=== PATIENT | female | born 2005 | race Caucasian/White ===

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

== ENCOUNTER 2024-08-15 14:45 | Outpatient (OUT) | payer OTHER, SELFPAY ==
[2024-08-15 17:01] LABS: HCG Quantitative <1 mIU/mL
== END 2024-08-15 14:46 | disposition home or self-care (01) ==
LOC: LAB 14:46
PROVIDERS: PCP Nurse Practitioner Family; Visit Provider Obstetrics & Gynecology
DX: N92.6 Irregular menstruation, unspecified (principal)
CPT/HCPCS: 36415; 84702

== ENCOUNTER 2025-07-03 12:23 | Outpatient (OUT) | payer OTHER, SELFPAY ==
--- OUTSIDE RECORDS SUMMARY | 2025-07-03 12:29 | XMS_ITS | Encounter Summary ---
Author Organization [facility] Address [address] [place] [address] Care Team Providers Care Drywall Taper Name Role Phone Unavailable Primary Care Provider Unavailabl e Encounter Details DateTypeDepartmentCare Team (Latest Contact Info)Geqbqamdvcj52/12/2025bstract [facility] [address] [place] [address] Deena Galloway, BRENNA [address] [place] [address] Social History Tobacco UseTypesPacks/DayYears UsedDateSmoking Tobacco: Never Assessed Estimated Date of IgsggfxuRwusfytgFzz35/05/2026ased on UltrasoundSex and Gender InformationValueDate RecordedSex Assigned at BirthNot on fileLegal SexFemale 10/26/2022 6:57 PM EDTGender IdentityNot on fileSexual OrientationNot on file documented as of this encounter Plan of Treatment DateTypeDepartmentCare Team (Latest Contact Info)Bsbqgkngedx91/25/2025 1:00 PM ESTAncillary Procedure [facility] [address] [place] [address] 07/08/2025 2:10 PM ESTRoutine [facility] [address] [place] [address] Ranjan Alas DO [address] [place] [address] documented as of this encounter Visit Diagnoses Not on filedocumented in this encounter
--- OUTSIDE RECORDS SUMMARY | 2025-07-03 12:29 | XMS_ITS | Patient Health Record ---
Author Organization [facility] in [place] Address [address] [place] [address] Care Team Providers Care Roentgenologist Name Role Phone Izabella Hicks Primary Care Provider [phone] Allergies Allergen (clinical drug ingredient) Drug/Non Drug Allergy documented on EMR Reaction Allergy Type Onset Date Status Penicillinchildhood allergyDrug AllergyActive Results Component Value Reference Range Notes PREG QUANT HCG Reviewed date:08/16/2024 10:20:57 AM Interpretation: Performing Lab: Notes/Report: [facility] , HCG Quantitative <1 15,000-200,000 6-8 WEEKS 100-5,000 2-3 WEEKS 500-10,000 3-4 WEEKS 1,000-50,000 4-5 WEEKS 50-500 1-2 WEEKS 5-50 0.2-1 WEEK 10,000-100,000 5-6 WEEKS 10,000-100,000 2-3 MONTHS Performing Lab:see noteML - [facility] LB Reason For Referral No Information Social History Tobacco Use: Social History Observation Description Date Details (start date - stop date) Never Smoker NA - NA Tobacco Use/Smoking Question Answer Notes Patient is a nonsmoker Alcohol Screen (Audit-C) Question Answer Notes Did you have a drink containing alcohol in the p ast year? No Eapzmm3FvhkyoeexghzdeGgdewiikOISSB-N (Standard) Question Answer Notes Did you have a drink containing alcohol in the p ast year? No Qehszt4IardbehsziterjYhuyirlp Problems Problem Type SNOMED Code ICD Code Onset Dates Problem Status W/U Status Risk Notes Problem Anxiety disorder (139402549) Anxiety diso rder, unspecified (F41.9) Activeconfirmed Plan Of Treatment No Information Insurance Providers Payer Name Payer Address Payer Phone Subscriber Number Group Number Insured Name Patient Relationship to Insured Coverage Start Date Coverage End Date [employer] [place] [employer] [address] [place] [phone] [id number] Pedro Georgeelf - patient is the insured Medical (General) History Surgical History Surgery Date(Month/Year) cyst removal from rt hand
--- OUTSIDE RECORDS SUMMARY | 2025-07-03 12:29 | XMS_ITS | Clinical Summary ---
Author Organization [facility] Address [address] [place] [address] Care Team Providers Care Business Administration Professor Name Role Phone Unavailable Primary Care Provider Unavailabl e Allergies Active AllergyReactionsCriticalityNoted DateCommentsPenicillin G004/04/2025 Other Reaction(s): childhood allergy Hlpreptbfia78/07/2021 Other Reaction(s): childhood allergy Unsure reaction; reaction as a baby Unsure reaction; reaction as a baby Medications No known medications Encounters DateTypeDepartmentCare VfrmSkaxhrkqboe08/12/2025bstract [facility] [address] [place] [address] Deena Galloway LPN 06/18/2025Patient Outreach [facility] [address] [place] [address] Deena Galloway LPN 06/09/2025 10:50 AM [place] [address] Deena Martinez PA 17 weeks gestation of ([facility]); Second trimester ([facility]); Acute intractable headache, unspecified headache type; Screening, , for anatomic survey ([facility]); Exposure to STD; Vaginal mvmoxonsd17/27/2025External Result Encounter [facility] Unsolicited Deena Martinez PA 06/09/2025amboo flowsheet [facility] [address] [place] [address] Deena Martinez PA 04/28/2025 1:40 PM EDTRoutine [facility] [place] [address] Ranjan Alas, 11 weeks gestation of ([facility]); First trimester ([facility]); Acute intractable headache, unspecified headache type04/28/2025amboo flowsheet [facility] [place] [address] Ranjan Alas, 04/04/2025 9:00 AM EDTInitial NOMAlana Hodges [facility] [place] [address] [place]: 7w5d04/04/2025 8:30 AM EDTAncillary Procedure NOMAlana [facility]ges [facility] [place] [address] Missed menses; Positive urine test ([facility])from Last 3 Months Family History Medical HistoryRelationNameCommentsMIFatherPost injury blood clot caused [place] Alzheimer's diseaseMaternal GrandmotherLupus erythematosusMaternal Grandmother Thyroid diseaseMotherRelationNameStatusCommentsFatherMaternal GrandmotherMother Social History Tobacco UseTypesPacks/DayYears UsedDateSmoking Tobacco: Never Assessed Estimated Date of QghcfdybEslivmeeLxt16/05/2026ased on UltrasoundSex and Gender InformationValueDate RecordedSex Assigned at BirthNot on fileLegal SexFemale 10/26/2022 6:57 PM EDTGender IdentityNot on fileSexual OrientationNot on file Last Filed Vital Signs Vital SignReadingTime TakenCommentsBlood Bbhmadjb668/6406/09/2025 10:55 AM EDT Pulse--Temperature--Respiratory Rate--Oxygen Saturation--Inhaled Oxygen Concentration--Ebkpyp78.9 kg (171 lb 12.8 oz)06/09/2025 10:55 AM CQIEsbkhw605.9 cm (5' 1 )01/16/2024 2:17 PM EDTBody Mass Index32.46001/16/2024 2:17 PM EDT Plan of Treatment DateTypeDepartmentCare Team (Latest Contact Info)Trkqaheijic61/25/2025 1:00 PM ESTAncillary Procedure [facility] [address] [place] [address] 07/08/2025 2:10 PM ESTRoutine [facility] [address] [place] [address] Ranjan Alas, DO [address] [place], [place] [id number] Procedures Procedure NamePriorityDate/TimeAssociated DiagnosisCommentsRECURRENT VAGINITIS (HTRX)Llqnysm6706/09/2025 11:50 AM EDT POCT URINALYSIS YGMUDHVTPwpvcqa91/27/2025 11:02 AM EDT 17 weeks gestation of ([facility]) Second trimester ([facility]) POCT URINALYSIS XAMUFKRGIvbeaxy26/15/2025 1:54 PM EDT 11 weeks gestation of ([facility]) First trimester ([facility]) POCT URINALYSIS AQMRCFAYNamleds78/22/2025 9:17 AM EDT Missed menses POCT , CTCIMSydrxio64/22/2025 9:17 AM EDT Missed menses OB RZUYWXDRPNEFGrajpzh25/22/2025 8:48 AM EDT Missed menses Positive urine test ([facility]) from Last 3 Months Results * RECURRENT VAGINITIS (HTRX) (06/09/2025 11:50 AM EDT)ComponentValueRef Range Test MethodAnalysis TimePerformed AtPathologist SignatureATOPOBIUM VAGINAE0 19.961 - 24.689 ppm06/10/2025 6:[address] Anthony HospitalATOPOBIUM VAGINAENot Wblpkgts16.961 - 24.689 ppm06/10/2025 6:[address] Anthony HospitalBVAB 2,3 (BACTERIAL VAGINOSIS ASSOCIATED BACTERIA 2, 3); MOBILUNCUS SPP 019.961 - 24.689 ppm06/10/2025 6:[address] Anthony HospitalBVAB 2,3 (BACTERIAL VAGINOSIS ASSOCIATED BACTERIA 2, 3); MOBILUNCUS SPPNot Detected 19.961 - 24.689 ppm06/10/2025 6:[address] Anthony HospitalCANDIDA ALBICANS, PARAPSILOSIS, FWAFWGKKGH105.000 - 30.347 ppm06/10/2025 6:52 AM EDT [facility] HospitalCANDIDA ALBICANS, PARAPSILOSIS, TROPICALISNot Detected 23.000 - 30.347 ppm06/10/2025 6:[address] Anthony HospitalCANDIDA WQXLFUUI206.000 - 31.618 ppm06/10/2025 6:[address] [facility] CHRYSTAL GLABRATANot Qjfmuegu51.000 - 31.618 ppm06/10/2025 6:52 AM EDT [facility] HospitalCANDIDA RTABOP576.000 - 30.873 ppm06/10/2025 6:[address] Anthony HospitalCANDIDA KRUSEINot Jcoojfgi40.000 - 30.873 ppm 06/10/2025 6:[address] Anthony HospitalCHLAMYDIA COTKWXXISQB408.000 - 31.586 ppm06/10/2025 6:[address] Anthony HospitalCHLAMYDIA TRACHOMATIS Not Ggzcaafa08.000 - 31.586 ppm06/10/2025 6:[address] GARDNERELLA GYICFOTJH190.961 - 24.689 ppm06/10/2025 6:[address] Anthony HospitalGARDNERELLA VAGINALISNot Frvcodld74.961 - 24.689 ppm06/10/2025 6:[address] Anthony HospitalMEGASPHAERA (TYPES 1, 2)019.961 - 24.689 ppm 06/10/2025 6:[address] Anthony HospitalMEGASPHAERA (TYPES 1, 2)Not Nrixuvyr43.961 - 24.689 ppm06/10/2025 6:[address] [address] [facility] NEISSERIA MHTYRQVZYTG218.000 - 32.587 ppm06/10/2025 6:[address] Anthony HospitalNEISSERIA GONORRHOEAENot Xchfptky91.000 - 32.587 ppm06/10/2025 6:[address] Anthony HospitalTRICHOMONAS ETPKGMYTR321.000 - 31.995 ppm 06/10/2025 6:[address] Anthony HospitalTRICHOMONAS VAGINALISNot Bhbjqvqg77.000 - 31.995 ppm06/10/2025 6:52 AM EDTHealth[facility]Rx at [facility] MYCOPLASMA MNHBDTTPAY899.961 - 24.689 ppm06/10/2025 6:[address] Anthony HospitalMYCOPLASMA GENITALIUMNot Ilmsocyp02.961 - 24.689 ppm06/10/2025 6:52 AM EDTHealthTrackRx at LabCamer[facility] Community HospitalSpecimen (Source)Anatomical Location / LateralityCollection Method / VolumeCollection TimeReceived TimeTissue 06/09/2025 11:50 AM EDT1 1:38 AM EDT Narrative Authorizing ProviderResult TypeResult StatusAmy [facility] BLOOD ORDERABLES Final ResultPerforming OrganizationAddressCity/State/ZIP CodePhone Number [facility] [address] [address] * (ABNORMAL) POCT urinalysis dipstick manually resulted (06/09/2025 11:02 AM EDT) Only the most recent of3 resultswithin the time period is included. ComponentValueRef RangeTest MethodAnalysis TimePerformed AtPathologist Signature Color, UAYellowClarity, UAClearGlucose, UANegativeNegative - 2000(110) ++++ mg/dLBilirubin, UANegativeNegative - 4(70) +++ mg/dLKetones, UANegativeNegative - 160(16) ++++ mg/dLSpec Grav, UA1.0151 - 1.03Blood, UANegativeNegative - 50 Fernando/mcLpH, UA8.05 - 9Protein, UAPositiveNegative - 2000(20) ++++ mg/dL Urobilinogen, UA1.00.2 - 12 mg/dLLeukocytes, UANegativeNegative - 500+++ Sidney/mcL Nitrite, UANegativeNegative - PositiveSpecimen (Source)Anatomical Location / LateralityCollection Method / VolumeCollection TimeReceived IlakVjeed35/27/2025 11:02 AM EDT Narrative Authorizing ProviderResult TypeResult StatusAmy Michelle PAPOINT OF CARE TEST ENTER/EDIT ORDERABLESFinal Result * (ABNORMAL) POCT , urine manually resulted (04/04/2025 9:17 AM EDT) ComponentValueRef RangeTest MethodAnalysis TimePerformed AtPathologist SignaturePreg Test, UrPositiveNegativeSpecimen (Source)Anatomical Location / LateralityCollection Method / VolumeCollection TimeReceived TimeUrine 04/04/2025 9:17 AM EDT Narrative Authorizing ProviderResult TypeResult StatusCorey Bishop DOPOINT OF CARE TEST ENTER/EDIT ORDERABLESFinal Result * US OB transvaginal (04/04/2025 8:48 AM EDT)Anatomical RegionLateralityModality BodyUltrasoundSpecimen (Source)Anatomical Location / LateralityCollection Method / VolumeCollection TimeReceived Time04/06/2025 8:22 AM EDT Narrative 04/06/2025 8:22 AM EDT EXAM: US OB TRANSVAGINAL HISTORY: ??Dating. COMPARISON: ?? None available. TECHNIQUE: Two-dimensional transvaginal grayscale ultrasound imaging of the pelvis was performed. Color Doppler evaluation of the ovaries was also performed. FINDINGS: The uterus demonstrates a normal homogeneous echotexture. ??The cervix measures 5.1 cm in length and the cervical os is closed. The right ovary measures 4.0 x 2.4 x 3.5 cm and demonstrates a normal echotexture. There is normal color Doppler flow. The left ovary measures 3.3 x 1.4 x 2.0 cm and demonstrates a normal echotexture. There is normal color Doppler flow. ??There is a presumed corpus luteal cyst. No fluid is present within the cul-de-sac. There is a single, live intrauterine gestation identified with a heart rate of 156 beats per minute and a crown-rump length measurement of 1.4 cm, correlating to a gestational age of 7 weeks 5 days (+/- 5 days). There is no subchorionic hemorrhage visualized. A yolk sac is visualized. IMPRESSION: 1. Single, live intrauterine gestation 11 weeks, 1 days by LMP. Today's ultrasound measurements correlate with a gestational age of 7 weeks 5 days (+/- 5 days). ??LEONIDES by today's ultrasound is 11/16/2025. 2. Normal color Doppler evaluation of the bilateral ovaries. Interpreted by: Electronically signed by CASEY BALDERAS II, ?? , PHD at 06-Apr-2025 08:20:39 AM [facility] Procedure Note Casey Balderas MD - 04/06/2025 EXAM: US OB TRANSVAGINAL HISTORY: Dating. COMPARISON: None available. TECHNIQUE: Two-dimensional transvaginal grayscale ultrasound imaging ofthe pelvis was performed. Color Doppler evaluation of the ovaries was alsoperformed. FINDINGS: The uterus demonstrates a normal homogeneous echotexture. The cervixmeasures 5.1 cm in length and the cervical os is closed. The right ovary measures 4.0 x 2.4 x 3.5 cm and demonstrates a normal echotexture. There is normal color Doppler flow. The left ovary measures 3.3 x 1.4 x 2.0 cm and demonstrates a normalechotexture. There is normal color Doppler flow. There is a presumedcorpus luteal cyst. No fluid is present within the cul-de-sac. There is a single, live intrauterine gestation identified with a fetalheart rate of 156 beats per minute and a crown-rump length measurement of1.4 cm, correlating to a gestational age of 7 weeks 5 days (+/- 5 days).There is no subchorionic hemorrhage visualized. A yolk sac isvisualized. IMPRESSION: 1. Single, live intrauterine gestation 11 weeks, 1 days by LMP. Today's ultrasound measurements correlate with a gestational age of 7 weeks 5 days(+/- 5 days). LEONIDES by today's ultrasound is 11/16/2025. 2. Normal color Doppler evaluation of the bilateral ovaries. Interpreted by: Electronically signed by CASEY BALDERAS II, MD, PHD [id number] 08:20:39 AM [facility] Authorizing ProviderResult TypeResult StatusCorey Bishop DOIMG OB US PROCEDURES Final Result from Last 3 Months Insurance
--- OUTSIDE RECORDS SUMMARY | 2025-07-03 12:40 | XMS_ITS | CCD ---
Author Organization [facility] Care Team Providers Care Electro Optical Engineer Name Role Phone Klenrenan, Darleen Unavailable Unavailable Klenke, Darleen Unavailable Unavailable AMBAR, DARLEEN A Unavailable Unavailable AMBAR DARLEEN A Unavailable Unavailable Deandre Teixeira Primary Care Provider [phone] DEMETRIA LOUISE Referring Unavailable DEANDRE TEIXEIRA Primary Care Unavailable DEMETRIA LOUISE Referring Unavailable DEANDRE TEIXEIRA Primary Care Unavailable DEMETRIA LOUISE Referring Unavailable DEANDRE TEIXEIRA Primary Care Unavailable DEMETRIA LOUISE Referring Unavailable DEANDRE TEIXEIRA Primary Care Unavailable Unavailable Primary Care Provider UnavailMadeleine Santiago Primary Care Provider MICHAEL LEWIS Admitting UnavailMICHAEL Weaver Attending UnavailMICHAEL Weaver Admitting UnavailMICHAEL Weaver Attending UnavailMADELEINE Santiago Primary Care Unavailable MADELEINE DUMONT Primary Care Unavailable MICHAEL LEWIS Attending UnavailMICHAEL Weaver Attending UnavailDR PHILL Clark Primary Care Unavailable CHUCK HOUSE Admitting Unavailable RENÉE MCGINNIS Consulting Unavailable CHUCK HOUSE Attending Unavailable ISRAEL STALLINGS Consulting Unavailable IZABELLA SERRANO Attending Unavailable IZABELLA SERRANO Admitting Unavailable ZACH, IZABELLA Primary Care Unavailable DR MARY CARMEN BRISCOE V Consulting Unavailable IZABELLA SERRANO Consulting Unavailable ZACH IZABELLA Primary Care Unavailable NNEKA SANCHEZ Attending Unavailable NNEKA SANCHEZ Admitting Unavailable NNEKA SANCHEZ Consulting Unavailable Izabella Flores Unavailable TIA CEDEÑO Attending Unavailable MADELEINE DUMONT Primary Care Unavailable DuganEllen ro Unavailable Unavailable Primary Care Provider UnavailRANJAN Holloway Attending Unavailable DEENA MARTINEZ Attending Unavailable Allergies Allergy ClassificationReported Allergen(s)Allergy TypeDate of OnsetReaction(s) Facility (1 source)PenicillinDrug Ufpyzpw00-26-8976NkbKind[facility] (3 sources)Penicillin VDrug [facility]ergyC[facility] Other (15 sources)PenicillinsDrug Yebtazcsnkw05-84-0990F[facility] (12 sources)Penicillin GDrug Wmdlnrw62-30-6854WFGF [facility] Medications Current Medications MedicationDrug Class(es)DatesSig (Normalized)Sig (Original)cephalexin 500 mg oral capsule (4 sources)Cephalosporin AntibacterialStart: 25-12-7116ajcb 1 capsule by mouth three times dailycephALEXin (KEFLEX) 500 MG capsule take 1 capsule by mouth three times a day for 7 days 0 10/21/2019 Jmucwa87 day ethinyl estradiol 0.514802 mg/hr / etonogestrel 0.005 mg/hr vaginal system (2 sources)Progestin, EstrogenStart: 05-14-2024 End: 24-87-0418ecwevjrkvkeu-ethinyl estradiol (NuvaRing) 0.12-0.015 MG/24HR vaginal ring Indications: Encounter for initial prescription of vaginal ring hormonal contraceptive Insert vaginally and leave in place for 21 consecutive days (3 weeks), then remove. Wait for 7 days before inserting new ring. 1 each 12 05/14/2024 04/04/2025 Discontinued (Other)ibuprofen 400 mg oral tablet (3 sources)Nonsteroidal Anti-inflammatory DrugStart: 05-11-2020 End: 86-38-9792zemc 1 tablet by mouth every four hours as neededibuprofen (ADVIL,MOTRIN) 400 MG tablet Take 1 (one) tablet (400 mg total) by mouth every 4 (four) hours as needed . 30 tablet 0 05/13/2020 06/12/2020 ActiveStart: 05-10-2020 End: 37-22-9538nqou 1 tablet by mouth every twenty-four hours as neededibuprofen (ADVIL,MOTRIN) tablet 800 mgmagnesium oxide 400 mg oral tablet (2 sources)Start: 04-28-2025 End: 01-41-1726vmti 1 tablet by mouth once dailymagnesium oxide (Mag-Ox) 400 MG tablet Indications: Acute intractable headache, unspecified headache type Take 1 tablet (400 mg) by mouth Daily 30 tablet 11 04/28/2025 05/28/2025 Active norethindrone 0.35 mg oral tablet (2 sources)Start: 01-16-2024 End: 55-59-7048mkqj 1 tablet by mouth once daily, then take 1 tablet by mouth once dailynorethindrone (Micronor) 0.35 MG tablet Indications: 6 weeks follow-up ([facility]) Take 1 tablet (0.35 mg) by mouth Daily Take 1 tablet by mouth daily 28 tablet 11 01/16/2024 04/04/2025 Discontinued (Other) nystatin 591464 unt/ml oral suspension (4 sources)Polyene AntifungalStart: 10-24-2019 End: 77-36-4462hahxwzfx (MYCOSTATIN) 337158 UNIT/ML suspension Take by mouth 4 times daily As needed 1 Bottle 1 10/24/2019 Activeprenatal vit no.922-mlqz-ftfvs ( Vitamin) 27 mg iron- 800 mcg Tab (2 sources)take 1 tablet by mouth at bedtimeprenatal vit no.229-mygx-kaepy ( Vitamin) 27 mg iron- 800 mcg Tab Take 1 tablet by mouth atbedtime . 0 ActivePrenatal Vit-Fe Fumarate-FA ( VITAMIN) 27-0.8 MG TABS (4 sources) Vit-Fe Fumarate-FA ( VITAMIN) 27-0.8 MG TABS Take 1 tablet by mouth 0 Activesertraline 50 mg oral tablet (2 sources)Serotonin Reuptake Inhibitortake 1 tablet by mouth once daily sertraline (Zoloft) 50 MG tablet take 1 tablet by mouth once daily for 30 DAYS 0 Active Completed/Discontinued Medications MedicationDrug Class(es)DatesSig (Normalized)Sig (Original)acetaminophen 325 mg oral tablet (1 source)Start: 05-11-2020 End: 80-79-0187ewbx 1 tablet by mouth every six hours as neededacetaminophen (TYLENOL) tablet 650 mgaluminum hydroxide 40 mg/ml / magnesium hydroxide 40 mg/ml / simethicone 4 mg/ml oral suspension (1 source)Start: 05-11-2020 End: 29-15-7014bpde 30 mL by mouth every four hours as neededaluminum-magnesium hydroxide-simethicone (MAALOX PLUS) 200-200-20 mg/5 mL suspension 30 mL ampicillin 1000 mg in sodium chloride (NS) 0.9% 100 mL MBP (1 source)Start: 05-11-2020 End: 14-23-9121nqwc 1000 mg intravenous route every four hoursampicillin 1000 mg in sodium chloride (NS) 0.9% 100 mL MBPampicillin 2000 mg in sodium chloride (NS) 0.9% 100 mL MBP (1 source)Start: 05-11-2020 End: 16-96-9018unbzkmbgfq 2000 mg in sodium chloride (NS) 0.9% 100 mL MBPaspirin 81 mg chewable tablet (5 sources)Platelet Aggregation Inhibitor, Nonsteroidal Anti-inflammatory Drug End: 48-44-6438qxkzrrm 81 mg chewable tablet Chew and Swallow daily . 0 05/13/2020 Discontinued (Stop Taking at Discharge)ASPIRIN 81 PO Take by mouth daily 0 Activeazithromycin 250 mg oral tablet (1 source)Macrolide AntimicrobialStart: 81-05-5298usjv 2 tablets by mouth every twenty-four hoursZithromax 250 MG 2 tablet Orally Once a day for 5 day(s) Nov, Not-Takingcalcium chloride 0.0014 meq/ml / potassium chloride 0.004 meq/ml / sodium chloride 0.103 meq/ml / sodium lactate 0.028 meq/ml injectable solution (1 source)Start: 05-10-2020 End: 25-27-0445rpweiywq Ringers infusioncitric acid 66.8 mg/ml / sodium citrate 100 mg/ml oral solution (1 source)Calculi Dissolution Agent, Anti-coagulantStart: 05-10-2020 End: 49-62-1293jzhb 30 mL by mouth every twenty-four hours as neededcitric acid- sodium citrate (BICITRA) solution 30 mLdiphenhydrAMINE (BENADRYL) oral solid 25 mg (1 source)Start: 05-11-2020 End: 87-65-1008yfpq 25 mg by mouth every six hours as neededdiphenhydrAMINE (BENADRYL) oral solid 25 mgdocusate sodium 100 mg oral capsule (1 source)Start: 05-11-2020 End: 86-63-2646lzhwmgvy sodium (COLACE) capsule 100 mgfamotidine 20 mg oral tablet (1 source)Histamine-2 Receptor Antagonisttake 1 tablet by mouth every twenty- four hoursPepcid 20 MG 1 tablet at bedtime Orally Once a day Not-Takingferrous sulfate 325 mg oral tablet (3 sources)Start: 05-11-2020 End: 68-23-9115uoirucf sulfate tablet 325 mgtake 1 tablet by mouth at bedtime Ferrous Sulfate (IRON PO) Take 1 tablet by mouth at bedtime. 0 Activeflu vacc dh4315-98 6mos up(PF) (FLUZONE QUAD/FLULAVAL QUAD/FLUARIX QUAD) syringe 0.5 mL (1 source)Start: 05-10-2020 End: 94-09-7878qgpcni 0.5 mL by intramuscular injection every twenty-four hours as neededflu vacc vd4065-54 6mos up(PF) (FLUZONE QUAD/FLULAVAL QUAD/FLUARIX QUAD) syringe 0.5 mL1 ml HYDROmorphone hydrochloride 1 mg/ml injection (1 source)Opioid AgonistStart: 05-10-2020 End: 99-65-1484yitb 1 mg intravenous route every two hours as needed HYDROmorphone (DILAUDID) injection 1 mg2 ml ondansetron 2 mg/ml injection (1 source)Serotonin-3 Receptor AntagonistStart: 05-10-2020 End: 15-11-6195qhag 4 mg intravenous route every six hours as neededondansetron (ZOFRAN) injection 4 mgoxytocin in lactated ringers (PITOCIN) 20 unit/1,000 mL infusion (2 sources)Start: 05-11-2020 End: 63-10-5942nfqtegpo in lactated ringers (PITOCIN) 20 unit/1,000 mL infusion Start: 05-10-2020 End: 33-52-6719wfrcbjym in lactated ringers (PITOCIN) 20 unit/1,000 mL infusion oxytocin in lactated ringers (PITOCIN) 20 unit/1,000 mL infusion - ADS Override Pull (1 source)Start: 05-11-2020 End: 06-53-7558stvespit in lactated ringers (PITOCIN) 20 unit/1,000 mL infusion - ADS Override Pullprenatal vitamin with Ca-Iron-FA 27-1 mg Tab (2 sources) End: 85-85-2355weqj 1 tablet by mouth once dailyprenatal vitamin with Ca-Iron-FA 27-1 mg Tab Take 1 tablet by mouth daily . 0 05/13/2020 Discontinued (Stop Taking at Discharge)take 1 tablet by mouth once dailyprenatal vitamin with Ca-Iron-FA 27-1 mg Tab Take 1 tablet by mouth daily . 0 Activeprenatal vitamin with Ca-Iron-FA tablet 1 tablet (1 source)Start: 05-11-2020 End: 28-78-2533qnqvclem vitamin with Ca-Iron-FA tablet 1 tabletrho(d) immune globulin (RHOPHYLAC) injection 300 mcg (1 source)Start: 05-11-2020 End: 98-61-6988urcktl 300 ug by intramuscular injection every twenty-four hours as neededrho(d) immune globulin (RHOPHYLAC) injection 300 mcgsimethicone 80 mg chewable tablet (1 source)Start: 05-11-2020 End: 60-62-6751eskjxdjjbpg (MYLICON) chewable tablet 80 ta0817 ml sodium chloride 9 mg/ml injection (1 source)Start: 05-11-2020 End: 39-56-8588hznqiu chloride 0.9% (NS)sodium chloride 0.9 % (NS) with ampicillin (OMNIPEN) - ADS Override Pull (1 source)Start: 05-11-2020 End: 06-04-6903yybetz chloride 0.9 % (NS) with ampicillin (OMNIPEN) - ADS Override Pullspinosad 9 mg/ml medicated shampoo (2 sources)PediculicideStart: 67-44-0868Kwngwjm 0.9 % 1 application Externally once, leave on 10 minutes then rinse, repeat in 7 days if needed for 2 days Apr, Not-Taking Problems Active Problems Problem ClassificationProblemDateDocumented DateEpisodic/ChronicAbdominal pain (10 sources)Generalized abdominal pain; Translations: [Right lower quadrant pain]Onset: 84-28-9723TnicnhfgMvcwcfla; including migraine (4 sources)Acute headache; Translations: [Acute intractable headache, unspecified headache type]95-92-2408GzymxuovDxmzounulorwj and screening for infectious disease (2 sources)Exposure to sexually transmissible disorder; Translations: [Contact with and (suspected) exposure to infections with a predominantly sexual mode of transmission]97-06-8055SaibozhsAchrhbzkt disorders (5 sources)Amenorrhea; Translations: [Missed period]Onset: ChronicNausea and vomiting (4 sources)Nausea with vomiting, unspecified; Translations: [NAUSEA WITH VOMITING UNSPECIFIED]Onset: 93-87-0098PfqivbzhEccyv complications of (2 sources)Excessive growth affecting management of mother; Translations: [Maternal care for excessive growth, third trimester, not applicable or unspecified]78-13-1462BavlokbyDtjkd female genital disorders (2 sources)Vaginal discharge; Translations: [Other specified noninflammatory disorders of vagina]25-21-4411XhuuzlarKvajx gastrointestinal disorders (1 source)Diarrhea, unspecified; Translations: [DIARRHEA UNSPECIFIED]Onset: 16-40-0098EsnlgffoDzdem infections; including parasitic (1 source)Pediculosis due to Pediculus humanus capitisEpisodicOther and delivery including normal (16 sources)Urine test positive; Translations: [Normal ] Onset: 359016-44-7668LhecvhvkXldmu screening for suspected conditions (not mental disorders or infectious disease) (2 sources)Patient encounter status; Translations: [Encounter for other specified screening]91-64-2923BwmkxeggYhums upper respiratory infections (3 sources)Acute pharyngitis, unspecified; Translations: [Acute upper respiratory infection, unspecified]Onset: 11-02-2021 Resolved: 14-57-3155IbhcqiweUuydouqp codes; unclassified (2 sources)Gestation period, 11 weeks; Translations: [11 weeks gestation of ]74-05-7665NjbeveyeGfcowndv codes; unclassified (2 sources)Gestation period, 17 weeks; Translations: [17 weeks gestation of ]52-86-9933Kqblusrv Past or Other Problems Problem ClassificationProblemDateDocumented DateEpisodic/ChronicDiabetes or abnormal glucose tolerance complicating ; childbirth; or the puerperium (1 source)Impaired glucose tolerance in ; Translations: [Impaired glucose in , antepartum]EpisodicResidual codes; unclassified (1 source)Gestation period, 28 weeks; Translations: [28 weeks gestation of ]EpisodicUnclassified (1 source)Contact with and (suspected) exposure to covid-19 Z20.822Viral infection (4 sources)Plane wart; Translations: [Chau planmeño]Onset: Episodic Results Test NameValueInterpretationReference RangeFacilityRECURRENT VAGINITIS (HTRX)on 74-09-1816INXRHJMQD PYLNIUH4MTYF HealthcareATOPOBIUM VAGINAENot detectedNOMS HealthcareBVAB 2,3 (BACTERIAL VAGINOSIS ASSOCIATED BACTERIA 2, 3); MOBILUNCUS FKR6HPYB HealthcareBVAB 2,3 (BACTERIAL VAGINOSIS ASSOCIATED BACTERIA 2, 3); MOBILUNCUS SPPNot detectedNOMS HealthcareCANDIDA ALBICANS, PARAPSILOSIS, VWMTWHSDTN1HAYD HealthcareCANDIDA ALBICANS, PARAPSILOSIS, TROPICALISNot detected N[facility]S HealthcareCANDIDA VNSDHOKW6UMKJ HealthcareCANDIDA GLABRATANot detectedNOMS HealthcareCANDIDA NRWSAW5RCMW HealthcareCANDIDA KRUSEINot detectedNOMS HealthcareCHLAMYDIA RFKKINPVCRF8CBRI HealthcareCHLAMYDIA TRACHOMATISNot detected [facility] HealthcareGARDNERELLA QCNQPJTWG5CSLG HealthcareGARDNERELLA VAGINALISNot detectedNOMS HealthcareMEGASPHAERA (TYPES 1, 2)0NOMS HealthcareMEGASPHAERA (TYPES 1, 2)Not detectedNOMS HealthcareMYCOPLASMA TBMOEYPKAN5QWFV Healthcare MYCOPLASMA GENITALIUMNot detectedNOMS HealthcareNEISSERIA PVBSMJINDBV4BDXG HealthcareNEISSERIA GONORRHOEAENot detectedNOMS HealthcareTRICHOMONAS VAGINALIS0 NOMS HealthcareTRICHOMONAS VAGINALISNot detectedNOMS HealthcareNOMS Healthcare Urinalysis macro (dipstick) panel (U)on 91-71-0827Ugulvytqh, UANegativeNegative - 4(70) +++ mg/dLNOMS HealthcareBlood, UANegativeNegative - 50 Fernando/mcLNOMS HealthcareClarity, UAClearNOMS HealthcareColor, UAYellowNOMS HealthcareGlucose, UANegativeNegative - 2000(110) ++++ mg/dLNOMS HealthcareInterpretation and review of laboratory resultsAbnormalNOMS HealthcareKetones, UANegativeNegative - 160(16) ++++ mg/dLNOMS HealthcareLeukocytes, UANegativeNegative - 500+++ Sidney/mcL NOMS HealthcareNitrite, UANegativeNegative - PositiveNOMS HealthcarepH, UA8.05 - 9NOMS HealthcareProtein, UAPositiveNegative - 2000(20) ++++ mg/dLNOMS Healthcare Spec Grav, UA1.0151 - 1.03NOMS HealthcareUrobilinogen, UA1.00.2 - 12 mg/dLNOMS HealthcareNOMS HealthcareUrinalysis macro (dipstick) panel (U)on 04-28-2025 Bilirubin, UANegativeNegative - 4(70) +++ mg/dLNOMS HealthcareBlood, UANegative Negative - 50 Fernando/mcLNOMS HealthcareClarity, UAClearNOMS HealthcareColor, UA YellowNOMS HealthcareGlucose, UANegativeNegative - 2000(110) ++++ mg/dLNOMS HealthcareInterpretation and review of laboratory resultsAbnormalNOMS Healthcare Ketones, UANegativeNegative - 160(16) ++++ mg/dLNOMS HealthcareLeukocytes, UA PositiveNegative - 500+++ Sidney/mcLNOMS HealthcareNitrite, UANegativeNegative - PositiveNOMS HealthcarepH, UA65 - 9NOMS HealthcareProtein, UAPositiveNegative - 2000(20) ++++ mg/dLNOMS HealthcareSpec Grav, UA1.0251 - 1.03NOMS Healthcare Urobilinogen, UA1.00.2 - 12 mg/dLNOMS HealthcareNOMS HealthcareHCG ( test) Ql (U)on 00-78-4716Udbhdbkzqryaka and review of laboratory resultsAbnormal NOMS HealthcarePreg Test, UrPositiveNegativeNOMS HealthcareNOMS HealthcareUS OB TRANSVAGINALon 52-85-4281EV OB TRANSVAGINALEXAM: US OB TRANSVAGINAL HISTORY: Dating. COMPARISON: None available. TECHNIQUE: Two-dimensional transvaginal grayscale ultrasound imaging of the pelvis was performed. Color Doppler evaluation of the ovaries was also performed. FINDINGS: The uterus demonstrates a normal homogeneous echotexture. The cervix measures 5.1 cm in length and the cervical os is closed. The right ovary measures 4.0 x 2.4 x 3.5 cm and demonstrates a normal echotexture. There is normal color Doppler flow. The left ovary measures 3.3 x 1.4 x 2.0 cm and demonstrates a normal echotexture. There is normal color Doppler flow. There is a presumed corpus luteal cyst. No [...] 7 weeks 5 days (+/- 5 days). LEONIDES by today's ultrasound is 11/16/2025. 2. Normal color Doppler evaluation of the bilateral ovaries. Interpreted by: Electronically signed by CASEY BALDERAS II, MD, PHD at 06-Apr-2025 08:20:39 AM [facility] TeleradiologyNormalNot AvailableComment on above:Order Comment: US OB TRANSVAGINAL No LMP recorded.Urinalysis macro (dipstick) panel (U)on 86-62-4017Lgkmuvtkw, UA NegativeNegative - 4(70) +++ mg/dLNOMS HealthcareBlood, UANegativeNegative - 50 Fernando/mcLNOMT HealthcareClarity, UAClearNOMT HealthcareColor, UAYellowNOMT HealthcareGlucose, UANegativeNegative - 1999(110) ++++ mg/dLNOMT Healthcare Interpretation and review of laboratory resultsAbnormalNOMT HealthcareKetones, UANegativeNegative - 160(16) ++++ mg/dLNOMT HealthcareLeukocytes, UANegative Negative - 500+++ Sidney/mcLNOMT HealthcareNitrite, UANegativeNegative - Positive NOMS HealthcarepH, UA8.55 - 9NOMS HealthcareProtein, UAPositiveNegative - 2000(20) ++++ mg/dLNOMS HealthcareSpec Grav, UA1.011 - 1.03NOMS Healthcare Urobilinogen, UA1.00.2 - 12 mg/dLNOMS HealthcareNOMS HealthcareTBH PREG QUANT HCGon 32-31-2148RQM QUANTITATIVE<1mIU/mLNOMS HealthcareComment on above:5-50 0.2-1 WEEK 50-500 1-2 WEEKS 100-5,000 2-3 WEEKS 500-10,000 3-4 WEEKS 1,000-50,000 4-5 WEEKS 10,000-100,000 5-6 WEEKS 15,000-200,000 6-8 WEEKS 10,000-100,000 2-3 MONTHS CLINISYNCNOMS HealthcareUS OB GROWTHon 86-46-8329FdcV[place] [address] Ultrasound Report Signed Patient: SHAUN GEORGE MR#: [id number] : 2005 Acct:[id number] Age/Sex: 18 / F ADM Date: 10/12/23 Loc: [facility] Attending Dr: Ranjan Alas D.O. Ordering Physician: Ranjan Alas D.O. Date of Service: 10/12/23 Procedure(s): US OB growth Accession Number(s): [id number] cc: IZABELLA HANNA ; Ranjan Alas D.O. [address] [address] Patient Name: SHAUN GEORGE MRN: [id number] date: 2005 Sex: F Assigned Patient Location: [facility] Current Patient Location: [facility] Accession/Order Number: [id number] Exam Date: 10/12/2023 08:52 Report Date: 10/12/2023 09:42 At the request of: RANJAN ALAS Procedure: US OB growth EXAMINATION: US OB growth HISTORY: SGA COMPARISON: 08/25/2023 FINDINGS: Heart Rate: 130.0 bpm Amniotic Fluid Volume: 13.3 cm Number: 1.0 Position: Cephalic presentation, longitudinal lie Maximum Vertical Pocket: 3.5 cm cm 2.2 cm cm 4.3 cm cm 3.3 cm cm BIOMETRY: BPD: 7.8 cm cm; 31 weeks 2 days; 26% HC: 28.3 cmcm; 31 weeks 0 days , 6% AC: 28.1 cm cm; 32 weeks 1 days, 62% FL: 6.2 cm cm; 32 weeks 0 days; 44.4 % % EFW: 1863.0 grams, 4 lbs. 2 oz., 45% FL/AC: 21.9 FL/BPD: 79.3 HC/AC: 1.0 GESTATIONAL AGE: Age by EDC: 31 weeks 5 days LEONIDES by EDC: 12/09/2023 Age by US: 31 weeks 2 days LEONIDES by US: 12/12/2023 US/US OB growth IMPRESSION: Head circumference at the 6th percentile, otherwise normal interval growth Electronically authenticated by: MARY CARMEN BRISCOE Date: 10/12/2023 09:42 Dictated By: Mary Carmen Briscoe M.D. Signed By: 10/12/23943 DD/ 1 TD/TT: Management Liaison:TBHRadiology, Radiologist, - 10/18/2023 [place] [address] Ultrasound Report Signed Patient: SHAUN GEORGE MR#: [id number] : 2005 Acct:[id number] Age/Sex: 18 / F ADM Date: 10/12/23 Loc: [facility] Attending Dr: Ranjan Alas D.O. Ordering Physician: Ranjan Alas D.O. Date of Service: 10/12/23 Procedure(s): US OB growth Accession Number(s): [id number] cc: IZABELLA HANNA ; Ranjan Alas D.O. The [place] [address] Patient Name: SHAUN GEORGE MRN: [id number] date: 2005 Sex: F Assigned Patient [facility] Current Patient Location: [facility] Accession/Order Number: [id number] Exam Date: 10/12/2023 08:52 Report Date: 10/12/2023 09:42 At the request of: RANJAN ALAS Procedure: US OB growth EXAMINATION: US OB growth HISTORY: SGA COMPARISON: 08/25/2023 FINDINGS: Heart Rate: 130.0 bpm Amniotic Fluid Volume: 13.3 cm Number: 1.0 Position: Cephalic presentation, longitudinal lie Maximum Vertical Pocket: 3.5 cm cm 2.2 cm cm 4.3 cm cm 3.3 cm cm BIOMETRY: BPD: 7.8 cm cm; 31 weeks 2 days; 26% HC: 28.3 cmcm; 31 weeks 0 days , 6% AC: 28.1 cm cm; 32 weeks 1 days, 62% FL: 6.2 cm cm; 32 weeks 0 days; 44.4 % % EFW: 1863.0 grams, 4 lbs. 2 oz., 45% FL/AC: 21.9 FL/BPD: 79.3 HC/AC: 1.0 GESTATIONAL AGE: Age by EDC: 31 weeks 5 days LEONIDES by EDC: 12/09/2023 Age by US: 31 weeks 2 days LEONIDES by US: 12/12/2023 US/US OB growth IMPRESSION: Head circumference at the 6th percentile, otherwise normal interval growth Electronically authenticated by: MARY CARMEN BRISCOE Date: 10/12/2023 09:42 Dictated By: Mary Carmen Briscoe M.D. Signed By: 10/12/2344 DD/ 1 TD/TT: Management Liaison: LIONEL HealthcareRadiology Study observation (narrative)[facility] HospitalUS OB GROWTHOrdered By: Radiologist Radiology on 01-38-9437FAYAHermann Area District Hospital Work Phone: Urinalysis macro (dipstick) panel (U)on 09-28-2023 Bilirubin, UANegativeNegative - 4(70) +++ mg/dLNOMT HealthcareBlood, UANegative Negative - 50 Fernando/mcLNOMT HealthcareClarity, UAClearNOMS HealthcareColor, UA YellowNOMS HealthcareGlucose, UANegativeNegative - 2000(110) ++++ mg/dLNOMT HealthcareInterpretation and review of laboratory resultsAbnormalNOMT Healthcare Ketones, UANegativeNegative - 160(16) ++++ mg/dLNOMT HealthcareLeukocytes, UA PositiveNegative - 500+++ Sidney/mcLNOMS HealthcareNitrite, UANegativeNegative - PositiveNOMS HealthcarepH, UA7.55 - 9NOMS HealthcareProtein, UAPositiveNegative - 2000(20) ++++ mg/dLNOMS HealthcareSpec Grav, UA1.0251 - 1.03NOMS Healthcare Urobilinogen, UA1.00.2 - 12 mg/dLNOMS HealthcareNOMS HealthcareUS OB GROWTHon 88-83-8700[address] [address] Ultrasound Report Signed Patient: SHAUN GEORGE MR#: [id number] : 2005 Acct:[id number] Age/Sex: 17 / F ADM Date: 08/25/23 Loc: US Attending Dr: Ranjan Alas D.O. Ordering Physician: Ranjan Alas D.O. Date of Service: 08/25/23 Procedure(s): US OB growth Accession Number(s): [id number] cc: IZABELLA HANNA ; Ranjan Alas D.O. The [address] [address] Patient Name: SHAUN GEORGE MRN: [id number] date: 2005 Sex: F Assigned Patient Location: US Current Patient Location: US Accession/Order Number: [id number] Exam Date: 08/25/2023 13:50 Report Date: 08/25/2023 14:31 At the request of: RANJAN ALAS Procedure: US OB growth EXAMINATION: US OB growth HISTORY: Small For Gestational Age P05.10 COMPARISON: No relevant comparison available. FINDINGS: Heart Rate: 136.4 bpm Amniotic Fluid Volume: 15.5 cm Number: 1.0 Position: Cephalic presentation, longitudinal lie Maximum Vertical Pocket: 3.9 cm cm 2.8 cm cm 3.9 cm cm 4.9 cm cm BIOMETRY: BPD: 6.0 cm cm; 24 weeks 2 days; 23% HC: 22.4 cmcm; 24 weeks 3 days , 17% AC: 19.8 cm cm; 24 weeks 3 days, 28% FL: 4.4 cm cm; 24 weeks 4 days; 27.1 % % EFW: 700.4 grams, 1 lb 9 oz, 25% FL/AC: 22.3 FL/BPD: 74.2 HC/AC: 1.1 GESTATIONAL AGE: Age by EDC: 24 weeks 6 days LEONIDES by EDC: 12/09/23 Age by US: 24 weeks 3 days LEONIDES by US: 12/12/23 US/US OB growth IMPRESSION: Normal anatomy scan Electronically authenticated by: MARY CARMEN BRISCOE Date: 08/25/2023 14:31 Dictated By: Mary Carmen Briscoe M.D. Signed By: 08/25/231433 DD/ 30 TD/TT: Management Liaison:TBHRadiology, Radiologist, MD - 08/26/2023 [place] [address] Ultrasound Report Signed Patient: SHAUN GEORGE MR#: [id number] : 2005 Acct:[id number] Age/Sex: 17 / F ADM Date: 08/25/23 Loc: US Attending Dr: Ranjan Alas D.O. Ordering Physician: Ranjan Alas D.O. Date of Service: 08/25/23 Procedure(s): US OB growth Accession Number(s): [id number] cc: IZABELLA HANNA ; Ranjan Alas D.O. The [place] [address] Patient Name: SHAUN GEORGE MRN: [id number] date: 2005 Sex: F Assigned Patient Location: US Current Patient Location: US Accession/Order Number: [id number] Exam Date: 08/25/2023 13:50 Report Date: 08/25/2023 14:31 At the request of: RANJAN ALAS Procedure: US OB growth EXAMINATION: US OB growth HISTORY: Small For Gestational Age P05.10 COMPARISON: No relevant comparison available. FINDINGS: Heart Rate: 136.4 bpm Amniotic Fluid Volume: 15.5 cm Number: 1.0 Position: Cephalic presentation, longitudinal lie Maximum Vertical Pocket: 3.9 cm cm 2.8 cm cm 3.9 cm cm 4.9 cm cm BIOMETRY: BPD: 6.0 cm cm; 24 weeks 2 days; 23% HC: 22.4 cmcm; 24 weeks 3 days , 17% AC: 19.8 cm cm; 24 weeks 3 days, 28% FL: 4.4 cm cm; 24 weeks 4 days; 27.1 % % EFW: 700.4 grams, 1 lb 9 oz, 25% FL/AC: 22.3 FL/BPD: 74.2 HC/AC: 1.1 GESTATIONAL AGE: Age by EDC: 24 weeks 6 days LEONIDES by EDC: 12/09/23 Age by US: 24 weeks 3 days LEONIDES by US: 12/12/23 US/US OB growth IMPRESSION: Normal anatomy scan Electronically authenticated by: MARY CARMEN BRISCOE Date: 08/25/2023 14:31 Dictated By: Mary Carmen Briscoe M.D. Signed By: 08/25/231433 DD/ 30 TD/TT: Management Liaison: [facility] HealthcareRadiology Study observation (narrative)[facility] HealthcareUS OB GROWTHOrdered By: Radiologist Radiology on [id number] Work Phone: no Panel InformationOrdered By: Radiologist Radiology on [id number] Work Phone: no Panel Informationon [id number] Study observation (narrative)[facility] HealthcareUS OB ANATOMYon [id number], [place] [address] Ultrasound Report Signed Patient: SHAUN GEORGE MR#: [id number] : 2005 Acct:[id number] Age/Sex: 17 / F ADM Date: 07/25/23 Loc: US Attending Dr: Ranjan Alas D.O. Ordering Physician: Ranjan Alas D.O. Date of Service: 07/25/23 Procedure(s): US OB anatomy Accession Number(s): [id number] cc: IZABELLA HANNA ; Ranjan Alas D.O. The [address] [address] Patient Name: SHAUN GEORGE MRN: [id number] date: 2005 Sex: F Assigned Patient Location: US Current Patient Location: US Accession/Order Number: [id number] Exam Date: 07/25/2023 09:05 Report Date: 07/25/2023 11:17 At the request of: RANJAN ALAS Procedure: US OB anatomy PROCEDURE: US OB anatomy, US OB cervical length HISTORY: ANATOMY COMPARISON: 05/11/2023. TECHNIQUE: Transabdominal sonographic examination was performed for obstetrical and evaluation. FINDINGS: Number: 1 Heart Rate: 153.0 bpm H.B. /min Amniotic Fluid Volume: Subjectively normal Placental Location: POSTERIOR , grade one, placental edge 5.4 cm from the internal os Cervix Length: 5.1 cm, closed Normal anatomy: Lateral ventricles, cerebellum, posterior fossa, nose, lips, orbits, four-chamber heart, RVOT, LVOT, diaphragm, stomach, kidneys, abdominal cord insertion, bladder, umbilical cord arteries, three-vessel spine, extremities BIOMETRY: BPD: 4.1 cm 18 weeks 4 days , <3% HC: 16.2 cm 19 weeks 0 days , <3% AC:14.5 cm 19 weeks 6 days , 25% FL: 3.4 cm 20 weeks 5 days ,50% EFW: 327.3 grams 12 oz, 24% FL/AC: 23.4 FL/BPD: 82.1 HC/AC: 1.1 GESTATIONAL AGE: Age by EDC: 20 weeks 3 days LEONIDES by EDC: 12/09/2023 Ultrasound Age: 19 weeks 4 days Ultrasound LEONIDES: 12/15/2023 US/US OB anatomy IMPRESSION: BPD and head circumference less than 3rd percentile, otherwise normal anatomy scan Closed cervix measuring 5.1 cm in length *Reference: [employer]UM Practice Guideline for the performance of Obstetric Ultrasound Examinations, May 14, 2007. Electronically authenticated by: MARY CARMEN BRISCOE Date: 07/25/2023 11:17 Dictated By: Mary Carmen rBiscoe M.D. Signed By: 07/25/23 1120 DD/ 1117 TD/TT: Management Liaison:TBHRadiology, Radiologist, - 07/25/2023 [place] [address] Ultrasound Report Signed Patient: SHAUN GEORGE MR#: [id number] : 2005 Acct:[id number] Age/Sex: 17 / F ADM Date: 07/25/23 Loc: US Attending Dr: Ranjan Alas D.O. Ordering Physician: Ranjan Alas D.O. Date of Service: 07/25/23 Procedure(s): US OB anatomy Accession Number(s): [id number] cc: IZABELLA HANNA ; Ranjan Alas D.O. [place] [id number] Patient Name: SHAUN GEORGE MRN: [id number] date: 2005 Sex: F Assigned Patient Location: US Current Patient Location: US Accession/Order Number: [id number] Exam Date: 07/25/2023 09:05 Report Date: 07/25/2023 11:17 At the request of: RANJAN ALAS Procedure: US OB anatomy PROCEDURE: US OB anatomy, US OB cervical length HISTORY: ANATOMY COMPARISON: 05/11/2023. TECHNIQUE: Transabdominal sonographic examination was performed for obstetrical and evaluation. FINDINGS: Number: 1 Heart Rate: 153.0 bpm H.B. /min Amniotic Fluid Volume: Subjectively normal Placental Location: POSTERIOR , grade one, placental edge 5.4 cm from the internal os Cervix Length: 5.1 cm, closed Normal anatomy: Lateral ventricles, cerebellum, posterior fossa, nose, lips, orbits, four-chamber heart, RVOT, LVOT, diaphragm, stomach, kidneys, abdominal cord insertion, bladder, umbilical cord arteries, three-vessel spine, extremities BIOMETRY: BPD: 4.1 cm 18 weeks 4 days , <3% HC: 16.2 cm 19 weeks 0 days , <3% AC:14.5 cm 19 weeks 6 days , 25% FL: 3.4 cm 20 weeks 5 days ,50% EFW: 327.3 grams 12 oz, 24% FL/AC: 23.4 FL/BPD: 82.1 HC/AC: 1.1 GESTATIONAL AGE: Age by EDC: 20 weeks 3 days LEONIDES by EDC: 12/09/2023 Ultrasound Age: 19 weeks 4 days Ultrasound LEONIDES: 12/15/2023 US/US OB anatomy IMPRESSION: BPD and head circumference less than 3rd percentile, otherwise normal anatomy scan Closed cervix measuring 5.1 cm in length *Reference: [employer]UM Practice Guideline for the performance of Obstetric Ultrasound Examinations, May 14, 2007. Electronically authenticated by: MARY CARMEN BRISCOE Date: 07/25/2023 11:17 Dictated By: Mary Carmen Briscoe M.D. Signed By: 07/25/23 1120 DD/ 1117 TD/TT: Management Liaison: LIONEL Huitron OB CERVICAL LENGTHon [id number], [place] [address] Ultrasound Report Signed Patient: SHAUN GEORGE MR#: [id number] : 2005 Acct:[id number] Age/Sex: 17 / F ADM Date: 07/25/23 Loc: US Attending Dr: Ranjan Alas D.O. Ordering Physician: Ranjan Alas D.O. Date of Service: 07/25/23 Procedure(s): US OB cervical length Accession Number(s): [id number] cc: IZABELLA HANNA ; Rajnan Alas D.O. [place] [address] Patient Name: SHAUN GEORGE MRN: [id number] date: 2005 Sex: F Assigned Patient Location: Current Patient Location: Accession/Order Number: [id number] Exam Date: 07/25/2023 09:05 Report Date: 07/25/2023 11:17 At the request of: RANJAN ALAS Procedure: US OB cervical length PROCEDURE: US OB anatomy, US OB cervical length HISTORY: ANATOMY COMPARISON: 05/11/2023. TECHNIQUE: Transabdominal sonographic examination was performed for obstetrical and evaluation. FINDINGS: Number: 1 Heart Rate: 153.0 bpm H.B. /min Amniotic Fluid Volume: Subjectively normal Placental Location: POSTERIOR , grade one, placental edge 5.4 cm from the internal os Cervix Length: 5.1 cm, closed Normal anatomy: Lateral ventricles, cerebellum, posterior fossa, nose, lips, orbits, four-chamber heart, RVOT, LVOT, diaphragm, stomach, kidneys, abdominal cord insertion, bladder, umbilical cord arteries, three-vessel spine, extremities BIOMETRY: BPD: 4.1 cm 18 weeks 4 days , <3% HC: 16.2 cm 19 weeks 0 days , <3% AC:14.5 cm 19 weeks 6 days , 25% FL: 3.4 cm 20 weeks 5 days ,50% EFW: 327.3 grams 12 oz, 24% FL/AC: 23.4 FL/BPD: 82.1 HC/AC: 1.1 GESTATIONAL AGE: Age by EDC: 20 weeks 3 days LEONIDES by EDC: 12/09/2023 Ultrasound Age: 19 weeks 4 days Ultrasound LEONIDES: 12/15/2023 US/US OB cervical length IMPRESSION: BPD and head circumference less than 3rd percentile, otherwise normal anatomy scan Closed cervix measuring 5.1 cm in length *Reference: AIUM Practice Guideline for the performance of Obstetric Ultrasound Examinations, May 14, 2007. Electronically authenticated by: MARY CARMEN BRISCOE Date: 07/25/2023 11:17 Dictated By: Mary Carmen Briscoe M.D. Signed By: 07/25/23 1120 DD/ 1117 TD/TT: Management Liaison:TBHRadiology, Radiologist, MD - 07/25/2023 [place] [address] Ultrasound Report Signed Patient: SHAUN GEORGE MR#: [id number] : 2005 Acct:[id number] Age/Sex: 17 / F ADM Date: 07/25/23 Loc: US Attending Dr: Ranjan Alas D.O. Ordering Physician: Ranjan Alas D.O. Date of Service: 07/25/23 Procedure(s): US OB cervical length Accession Number(s): [id number] cc: IZABELLA HANNA ; Ranjan Alas D.O. The [place] [id number] Patient Name: SHAUN GEORGE MRN: [id number] date: 2005 Sex: F Assigned Patient Location: US Current Patient Location: US Accession/Order Number: [id number] Exam Date: 07/25/2023 09:05 Report Date: 07/25/2023 11:17 At the request of: RANJAN ALAS Procedure: US OB cervical length PROCEDURE: US OB anatomy, US OB cervical length HISTORY: ANATOMY COMPARISON: 05/11/2023. TECHNIQUE: Transabdominal sonographic examination was performed for obstetrical and evaluation. FINDINGS: Number: 1 Heart Rate: 153.0 bpm H.B. /min Amniotic Fluid Volume: Subjectively normal Placental Location: POSTERIOR , grade one, placental edge 5.4 cm from the internal os Cervix Length: 5.1 cm, closed Normal anatomy: Lateral ventricles, cerebellum, posterior fossa, nose, lips, orbits, four-chamber heart, RVOT, LVOT, diaphragm, stomach, kidneys, abdominal cord insertion, bladder, umbilical cord arteries, three-vessel spine, extremities BIOMETRY: BPD: 4.1 cm 18 weeks 4 days , <3% HC: 16.2 cm 19 weeks 0 days , <3% AC:14.5 cm 19 weeks 6 days , 25% FL: 3.4 cm 20 weeks 5 days ,50% EFW: 327.3 grams 12 oz, 24% FL/AC: 23.4 FL/BPD: 82.1 HC/AC: 1.1 GESTATIONAL AGE: Age by EDC: 20 weeks 3 days LEONIDES by EDC: 12/09/2023 Ultrasound Age: 19 weeks 4 days Ultrasound LEONIDES: 12/15/2023 US/US OB cervical length IMPRESSION: BPD and head circumference less than 3rd percentile, otherwise normal anatomy scan Closed cervix measuring 5.1 cm in length *Reference: AIUM Practice Guideline for the performance of Obstetric Ultrasound Examinations, May 14, 2007. Electronically authenticated by: MARY CARMEN BRISCOE Date: 07/25/2023 11:17 Dictated By: Mary Carmen Briscoe M.D. Signed By: 07/25/23 1120 DD/ 1117 TD/TT: Management Liaison: LIONEL TslyhqfespASTB-KdC-8 (COVID-19) RNA MARIO+probe Ql (Resp)on 06-24-2022 SARS-CoV-2 (COVID-19) RNA MARIO+probe Ql (Unsp spec)[facility]ly [facility] CenterIris Experience Other ER URINE PROFILEon 28-51-2774Spspwvbbv Ql (U)Negative NormalNEGATIVEKindred Hospital LimaComment on above:Performed By: #### ERUR, PREGU, UMICRO #### [facility] [address] [address] [address] Willie Dela CruzClarity (U)CLEARNormalCLEARKindred Hospital LimaComment on above: Performed By: #### ERUR, PREGU, UMICRO #### [facility] [address] [address] [address] Willie Cerdalor (U)YELLOWNormalYELLOWKindred Hospital LimaComment on above: Performed By: #### ERUR, PREGU, UMICRO #### [facility] [address] [address] [address] Jackson micrscopic examination will be performed if indicated. NormalKindred Hospital LimaComment on above:Performed By: #### ERUR, PREGU, UMICRO #### [facility] [address] [address] [address] Willie Dela CruzGlucose Ql (U)NegativeNormalNEGATIVEKindred Hospital LimaComment on above:Performed By: #### ERUR, PREGU, UMICRO #### [facility] [address] [place] [address] Dr. Willie Dela CruzHemoglobin Ql (U)NegativeNormalNEGATIVECleveland Clinic Mentor Hospital on above:Performed By: #### ERUR, PREGU, UMICRO #### [facility] [address] [address] [address] Willie Dela CruzKetones Ql (U)NegativeNormalNEGATIVEKindred Hospital LimaComment on above:Performed By: #### ERUR, PREGU, UMICRO #### [facility] [address] [address] [address] Willie Dela CruzLEUKOCYTESTRACEAbnormalNEGATIVEKindred Hospital LimaComment on above:Performed By: #### ERUR, PREGU, UMICRO #### [facility] [address] [address] [address] Willie Gaona Ql (U)NegativeNormalNEGATIVEThe [facility] CenterComment on above:Performed By: #### ERUR, PREGU, UMICRO #### [facility] [address] [place] [address] Dr. Willie Kirk (U)5.5 [pH]Normal5-9The [facility] CenterComment on above: Performed By: #### ERUR, PREGU, UMICRO #### [facility] [address] [place] [address] Dr. Willie Dela CruzProtein (U) [Mass/Vol]30 mg/dLAbnormalNEGATIVE/ TRACEThe Saint Louis HospitalComment on above:Performed By: #### ERUR, PREGU, UMICRO #### [facility] [address] [place] [address] Dr. Willie Dela CruzSPEC GRAVITY1.581Fcuxov4.005-<=1.025The [facility] CenterComment on above:Performed By: #### ERUR, PREGU, UMICRO #### [facility] [address] [place] [address] Dr. Willie Recinos MICRO INDINDICATEDNormalThe [facility] CenterComment on above: Performed By: #### ERUR, PREGU, UMICRO #### [facility] [address] [place] [address] Dr. Willie Martinezbilinogen Qn (U)0.2 {Chema'U}/dLNormal0.2 - 1.0The [facility] CenterComment on above:Performed By: #### ERUR, PREGU, UMICRO #### [facility] [address] [place] [address] Dr. Willie FloresGNANCY URon 59-81-7499QEVPIWVKK, QUALNegativeNormalNEGATIVEThe [facility] Louis HospitalComment on above:Performed By: #### ERUR, PREGU, UMICRO #### [facility] [address] [place] [address] Dr. Willie Gonzales MICROSCOPIC ONLYon 67-14-1735CIYWTOYHY CRYSTALSFEWSelect Medical OhioHealth Rehabilitation HospitalComment on above:Performed By: #### ERUR, PREGU, UMICRO #### [facility] [address] [address] [address] Willie UrbanTRACEAbnormalNONE SEENThe [facility] CenterComment on above:Performed By: #### ERUR, PREGU, UMICRO #### [facility] [address] [address] [address] Willie Urban identified Cx Nom (U)NOT INDICATEDNoProMedica Bay Park HospitalComment on above:Performed By: #### ERUR, PREGU, UMICRO #### [facility] [address] [place] [address] Dr. Willie Page SEENCold Spring HarborNONE SEENKindred Hospital LimaComcaro center on above:Performed By: #### ERUR, PREGU, UMICRO #### [facility] [address] [place] [address] Dr. Willie Abrahamystals LM Nom (Urine sed)SEENAbnormalNONE SEENThe [facility] CenterComcaro center on above:Performed By: #### ERUR, PREGU, UMICRO #### [facility] [address] [place] [address] Dr. Willie Wakefieldthelial cells LM Ql (Urine sed)FEWAbrmalNONE SEEN /RAREThe [facility] CenterComcaro center on above:Performed By: #### ERUR, PREGU, UMICRO #### [facility] [address] [place] [address] Dr. Willie ArizmendiLAbnormalNONE SEENKindred Hospital LimaComcaro center on above:Performed By: #### ERUR, PREGU, UMICRO #### [facility] [address] [place] [address] Dr. Willie JaneVwpweVOJ6-9Gylctm3-9Lck [facility] CenterComment on above:Performed By: #### ERUR, PREGU, UMICRO #### [facility] [address] [place] [address] Dr. Willie Dela CruzWBC2-5AbnormalNONE [facility]'s HospitalComment on above: Performed By: #### ARABELLA MONTIEL UMICRO #### [facility] [address] [place] [address] Dr. Willie Dela CruzCOVID-19 Antigenon 68-54-9022ZDWPD-19 AntigenHealthcare Worker?: N New Reference New Reference Negative SARS-CoV+SARS-CoV-2 (COVID-19) Ag [Presence] in Respiratory specimen by Rapid immunoassay Negative for SARS Antigen by BILL COVID19 Blank Space New Disclaimer Negative results, from patients with [...] Disclaimer consistent with COVID-19. COVID19 Blank Space New Disclaimer The New SARS Antigen BILL does not differentiate New Disclaimer between SARS-CoV and SARS-CoV-2. COVID19 Blank Space New Disclaimer This test was developed and its performance New Disclaimer characteristic determined by [employer] and New Disclaimer validated at [facility]. This New Disclaimer test has not been [...] is terminated or revoked sooner. PERFORMED BY: [address] [address] PATHOLOGIST STEEL TESTER GE NOVA M.D.Salem City HospitalComment on above: Performed By: #### FLAVIA, COVID-19 NEW #### [facility] [address] [place] [address] USASofia Ag Negativeon 84-19-4679Nzcya Ag NegativeNegative NormalNegativeMount Carmel Health SystemComment on above:Result Comment: This is a duplicate New SARS Antigen (BILL) result to be used for statistical tracking purpose only. PERFORMED BY: [address] [address] PATHOLOGIST STEEL TESTER GE NOVA M.D.Performed By: #### SOFIANEG, COVID-19 NEW #### [facility] [address] [id number] USACT ABD/PELV W CONon [id number] ABD/PELV W CON EXAMINATION: CT ABD/PELV W CON, 08/13/2021 9:07 AM EST HISTORY: [...] intraperitoneal abnormality Electronically authenticated by: MARY CARMEN BRISCOE Date: 2021-08-13 12:37NormalThProMedica Memorial HospitalCB AUTO DIFFon 86-38-1204DRAL #0.0 103/ulNormal0.0-0.1Kindred Hospital LimaComment on above:Performed By: #### CBC #### [facility] [address] [place] [address] Dr. Willie Aguiarphils/100 WBC (Bld)0.4 %Normal0.2-2.0The [facility] Comment on above:Performed By: #### CBC #### [facility] [address] [place] [address] Dr. Willie Gutierrez #0.1 103/ulNormal0.0-0.7The [facility] CenterComment on above: Performed By: #### CBC #### [facility] [address] [place] [address] Dr. Willie Lakhaniosinophils/100 WBC (Bld)1.8 %Normal0.9-7.0The [facility] Comment on above:Performed By: #### CBC #### [facility] [address] [place] [address] Dr. Willie Lakhanirythrocyte distribution width (RBC) [Ratio]11.9 %Vdfosm98.0-15.0 The [facility] CenterComment on above:Performed By: #### CBC #### [facility] [address] [place] [address] Dr. Willie Dela CruzHematocrit (Bld) [Volume fraction]40.0 %Dqfiac05.0-48.0The [facility] CenterComment on above:Performed By: #### CBC #### [facility] [address] [place] [address] Dr. Willie Dela CruzHemoglobin (Bld) [Mass/Vol]13.1 g/aIDjfuhm33.0-16.0The [facility] CenterComment on above:Performed By: #### CBC #### [facility] [address] [place] [address] Dr. Willie Headley #0.02 10e3/ulNormal0.00-0.03The [facility] CenterComment on above:Performed By: #### CBC #### [facility] [address] [place] [address] Dr. Willie Headley %0.3 %Normal0.0-0.5The [facility] CenterComment on above: Performed By: #### CBC #### [facility] [address] [place] [address] Dr. Willie DeckerMPH #2.7 103/ulNormal1.2-3.8The [facility] CenterComment on above:Performed By: #### CBC #### [facility] [address] [place] [address] Dr. Willie Deckermphocytes/100 WBC (Bld)37.9 %Mvzyie96.5-60.0The [facility] CenterComment on above:Performed By: #### CBC #### [facility] [address] [place] [address] Dr. Willie Bob DIFF REQNONormalThe [facility] CenterComment on above: Performed By: #### CBC #### [facility] [address] [place] [address] Dr. Willie Hernandez (RBC) [Entitic mass]28.1 drJoprkz41.7-34.0The [facility] CenterComment on above:Performed By: #### CBC #### [facility] [address] [place] [address] Dr. Willie Hernandez (RBC) [Mass/Vol]32.8 g/dSNsolkq46.9-35.2The [facility] CenterComment on above:Performed By: #### CBC #### [facility] [address] [place] [address] Dr. Willie Hernandez (RBC) [Entitic vol]85.7 oTRcbfiu15.1-95.6The [facility] CenterComment on above:Performed By: #### CBC #### [facility] [address] [place] [address] Dr. Willie Laureano #0.7 103/ulNormal0.3-0.8The [facility] CenterComment on above:Performed By: #### CBC #### [facility] [address] [place] [address] Dr. Willie Mcfaddenocytes/100 WBC (Bld)9.8 %Normal1.7-12.0The [facility] Comment on above:Performed By: #### CBC #### [facility] [address] [place] [address] Dr. Willie Bell #3.5 103/ulNormal1.4-6.5The [facility] CenterComment on above:Performed By: #### CBC #### [facility] [address] [place] [address] Dr. Willie Jonesutrophils/100 WBC (Bld)49.8 %Zyfqtk29.0-75.0The [facility] CenterComment on above:Performed By: #### CBC #### [facility] [address] [place] [address] Dr. Willie Conte mean volume (Bld) [Entitic vol]8.8 fLCritically low 9.5-13.5The [facility] CenterComment on above:Performed By: #### CBC #### [facility] [address] [place] [address] Dr. Willie Dela CruzPLT363 103/mmKbiyzo933-513Gkp [facility] on above: Performed By: #### CBC #### [facility] [address] [place] [address] Dr. Willie Dela CruzRBC4.67 106/ulNormal3.40-5.30The [facility] on above:Performed By: #### CBC #### [facility] [address] [place] [address] Dr. Willie Dela CruzWBC7.0 103/ulNormal4.0-11.0The [facility] on above: Performed By: #### CBC #### [facility] [address] [place] [address] Dr. Willie Hamitlon URINE PROFILEon 28-25-9680Bmpilkajb Ql (U)NegativeNormal NEGATIVEThe [facility] CenterComcaro center on above:Performed By: #### ERUR #### [facility] [address] [place] [address] Dr. Willie Dela CruzClarity (U)CLEARNormalCLEARThe [facility] on above: Performed By: #### ERUR #### [facility] [address] [place] [address] Dr. Willie Elkins (U)YELLOWNormalYELLOWThe [facility] CenterComcaro center on above: Performed By: #### ERUR #### [facility] [address] [place] [address] Dr. Willie MayoDA micrscopic examination will be performed if indicated. NormalThe [facility] CenterComcaro center on above:Performed By: #### ERUR #### [facility] [address] [place] [address] Dr. Willie Dela CruzGlucose Ql (U)NegativeNormalNEGATIVEKindred Hospital LimaComment on above:Performed By: #### ERUR #### [facility] [address] [address] [address] Willie Dela CruzHemoglobin Ql (U)NegativeNormalNEGMadison Health Comment on above:Performed By: #### ERUR #### [facility] [address] [address] [address] Willie Dela CruzKetones Ql (U)NegativeNormalNEGATIVEKindred Hospital LimaComment on above:Performed By: #### ERUR #### [facility] [address] [place] [address] Dr. Willie Dela CruzLEUKOCYTESNegativeNormalNEGATIVEKindred Hospital LimaComment on above:Performed By: #### ERUR #### [facility] [address] [place] [address] Dr. Willie Dela CruzNitrite Ql (U)NegativeNormalNEGATIVEKindred Hospital LimaComment on above:Performed By: #### ERUR #### [facility] [address] [place] [address] Dr. Willie Dela CruzpH (U)6.0 [pH]Normal5-9Kindred Hospital LimaComment on above: Performed By: #### ERUR #### [facility] [address] [place] [address] Dr. Willie Dela CruzSPEC GRAVITY>=1.074Ydxiezgl9.005-<=1.025[facility] Comment on above:Performed By: #### ERUR #### [facility] [address] [place] [address] Dr. Willie Dela CruzUA PROTEINNegativermalNEGATIVE/ TRACEKindred Hospital Lima Comment on above:Performed By: #### ERUR #### [facility] [address] [place], [place] [address] Dr. Willie Recinos MICRO INDNOT INDICATEDNoProMedica Bay Park HospitalComment on above:Performed By: #### ERUR #### [facility] [address] [place], [place] [id number] Dr. Willie Anderson Qn (U)0.2 {Chema'U}/dLNormal0.2 - 1.0The [facility] Medical CenterComment on above:Performed By: #### ERUR #### [facility] [address] [place] [address] Dr. Willie Dela CruzLIPASEon 78-65-3116Bodkyv [Catalytic activity/Vol]105.0 U/LNormal 23.0-300.0The Saint Louis HospitalComment on above:Performed By: #### LIPA, CMP #### [facility] [address] [place] [address] Dr. Willie Mackay HCG QUALon 22-60-9829FJYGTCAEX, QUALNegativeNormalNEGATIVE The [facility] CenterComment on above:Performed By: #### PREG #### [facility] [address] [place] [address] Dr. Willie Mensah 14(COMP METB)on 63-21-2822Vabsylo [Mass/Vol]3.3 g/dL Critically low3.5-5.0The [facility] CenterComment on above:Performed By: #### LIPA, CMP #### [facility] [address] [place] [address] Dr. Willie Dela CruzAlbumin/Globulin [Mass ratio]0.8 {ratio}NormalThe [facility] Medical CenterComment on above:Performed By: #### LIPA, CMP #### [facility] [address] [place] [address] Dr. Willie Huang [Catalytic activity/Vol]75 U/TNvqozl72-640Knt [facility] CenterComment on above:Performed By: #### LIPA, CMP #### [facility] [address] [place] [address] Dr. Willie Torres [Catalytic activity/Vol]25 U/LNormal9-52The [facility] Comment on above:Performed By: #### LIPA, CMP #### [facility] [address] [place] [address] Dr. Willie Cordon gap [Moles/Vol]13.6 mmol/LNormalKindred Hospital Lima Comment on above:Performed By: #### LIPA, CMP #### [facility] [address] [place] [address] Dr. Willie Dela CruzAST [Catalytic activity/Vol]16 U/MDzbwbr38-39Uxe [facility] CenterComment on above:Performed By: #### LIPA, CMP #### [facility] [address] [place] [address] Dr. Willie Dela CruzBilirubin [Mass/Vol]0.2 mg/dLNormal0.2-1.3The [facility] Comment on above:Performed By: #### LIPA, CMP #### [facility] [address] [place] [address] Dr. Willie Dela CruzCalcium [Mass/Vol]9.0 mg/dLNormal8.4-10.2[facility] Comment on above:Performed By: #### LIPA, CMP #### [facility] [address] [place] [address] Dr. Willie Dela CruzChloride [Moles/Vol]104 mmol/TYstaqr33-339BtyKindred Hospital Lima Comment on above:Performed By: #### LIPA, CMP #### [facility] [address] [place] [address] Dr. Willie Dela CruzCO2 [Moles/Vol]26.4 mmol/THnwzij93.0-30.0[facility] Comment on above:Performed By: #### LIPA, CMP #### [facility] [address] [place] [address] Dr. Willie Dela CruzCreatinine [Mass/Vol]0.94 mg/dLNormal0.52-1.04Kindred Hospital LimaComment on above:Performed By: #### LIPA, CMP #### [facility] [address] [place] [address] Dr. Willie Dela CruzGlobulin (S) [Mass/Vol]4.3 g/dLNormalThe [facility] CenterComment on above:Performed By: #### LIPA, CMP #### [facility] [address] [address] [address] Willie Dela CruzGlucose [Mass/Vol]89 mg/gXZdrwph86-252NcfKindred Hospital Lima Comment on above:Performed By: #### LIPA, CMP #### [facility] [address] [address] [address] Willie Dela CruzPotassium [Moles/Vol]4.0 mmol/LNormal3.4-5.0The [facility] Comment on above:Performed By: #### LIPA, CMP #### [facility] [address] [place] [address] Dr. Willie Dela CruzProtein [Mass/Vol]7.6 g/dLNormal6.1-8.2The [facility] Comment on above:Performed By: #### LIPA, CMP #### [facility] [address] [place] [address] Dr. Willie Dela CruzSodium [Moles/Vol]140 mmol/CWyaows247-505Vzc [facility] Comment on above:Performed By: #### LIPA, CMP #### [facility] [address] [place] [address] Dr. Willie Dela CruzUrea nitrogen [Mass/Vol]12.0 mg/dLNormal6.4-19.3TWyandot Memorial HospitalComment on above:Performed By: #### LIPA, CMP #### [facility] [address] [place] [address] Dr. Willie Dela CruzUrea nitrogen/Creatinine [Mass ratio]12.8 mg/mgNormalThe [facility] CenterComment on above:Performed By: #### LIPA, CMP #### [facility] [address] [place] [address] Dr. Willie Dela CruzXR KUB 1 VIEWon 42-23-8518JF KUB 1 VIEWEXAM: XR KUB 1 VIEW HISTORY: Pain COMPARISON: None. TECHNIQUE: Supine view of the abdomen is submitted for review. FINDINGS: Nonspecific bowel gas pattern is seen. No air-filled distended loops of bowel is seen to suggest bowel obstruction. No obvious pathologic calcification is seen. The visualized osseous structures appear unremarkable. IMPRESSION: No acute abnormality. Electronically authenticated by: ISRAEL STALLINGS Date: 2021-07-20 19:39[facility] WITH AUTO DIFFERENTIALon 04-64-1604Owmjbrilo (Bld) [#/Vol] 0.03 10*3/uLOhioHealthBasophils/100 WBC (Bld)0.2 %OhioHealthEosinophils (Bld) [#/Vol]0.16 10*3/uLOhioHealthEosinophils/100 WBC (Bld)1.2 %OhioHealthErythrocyte distribution width (RBC) [Entitic vol]12.9 %11.6 - 14.8 %OhioHealthHematocrit (Bld) [Volume fraction]29.8 %Low36 - 46 %OhioHealthHemoglobin (Bld) [Mass/Vol] 9.9 g/dLLow12 - 16 g/dLOhioHealthImmature granulocytes (Bld) [#/Vol]0.04 10*3/uL OhioHealthImmature granulocytes/100 WBC (Bld)0.30 %OhioHealthComment on above: The IG parameter is the percentage of metamyelocytes, myelocytes and promyelocytes. An immature granulocyte count (IG) of 1% or more suggests the possibility of infection, an IG count of 3% is very likely related to an infection.Interpretation and review of laboratory resultsAbnormalOhioHealth Lymphocytes (Bld) [#/Vol]2.21 10*3/uLOhioHealthLymphocytes/100 WBC (Bld)16.8 % OhioHealthMCH (RBC) [Entitic mass]28.6 pg25 - 35 pgOhioHealthMCHC (RBC) [Mass/Vol]33.2 g/dL31 - 37 g/dLOhioHealthMCV (RBC) [Entitic vol]86.1 fL78 - 102 fLOhioHealthMonocytes (Bld) [#/Vol]1.18 10*3/uLHighOhioHealthMonocytes/100 WBC (Bld)8.9 %OhioHealthNeutrophils (Bld) [#/Vol]9.57 10*3/uLHighOhioHealth Neutrophils/100 WBC (Bld)72.6 %OhioHealthPlatelet mean volume (Bld) [Entitic vol]10.7 fL9.4 - 12.4 fLOhioHealthPlatelets (Bld) [#/Vol]196 10*3/uLOhioHealth RBC (Bld) [#/Vol]3.46 10*6/uLLowOhioHealthWBC (Bld) [#/Vol]13.19 10*3/uLHigh OhioHealthCBCon 06-20-9644Zpbtxokamgy distribution width (RBC) [Entitic vol]12.5 %11.6 - 14.8 %OhioHealthHematocrit (Bld) [Volume fraction]34.4 %Low36 - 46 % OhioHealthHemoglobin (Bld) [Mass/Vol]11.6 g/dLLow12 - 16 g/dLOhioHealth Interpretation and review of laboratory resultsAbnormalOhioHealthMCH (RBC) [Entitic mass]28.4 pg25 - 35 pgOhioHealthMCHC (RBC) [Mass/Vol]33.7 g/dL31 - 37 g/dLOhioHealthMCV (RBC) [Entitic vol]84.3 fL78 - 102 fLOhioHealthPlatelet mean volume (Bld) [Entitic vol]11.3 fL9.4 - 12.4 fLOhioHealthPlatelets (Bld) [#/Vol] 267 10*3/uLOhioHealthRBC (Bld) [#/Vol]4.08 10*6/uLLowOhioHealthWBC (Bld) [#/Vol] 10.75 10*3/uLOhioHealthCOVID-19, MOLECULARon 38-66-2176EMPA-COV-2 (MOLINA ID)Not DetectedNormalPine Rest Christian Mental Health ServicesComment on above:Result Comment: This test was performed under the FDA's Emergency Use Authorization (EUA). Testing w as performed using the Molina ID NOW COVID-19 assay on the ID NOW platform. This test has not been approved for use in asymptomatic patients and its performance in this patient population has not been evaluated. Negative results do not rule out the presence of SARS-CoV-2/COVID-19. Fact sheets for the EUA can be found at the following links: For Healthcare Providers: https://www.fda.gov/media/908833/download For Patients: https://www.fda.gov/media/509193/downloadPerformed By: #### [id number] #### [facility] [address] [place], [place] [address] Jayy Rodriguez M.D. [id number], Molecularon 85-58-1558Kvpvnyskqluxri and review of laboratory eszbfbpDqasskMfohGvbzamARVA-PfG-1Evo DetectedNot DetectedOhioHealth Comment on above:This test was performed under the FDA's Emergency [...] at the following links: For Healthcare Providers: https://www.fda.gov/media/951656/download For Patients: https://www.fda.gov/media/902850/download Comprehensive Metabolic Panelon 05-40-4747Egybknx [Mass/Vol]2.8 g/dLLow3.2 - 4.5 g/dLOhioHealthALP [Catalytic activity/Vol]163 U/L110 - 630 U/LOhioHealthALT [Catalytic activity/Vol]17 U/L14 - 65 U/LOhioHealthAnion gap [Moles/Vol]13 mmol/L10 - 20 mmol/LOhioHealthAST [Catalytic activity/Vol]20 U/L0 - 45 U/L OhioHealthBilirubin [Mass/Vol]0.3 mg/dL0 - 1.3 mg/dLOhioHealthCalcium [Mass/Vol] 8.9 mg/dL8.4 - 10.2 mg/dLOhioHealthChloride [Moles/Vol]108 mmol/L98 - 108 mmol/L OhioHealthCreatinine [Mass/Vol]0.60 mg/dL0.50 - 1.00OhioHealthGFR/1.73 sq M predicted among non-blacks MDRD (S/P/Bld) [Vol rate/Area]The eGFR should be used for monitoring renal function only and not for medication dosing.[facility] Glucose [Mass/Vol]81 mg/dL65 - 99 mg/dLOhioHealthHCO3 [Moles/Vol]23 mmol/L21 - 32 mmol/LOhioHealthInterpretation and review of laboratory resultsAbnormal OhioHealthPotassium [Moles/Vol]3.9 mmol/L3.5 - 5.1 mmol/LOhioHealthProtein [Mass/Vol]6.9 g/dL6 - 8 g/dLOhioHealthSodium [Moles/Vol]140 mmol/L135 - 145 mmol/LOhioHealthUrea nitrogen [Mass/Vol]9 mg/dL8 - 25 mg/dLOhioHealthUrea nitrogen/Creatinine [Mass ratio]15.0 mg/mgOhioHealthRupture of Membranes ([place] Only)on 86-89-6643Irvxgudelvjvyu and review of laboratory resultsAbnormalOhioHealthRupture of MembranesPositiveAbnormalNegative OhioHealthType and Screenon 53-17-2573RNR and Rh group Nom (Bld)A Positive OhioC[facility] GeneralBlood group antibody screen QlNegativeOhioHealthSpecimen Expires 05/13/2020 23:59 ESTOhioHealthURINALYSISon 75-08-5024Vbmxptwy Auto Ql (U)Rare AbnormalNone Seen /hpfOhioHealthBilirubin Ql (U)NegativeNegativeOhioHealth Clarity Refractometry automated (U)ClearClearOhioHealthColor (U)YellowColorless, YellowOhioHealthEpithelial cells.squamous Auto (Urine sed) [#/Area]15High OhioHealthGlucose Auto test strip (U) [Mass/Vol]NegativeNegative mg/dLOhioHealth Hemoglobin Auto test strip Ql (U)NegativeNegativeOhioHealthInterpretation and review of laboratory resultsAbnormalOhioHealthKetones (U) [Mass/Vol]Negative Negative mg/dLOhioHealthLeukocyte esterase Auto test strip Ql (U)Negative NegativeOhioHealthMucus Auto (Urine sed) [#/Area]RareNone Seen, Rare /lpf OhioHealthNitrite Auto test strip Ql (U)NegativeNegativeOhioHealthpH (U)7.0 [pH] OhioHealthProtein (U) [Mass/Vol]NegativeNegative mg/dLOhioHealthSpecific gravity (U) [Rel density]1.025OhioHealthUrobilinogen (U) [Mass/Vol]<2.0<2.0 mg/dL [facility] Mansfield HospitalWBC Auto (Urine sed) [#/Area]3OhioHealthMicroscopic examination is performed on all urinalysis samples and only positive findings are reported. The test for blood on the chemical analytic portion of urinalysis may also be positive due to hemoglobinuria and myoglobinuria and if red blood cells are present they are quantified by microscopic examination.OhioCleveland Clinic [facility]ron GeneralGlucose [place] Scr 50gon 82-50-2279Ixievvk [Mass/Vol]131 mg/wHUosoya64-655YzfoxPromedica Memorial Hospital Comment on above:Performed By: #### GLUSC, HGB #### [facility] [address] [place] [address] [employer] Caterer: Ceasar Fink MDGlu Administered viaGlucolaNormDetwiler Memorial HospitalComment on above:Performed By: #### GLUSC, HGB #### [facility] [address] [place] [address] [employer] Caterer: Ceasar Fink MDGlucose tolerance, 1 houron 83-75-9341DKF ADMN GlucolaLakeHealth TriPoint Medical Center, KYGlucose tolerance screen 13h189 mg/dL70 - 135 mg/dL [facility], KYHemoglobinon 17-45-4592Wazummulah (Bld) [Mass/Vol]12.6 g/dL Nrubzc71.0-16.0Promedica Memorial HospitalComment on above:Performed By: #### GLUSC, HGB #### [facility] [address] [place] [address] [employer] Caterer: Ceasar Fink MDHemoglobin (Bld) [Mass/Vol]12.6 g/dL12 - 16 g/dL [facility], KYChlamydia/GC DNA, Uron 43-62-2617Alhbobsxm Probe, UrNegative NormalNEGPromedica Memorial HospitalComment on above:Result Comment: CHLAMYDIA TRACHOMATIS DNA not detected by nucleic acid [...] positive results by an alternative nucleic acid target.Performed By: #### UCGP #### [address] [address] [employer] Caterer: Jaren Winkler, UrNegativeNoGreen Cross Hospital on above:Result Comment: NEISSERIA GONORRHOEAE DNA not detected by nucleic acid [...] positive results by an alternative nucleic acid target.Performed By: #### UCGP #### [address] [address] [employer] Caterer: Minoo Winkler,Urineon 28-39-9660Yacw,UrineSpecimen Description .CLEAN CATCH URINE Special Requests NOT REPORTED Culture NO SIGNIFICANT GROWTH Report Status FINAL 10/25/2019[facility] on above: Performed By: #### URC #### [address] [address] [employer] Caterer: Hiram Blood MD [facility] [address] [address] [employer] Caterer: Ceasar Fink MDHIV Ag/Abon 63-03-3498YHC Ag/AbNONREACTIVENoThe [facility] on above:Result Comment: No laboratory evidence of HIV infection. If acute HIV infection is suspected, consider testing for HIV-1 RNA.Performed By: #### AHCV, HIVCMB #### [address] [id number] [employer] Caterer: Josemanuel Winkler C Abon 31-91-6151Dyn C AbNONREACTIVENormMarietta Memorial Hospital on above:Result Comment: The hepatitis C procedure used in [...] is recommended by ordering HCV RNA by PCR.Performed By: #### AHCV, HIVCMB #### [facility] [address] [place] [address] [employer] Caterer: Kristi WinklerOn license of [facility] 10-25-2019T.pallidum Ab ScreenNONSaint Luke Institute on above:Result Comment: T. pallidum antibodies are not detected. There is no serological evidence of infection with T. pallidum (early primary syphilis cannot be excluded). Retest in 2-4 weeks if syphilis is clinically suspect.Performed By: #### PRENAT #### [facility] [address] [place] [address] [employer] Caterer: Hiram Blood MD [facility] [address] [place], [place] [phone] [employer] Caterer: Josemanuel Matthews Surf AgNONSaint Luke Institute on above:Performed By: #### PRENAT #### [facility] [employer] [address] [place] [address] [employer] Caterer: Hiram Blood MD [facility] [address] [place], [place] [phone] [employer] Caterer: Maxi Matthews Ab, WrW907.9 IU/mLNDoctors Hospital on above:Result Comment: REFERENCE RANGE: <5.0 NON-REACTIVE (non-immune) 5.0 TO 9.9 EQUIVOCAL >=10.0 REACTIVE (immune)Performed By: #### PRENAT #### [facility] [employer] [address] [place] [address] [employer] Caterer: Hiram Blood MD [facility] [address] [place], [place] [phone] [employer] Caterer: Ceasar Fink MDHepatitis C Antibodyon 69-77-4568Kffzoqfkz C Ab NONREACTIVENONREACTIVEDenison, KYComment on above: The hepatitis C procedure used [...] HCV RNA by PCR. TYPE AND SCREENon 52-69-1315BYQ/RhPositiveDenison, KYPrenatal Profileon 10-03-9503Icz. Basophil0.10 k/uLNormal0.0-0.2MAultman Orrville Hospital Comment on above:Performed By: #### PRENAT #### [address] [address] [employer] Caterer: Hiram Blood MD [facility] [address] [place], [place] [phone] [employer] Caterer: Lisy Matthews.Neutrophil (Seg)8.50 k/uLHigh2.3-6.9Promedica Memorial HospitalComment on above:Performed By: #### PRENAT #### [facility] [address] [place] [address] [employer] Caterer: Hiram Blood MD [facility] [address] [place], [place] [phone] [employer] Caterer: Adán Matthews PerformedYESNoOhio Valley HospitalComment on above:Performed By: #### PRENAT #### [facility] [address] [place] [address] [employer] Caterer: Hiram Blood MD [facility] [address] [place], [place] [phone] [employer] Caterer: Ceasar Fink MDBasophils/100 WBC (Bld)1 %Normal0-2MAultman Orrville HospitalComment on above:Performed By: #### PRENAT #### [address] [address] [employer] Caterer: Hiram Blood MD [facility] [address] [place] [address] [employer] Caterer: Ceasar Fink MDEosinophils (Bld) [#/Vol]0.10 10*3/uLNormal 0.0-0.4Promedica Memorial HospitalComment on above:Performed By: #### PRENAT #### [address] [address] [employer] Caterer: Hiram Blood MD [facility] [address] [place] [address] [employer] Caterer: Ceasar Fink MDEosinophils/100 WBC (Bld)1 %Normal0-5Promedica Memorial HospitalComment on above:Performed By: #### PRENAT #### [address] [address] [employer] Caterer: Hiram Blood MD [facility] [address] [place] [address] [employer] Caterer: Ceasar Fink MDErythrocyte distribution width (RBC) [Ratio]12.9 %Sukeia88.1-15.2MAultman Orrville HospitalComment on above:Performed By: #### PRENAT #### [address] [address] [employer] Caterer: Hiram Blood MD [facility] [address] [place] [address] [employer] Caterer: Ceasar Fink MDHematocrit (Bld) [Volume fraction]39.6 %Normal 36-46Promedica Memorial HospitalComment on above:Performed By: #### PRENAT #### [address] [address] [employer] Caterer: Hiram lBood MD [facility] [address] [place], [place] [phone] [employer] Caterer: Ceasar Fink MDHemoglobin (Bld) [Mass/Vol]13.4 g/dLNormal 12.0-16.0Promedica Memorial HospitalComment on above:Performed By: #### PRENAT #### [address] [address] [employer] Caterer: Hiram Blood MD [facility] [address] [place], [place] [phone] [employer] Caterer: Ceasar Fink MDLymphocytes (Bld) [#/Vol]2.00 10*3/uLNormal 1.5-6.5Promedica Memorial HospitalComment on above:Performed By: #### PRENAT #### [address] [address] [employer] Caterer: Hiram Bolod MD [facility] [address] [place], [place] [phone] [employer] Caterer: Nidhi Matthewsmphocytes/100 WBC (Bld)18 %Lxhszc66-12JkprvPromedica Memorial HospitalComment on above:Performed By: #### PRENAT #### [address] [address] [employer] Caterer: Hiram Blood MD [facility] [address] [place], [place] [phone] [employer] Caterer: NORA MatthewsCH (RBC) [Entitic mass]28.7 cvJwrjdd34-75MxpenPromedica Memorial HospitalComment on above:Performed By: #### PRENAT #### [address] [address] [employer] Caterer: Hiram Blood MD [facility] [address] [place], [place] [phone] [employer] Caterer: Ceasar Aleks, MDMCHC (RBC) [Mass/Vol]33.8 g/bJTtmwij93-76YqmprPromedica Memorial HospitalComment on above:Performed By: #### PRENAT #### [facility] [address] [place] [address] [employer] Caterer: Hiram Blood MD [facility] [address] [place] [address] [employer] Caterer: NORA MatthewsCV (RBC) [Entitic vol]85.0 oLSetacm17-345GpefiPromedica Memorial HospitalComment on above:Performed By: #### PRENAT #### [facility] [address] [place] [address] [employer] Caterer: Hiram Blood MD [facility] [address] [place] [address] [employer] Caterer: NORA Matthewsonocytes (Bld) [#/Vol]0.70 10*3/uLNormal0.4-0.9 Promedica Memorial HospitalComment on above:Performed By: #### PRENAT #### [facility] [address] [place] [address] [employer] Caterer: Hiram Blood MD [facility] [address] [place] [address] [employer] Caterer: NORA Matthewsonocytes/100 WBC (Bld)6 %Normal4-8Promedica Memorial HospitalComment on above:Performed By: #### PRENAT #### [facility] [address] [place] [address] [employer] Caterer: Hiram Blood MD [facility] [address] [place] [address] [employer] Caterer: Ceasar Fink MDNeutrophil (Seg)74 %Tdqkbp92-37RagfpPromedica Memorial HospitalComment on above:Performed By: #### PRENAT #### [facility] [address] [place] [address] [employer] Caterer: Hiram Blood MD [facility] [address] [place], [place] [phone] [employer] Caterer: Tianna Matthews (Bld) [#/Vol]347 10*3/kZAsaupf454-574 Promedica Memorial HospitalComcaro center on above:Performed By: #### PRENAT #### [facility] [address] [place] [address] [employer] Caterer: Hiram Blood MD [facility] [address] [place] [address] [employer] Caterer: MERLYN Matthews (Bld) [#/Vol]4.66 10*6/uLNormal4.0-5.2MKnox Community Hospital on above:Performed By: #### PRENAT #### [address] [address] [employer] Caterer: Hiram Blood MD [facility] [address] [place] [address] [employer] Truck Caterer: ZACK Matthews (Jose Luisd) [#/Vol]11.4 10*3/uLNormal4.5-13.5[facility] on above:Performed By: #### PRENAT #### [address] [address] [employer] Caterer: Hiram Blood MD [facility] [address] [place] [address] [employer] Caterer: Lisy Matthews.Imm.GranulocyteNOT REPORTEDNormal0.00-0.[address] [facility] on above:Performed By: #### PRENAT #### [address] [address] [employer] Caterer: Hiram Blood MD [facility] [address] [place], [place] [address] [employer] Caterer: Ceasar Aleks, MDImmature granulocytes (Bld) [#/Vol]NOT REPORTED Ocohwp7LlzyaUc [facility] Hospital HospitalComment on above:Performed By: #### PRENAT #### [facility] [address] [place] [address] [employer] Caterer: Hiram Blood MD [facility] [address] [place] [address] [employer] Caterer: RYLEY Matthews AutomatedNOT REPORTEDNormalUc [facility] Hospital HospitalComment on above:Performed By: #### PRENAT #### [facility] [address] [place] [address] [employer] Caterer: Hiram Blood MD [facility] [address] [place] [address] [employer] Caterer: Adina Matthews mean volume (Bld) [Entitic vol]NOT REPORTEDNormal6.0-12.0[facility] HospitalComment on above:Performed By: #### PRENAT #### [facility] [address] [place] [address] [employer] Caterer: Hiram Blood MD [facility] [address] [place] [address] [employer] Caterer: Danielle Matthewslets (Bld) [#/Vol]NOT REPORTEDNormalUc [facility] Hospital HospitalComment on above:Performed By: #### PRENAT #### [facility] [address] [place] [address] [employer] Caterer: Hiram Blood MD [facility] [address] [place] [address] [employer] Caterer: MERLYN Matthews morphology finding Nom (Bld)NOT REPORTED NormalUc West Chester Hospital HospitalComment on above:Performed By: #### PRENAT #### [facility] [address] [place] [address] [employer] Caterer: Hiram Blood MD [facility] [address] [place] [address] [employer] Caterer: Ceasar Fink MDWBC MorphologyNOT REPORTEDLima City HospitalComment on above:Performed By: #### PRENAT #### [facility] [address] [place] [address] Food Truck Caterer: Hiram Blood MD [facility] [address] [place] [address] Food Truck Caterer: ROBERT Matthewsrenatal Type + Scrnon [id number] Type + ScrnNegativeLima City HospitalComment on above:Performed By: #### PRTYS #### [facility] [address] [place] [address] Food Truck Caterer: Ceasar Fink MDUS OB LESS THAN 14 WEEKS SINGLE OR FIRST GESTATIONon [id number] OB LESS THAN 14 WEEKS SINGLE OR FIRST GESTATION Obstetrical ultrasound, 1st trimester CLINICAL: patient, unknown last menstrual period. TECHNIQUE: Transabdominal and transvaginal obstetrical ultrasound was performed. FINDINGS: Comparison: None. FETUS AND UTERUS: Uterus measures 13.4 x 6.7 x 5.7 cm. A single intrauterine gestation sac is visualized. Yolk sac and pole identified. Mean gestational sac diameter is 45.6 mm. [place] rump length is 32.6 mm. heart rate [...] Signed by: Lucretia Neff MD 10/24/19 Final resultNoOhio Valley HospitalObstetrical ultrasound, 1st trimester CLINICAL: patient, unknown last menstrual period. TECHNIQUE: Transabdominal and transvaginal obstetrical ultrasound was performed. FINDINGS: Comparison:None. FETUS AND UTERUS: Uterus measures 13.4 x 6.7 x 5.7 cm. A single intrauterine gestation sac isvisualized. Yolk sac and pole identified. Mean gestational sac diameter is 45.6 mm. [place] rump length is 32.6 mm. heart rate of 171 beats per minute. Cervical length is 3.8 cm. OVARIES/ADNEXA: The right ovary measures 2.9 x 2.7 x 1.8 cm. The left ovary measures 2.9 x 2.2 x 1.6 cm. Thereis normal vascular flow to both ovaries. Small physiologic sized follicles are identified in both ovaries. OTHER FINDINGS: None. ULTRASOUND GESTATIONAL AGE AND ESTIMATED DATE OF CONFINEMENT: The estimated gestational age by ultrasound is 10 weeks 1 day with an estimated date of confinement by the trasound of 05/20/2020.[facility]- [place], [place], linette Incoming Radiant Results From [employer] - 10/24/2019 2:52 PM EDT Obstetrical ultrasound, 1st trimester CLINICAL: patient, unknown last menstrual period. TECHNIQUE: Transabdominal and transvaginal obstetrical ultrasound was performed. FINDINGS: Comparison: None. FETUS AND UTERUS: Uterus measures 13.4 x 6.7 x 5.7 cm. A single intrauterine gestation sac is visualized. Yolk sac and pole identified. Mean gestational sac diameter is 45.6 mm. [place] rump length is 32.6 mm. heart rate [...] ovaries bilaterally. 4. Cervical length 3.8 cm. [facility], KYToxicolograffaele JoelNatali [id number](s),Ur NegativeNormalNEGMercy Woodville HospitalComment on above:Result Comment: (Positive cutoff 500 ng/mL)Performed By: #### CPDAU #### [facility] [address] [place] [address] Food Truck Caterer: Ceasar Fink MDBarbiturate(s),UrNegativeNormalNEGMercy Woodville HospitalComment on above:Result Comment: (Positive cutoff 200 ng/mL)Performed By: #### CPDAU #### [facility] [address] [place] [address] Food Truck Caterer: Ceasar Fink MDBenzodiazepine(s)NegativeNormalNEGHolzer Health Systemcy Woodville HospitalComment on above:Result Comment: (Positive cutoff 150 ng/mL)Performed By: #### CPDAU #### [facility] [address] [place] [address] Food Truck Caterer: DANA Matthewsannabinoid(s),UrNegativeNormalNEGMercy Woodville HospitalComment on above:Result Comment: (Positive cutoff 50 ng/mL)Performed By: #### CPDAU #### [facility] [address] [place] [address] Food Truck Caterer: DANA Matthewsocaine MetaboliteNegativeNormalNEGUc West [facility] HospitalComcaro center on above:Result Comment: (Positive cutoff 150 ng/mL)Performed By: #### CPDAU #### [facility] [address] [place] [address] Food Truck Caterer: NORA Matthewsethadone Ql (U)NegativeNormalNEGMercy Woodville HospitalComment on above:Result Comment: (Positive cutoff 200 ng/mL)Performed By: #### CPDAU #### [facility] [address] [place] [address] Food Truck Caterer: NORA Matthewsethamphetamine, UrNegativeNormalNEGMercy Woodville HospitalComcaro center on above:Result Comment: (Positive cutoff 500 ng/mL)Performed By: #### CPDAU #### [facility] [address] [place] [address] Food Truck Caterer: Ceasar Fink MDOpiate(s), UrNegativeNormalNEGMercy Woodville HospitalComcaro center on above:Result Comment: (Positive cutoff 100 ng/mL)Performed By: #### CPDAU #### [facility] [address] [place] [address] Food Truck Caterer: Ceasar Fink MDOxycodone, UrineNegativeNormalNEGMercy Woodville HospitalComcaro center on above:Result Comment: (Positive cutoff 100 ng/mL)Performed By: #### CPDAU #### [facility] [address] [place] [address] Food Truck Caterer: ROBERT Matthewshencyclidine, UrNegativeNormalNEGMercy Woodville HospitalComcaro center on above:Result Comment: (Positive cutoff 25 ng/mL)Performed By: #### CPDAU #### [facility] [address] [place] [address] Food Truck Caterer: ROBERT Matthewsropoxyphene,UrineNegativeNormalNEGMercy Woodville HospitalComcaro center on above:Result Comment: (Positive cutoff 300 ng/mL)Performed By: #### CPDAU #### [facility] [address] [place] [address] Food Truck Caterer: Ceasar Fink MDTricyclic antidepressants Screen Ql (U)Negative NormalNEGMercy Woodville HospitalComment on above:Result Comment: (Positive cutoff 300 ng/mL) Drug screen results are to be used for medical purposes only. All positive results are unconfirmed. Testing for employment or legal uses should be sent to a reference laboratory for confirmation.Performed By: #### CPDAU #### [facility] [address], [place] [address] Food Truck Caterer: Ceasar Fink MDBuprenorphrine, UrNOT REPORTEDNormalNEGMercy Woodville HospitalComment on above:Performed By: #### CPDAU #### [facility] [address] [place] [address] Food Truck Caterer: Ceasar Fink MDInterpretive InfoNOT REPORTEDNormalMercy Woodville HospitalComment on above:Performed By: #### CPDAU #### [facility] [address], [place] [id number] Food Truck Caterer: NORA MatthewsDMA, UrineNOT REPORTEDNormalNEGMercy Woodville HospitalComment on above:Performed By: #### CPDAU #### [facility] [address], [place] [id number] Food Truck Caterer: Ceasar Fink MDUrine Drug Screen, [facility] 10-23-2019 Amphetamine Screen, UrNegativeNEGATIVEMercy Health- [place], [place]Comment on above: (Positive cutoff 500 ng/mL) Barbiturate Screen, UrNegativeNEGATIVEMercy Health- [place], KYComment on above: (Positive cutoff 200 ng/mL) Benzodiazepine Screen, UrineNegativeNEGATIVEMercy Health- [place], KYComment on above: (Positive cutoff 150 ng/mL) Buprenorphine UrineNOT REPORTEDNEGATIVEMercy Health- [place], KYCannabinoid Scrn, Ur NegativeNEGATIVEMercy Health- [place], KYComment on above: (Positive cutoff 50 ng/mL) Cocaine Metabolite, UrineNegativeNEGATIVEMercy Health- [place], KYComment on above: (Positive cutoff 150 ng/mL) MDMA, UrineNOT REPORTEDNEGATIVEMercy Health- [place], KYMethadone Screen, Urine NegativeNEGATIVEMercy Health- [place], KYComment on above: (Positive cutoff 200 ng/mL) Methamphetamine, UrineNegativeNEGATIVEMercy Health- [place], KYComment on above: (Positive cutoff 500 ng/mL) Opiates, UrineNegativeNEGATIVEMercy Health- [place], KYComment on above: (Positive cutoff 100 ng/mL) Oxycodone Screen, UrNegativeNEGATIVEMercy Health- [place], KYComment on above: (Positive cutoff 100 ng/mL) Phencyclidine, UrineNegativeNEGATIVEMercy Health- [place], KYComment on above: (Positive cutoff 25 ng/mL) Propoxyphene, UrineNegativeNEGATIVEMercy Health- [place], KYComment on above: (Positive cutoff 300 ng/mL) Test InformationNOT REPORTEDMercy Health- [place], KYTricyclic Antidepressants, Urine NegativeNEGATIVEMercy Health- [place], KYComment on above: (Positive cutoff 300 ng/mL) Drug screen results are to be used for medical purposes only. All positive results are unconfirmed. Testing for employment or legal uses should be sent to a reference laboratory for confirmation. C Cervicalon [id number] CultureMicrobiology PROCEDURE: Cervical Culture [R1] SOURCE: Cerv BODY [...] Locations R1: This test was performed at: [facility], [address] [place] [address], [address] , [facility] HospitalComment on above:Performed By: #### [id number], [id number] #### [facility] [address] [place] [address] [id number] Urineon [id number] identified Cx Nom (U)Microbiology PROCEDURE: Urine Culture [R1] SOURCE: U CleanCatch [...] Locations R1: This test was performed at: [facility], [address] [place] [address], [address] , [facility] HospitalComment on above:Performed By: #### [id number], [id number] #### [facility] [address] [place] [address]Odbvin Summary.on [id number] Summary.CODING DATE: 10/21/2019 FINAL [facility] STATUS: Home (Routine DC) PAYOR: Medicaid ADMIT [...] By: Mimi Sutherland Date Saved: 10/21/2019 02:29 pmNMcKitrick HospitalCoding Summary. CODING DATE: 10/21/2019 FINAL [facility] STATUS: Home (Routine DC) PAYOR: Medicaid ADMIT [...] Mimi Sutherland Revised Date Saved: 10/21/2019 02:29 pmNormalLutheran HospitalAuto Diffon 09-93-7580Gqqxafsgo/100 WBC (Bld)0.4 %Normal0.0-2.0Lutheran HospitalComment on above:Order Comment: Order Added by Discern Expert.Performed By: #### [id number], 2538058, 3172238, 3688403, [id number] #### [facility] [address] [place] [address] 312[address]Dssfqwosq/Leukocytes Auto (Bld) [Pure # fraction]0.0 E9/LNormal 0.0-0.1FTriHealth Good Samaritan HospitalComment on above:Order Comment: Order Added by Discern Expert.Performed By: #### [id number], 5933696, 2218689, 9802320, 9737625 #### [facility] [address] [place] [address] 94359Eshgubetqlp/100 WBC (Bld)0.4 %Normal0.0-8.0Lutheran HospitalComment on above:Order Comment: Order Added by Discern Expert.Performed By: #### [id number], 8704400, 9356392, 1331699, 3961965 #### [facility] [address] [place] [address] 45778Iaoxrydavrh/Leukocytes Auto (Bld) [Pure # fraction]0.0 E9/L Normal0.0-0.7FTriHealth Good Samaritan HospitalComment on above:Order Comment: Order Added by Discern Expert.Performed By: #### [id number], 3347336, 4853105, 7261283, 0400390 #### [facility] [address] [place] [address] 00533Rqjbhaykqau/100 WBC (Bld)14.8 %Okkxnr65.0-55.0Lutheran HospitalComment on above:Order Comment: Order Added by Discern Expert. Performed By: #### 4205929, 9326549, 9775715, 4998571, 1489725 #### [facility] [address] [place] [address] 99[address]Rpoehellyay/Leukocytes Auto (Bld) [Pure # fraction]1.7 E9/L Normal1.0-3.5FTriHealth Good Samaritan HospitalComment on above:Order Comment: Order Added by Discern Expert.Performed By: #### 2917234, 1403511, 6491098, 9085016, 2338355 #### [facility] [address] [place] [address] 25667Afhdtibgo/100 WBC (Bld)7.5 %Normal4.0-14.0Lutheran HospitalComment on above:Order Comment: Order Added by Discern Expert.Performed By: #### 7582874, 6858460, 7902794, 1668166, 0645269 #### [facility] [address] [place] [address] 107[address]Suehbymam/Leukocytes Auto (Bld) [Pure # fraction]0.9 E9/LNormal 0.0-1.0Lutheran HospitalComment on above:Order Comment: Order Added by Discern Expert.Performed By: #### 0300770, 2340324, 9146692, 4814880, 2171398 #### [facility] [address] [place] [address] 50314Smdgolmthxr/100 WBC (Bld)76.9 %High36.0-75.0Lutheran HospitalComment on above:Order Comment: Order Added by Discern Expert. Performed By: #### 3445607, 9712727, 4666122, 7174420, 4864156 #### [facility] [address] [place] [address] 32459Wajfiomhuto/Leukocytes Auto (Bld) [Pure # fraction]8.9 E9/LHigh 1.3-6.0Lutheran HospitalComment on above:Order Comment: Order Added by Discern Expert.Performed By: #### 5233473, 3674751, 0915419, 7462097, 9536279 #### [facility] [address] [place] [address] 518[address]RXUyo 41-53-5682Npzhyrttuj [Mass/Vol]0.6 mg/dLNormal0.5-1.3 Luther[facility] HospitalComment on above:Performed By: #### 3060293, 9410632, 3633418, 9016054, 3044940 #### [facility] [address] [place], [place] [address]Ljym nitrogen [Mass/Vol]9 mg/dLNormal5-21Lutheran HospitalComment on above:Performed By: #### 9353422, 6611532, 7535553, 2605928, 7066552 #### [facility] [address] [place] [address] 31945Vsps nitrogen/Creatinine [Mass ratio]15 No DezsoLuxdvg26-96 Luther[facility] HospitalComment on above:Performed By: #### 6718188, 6247573, 5803184, 3476398, 8588950 #### [facility] [address] [place] [address] 957[address]Xyvnh gap [Moles/Vol]12 mmol/LNormal6-16Lutheran HospitalComment on above:Performed By: #### 6068694, 9045660, 8427271, 6691789, 2137370 #### [facility] [address] [place] [address] 28706Doedudx [Mass/Vol]9.5 mg/dLNormal8.9-11.1FTriHealth Good Samaritan HospitalComment on above:Performed By: #### 8722330, 7906701, 5684593, 9324752, 6746876 #### [facility] [address] [place] [address] 30661Dsqadkgg [Moles/Vol]104 mmol/RXfxbiy261-994JecddcLutheran HospitalComment on above:Performed By: #### 9365745, 3930516, 9976297, 2062024, 9782919 #### [facility] [address] [place], [place] [address]ZG6 [Moles/Vol]22 mmol/MCdpbub78-20XvvymaLutheran Hospital Comment on above:Performed By: #### 1790168, 8457874, 7896806, 5377326, 3957207 #### [facility] [address] [place], [place] [address]Jootsim [Mass/Vol]89 mg/jNBfjhkc93-429WzdheoLutheran HospitalComment on above:Result Comment: If this glucose result represents a fasting glucose, interpretation should refer tothe following reference range: 55-99 mg/dLPerformed By: #### 7588485, 3641632, 7308859, 4117617, 1568830 #### [facility] [address] [place], [place] [address]Hpqoizmtg [Moles/Vol]3.9 mmol/LNormal3.5-5.3FTriHealth Good Samaritan HospitalComment on above:Performed By: #### 5535836, 2275950, 1808107, 3386630, 8672800 #### [facility] [address] [place] [address] 623[address]Ietjdr [Moles/Vol]134 mmol/JZhi894-320ZekdsaLutheran HospitalComment on above:Performed By: #### 9792812, 0754703, 1803491, 1677874, 4088632 #### [facility] [address] [place] [address] 39[address]GhWH Quanton 78-04-2930YEM.beta subunit Bd410754 m[IU]/mLHigh 1-3FTriHealth Good Samaritan HospitalComment on above:Result Comment: GESTATIONAL AGE HCG RANGE (mIU/mL) NON- <1-3 0.2-1 WEEKS 5-50 1-2 WEEKS 50-500 2-3 WEEKS 100-5,000 3-4 WEEKS 500-10,000 4-5 WEEKS 1,000-50,000 5-6 WEEKS 10,000-100,000 6-8 WEEKS 15,000-200,000 8-12 WEEKS 10,000-100,000Performed By: #### 7573401 #### [facility] [address] [place] [address]64[address]SDH w/ Auto Diffon 55-80-2081Qldcmqironk distribution width (RBC) [Ratio]13.1 %Dvhlhn89.5-14.0Lutheran HospitalComment on above: Performed By: #### 4549016, 5138772, 6711298, 3827121, 1335520 #### [facility] [address] [place] [address] 23360Nweyjognfa (Bld) [Volume fraction]40.9 %Dwtesp51.0-47.0Lutheran HospitalComment on above:Performed By: #### 8540483, 5316849, 7897283, 1374298, 1423783 #### [facility] [address] [place] [address] 158[address]Ccokgschku (Bld) [Mass/Vol]13.6 g/qUNizmdp93.0-15.0Lutheran HospitalComment on above:Performed By: #### 8740512, 0516872, 9650479, 4121814, 5570380 #### [facility] [address] [place] [address] 09651ZYL (RBC) [Entitic mass]28.2 wdNgwzhx73.0-32.0Lutheran HospitalComment on above:Performed By: #### 0458417, 7375851, 9016198, 9031489, 4071585 #### [facility] [address] [place] [address] 00497KWBK (RBC) [Mass/Vol]33.2 g/jBFulrky39.0-36.0Lutheran HospitalComment on above:Performed By: #### 9694275, 5027936, 8825321, 8944659, 3410559 #### [facility] [address] [place] [address] 582[address]RGZ (RBC) [Entitic vol]84.9 qRYlowjz88.0-95.0Lutheran HospitalComment on above:Performed By: #### 2644867, 0955076, 7838861, 2588301, 1084398 #### [facility] [address] [place] [address] 259[address]Ydmdbaet mean volume (Bld) [Entitic vol]6.8 fLNormal6.0-9.5 Lutheran HospitalComment on above:Performed By: #### 5216568, 1531390, 0859385, 3078838, 8463602 #### [facility] [address] [place] [address] 60521Lthipmggb (Bld) [#/Vol]341.0 E9/SJkutmg032.0-450.0Lutheran HospitalComment on above:Performed By: #### 8607462, 4543935, 0482991, 3880991, 7601063 #### [facility] [address] [place] [address] 56363ORP (Bld) [#/Vol]4.8 E12/LNormal4.1-5.3FTriHealth Good Samaritan HospitalComment on above:Performed By: #### 9764498, 2604288, 0328208, 4720822, 5635928 #### [facility] [address] [place] [address] 492[address]EUF corrected for nucl RBC Auto (Bld) [#/Vol]11.5 E9/LHigh 4.0-10.5FTriHealth Good Samaritan HospitalComment on above:Performed By: #### 1105125, 9918036, 7885564, 5305905, 3950606 #### [facility] [address] [place] [address] 48353SM Clinical Summaryon [id number] Clinical Summary [address] [address] ED Clinical Summary Person Information Name: NICOLE GEORGE [place] Age: 14 Years : 2005 Sex: Female Language: Turkmen PCP: Abhijeet Crane III, DO Marital Status: [...] 10/20/2019 16:20:29 10/20/2019 16:20:29 10/20/2019 16:20:29 ADDRESS: [address] [place] [phone] PHYS DOC NOTES: MEDICAL INFORMATION: Prescriptions Given: [...] to Continue with No Changes Other Medications brompheniramine/dextromethorphan/PSE (Bromfed DM oral syrup) 10 Milliliter By Mouth 4 times a day as needed for cold symptoms. Refills: 0. PATIENT EDUCATION INFORMATION: Instructions: Vaginitis, Uaya-qz-Wzdj; Care; Morning Sickness Follow up: With: Address: When: Casey [address], [place] [id number] Business (1) Within 1 to 2 days Comments: Please return for any vaginal bleeding, high fevers, worsening pain or symptoms. Please take your antibiotic as prescribed. Please apply the gel every night before you go to bed. Please follow-up with your first obstetrics appointment on Monday. With: Address: When: Abhijeet Crane [address] [place] [address], [place] [address] Business (1) Within 1 to 2 days DIAGNOSIS: 1:; 2:Bacterial vaginosis; 3:Asymptomatic bacteriuria; 4:Suprapubic cramping; 5:Morning sicknessNoCarondelet Health Medical CenterED Note-Physicianon [id number] Note-PhysicianBasic Information Time Seen: Yusuf Roach PA-C 10/20/2019 [...] No posterior exudate or posterior edema. No tonsillarexudate. Eyes: conjunctivae and EOM are normal. PERRLA. [...] 14 year old female that presented to [facility] for vaginal cramping. Upon evaluation of the patient's history and physical exam I considered STI, ectopic, PID, . Patient presented with some lower abdominal cramping that began this morning. She has not had a confirmed intrauterine . work-up will be initiated and ultrasound will be ordered torule out any ectopic . Upon review of the patient's labs she has mild leukocytosis of 11.5 which is likely physiologic. Noevidence of any anemia. The patient has no acute electrolyte abnormalities. Hepatic function panel is unremarkable. Lipase is negative. Her beta hCG quant is 147122. Her urine has some leukocytes with 6-15 [...] protocols were in place to prevent falls/all time- outs were taken if procedures were performed per [...] (at bedtime) Follow-up With When Contact Information Casey Orellana Within 1 to [address] [address]- business (1) Additional Instructions: Please return for any vaginal bleeding, high fevers, worsening pain or symptoms. Please take your antibiotic as prescribed. Please apply the gel every night before you go to bed. Please follow-up with your first obstetrics appointment on Monday. Abhijeet Crane Within 1 to 2 days [address] [place] [address]- Business (1) Additional Instructions: Patient Education Vaginitis, Effy-zz-Hbyn Care Morning Sickness Attestation Dr Perez has been informed about evaluation and treatment of patient during this visit. This report was transcribed using voice recognition software. Every effort was made to ensure accuracy, however, inadvertently computerized bundles hanger mistakes may be present. Patient was treated and evaluated by the physician quality assistant. The attending physician was in the [...] 12:38:00) Lymph Auto: 14.8 % (10/20/19 12:38:00) Divide Auto: 7.5 % (10/20/19 12:38:00) Eos Auto: 0.4 % (10/20/19 12:38:00) Basophil Auto: 0.4 % (10/20/19 12:38:00) Neutro Absolute: 8.9 E9/L High (10/20/19 12:38:00) Lymph Absolute: 1.7 E9/L (10/20/19 12:38:00) Divide Absolute: 0.9 E9/L (10/20/19 12:38:00) Eos Absolute: [...] 24 unit/L (10/20/19 12:38:00) Beta hCG Qnt: 682097 mIU/mL High (10/20/19 12:38:00) UA Spec Desc: [...] corresponding gestational age +/- 1 week are: [place] Rump Length: 2.6 cm Composite Ultrasound Age: [...] (bpm) 89 Signed By: Alex Coronado MD [facility] HospitalComment on above:Result Comment: Electronically Signed By: Yusuf Roach PA-C\.br\Date and Time Signed: 10/20/19 15:53 EDT\.br\Electronically Co-Signed By: Bud Perez MD\.br\Date and Time Co-Signed: 10/20/19 18:02 EDTED Patient Education Noteon [id number] Patient Education NoteFamily Medicine Vaginitis Vaginitis is an inflammation of the vagina. It can happen when the normal bacteria and yeast in thevagina grow too much. There are different types. [...] Document Reviewed: 01/10/2013 ExitCare? Patient Information ?2014 [employer]. This information is not intended to replace advice given to you by your health care provider. Make sure you discuss any questions you have with yourhealth care provider. Care WHAT IS CARE? care [...] with your health care provider: ? Prescription, tpov-iin-aqgwkzn, and herbal medicines that you take. ? [...] to make sure that you and your babyare healthy. If there are any problems, action [...] care provider before taking any medicine, even lgja-bhd-vionfxm medicines. Some medicines are not safe to take during . ? Get plenty of rest and sleep. ? Avoid hot tubs and saunas during . ? Do not have X-rays taken unless absolutely necessary and with the recommendation of your health care provider. A lead shield can be placed on your abdomen to protect your baby when X-rays are takenin other parts of your body. ? Do [...] Camembert, and chevre) or soft, blue-veined cheese (Luxembourgish blue and Roquefort). ? Stay away from toxic chemicals like: ? Insecticides. ? Solvents (some plastic production machine setter or paint thinners). ? Lead. ? Mercury. ? Sexual intercourse may continue until the end of the , unless you have a medical problemor there is a problem with the and [...] Know where a hospital is located in thety you are visiting, in case of an [...] baby. ? Ask about a baby doctor (drawing hand) and methods and pain medicine for labor, [...] your blood, urine, blood pressure, weight, and theprogress of the baby will be checked. ? [...] Document Reviewed: 10/15/2014 ExitCare? Patient Information ?2015 [employer]. This information is not intended to replace advice given to you by your health care provider. Make sure you discuss any questions you have with yourhealth care provider. Morning Sickness Morning sickness is [...] TREATMENT Do not use any medicines (prescription, iwtv-xip-fdnphfu, or herbal) for morning sickness without first talking to your health care provider. Your health care provider may prescribe or recommend: ? Vitamin B6 supplements. ? Anti-nausea medicines. ? The herbal medicine tc. HOME CARE INSTRUCTIONS ? Only take mdam-iea-hywhvcs or prescription medicines as directed by your [...] Document Reviewed: 01/15/2014 ExitCare? Patient Information ?2015 [employer]. This information is not intended to replace advice given to you by your health care provider. Make sure you discuss any questions you have with yourhealth care provider.[facility] Center[facility] Patient Summaryon [id number] Patient Summary [address] [address] Patient Discharge Instructions Person Information Name: NICOLE GEORGE Age: 14 Years Arrival Date: 10/20/2019 11:39:35 Discharge Diagnosis: 1:; 2:Bacterial vaginosis; 3:Asymptomatic bacteriuria; 4:Suprapubic cramping; 5:Morning sickness Primary Care Physician: Abhijeet Crane III, DO Provider Information Primary Provider: Ana ALTAMIRANO, Bud Advanced Compliance Auditor:None The exam and treatment you received in the Emergency Department were for an urgent problem and are not intended as complete care. It is important that you follow up with a doctor, nurse practitioner,or physician?s quality assistant for ongoing care. If your symptoms become worse or you do not improve as expected and you are unable to reach your usual health care provider, you should return to the Emergency Department. We are available 24 hours a day. NICOLE GEORGE has been given the following list of patient education materials, prescriptions and follow-up instructions: Follow-up Instructions: With: Address: When: Casey Orellana [address] [place] [id number] [facility] (1) Within 1 to 2 days Comments: Please return for any vaginal bleeding, high fevers, worsening pain or symptoms. Please take your antibiotic as prescribed. Please apply the gel every night before you go to bed. Please follow-up with your first obstetrics appointment on Monday. With: Address: When: Abhijeet Crane [address] [place] [address], [facility], [place] [address] [facility] (1) Within 1 to 2 days In the event that this physician does not participate in your insurance network, please consult with your insurance company to find a nearby participating provider. Patient Education Materials: Vaginitis, Uejt-fx-Fgud; Care; Morning Sickness A MESSAGE TO ALL PATIENTS REGARDING OPIOIDS PRESCRIPTION OPIOIDS: WHAT YOU NEED TO KNOW Prescription opioids can be used to help relieve aunqnqwk-gl-mpbgjz pain and are often prescribed following a [...] and have fewer risks and side effects. Optionsmay include: ? Pain relievers such as acetaminophen, [...] unused prescription opioids: Find your community drug take- back program or your[employer] mail-back program, or flush them down the toilet, following guidance from the Food and Drug Administration (www.fda.gov/Drugs/ResourcesForYou). ? Visit www.cdc.gov/drugoverdose to learn about the risks of opioids abuse and overdose. ? If you believe you may be struggling with addiction, tell your health pediatric critical care nurse and ask for guidance or call [facility]?S emoteShare Helpline at 8-789-466-QMGO. f Source: US Department of Health and Human Services/Center for Disease Control & Prevention [facility] Medications Given: Medication Dose Route [...] to Continue with No Changes Other Medications brompheniramine/dextromethorphan/PSE (Bromfed DM oral syrup) 10 Milliliter By Mouth 4 times a day as needed for cold symptoms. Refills: 0. Comment: Pharmacy Information: Thank you for choosing [facility] Patient Education Materials: Vaginitis Vaginitis is an inflammation of the vagina. It can happen when the normal bacteria and yeast in thevagina grow too much. There are different types. [...] Document Reviewed: 01/10/2013 ExitCare? Patient Information ?2014 [employer]. This information is not intended to replace advice given to you by your health care provider. Make sure you discuss any questions you have with yourhealth care provider. Care WHAT IS CARE? care [...] with your health care provider: ? Prescription, uxig-keh-tawpmqi, and herbal medicines that you take. ? [...] to make sure that you and your babyare healthy. If there are any problems, action [...] care provider before taking any medicine, even zjxc-rba-vqfbdtv medicines. Some medicines are not safe to take during . ? Get plenty of rest and sleep. ? Avoid hot tubs and saunas during . ? Do not have X-rays taken unless absolutely necessary and with the recommendation of your health care provider. A lead shield can be placed on your abdomen to protect your baby when X-rays are takenin other parts of your body. ? Do [...] Camembert, and chevre) or soft, blue-veined cheese (Luxembourgish blue and Roquefort). ? Stay away from toxic chemicals like: ? Insecticides. ? Solvents (some plastic production machine setter or paint thinners). ? Lead. ? Mercury. ? Sexual intercourse may continue until the end of the , unless you have a medical problemor there is a problem with the and [...] Know where a hospital [facility], in case of an [...] baby. ? Ask about a baby doctor (drawing hand) and methods and pain medicine for labor, [...] your blood, urine, blood pressure, weight, and theprogress of the baby will be checked. ? [...] Document Reviewed: 10/15/2014 ExitCare? Patient Information ?2015 [employer]. This information is not intended to replace advice given to you by your health care provider. Make sure you discuss any questions you have with yourhealth care provider. Morning Sickness Morning sickness is [...] TREATMENT Do not use any medicines (prescription, fwop-eos-biesjcu, or herbal) for morning sickness without first talking to your health care provider. Your health care provider may prescribe or recommend: ? Vitamin B6 supplements. ? Anti-nausea medicines. ? The herbal medicine tc. HOME CARE INSTRUCTIONS ? Only take esmv-fim-ghbwglo or prescription medicines as directed by your [...] Document Reviewed: 01/15/2014 ExitCare? Patient Information ?2015 [employer]. This information is not intended to replace advice given to you by your health care provider. Make sure you discuss any questions you have with yourhealth care provider. ARIEL Elizalde HANNA J , have received the following patient education materials/instructions and have verbalized understanding: Patient Education Materials: Vaginitis, Poul-to-Kogz; Care; Morning Sickness Follow-up Instructions: With: Address: When: Casey Orellana [address] [place] [address] [facility] () Within 1 to 2 days Comments: Please return for any vaginal bleeding, high fevers, worsening pain or symptoms. Please take your antibiotic as prescribed. Please apply the gel every night before you go to bed. Please follow-up with your first obstetrics appointment on Monday. With: Address: When: Abhijeet Crane [address] [place] [address] [facility] (1) Within 1 to 2 days Patient Signature Date Clinician/Nurse Signature Date 10/20/2019 16:20:31NormalLutheran HospitalHep Func Panelon 10-20-2019 Albumin [Mass/Vol]4.0 g/dLNormal3.3-5.0Lutheran HospitalComment on above:Performed By: #### [id number], [id number], 6095011, 5292290, 6705357 #### [facility] [address] [place], [place] [address]Giukkbm [Mass/Vol]1.2 g/dLNormal1.1-2.2FTriHealth Good Samaritan HospitalComment on above:Performed By: #### [id number], 1413060, 7993573, 4997917, 5717938 #### [facility] [address], [place] [address]SYI [Catalytic activity/Vol]46 Int._Unit/YHsy48-354SvlwwgLutheran HospitalComment on above:Performed By: #### [id number], 7508028, 4328858, 7621985, 9528289 #### [facility] [address], [place] [address]GQW No additional P-5'-P [Catalytic activity/Vol]23 Int._Unit/L Normal6-46Lutheran HospitalComment on above:Performed By: #### 0590157, 2690925, 6005401, 3733570, 1609378 #### [facility] [address], [place] [address]PWW [Catalytic activity/Vol]20 Int._Unit/LNormal5-43Lutheran HospitalComment on above:Performed By: #### 8169334, 7732880, 5901316, 6678995, 2715338 #### [facility] [address] [place] [address]Ikkhfawbt [Mass/Vol]0.6 mg/dLNormal0.0-1.1FTriHealth Good Samaritan HospitalComment on above:Performed By: #### 5189183, 5351056, 8799787, 4408831, 3335623 #### [facility] [address] [place] [address]Jxaczgbim.direct [Mass/Vol]0.5 mg/dLNormal0.1-0.9Lutheran HospitalComment on above:Performed By: #### 6741968, 8181878, 4184121, 9026850, 9789552 #### [facility] [address] [place] [address]Nsscuvcgo.direct [Mass/Vol]0.1 mg/dLNormal0.1-0.4FTriHealth Good Samaritan HospitalComment on above:Performed By: #### 7363263, 0672023, 6153340, 2561395, 6864395 #### [facility] [address] [place] [address]Yykvauhh (S) [Mass/Vol]3.3 g/dLNormal1.4-4.0Lutheran HospitalComment on above:Performed By: #### 5156218, 5736337, 5169951, 2859943, 6256708 #### [facility] [address] [place] [address]Mujebae [Mass/Vol]7.3 g/dLNormal6.0-7.8Lutheran HospitalComment on above:Performed By: #### 1594542, 1614593, 4139267, 6622352, 0786337 #### [facility] [address] [place] [address]Barqyf Levelon 96-78-6145Gbniyo [Catalytic activity/Vol]24 unit/IWaorhq67-17DcxyrrLutheran HospitalComment on above:Performed By: #### 5717878, 1717985, 5424702, 6964336, 9941794 #### [facility] [address], [place] [address]QT With Cult Reflexon 96-38-8727Cnsiugcp LM Ql (Urine sed)TRACE NormalTraceLutheran HospitalComment on above:Performed By: #### [id number], 0556969 #### [facility] [address] [place] [address]Zgnntjfgw Ql (U)NegativeNormalNegativeLutheran HospitalComment on above:Performed By: #### 82674789, 4058785 #### [facility] [address] [place] [address]Ftuhdqg (U)CLOUDYAbnormalClearFisher [facility] Comment on above:Performed By: #### 78948369, 2227872 #### [facility] [address] [place] [address]Apxxk (U)YELLOWNormalYellowLutheran HospitalComment on above:Performed By: #### 89959551, 9060481 #### [facility] [address] [place] [address]Okoxlvzdyt cells.squamous LM.HPF (Urine sed) [#/Area]5-8Normal 0-2Fisher [facility] Western MarylandComment on above:Performed By: #### [id number], 6290819 #### [facility] [address] [place] [address]Lazekds Test strip (U) [Mass/Vol]NegativeNormalNegUK HealthcareComment on above:Performed By: #### 42935079, 0835555 #### [facility] [address], [place] [address]Uahhzwkttf Ql (U)NegativeNormalNegUK HealthcareComment on above:Performed By: #### 43747790, 3764761 #### [facility] [address] [place] [address]Bathcrt (U) [Mass/Vol]NegativeNormalNegativeLutheran HospitalComment on above:Performed By: #### 74569247, 9770288 #### [facility] [address], [place] [address]Iernwpv.plasma/Marienthal.RBC (Bld) [Mass ratio]5-3Apikjh7-8Vtzloo [facility] Western MarylandComment on above:Performed By: #### [id number], 8230850 #### [facility] [address] [place] [address]Brzyd Ql (Urine sed)1+NormalLutheran HospitalComment on above:Performed By: #### 24606935, 8775080 #### [facility] [address] [place] [address]Bohkxju Ql (U)NegativeNormalNegativeLutheran Hospital Comment on above:Performed By: #### [id number], 0485395 #### Eliazar [facility] [address] [place] [address]rH (U)6.0 [pH]5.0-9.0Lutheran HospitalComment on above:Performed By: #### 66346571, 4188567 #### [facility] [address] [place] [address]Whcpwck (U) [Mass/Vol]TRACEAbnormalNegativeLutheran HospitalComment on above:Performed By: #### 44236527, 0131744 #### [facility] [address] [place] [address]Rcgejpco gravity (U) [Rel density]>=1.0301.005-1.030Lutheran HospitalComment on above:Performed By: #### 02172277, 2620772 #### [facility] [address] [place] [address]PR Spec DescClean CatchNormalLutheran HospitalComment on above:Performed By: #### [id number], 2016973 #### [facility] [address] [place] [address]Wwgfszoblyfc Qn (U)0.2 {Chema'U}/dLNormal0.0-1.0Lutheran HospitalComment on above:Performed By: #### 10608746, 7133060 #### Eliazar [facility] [address], [place] [address]ZPM Auto Ql (U)TRACEAbnormalNegativeLutheran Hospital Comment on above:Performed By: #### 47973814, 4563138 #### [facility] [address], [place] [address]NBT LM.HPF (Urine sed) [#/Area]5-69Kocqofha5-1Ppzmok [facility] MarylandComment on above:Performed By: #### 81542674, 5558068 #### [facility] [address], [place] [address]UI 1st Trimesteron [id number] 1st TrimesterExam Date/Time: 10/20/2019 15:08 EDT Reason for Exam: [...] corresponding gestational age +/- 1 week are: [place] Rump Length: 2.6 cm Composite Ultrasound Age: [...] Para 0 Transabdominal Ultrasound Performed FHR (bpm) 164NormalFishR Adams Cow[facility] Shock Trauma CenterGLIADIN AB, IGG IGA, EIAon 52-52-0849UGKDJOFTNS GLIADIN AB, IGA[address] Comment on above:Result Comment: (NOTE) Negative 0 - 19 Weak Positive 20 - 30 Moderate to Strong Positive >30Performed By: #### FX, ACBC, ESR, CMPF, AMYL, CREACT, LIPA2, TSH2 ####Testing performed at [address] [address]#### LT4, LAGLI, LTTGG ####Testing performed at [address] [address]FHZQTYLCFU GLIADIN AB, IGG3 units Normal049 Davis StreetComment on above:Result Comment: (NOTE) Negative 0 - 19 Weak Positive 20 - 30 Moderate to Strong Positive >30PERFORMED AT [facility]OS[facility]ITALPerformed By: #### FX, ACBC, ESR, CMPF, AMYL, CREACT, LIPA2, TSH2 ####Testing performed at [address] [address]#### LT4, LAGLI, LTTGG ####Testing performed at [address] [address]GEZLHTBSW (T4)on 44-15-2497Ayvndlmqe (T4)5.5 ug/dL Normal4.5-12.0[facility] CenterComment on above:Result Comment: PERFORMED AT [facility]OS[facility]ITALPerformed By: #### FX, ACBC, ESR, CMPF, AMYL, CREACT, LIPA2, TSH2 ####[place] [address]#### LT4, LAGLI, LTTGG ####Testing performed at [address] [address]IAGMHT-IYC-LVJdl 74-13-0725CVO-IGG<3Nrpara2-7LltsnUniversity Hospitals Parma Medical Center on above:Result Comment: (NOTE) Negative 0 - 5 Weak Positive 6 - 9 Positive >9PERFORMED AT [facility]ITALPerformed By: #### FX, ACBC, ESR, CMPF, AMYL, CREACT, LIPA2, TSH2 ####[place] [address]#### LT4, LAGLI, LTTGG ####Testing performed at [address] [place] [address] XR ABDOMEN 1 VIEWon [id number] ABDOMEN 1 VIEWABDOMEN, 2 VIEWS:HISTORY: Abdominal pain of six day's duration.COMPARISON: No priors.FINDINGS: Moderate amounts of formed stool are seen throughout the colon.No distended small bowel loops or air-fluid level seen. No free air or mass is seen. Osseous structures appear intact.IMPRESSION:Moderate formed stool seen throughout colon and rectum which could be related to symptoms. Unremarkable examination otherwise.Normal [facility]25 0H VITAMIN D LEVELon [id number] 0H VITAMIN D LEVEL 26.1 NG/MLLow>30[facility] on above:Result Comment: DEFICIENT <20 NG/MLINSUFFICIENT 20-<30 NG/MLSUFFICIENT 30-100 NG/MLPOTENTIAL TOXICITY >100 NG/MLPerformed By: #### FX, ACBC, ESR, CMPF, AMYL, CREACT, LIPA2, TSH2 ####Testing performed at [address] [address]#### LT4, LAGLI, LTTGG ####Testing performed at [address] [address]CTBQOJGnh 41-57-0606Tgqgbxk08 U/YQqwkzp66-859YevnqCare One At Raritan Bay Medical CenterComment on above:Performed By: #### FX, ACBC, ESR, CMPF, AMYL, CREACT, LIPA2, TSH2 ####[place] [address]#### LT4, LAGLI, LTTGG ####Testing performed at [address] [address]W REACTIVE PROTEINon 09-28-2017C reactive protein (CRP)12.1 mg/LHigh0-10.0[facility] Medical CenterComment on above: Performed By: #### FX, ACBC, ESR, CMPF, AMYL, CREACT, LIPA2, TSH2 ####[place] [address]#### LT4, LAGLI, LTTGG ####Testing performed at [address] [address]RPFou 53-17-3333JLINIJLL BAS0.0 Z63OwhnosBjauwWashington County Tuberculosis Hospital Comment on above:Performed By: #### FX, ACBC, ESR, CMPF, AMYL, CREACT, LIPA2, TSH2 ####[place] [address]#### LT4, LAGLI, LTTGG ####Testing performed at [address] [address]SSCMCPWP EOS0.20 S32IdvexbCfanzWashington County Tuberculosis Hospital Comment on above:Performed By: #### FX, ACBC, ESR, CMPF, AMYL, CREACT, LIPA2, TSH2 ####[place] [address]#### LT4, LAGLI, LTTGG ####Testing performed at [address], [place] [address]Bntxpsfbw/100 WBC Auto (Bld)0.4 %Normal0.0-2.0[facility] Medical CenterComment on above:Performed By: #### FX, ACBC, ESR, CMPF, AMYL, CREACT, LIPA2, TSH2 ####[place] [address]#### LT4, KARMA LTTGG ####Testing performed at [address], [place] [address]WQKNYNFYR DIFFLos Alamos Medical Center on above:Performed By: #### FX, ACBC, ESR, CMPF, AMYL, CREACT, LIPA2, TSH2 ####[place] [address]#### LT4, KARMA, LTTGG ####Testing performed at [address], [place] [address]Llscjphvkqj/100 leukocytes2.4 % Normal0.0-11.0[facility] on above:Performed By: #### FX, ACBC, ESR, CMPF, AMYL, CREACT, LIPA2, TSH2 ####[place] [address]#### LT4, KARMA LTTGG ####Testing performed at [address] [place] [address] Lymphocytes3.10 D49TdlcivXvdaqLos Alamos Medical Center on above:Performed By: #### FX, ACBC, ESR, CMPF, AMYL, CREACT, LIPA2, TSH2 ####[place] [address]#### LT4, LAGLI, LTTGG ####Testing performed at [address] [place] [address] Lymphocytes/100 ytynegprlc53.5 %Dvkizl37.0-55.0[facility] on above:Performed By: #### FX, ACBC, ESR, CMPF, AMYL, CREACT, LIPA2, TSH2 ####[place] [address]#### LT4, LAGLI, LTTGG ####Testing performed at [address], [place] [address]Nvmircdcg0.7 W07BtfkumDexzjUniversity Hospitals Parma Medical Center on above:Performed By: #### FX, ACBC, ESR, CMPF, AMYL, CREACT, LIPA2, TSH2 ####[place] [address]#### LT4, KARMA LTTGG ####Testing performed at [address] [address]Hnyvbphnp/100 leukocytes8.6 %Normal0.0-10.0[facility] on above:Performed By: #### FX, ACBC, ESR, CMPF, AMYL, CREACT, LIPA2, TSH2 ####[place] [address]#### LT4, KARMA LTTGG ####Testing performed at [address], [place] [address]Ihlzminpvmk6.4 d49Kgiyem2.0-7.0 [facility] on above:Performed By: #### FX, ACBC, ESR, CMPF, AMYL, CREACT, LIPA2, TSH2 ####[place] [address]#### LT4, KARMA LTTGG ####Testing performed at [address] [address]Anzsmwsbgmw/100 piydbsfwgr50.1 %Dzleok84.0-75.0[facility] on above:Performed By: #### FX, ACBC, ESR, CMPF, AMYL, CREACT, LIPA2, TSH2 ####[place] [address]#### LT4, KARMA, LTTGG ####Testing performed at [address] [address] Erythrocyte distribution width Auto Ratio (RBC)12.6 %Jfbeqm49.5-14.5Av[facility]fork HospitalComment on above:Performed By: #### FX, ACBC, ESR, CMPF, AMYL, CREACT, LIPA2, TSH2 ####[place] [address]#### LT4, KARMA, LTTGG ####Testing performed at [address], [place] [address]Lqdfftneupps (RBC)4.58 /cmmNormal 4.0-5.4AEast Mountain HospitalComment on above:Performed By: #### FX, ACBC, ESR, CMPF, AMYL, CREACT, LIPA2, TSH2 ####[place] [address]#### LT4, KARMA, LTTGG ####Testing performed at [address], [place] [address]Npqrmodedo (HCT)39.1 %Ajakpc49.0-48.0[facility] Medical CenterComment on above:Performed By: #### FX, ACBC, ESR, CMPF, AMYL, CREACT, LIPA2, TSH2 ####[place] [address]#### LT4, KARMA, LTTGG ####Testing performed at [address] [place] [address] Hemoglobin mass conc (Bld)13.3 g/qKZvqibs92.0-16.0[facility] Hospitalment on above:Performed By: #### FX, ACBC, ESR, CMPF, AMYL, CREACT, LIPA2, TSH2 ####[place] [address]#### LT4, KARMA, LTTGG ####Testing performed at [address], [place] [address]EQJ85.0 yzDkgqdg44.0-35.0[facility] on above:Performed By: #### FX, ACBC, ESR, CMPF, AMYL, CREACT, LIPA2, TSH2 ####[place] [address]#### LT4, KARMA LTTGG ####Testing performed at [place] [address]MCHC mass conc (RBC)34.0 g/vAJpfdlm63.0-37.0[facility] Medical CenterComment on above:Performed By: #### FX, ACBC, ESR, CMPF, AMYL, CREACT, LIPA2, TSH2 ####[place] [address]#### LT4, LAGLI, LTTGG ####Testing performed at [place] [address]MCV85.2 rFIodyth55.0-100.0[facility] CenterComcaro center on above:Performed By: #### FX, ACBC, ESR, CMPF, AMYL, CREACT, LIPA2, TSH2 ####[place] [address]#### LT4, KARMA, LTTGG ####Testing performed at [place], [place] [address]Platelet mean volume (PMV)7.1 fL Low7.4-11.0[facility] CenterComcaro center on above:Performed By: #### FX, ACBC, ESR, CMPF, AMYL, CREACT, LIPA2, TSH2 ####[place] [address]#### LT4, LAGLI, LTTGG ####Testing performed at [address], [place] [address]Lvhsnknqq259 /simIutias924.0-400.0[facility] on above:Performed By: #### FX, ACBC, ESR, CMPF, AMYL, CREACT, LIPA2, TSH2 ####Testing performed at [place] [address]#### LT4, LAGLI, LTTGG ####Testing performed at [address] [place] [address] WBC (Leukocytes)8.5 /cmmNormal3.6-13.0[facility] on above: Performed By: #### FX, ACBC, ESR, CMPF, AMYL, CREACT, LIPA2, TSH2 ####[place] [address]#### LT4, LAGLI, LTTGG ####Testing performed at [address], [place] [address]DZZ FASTINGon 09-28-2017A:G RATIO1.5 RATIONormal1.3-2.2AUniversity Hospitals Parma Medical Center on above:Performed By: #### FX, ACBC, ESR, CMPF, AMYL, CREACT, LIPA2, TSH2 ####[place] [address]#### LT4, LAGLI, LTTGG ####Testing performed at [address], [place] [address]Lzebyul aminotransferase (ALT)16 U/QYunnrl13-72ByqjgMercy Health Fairfield Hospital on above:Performed By: #### FX, ACBC, ESR, CMPF, AMYL, CREACT, LIPA2, TSH2 ####Testing performed at [address] [address]#### LT4, LAGLI, LTTGG ####Testing performed at [address] [place] [address] Albumin4.5 G/dlNormal3.5-5.0[facility] on above:Performed By: #### FX, ACBC, ESR, CMPF, AMYL, CREACT, LIPA2, TSH2 ####Testing performed at [address] [address]#### LT4, LAGLI, LTTGG ####Testing performed at [address] [place] [address] Alkaline phosphatase (ALP)122 U/OOtouqn85-802CvqaiMercy Health Fairfield Hospital on above:Performed By: #### FX, ACBC, ESR, CMPF, AMYL, CREACT, LIPA2, TSH2 ####[place] [address]#### LT4, LAGLI, LTTGG ####Testing performed at [address], [place] [address]Muxguzqpp aminotransferase (AST)22 U/MNlxpkk73-31 [facility] on above:Performed By: #### FX, ACBC, ESR, CMPF, AMYL, CREACT, LIPA2, TSH2 ####[place] [address]#### LT4, LAGLI, LTTGG ####Testing performed at [address], [place] [address]Rwszppzya (total)0.3 mg/dLNormal0.2-1.9AUniversity Hospitals Parma Medical Center on above:Performed By: #### FX, ACBC, ESR, CMPF, AMYL, CREACT, LIPA2, TSH2 ####[place] [address]#### LT4, LAGLI, LTTGG ####Testing performed at [address] [place] [address] BUN (urea nitrogen)10 mg/dLNormal7-18[facility] on above: Performed By: #### FX, ACBC, ESR, CMPF, AMYL, CREACT, LIPA2, TSH2 ####[place] [address]#### LT4, LAGLI, LTTGG ####Testing performed at [address], [place] [address]Wrievwgmod8.6 mg/dLNormal0.52-1.04[facility] on above:Performed By: #### FX, ACBC, ESR, CMPF, AMYL, CREACT, LIPA2, TSH2 ####Testing performed at [address] [address]#### LT4, LAGLI, LTTGG ####Testing performed at [address], [place] [address]jBCC (non-black)Unable to calculate GFR due to inappropriate age/gender/creatinine value.NormalRobert Wood Johnson University Hospitalment on above:Performed By: #### FX, ACBC, ESR, CMPF, AMYL, CREACT, LIPA2, TSH2 ####Testing performed at [address] [address]#### LT4, LAGLI, LTTGG ####Testing performed at [address], [place] [address]Tltdiht5.5 g/dLNormal6.3-8.6ALewisGale Hospital [facility] on above:Performed By: #### FX, ACBC, ESR, CMPF, AMYL, CREACT, LIPA2, TSH2 ####Testing performed at [address] [address]#### LT4, LAGLI, LTTGG ####Testing performed at [address], [place] [address]Fmakjtm9.6 mg/dLNormal8.8-10.6AUniversity [facility]als [facility] on above:Performed By: #### FX, ACBC, ESR, CMPF, AMYL, CREACT, LIPA2, TSH2 ####Testing performed at [address] [address]#### LT4, LAGLI, LTTGG ####Testing performed at [address], [place] [address]Vderpmvn526 mmol/YHxydeo66-963 [facility] Hospitalment on above:Performed By: #### FX, ACBC, ESR, CMPF, AMYL, CREACT, LIPA2, TSH2 ####Testing performed at [address] [address]#### LT4, LAGLI, LTTGG ####Testing performed at [facility], [address] [facility] Hospital[facility] [place], [place] [address]LL[address] mmol/HKsdahy09-44 [facility] on above:Performed By: #### FX, ACBC, ESR, CMPF, AMYL, CREACT, LIPA2, TSH2 ####Testing performed at [address] [place] [address]#### LT4, LAGLI, LTTGG ####Testing performed at [place] [id number] [facility] [address]Tvsnmyf mass conc83 mg/dL Trnzcj73-645YnwgaMercy Health Fairfield Hospital on above:Result Comment: NORMAL <100 mg/dLPREDIABETES 101-126 mg/dLDIABETES 126 mg/dL or higherPerformed By: #### FX, ACBC, ESR, CMPF, AMYL, CREACT, LIPA2, TSH2 ####Testing performed at [address] [place] [address]#### LT4, LAGJEEVAN, LTTGG ####Testing performed at [address] [place] [address] Potassium molar conc3.5 mmol/LNormal3.5-5.1AEast Mountain HospitalComcaro center on above:Performed By: #### FX, ACBC, ESR, CMPF, AMYL, CREACT, LIPA2, TSH2 ####Testing performed at [address] [address]#### LT4, LAGLI, LTTGG ####Testing performed [address] [facility], [place] [address]Zajqcv724 mmol/HJwphvp112-038GuiadCare [facility] At [facility] Comment on above:Performed By: #### FX, ACBC, ESR, CMPF, AMYL, CREACT, LIPA2, TSH2 ####Testing performed at [address] [place] [address]#### LT4, LAGLI, LTTGG ####Testing performed at [facility] GarciaWestern [facility], [place] [address]Mvygjrn, Urineon 10-95-3447Mudmihh, UrineTest Name: Culture, UrineCulture Status: FinalCulture Report: GrowthMicro Source: UrineORGANISM ID:1 - 50,000-75,000 CFU/ml COAGULASE NEGATIVE STAPHYLOCOCCUSANTIBIOTIC INTERPRETATION TRINA STATUSClindamycin S <= 0.12 FDoxycycline S <= 0.5 FGentamicin S <= 0.5 FNitrofurantoin S <= 16 FOxacillin S <= 0.25 FTetracycline S <= 1 FVancomycin S 1 FNormalKettering Health MiamisburgComment on above:Performed By: #### URCUL ####Unless otherwise noted, all testing performed by [place] [address] [address] [place], [place] [phone]: [id number] Director: Jayy Rodriguez M.D.ESRon 30-72-0360Nynsoklpuke sedimentation rate3 mm/hNormal0-20[facility] Comment on above:Performed By: #### FX, ACBC, ESR, CMPF, AMYL, CREACT, LIPA2, TSH2 ####[place] [address]#### LT4, LAGJEEVAN, LTTGG ####Testing performed at [address], [place] [address]LUH REQUESTon 36-55-1278DJU [id number] Medical Center-Rio RanchoComment on above:Performed By: #### FX, ACBC, ESR, CMPF, AMYL, CREACT, LIPA2, TSH2 ####[place] [address]#### LT4, LAGLI, LTTGG ####Testing performed at [address], [place] [address]LXBJFY,SERUMon 09-28-2017 LIPASE,SERUM25 U/QDvntge60-098GalymCare One At Raritan Bay Medical CenterComment on above:Performed By: #### FX, ACBC, ESR, CMPF, AMYL, CREACT, LIPA2, TSH2 ####[place] [address]#### LT4, KARMA, LTTGG ####Testing performed at [address] [address] TSHon 32-91-4281Ybbchda stimulating hormone (TSH)2.878 uIU/MLNormal0.36-5.80 [facility] CenterComcaro center on above:Performed By: #### FX, ACBC, ESR, CMPF, AMYL, CREACT, LIPA2, TSH2 ####[place] [address]#### LT4, KARMA, LTTGG ####Testing performed at [address] [address] Vital Signs Date TimeVital SignValuePerforming FnmcmglspBswbmpxg86-28-5259 10:55-0400Body mass index (BMI) [Ratio]32.46 kg/m2Deena Martinez PA Work Phone: [facility] HospitalMayicjqggy80-52-2321 10:55-0400Body ywabie13.93 kgDeena Martinez PA Work Phone: [phone] HospitalHexfbfhjib40-01-0867 10:55-0400Diastolic blood yxnlpold79 mm[Hg]Deena Martinez PA Work Phone: [facility] HospitalBrkjpyshzo97-82-1219 10:55-0400Systolic blood jkpypejm663 mm[Hg]Deena Martinez PA Work Phone: [facility] HospitalMtfbmjajiy08-31-3734 13:49-0400Body mass index (BMI) [Ratio]31.71 kg/o8Idqsg Bishop DO Work Phone: [facility] HospitalMrjzjorzhy91-57-4536 13:49-0400Body lwpuig96.11 kgCorey Bishop DO Work Phone: [facility] HospitalHccybsmjcp90-75-7944 13:49-0400Diastolic blood ebqlrntc05 mm[Hg]Ranjan Bishop DO Work Phone: [facility] HospitalKsjserjfbq29-87-1102 13:49-0400Systolic blood idadtirf949 mm[Hg]Ranjan Bishop DO Work Phone: [facility] HospitalMnptowwxfe52-51-4151 09:19-0400Body mass index (BMI) [Ratio]31.89 kg/i2CvfrfFlushing Hospital Medical Center08-22-2025 09:19-0400Body weight 76.57 kgFlushing Hospital Medical Center02-15-2024 10:59-0500Body mass index (BMI) [Ratio]31.71 kg/u5Sypnm Bishop DO Work Phone: [facility] HospitalQncbhvatkv49-88-5168 10:59-0500Body bunqne49.19 kgCorey Bishop DO Work Phone: [facility] HospitalVezkpmwgfx75-42-1926 10:59-0500Diastolic blood bwmtlymx31 mm[Hg]Ranjan Bishop DO Work Phone: [facility] HospitalXvnwprzfjo40-77-9511 10:59-0500Systolic blood mm[Hg]Ranjan Bishop DO Work Phone: [facility] Zezflunzza92-01-7311 16:45-0500Body vblgha596.94 Corey Flores Other [facility] Other 11-11-2022 16:45-0500Body mass index (BMI) [Ratio] 34.76 kg/w7FlmerlIzabella Flores Other [employer] Other 11-11-2022 16:45-0500Body lgyqwxlpbzt76.7 [degF]Izabella Flores Other [employer] Other 11-11-2022 16:45-0500Body splqes90.46 kgIzabella Flores Other [employer] Other 11-11-2022 16:45-0500Diastolic blood lprcumvi25 mm[Hg] Izabella Flores Other [facility] Other 11-11-2022 16:45-0500Respiratory rate18 /minPaashu Flores Other [facility] Other 11-11-2022 16:45-9047MpW0% (BldA) [Mass fraction]97 % Izabella Flores Other [facility] Other 11-11-2022 16:45-0500Systolic blood mm[Hg] Izabella Flores Other [employer] Other 09-18-2022 13:40-0400Body lgjxau189.94 cmAmbelvin Dugan Other [facility] Other 09-18-2022 13:40-0400Body mass index (BMI) [Ratio] 33.06 kg/g8IroxeEllen Dugan Other [facility] Other 09-18-2022 13:40-0400Body emqscdlwrlm60.4 [degF]Ellen Dugan Other [facility] Other 09-18-2022 13:40-0400Body .38 kgEllen Dugan Other [facility] Other 09-18-2022 13:40-0400Diastolic blood xpepbklt83 mm[Hg] Ellen Dugan Other [facility] Other 09-18-2022 13:40-0400Respiratory rate18 /minEllen Dugan Other [facility] Other 09-18-2022 13:40-9200NuT5% (BldA) [Mass fraction]99 % Ellen Dugan Other [facility] Other 09-18-2022 13:40-0400Systolic blood sfayyfkd032 mm[Hg] Ellen Dugan Other [employer] Other 03-22-2022 18:05-0400Body wddadf088.94 cmPamela Sandra Other [employer] Other 03-22-2022 18:05-0400Body mass index (BMI) [Ratio] 32.12 kg/i2Zabkhtashu Flores Other [employer] Other 03-22-2022 18:05-0400Body zypvunrszuz62.6 [degF]Izabella Sandra Other [employer] Other 03-22-2022 18:05-0400Body taxsyk16.11 kgPaashu Sandra Other [employer] Other 03-22-2022 18:05-0400Respiratory rate18 /minPaashu Flores Other [employer] Other 03-22-2022 18:05-2960VuR5% (BldA) [Mass fraction]99 % Izabella Sandra Other [employer] Other 09-30-2020 17:04-0400Body Bffxsgqblzn79.4 [degF]Michael LewisLijgxwyujTajoKteppb16-95-6556 17:04-0400BP Szhqjbyst34 mm[Hg]Michael DebbieOhioHealth Shelby HospitalSmojLrqqui33-57-2008 17:04-0400BP Erdyrtuy34 mm[Hg]Counts include 234 beds at the [facility] 05-13-2020 17:04-0400Pulse (Heart Rate)80 /minOmar LataipxviUtxeKimvtk42-92-0871 17:04-0400Pulse Gsprpfoc59 %Counts [facility] HospitalGcwetbzfgPttpMvokbp36-92-3629 17:04-0400 Respiratory Rate14 /minOmar PvaedguakDhvvBrunwk63-07-6546 20:45-0400Body weight 75.3 kgOmar WhfrzytdzAyypGzgiki12-60-9069 16:23-0400Body Qkhgshlrwzh71.3 [degF] Counts [facility] HospitalPacquvceqRoemPbjnwy04-02-5055 16:23-0400BP Eqyqlwlot20 mm[Hg]Critical access hospital08-03-2020 16:23-0400BP Mqhvgobr704 mm[Hg]Counts include 234 beds at the [facility] 03-16-2020 16:23-0400Pulse (Heart Rate)96 /minOmar RtfczncojPdopBpkgxc64-66-5534 16:23-0400Pulse Bcygaikx54 %Counts [facility] HospitalSpyibeppuIkmtVbvlmz34-07-1222 16:23-0400 Respiratory Rate20 /minOmar SsfqliriaZtieBqbltx36-91-4465 16:23-0400BMI (Body Mass Index)30 kg/m2[facility]ly [facility]r FyynhgquvPnsxLznjfi88-13-7700 16:23-0400Body .03 kgFormerly [facility] Hospitalr CvkrlymrdXdbpGiwcga85-93-2659 16:23-0935Zgossf517.9 cmOmar [facility]03-12-2020 14:50-0400Heart rateMwh [facility] [place] [place] Encounters Encounter DateEncounter TypeCare ProviderFacilityStart: 06-09-2025 End: 57-61-1480Iyacwa Duane COLUNGA Work Phone: [facility] [place] [facility]BGYNStart: 06-09-2025 End: 86-27-2402Idhurrjesika COLUNGA Work Phone: [facility] [place] [facility]BGYNStart: 06-09-2025 End: 23-23-9286Ewgxndwk Result EncounterDeena COLUNGA Work Phone: NO External Department UnsolicitedStart: 06-09-2025 End: 18-26-3110Vmkizgho flow sheetDeena COLUNGA Work Phone: NO [place] OBGYNComment on above:17 weeks gestation of ([facility]); Second trimester ([facility]); Acute intractable headache, unspecified headache type; Screening, , for anatomic survey ([facility]); Exposure to STD; Vaginal dischargeStart: 06-09-2025 End: 93-39-1496vnvngfadiiIIU Patricia AvailableStart: 04-28-2025 End: 40-85-4992Abzrwu flowsheetCorey Bishop DO Work Phone: NO [place] OBGYNStart: 04-28-2025 End: 05-97-0565Raqpfm flowsheetCorey Bishop DO Work Phone: NO [place] OBGYNStart: 04-28-2025 End: 85-46-4627vhttjvqbunCBLKK FAZIONot AvailableStart: 04-28-2025 End: 44-51-6147Gjubug outpatient visit 15 minutesCorey Bishop DO Work Phone: NO [place] OBGYNComment on above:11 weeks gestation of ([facility]); First trimester ([facility]); Acute intractable headache, unspecified headache typeStart: 04-04-2025 End: 31-70-8949Bjhuji outpatient visit 5 minutesFazio Nurse [facility] Bcp ObNO [place] OBGYNComment on above:GA: 7n3xNlxbf: 04-04-2025 End: 70-59-7366sackipfabaVDMAL FAZIONot AvailableStart: 08-15-2024 End: 81-14-8468Jannowgdo Result EncounterCorey Bishop DO Work Phone: NO External Department UnsolicitedStart: 08-15-2024 End: 34-09-2350Effihvwxc Result EncounterCorey Bishop DO Work Phone: noms External Department UnsolicitedStart: 10-12-2023 End: 84-90-9531Ekfsaotti Result EncounterCorey Bishop DO Work Phone: noms External Department UnsolicitedStart: 10-12-2023 End: 86-33-6624Tbhpkbylh Result EncounterCorey Bishop DO Work Phone: noms External Department UnsolicitedStart: 09-28-2023 End: 29-01-6197Pmtllb outpatient visit 15 minutesCorey Bishop DO Work Phone: noms [facility] OBComment on above:Third trimester ; Excessive growth affecting management of in third trimester, single or unspecified fetusStart: 08-25-2023 End: 88-72-6905Rphulejbf Result EncounterCorey Bishop DO Work Phone: noms External Department UnsolicitedStart: 08-25-2023 End: 36-96-6369Pmxxhspii Result EncounterCorey Bishop DO Work Phone: noms External Department UnsolicitedStart: 07-25-2023 End: 42-20-5346Cgvadrflm Result EncounterCorey Bishop DO Work Phone: noms External Department UnsolicitedStart: 07-25-2023 End: 44-97-6001Ycvmthsll Result EncounterCorey Bishop DO Work Phone: noms External Department UnsolicitedStart: 06-24-2022 End: 14-47-9088whixusizczSwfhqh Dymond Other [facility] Other Start: 74-91-7772Lqjnxq outpatient visit 15 minutes Izabella [facility]deStart: 05-01-2022 End: 06-23-7663nhnbfnhokzGpmet Keller Other [facility] Other Start: 82-54-7035Bqxmbz outpatient visit 15 minutes Ellen DuganFPG Urgent Care ClydeStart: 31-45-3033kipcokmowiRQUYG [facility] AmbulatoryStart: 11-07-2021 End: 01-79-5411tgtvkuomqxXLWKSJ ALLENFacility:E7Vxmdi: 11-02-2021 End: 39-51-5835qsfvduxpcwQhezog Dymond Other [facility] Other Start: 45-70-1133Zhbmzr outpatient new 30 minutes Izabella FigueroajacobFPG Urgent Care ClydeStart: 08-13-2021 End: 42-84-6814jcktjcfmlxJCCYVM ALLENFacility:X6Ojxkk: 07-20-2021 End: 58-65-0539mlijvbkdazFX DOCTOR MISCFacility:K2Wzpdd: 06-22-2020 End: 08-45-9256Rergajj encounter procedureSTEVEN TARA [facility] HospitalStart: 05-10-2020 End: 21-18-2518Jggaukzguh and management of inpatientOMAR F. S. DENNYSRAEVELYNseaview hospital HospitalStart: 05-10-2020 End: 33-13-3168Bowxwxlyqp and management of inpatientOmar F. S. Debbie Work Phone: [phone] [place] [address] Labor & DeliveryStart: 04-24-2020 End: 97-52-9525Vytdvxo encounter procedureOMAR F. S. GUIMARAESRiverside Sikh HospitalStart: 03-16-2020 End: 19-54-2746Nepscdmpn department patient visitOMAR F. S. DENNYSRAEVELYNseaview hospital HospitalStart: 03-16-2020 End: 29-46-5712Gutooagvs department patient visitOmar F. S. Debbie Work Phone: [phone] [place] [address] Labor & DeliveryStart: 02-28-2020 End: 43-74-0292Rcqmhjl encounter procedureSelect [facility] Start: 02-28-2020 End: 01-68-6914Izfbclazqq hospital visit by physicianDeandre Appiah LaboratoryComment on above:28 weeks gestation of ; Impaired glucose in , antepartumStart: 10-24-2019 End: 13-06-7536Qzlltyq encounter procedureSelect [facility] Start: 10-24-2019 End: 70-77-7398Ijthadugwv hospital visit by Kiley Ultras[facility] [employer] LaboratoryComment on above:Amenorrhea; Positive urine test; Encounter for supervision of normal in first trimester, unspecified gravidityAmenorrhea; Positive urine testStart: 10-23-2019 End: 70-35-8231Ygohraf encounter procedureSelect [facility] Start: 10-23-2019 End: 34-53-0889Qkxhzcvvzf hospital visit by Norman Appiah LaboratoryComment on above:Amenorrhea; Positive urine test; Encounter for supervision of normal in first trimester, unspecified gravidityStart: 42-25-4050CnwkudnehbVilwat KleECU Healthcility:PawneeStart: 44-26-2075ZcqyqzakoeFDNDWJHCA [facility] Procedures DateProcedureProcedure DetailPerforming ClinicianStart: 12-67-5141XUAAOKLCF VAGINITIS (HTRX)Deena COLUNGA Work Phone: Start: 55-28-0748Zysvy dip stick/tablet rgnt non-auto w/o micrscpAmy Michelle COLUNGA Work Phone: Start: 84-58-2683Fmbbb dip stick/tablet rgnt non-auto w/o micrscpCorey Bishop DO Work Phone: Start: 61-60-1283Evwuc dip stick/tablet rgnt non-auto w/o micrscpCorey Bishop DO Work Phone: Start: 08-14-1680MCV PREG QUANT HCGCorey Bishop DO Work Phone: Start: 28-10-0844UK OB GROWTHCorey Bishop DO Work Phone: Start: 38-29-6599Klwoa dip stick/tablet rgnt non-auto w/o micrscpCorey Bishop DO Work Phone: Start: 17-35-3484XP OB GROWTHCorey Bishop DO Work Phone: Start: 82-45-1553VM OB ANATOMYCorey Bishop DO Work Phone: Start: 79-11-5739SU OB CERVICAL LENGTHCorey Bishop DO Work Phone: Start: 31-99-1839Hlrtsgbx blood count with white cell differential, automatedOmar F. S. Debbie Work Phone: Start: 27-32-8590Btagdsji blood count with white cell differential, manualOmar F. S. Debbie Work Phone: Start: 72-86-1496PLRBB-19, MOLECULAROmar F. S. Debbie Work Phone: Start: 86-24-8243Jtllx type and Indirect antibody screen panel - BloodOmar F. S. Debbie Work Phone: Start: 41-71-3328Wqfeuvjk blood count (hemogram) panel - Blood by Automated countOmar F. S. Debbie Work Phone: Start: 37-59-6627Cahbgilowedty metabolic 2000 panel - Serum or PlasmaOmar F. S. Debbie Work Phone: Start: 43-92-0403Cidk c/v amniotic fluid protein qual ea specimenOmar F. S. Debbie Work Phone: Start: 49-43-7031TbntzuxslsTbtsnb Mil Work Phone: Start: 18-76-8937Qohwi count hemoglobinKATHLEEN POOL Start: 95-30-8792Ixgqvah tolerance test gtt 3 specimensKATHLEEN POOLStart: 93-49-3205Aegwc count hemoglobinKathleen E Pool Work Phone: Start: 21-75-0517Eedfgkd tolerance test gtt 3 specimensKathleen E Pool Work Phone: Start: 77-96-6119Pb uterus 14 wk transabdl 08/14 gestatKATHLEEN POOLStart: 21-70-1155Enslbayp hiv-1&hiv-2 single result DEMETRIA POOLStart: 37-93-9224Fxmkuxpet c antibodyKATHLEEN POOLStart: 10-24-2019 Obstetric panelKATHLEEN POOLStart: 95-04-4129ZFWTRFUX TYPE AND SCREENKATHLEEN POOLStart: 93-72-9125Ea uterus 14 wk transabdl 08/14 gestatKathleen E Pool Work Phone: Start: 32-80-9458Wuqatrzo screenEdward HemeyerStart: 74-08-0123Kadto typing serologic aboKathleen E Pool Work Phone: Start: 01-86-2147Nzbnjvxdy c antibodyKathleen E Pool Work Phone: Start: 44-45-7459Zyenimbxy panelKathleen E Pool Work Phone: Start: 10-23-2019C.TRACHOMATIS N.GONORRHOEAE DNA, URINEKATHLEEN POOLStart: 48-49-2819Ynjyuwh bacterial quanttative colony count urineKATHLEEN POOLStart: 25-58-9053Arbk screen, qualitate/multiKATHLEEN POOL Start: 08-54-8009Tocq screen, qualitate/multiKathleen E Pool Work Phone: Plan of Treatment DateCare ActivityDetailAuthorStart: 44-40-4847TXzN/Tdap/Td vaccine (7 - Td) DTaP/Tdap/Td vaccine (7 - Td)[facility]: 07-08-2025 End: 90-62-1575Vcpotyu encounter rcavavjxa46/25/2025 2:10 PM EST Routine NOMAlana YU [address] [place], [id number] Ranjan Alas DO [address] [place] [address] NOMAlana ERNTERIAGYNStart: 07-08-2025 End: 76-40-6484Lnvqdmdcrlhh / ancillary services bvrmpckezy65/25/2025 1:00 PM EST Ancillary Procedure [facility] [address] [place] [address] KWYO [place] OBGYNStart: 06-09-2025 End: 06-86-3911Okrbk fetoprotein, maternalAlpha fetoprotein, maternal Lab Routine 17 weeks gestation of ([facility]) Second trimester ([facility]) Expected: 06/09/2025 (Approximate), Expires: 07/10/2025[facility] Comment on above:Expected: 06/09/2025 (Approximate), Expires: 07/10/2025Start: 06-09-2025 End: 56-04-4208NU for pregnancyUS OB 14+ weeks anatomy scan Imaging Routine Screening, , for anatomic survey ([facility]) Expected: 06/09/2025, Expires: 09/09/2025NOMT HealthcareComment on above:Expected: 06/09/2025, Expires: 09/09/2025Start: 06-09-2025 End: 73-96-2126Thazrug encounter pykurhgih27/27/2025 10:50 AM EDT Routine NOMAlana YU [address] [place] [address] Deena Martinez, PA [address] [place] [address] ArrivedNOMS Regina OBGYNComment on above:ArrivedStart: 05-26-2025 End: 88-84-0942Vbjdofc encounter zkkggufjs50/13/2025 3:30 PM EDT Routine [facility] [address] [place], [id number] Deena Martinez PA [address] [place] [address] [facility] [place] OBGYNStart: 04-28-2025 End: 26-68-8249Iigoycx encounter hrmrsvlfu78/15/2025 1:40 PM EDT Routine [facility]AUERN [address] [place], [id number] Ranjan Alas DO [address] [place] [address] [facility] [place] OBGYNStart: 04-04-2025 End: 42-92-8657ZXW/RhABO/Rh Lab Routine Missed menses , unspecified gestational age ([facility]) Expected: 04/04/2025 (Approximate), Expires: 04/04/2026NOMT HealthcareComment on above:Expected: 04/04/2025 (Approximate), Expires: 04/04/2026Start: 04-04-2025 End: 22-51-3088Mqaxi type and Indirect antibody screen panel - BloodType and screen Lab Routine Missed menses , unspecified gestational age ([facility]) Expected: 04/04/2025 (Approximate), Expires: 04/04/2026[facility] Work Phone: comment on above:Expected: 04/04/2025 (Approximate), Expires: 04/04/2026Start: 04-04-2025 End: 08-78-9716Cxxpz of abuse panel - Urine by Screen methodRapid drug screen, urine Lab Routine , unspecified gestational age ([facility]) Encounter for supervision of normal first in first trimester ([facility]) Expected: 04/04/2025 (Approximate), Expires: 04/04/2026NOMT HealthcareComment on above: Expected: 04/04/2025 (Approximate), Expires: 04/04/2026Start: 10-12-2023 End: 34-91-9047Jrkfkcd encounter tocwencec90/29/2024 9:30 AM EST Routine [facility] [address] [place] [id number] Deena Martinez PA [address] [place] [address] NOMS BCP OBStart: 10-12-2023 End: 98-09-7977Kdxfmvzqwiui / ancillary services zbwwnpgpar14/29/2024 9:00 AM EST Ancillary Procedure [facility] [address] [place] [address] NOMS BCP OBStart: 09-28-2023 End: 79-06-8192Sibtszdabh A1c/Hemoglobin.total in BloodHemoglobin A1c Lab Routine Third trimester Expected: 09/28/2023 (Approximate), Expires: 09/28/2024[facility] Work Phone: comment on above:Expected: 09/28/2023 (Approximate), Expires: 09/28/2024Start: 09-28-2023 End: 44-51-5360TG for pregnancyUS OB SCAN FOR GROWTH Imaging Routine Excessive growth affecting management of in third trimester, single or unspecified fetus Expected: 09/28/2023 (Approximate), Expires: 2024NOMT HealthcareComment on above:Expected: 09/28/2023 (Approximate), Expires: 09/28/2024Start: 67-05-8283Xxzvrvjkewein (ACWY) vaccine (2 - 2-dose series) Meningococcal (ACWY) vaccine (2 - 2-dose series)[facility]: 65-30-9413Xkioqnadi A vaccine (2 of 2 - 2-dose series)Hepatitis A vaccine (2 of 2 - 2-dose series)[place]:Postponed from 05/19/2018 (Not Indicated)Start: 86-62-2753Linmstreg vaccinationFlu vaccine (#1)[facility]: 03-12-2020 End: 10-14-0239XtgwhrdctSheltering Arms Hospital OBSTETRICS & GYNECOLOGYStart: 03-04-2020 End: 23-30-4112Hdbcink Oomsorkr50/22/2020 Routine Obstetrics and Gynecology Demetria Louise APRN - DAILY [address] [place] [address] [place] [address] [phone] [facility] OB/GYNStart: 11-06-2019 End: 01-37-9904Skrxoal Kfjqtqri70/25/2020 Routine Obstetrics and Gynecology Demetria Louise APRN - [address] [place] [address] [phone] [facility] OB/GYNStart: 10-24-2019 End: 44-33-7374Aidfdullnzb44/12/2020 [facility]trasoundStart: 68-50-2229BGY screenHIV [facility]art: 69-63-2024Hzbaurwgh vaccinationFlu vaccine (#1)[facility]: 24-80-5723Cfuqrbkee A vaccine (2 of 2 - 2-dose series)Hepatitis A vaccine (2 of 2 - 2-dose series)[facility]: 33-13-8367JSZ vaccine (2 - 2-dose series)HPV vaccine (2 - 2-dose series)[facility]: 27-95-2518GDI vaccine (1 - 2-dose series)HPV vaccine (1 - 2-dose series)[place] Start: 31-99-3049Mkzanlrfbmkhl (ACWY) vaccine (1 - 2-dose series)Meningococcal (ACWY) vaccine (1 - 2-dose series)[facility]: 2011 DTaP/Tdap/Td vaccine (1 - Tdap)DTaP/Tdap/Td vaccine (1 - Tdap)[facility]: 50-53-1147Zifegpize A vaccine (1 of 2 - 2-dose series)Hepatitis A vaccine (1 of 2 - 2-dose series)[facility]: 2005 Measles,Mumps,Rubella (MMR) vaccine (1 of 2 - Standard series) Measles,Mumps,Rubella (MMR) vaccine (1 of 2 - Standard series)[facility]: 14-55-3506Uzzgmwqyc vaccine (1 of 2 - 2-dose childhood series)Varicella vaccine (1 of 2 - 2-dose childhood series)[facility] Hospital: 2004 Polio vaccine (1 of 3 - 4-dose series)Polio vaccine (1 of 3 - 4-dose series) [facility]: [id number] B vaccine (1 of 3 - 3-dose primary series)Hepatitis B vaccine (1 of 3 - 3-dose primary series)[facility] MELIABacteria identified in Urine by CultureUrine culture Microbiology Routine Missed menses Ordered: 04/04/2025[facility] HealthcareComment on above:Ordered: 04/04/2025 End: 10-23-2019C.trachomatis N.gonorrhoeae DNA, UrineC.trachomatis N.gonorrhoeae DNA, Urine Microbiology Routine Amenorrhea Positive urine test Encounter For Supervision Of Normal In First Trimester, Unspecified 1 Occurrences [facility] 10/23/2019 until [facility]/2019[facility] Comment on above:1 Occurrences starting 10/23/2019 until 10/23/2019C.trachomatis N.gonorrhoeae DNA, UrineC.trachomatis N.gonorrhoeae DNA, Urine Microbiology Routine Amenorrhea Positive urine test Encounter for supervision of normal in first trimester, unspecified 10/23/20199:05 AM EDT [facility] GABYC W Auto Differential panel - BloodCBC and differential Lab Routine Third trimester Ordered: 09/28/2023[facility] HealthcareComment on above:Ordered: 4CBC W Auto Differential panel - BloodCBC and differential Lab Routine Missed menses , unspecified gestational age ([facility]) Ordered: 04/04/2025[facility] HealthcareComment on above:Ordered: 04/04/2025 CHLAMYDIA TRACHOMATIS (GENITO/STI)CHLAMYDIA TRACHOMATIS (GENITO/STI) Lab Routine Exposure to STD Ordered: 06/09/2025[facility] HealthcareComment on above:Ordered: 06/09/2025 End: 56-35-1244Umjvfyt, UrineCulture, Urine Microbiology Routine Amenorrhea Positive urine test Encounter For Supervision Of Normal In First Trimester, Unspecified 1 Occurrences starting 10/23/2019 until 10/23/2019[facility]MELIAComment on above:1 Occurrences starting 10/23/2019 until 10/23/2019Culture, UrineCulture, Urine Microbiology Routine Amenorrhea Positive urine test Encounter for supervision of normal in first trimester, unspecified 10/23/2019 9:05 AM [facility], [place]Hemoglobin.total in BloodHemoglobin A1c Lab Routine Missed menses , unspecified gestational age ([facility]) Ordered: 04/04/2025[facility] HealthcareComment on above:Ordered: 04/04/2025Hepatitis B virus surface Ag [Presence] in Serum or Plasma by ImmunoassayHepatitis B surface antigen Lab Routine Missed menses , unspecified gestational age ([facility]) Ordered: 04/04/2025[facility] HealthcareComment on above:Ordered: 04/04/2025Hepatitis C virus Ab [Presence] in Serum or Plasma by ImmunoassayHepatitis C antibody Lab Routine Missed menses , unspecified gestational age ([facility]) Ordered: 04/04/2025[facility] HealthcareComment on above:Ordered: 04/04/2025 End: 28-64-2569QMK ScreenHIV Screen Lab Routine Amenorrhea Positive urine test Encounter For Supervision Of NormalPregnancy In First Trimester, Unspecified 1 Occurrences starting 10/24/2019 until 10/24/2019[facility], [place]Comment on above:1 Occurrences starting 10/24/2019 until 10/24/2019HIV ScreenHIV Screen Lab Routine Amenorrhea Positive urine test Encounter for supervision of normalpregnancy in first trimester, unspecified 10/24/2019 12:37 PM [facility], [place]HIV-1/HIV-2 antigen/antibody combination immunoassayHIV-1 and HIV-2 antibodies Lab Routine Missed menses , unspecified gestational age ([facility]) Ordered: 04/04/2025[facility] HealthcareComment on above:Ordered: 04/04/2025Neisseria gonorrhoeae DNA [Presence] in Unspecified specimen by MARIO with probe detection Neisseria gonorrhea DNA probe, direct Lab Routine Exposure to STD Ordered: 06/09/2025[facility] HealthcareComment on above:Ordered: 06/09/2025PRENATAL PROFILE I PROFILE I Lab Routine Amenorrhea Positive urine test Encounter for supervision of normal in first trimester, unspecified 10/24/2019 12:37 PM [facility], MELIARenj Ab [Presence] in Serum by RPRRPR Lab Routine Missed menses , unspecified gestational age ([facility]) Ordered: 04/04/2025[facility] HealthcareComment on above:Ordered: 04/04/2025Rubella antibody, IgGRubella antibody, IgG Lab Routine Missed menses , unspecified gestational age ([facility]) Ordered: 04/04/2025[facility] HealthcareComment on above:Ordered: 04/04/2025SURESWAB(R) ADVANCED VAGINITIS PLUS, TMASURESWAB(R) ADVANCED VAGINITIS PLUS, TMA Pathology and Cytology Routine Vaginal discharge Ordered: 06/09/2025[facility] Work Phone: comment on above:Ordered: 06/09/2025 Immunizations Immunization DateImmunizationNotesCare SoxnprqnGjkxarbv79-13-3793qmihbezjfd, tetanus toxoids and acellular pertussis vaccine, unspecified formulationOmar BzhkfxpjgSsouRdsblo35-24-1532smmzulq, mumps and rubella virus vaccineOmar KsshfyutaGoeyUqavsw56-79-2110oxmnwggws zoster immune globulinOmar [facility] CampusYvvmCthhva67-80-8722cqamcckrlwhez vaccine of unknown formulation and unknown serogroupsMMiami Valley HospitalMELIA Payers DatePayer CategoryPayerPolicy ID2023MedicaidUNITEDITED HEALTHCARE MEDICAID [employer] MEDICAID [place] [id number] 2023-Present [address] [place] [id number] Health InsuranceUNITED HEALTHCARE MEDICAID Member Subscriber Plan / Payer (Effective 2023-Present) Name: Ariel Nicole Relation to Subscriber: Self Name: Nicole George Payer ID: Not on file Group ID: Not on file Type: Not on file Address: [address] [place] [id number] [id number] [id number] Health InsuranceLA[facility] [place]xxxxxxxx 2019- Present [phone] [address] [place], [place] [address]hkcbpluex [id number] 2.0.1.591337.3.57[id number] 2.0.1.229603.3.57[id number] 2.0.1.017238.3.57[id number] 2.0.1.596166.3.57[id number] 2.0.1.797201.3.57[id number] 2.0.1.437812.3.57[id number] 2.840.1.683718.3.57[id number] 2.840.1.195164.3.57[id number] 2.840.1.018888.3.57[id number] 2.840.1.392908.3.57[id number] 2.16.840.1.627221.3.57[id number] 2.16.840.1.390695.3.57[id number] 2.16.840.1.174049.3.57[id number] 2.16.840.1.153653.3.57[id number] 2.16.840.1.868496.3.57[id number] 2.16.840.1.467991.3.579.2.35830-80-4991Xachfqt Health [id number] Cross Blue [id number] Social History DateTypeDetailFacilityStart: 10-23-2019 End: 96-14-6205Xeufqdq smoking status NHISNever smokerDen[place], [place]Start: 10[place]-2019 End: 34-71-5207Hboqawr intakeLifetime non-drinker (finding)[place], [place] Start: 10-23-2019 End: 10-01-5300Jpbsjxd SDOH Alcohol Aefimhcad1IviluDenison, [place]Start: 04-48-7931YwdwuoksVhqjp Health- [place], [place]Start: 17-75-6434Xza Assigned At BirthNot on [place], [place]Exposure to SARS-CoV-2 (event)Not sureOhioHealth Start: 02-12-2020 End: 36-14-0757Ixjogll use and exposureNever usedDen[place], KYSex Assigned At [facility] Other Tobacco smoking status NHISTobacco smoking consumption unknownNOMT HealthcareStart: 06-67-1172GzsUsrdpaMIIZ Healthcare Clinical Notes 11-02-2021 to 06-09-2025 Note Date & ZawqAlnvRubqkrzs62-39-8159 History of Present illness Narrative* CRISTINE Rosales - 06/09/2025 10:50 AM EDT Reason for Appointment: Patient ID: Nicole George is a 19 y.o. female who presents for Routine Visit and STI Screening Patient presents today for Return OB appointment.and cultures MEDICATIONS No current outpatient medications ALLERGIES Allergies Allergen Reactions Penicillin G Other Reaction(s): childhood allergy Penicillins Other Reaction(s): childhood allergy Unsure reaction; reaction as a baby Unsure reaction; reaction as a baby PROBLEMS Active Ambulatory Problems Diagnosis Date Noted No Active Ambulatory Problems Resolved Ambulatory Problems Diagnosis Date Noted No Resolved Ambulatory Problems No Additional Past Medical History HISTORY PAST MEDICAL HISTORY SOCIAL HISTORY History reviewed. No pertinent past medical history. Social History Tobacco Use Smoking status: Not on file Smokeless tobacco: Not on file Substance Use Topics Alcohol use: Not on file Drug use: Not on file FAMILY HISTORY Family History Problem Relation Name Age of Onset Thyroid disease Mother Other (AL) Father Post injury blood clot caused AL Other (Lupus erythematosus) Maternal Grandmother Alzheimer's disease Maternal Grandmother SURGICAL HISTORY Past Surgical History: Procedure Laterality Date GANGLION CYST EXCISION 2008 REVIEW OF SYSTEMS Review of Systems: Review of Systems Constitutional: Negative. HENT: Negative. Eyes: Negative. Respiratory: Negative. Cardiovascular: Negative. Gastrointestinal: Negative. Genitourinary: Negative. Musculoskeletal: Negative. Skin: Negative. Neurological: Negative. All other systems reviewed and are negative. Hematological: Negative. Endocrine: Negative. Allergic/Immunologic: Negative. OBJECTIVE Objective: Physical Exam Constitutional: Appearance: Normal appearance. She [...] reviewed. Vitals: Estimated body mass index is 32.46 kg/m as calculated from the following: Height as of 24: 5' 1 . Weight as of this encounter: 171 lb 12.8 oz. BP: 100/64 Patient's last menstrual period was 01/16/2025. Assessment/Plan ICD-10-CM 1. 17 weeks gestation of ([facility]) Z3A.17 POCT urinalysis dipstick manually resulted Alpha fetoprotein, maternal Alpha fetoprotein, maternal 2. Second trimester ([facility]) Z34.92 POCT urinalysis dipstick manually resulted Alpha fetoprotein, maternal Alpha fetoprotein, maternal 3. Acute intractable headache, unspecified headache type R51.9 4. Screening, , for anatomic survey ([facility]) Z36.89 US OB 14+ weeks anatomy scan US OB 14+ weeks anatomy scan 5. Exposure to STD Z20.2 CHLAMYDIA TRACHOMATIS (GENITO/STI) Neisseria gonorrhea DNA probe, direct 6. Vaginal discharge N89.8 SURESWAB(R) ADVANCED VAGINITIS PLUS, TMA Return OB: Patient presents today for a routine obstetrics appointment. Patient is currently 17w1d . Patient states she is doing well but has complaints of being tired due to current . Patient has verbalizes frequent movement. Orders Placed This Encounter Procedures US OB 14+ weeks anatomy scan CHLAMYDIA TRACHOMATIS (GENITO/STI) Neisseria gonorrhea DNA probe, direct Alpha fetoprotein, maternal POCT urinalysis dipstick manually resulted Follow Up: Patient is to return to office in 4 week for routine OB appointment. Documented by CRISTINE Rosales on behalf of: CRISTINE Rosales documented in this encounterHermann Area District HospitalWzmdocrwfx56-48-8956 History of Present illness Narrative* Sugey Ken LPN - 04/28/2025 1:40 PM EDT Reason for Appointment: Patient ID: Nicole George is a 19 y.o. female who presents for No chief complaint on file. Patient presents today for Return OB appointment. MEDICATIONS No current outpatient medications ALLERGIES Allergies Allergen Reactions Penicillin G Other Reaction(s): childhood allergy Penicillins Other Reaction(s): childhood allergy Unsure reaction; reaction as a baby Unsure reaction; reaction as a baby PROBLEMS Active Ambulatory Problems Diagnosis Date Noted No Active Ambulatory Problems Resolved Ambulatory Problems Diagnosis Date Noted No Resolved Ambulatory Problems No Additional Past Medical History HISTORY PAST MEDICAL HISTORY SOCIAL HISTORY History reviewed. No pertinent past medical history. Social History Tobacco Use Smoking status: Not on file Smokeless tobacco: Not on file Substance Use Topics Alcohol use: Not on file Drug use: Not on file FAMILY HISTORY Family History Problem Relation Name Age of Onset Thyroid disease Mother Other (AL) Father Post injury blood clot caused AL Other (Lupus erythematosus) Maternal Grandmother Alzheimer's disease Maternal Grandmother SURGICAL HISTORY Past Surgical History: Procedure Laterality Date GANGLION CYST EXCISION 2008 REVIEW OF SYSTEMS Review of Systems: Review of Systems Constitutional: Negative. HENT: Negative. Eyes: Negative. Respiratory: Negative. Cardiovascular: Negative. Gastrointestinal: Negative. Genitourinary: Negative. Musculoskeletal: Negative. Skin: Negative. Neurological: Positive for headaches. All other systems reviewed and are negative. Hematological: Negative. Endocrine: Negative. Allergic/Immunologic: Negative. OBJECTIVE Objective: Physical Exam Constitutional: Appearance: Normal appearance. She is well-developed. Cardiovascular: Rate and Rhythm: Normal rate and regular rhythm. Pulmonary: Effort: Pulmonary effort is normal. Breath sounds: Normal breath sounds. Abdominal: General: Bowel sounds are normal. There is no distension. Palpations: Abdomen is soft. Tenderness: There is no abdominal tenderness. There is no guarding or rebound. Musculoskeletal: General: No swelling. Normal range of motion. Right lower leg: No edema. Left lower leg: No edema. Neurological: Mental Status: She is alert and oriented to person, place, and time. Skin: General: Skin is warm and dry. Psychiatric: Mood and Affect: Mood normal. Behavior: Behavior normal. Vitals and nursing note reviewed. Exam conducted with a transfill technician present. Vitals: Estimated body mass index is 31.71 kg/m as calculated from the following: Height as of 24: 5' 1 . Weight as of this encounter: 167 lb 12.8 oz. BP: 100/68 Patient's last menstrual period was 01/16/2025. ASSESSMENT & PLAN ICD-10-CM 1. 11 weeks gestation of ([facility]) Z3A.11 POCT urinalysis dipstick manually resulted 2. First trimester ([facility]) Z34.91 POCT urinalysis dipstick manually resulted New OB: Patient presents today for 1st time obstetrics appointment with provider. Patient is currently 11w1d . Patients history has been reviewed in great detail including any potential risks. Patient stated she currently has no complaints. Expectations throughout regarding labs, ultrasounds, and appointments have been discussed with the patient in detail. It was reiterated that the patient is to drink 6-8 glasses of water a day, eat 6 small meals a day, do not consume raw or undercooked meat, and stay away from [facility]. Patient has been consulted regarding any further do's and don'tsof . Patient voiced understanding and all questions and concerns were answered. Patient complaints of headaches. Magnesium sent to pharmacy and patient advised to try Claritin as well. If symptoms have not improved with Magnesium in 2 weeks, then she is to reach out to office. Orders Placed This Encounter Procedures POCT urinalysis dipstick manually resulted Follow Up: Patient is to return in 4 weeks for routine OB appointment. Documented by Sugey Ken LPN on behalf of: Ranjan Alas DO documented in this encounterHermann Area District HospitalPfelpsscvq88-04-2292 History of Present illness Narrative* Christi Escalante LPN - 04/04/2025 9:00 AM EDT Reason for Appointment: Patient ID: Nicole George is a 19 y.o. female who presents for Amenorrhea Patient presents today for a Nurse OB Intake appointment. Patient is 7w5d with a Estimated Date of Delivery: 11/16/25 OB History Para Term AB Living 3 2 2 1 SAB IAB Ectopic Multiple Live Births 1 # Outcome Date GA Lbr Andrés/2nd Weight Sex Type Anes PTL Lv 3 Current 2 Term 11/30/23 38w5d 7 lb 6 oz F Vag-Spont 1 Term 05/11/20 38w5d 14:38 / 00:57 7 lb 3.3 oz M Vag-Vacuum EPI N CHIDI Current Medications: currently has no medications in their medication list. Medical History: Active Ambulatory Problems Diagnosis Date Noted No Active Ambulatory Problems Resolved Ambulatory Problems Diagnosis Date Noted No Resolved Ambulatory Problems No Additional Past Medical History Family History Problem Relation Name Age of Onset Thyroid disease Mother Other (AL) Father Post injury blood clot caused AL Other (Lupus erythematosus) Maternal Grandmother Alzheimer's disease Maternal Grandmother Social History Tobacco Use Smoking status: Not on file Smokeless tobacco: Not on file Substance Use Topics Alcohol use: Not on file Drug use: Not on file Past Surgical History: Procedure Laterality Date GANGLION CYST EXCISION 2008 Allergies Allergen Reactions Penicillin G Other Reaction(s): childhood allergy Penicillins Other Reaction(s): childhood allergy Unsure reaction; reaction as a baby Unsure reaction; reaction as a baby Vitals: Estimated body mass index is 28.72 kg/m as calculated from the following: Height as of 01/16/24: 5' 1 . Weight as of 01/16/24: 152 lb. BP: Patient's last menstrual period was 01/16/2025. Assessment/Plan Diagnoses and all orders for this visit: Missed menses - Type and screen; Future - ABO/Rh; Future - CBC and differential - Hemoglobin A1c - RPR - Rubella antibody, IgG - Hepatitis B surface antigen - Hepatitis C antibody - HIV-1 and HIV-2 antibodies - Urine culture - POCT , urine manually resulted - POCT urinalysis dipstick manually resulted , unspecified gestational age ([facility]) - Type and screen; Future - ABO/Rh; Future - CBC and differential - Hemoglobin A1c - RPR - Rubella antibody, IgG - Hepatitis B surface antigen - Hepatitis C antibody - HIV-1 and HIV-2 antibodies - Rapid drug screen, urine; Future Encounter for supervision of normal first in first trimester ([facility]) - Rapid drug screen, urine; Future Nurse Note: OB Intake: Patient presents today for first OB visit. Patients history has been reviewed in great detail including any potential risks. Patient signed consent forms and patient desires testing in both trimesters. Patient currently has no complaints and has been advised to drink 6-8 glasses of water a day, eatno raw or undercooked meat, and stay away from [facility]. Patient has also been advised to not change litter boxes and eat 6 small meals a day. Patient has been consulted regarding the do's and don'ts ofpregnancy. Patient was given labs and all questions and concerns were answered. Follow Up: Patient is to return in 4 weeks for routine OB appointment. Follow Up: Patient is to have labs drawn at directed and return to office for initial OB appointment with provider. Patient may call office as needed with any concerns or questions. Nurse Visit Completed by: BRENNA Annaally signed by Christi Escalante LPN at 04/04/2025 9:20 AM EDT documented in this encounterHermann Area District HospitalIjoinejdqi28-06-7847 History of Present illness Narrative* CRISTINE Rosales - 09/28/2023 10:40 AM EST Reason for Appointment: Patient ID: Nicole George [...] Age of Onset Thyroid disease Mother Other (AL) Father Post injury blood clot caused AL Other (Lupus erythematosus) Maternal Grandmother Alzheimer's disease [...] of: Ranjan Alas DO documented in this encounterHermann Area District HospitalMvnbzewojy90-31-5321 Evaluation note* Encounter Date Diagnosis Assessment Notes Treatment Notes Treatment Clinical Notes Jun, Contact with and (reyna spected) exposure to covid-19 (ICD-10 - Z20.822) Jun,Viral upper respiratory infection (ICD-10 - J06.9)Upper respiratory infection (common cold) material was printed Drink plenty fluids, get plenty of rest. Take Tylenol or Motrin for aches pains or fevers. Follow-up with your family physician if no improvement in 2 to 3 days [facility] Other 09-18-2022 Evaluation note* Encounter Date Diagnosis Assessment Notes Treatment Notes Treatment Clinical Notes Apr, Pediculosis capitis (ICD-10 - B8 5.0) Discussed diagnosis with patient. Advised to use [...] verbalizes understanding is agreeable with treatment plan Apr,therHead lice home care material was printed [facility] Other 03-22-2022 Evaluation note* Encounter Date Diagnosis Assessment Notes Treatment Notes Treatment Clinical Notes Oct, Sore throat (ICD-10 - J02.9) Oct,Viral upper respiratory illness (ICD-10 - J06.9) Drink plenty fluids, get plenty of rest, take Tylenol Motrin for aches pains or fevers. Follow-up with your family physician if no improvement in 2 to 3 days. [facility] Other Evaluation note* Diagnosis Third trimester state, incidental Excessive growth affecting management of in third trimester, single or unspecified fetus documented in this encounter [facility] HealthcareEvaluation [facility]* Diagnosis Missed menses , unspecified gestational age ([facility]) Encounter for supervision of normal first in first trimester ([facility]) documented in this encounter [facility] HealthcareEvaluation note* Diagnosis 11 weeks gestation of ([facility]) First trimester ([facility]) state, incidental Acute intractable headache, unspecified headache type documented in this encounter [facility]* Diagnosis 17 weeks gestation of ([facility]) Second trimester ([facility]) state, incidental Acute intractable headache, unspecified headache type Screening, , for anatomic survey ([facility]) Encounter for anatomic survey Exposure to STD Vaginal discharge Leukorrhea, not specified as infective documented in this encounter [facility] HealthcareHistory general Narrative - Reported* Type Description Date Medical History cyst removal off of hand Medical Historyseasonal allergiesMedical Historypin wormsSurgical Historycyst removal from handHospitalization Historysee above [facility] Other Summary Purpose Family History No Family History Records FoundNo Family History Records FoundNo Family History Records FoundNo Family History Records FoundNo Family History Records FoundNo Family History Records FoundNo Family History Records FoundNo Family History Records FoundNo Family History Records FoundNo Family History Records Found Advance Directives TypeDate RecordedPatient RepresentativeExplanationAdvance Directives and Living WillPower of AttorneyTypeDate RecordedPatient RepresentativeExplanationAdvance Directives and Living WillPower of AttorneyTypeDate RecordedPatient RepresentativeExplanationAdvance Directives and Living WillTypeDate Recorded Patient RepresentativeExplanationAdvance Directives and Living Will05/10/2020 8:53 PMCode StatusDate ActivatedDate InactivatedCommentsFull Code05/11/2020 7:57 PM05/13/2020 9:10 PMFull Code05/10/2020 9:13 PM05/11/2020 7:57 PM Assessments Diagnosis Amenorrhea Absence of menstruation Positive urine test Encounter for supervision of normal in first trimester, unspecified Diagnosis Amenorrhea Absence of menstruation Positive urine test Diagnosis Normal labor Diagnosis 28 weeks gestation of state, incidental Impaired glucose in , antepartum Reason for Referral StatusReasonSpecialtyDiagnoses / ProceduresReferred By ContactReferred To ContactNot Required - RecondoRadiology Diagnoses Amenorrhea Positive urine test Procedures US OB LESS THAN 14 WEEKS SINGLE OR FIRST GESTATION HC EVAL 1ST TRI SGL GEST Demetria Louise, CIRCULATION LIBRARIAN - CNM [address] [place] [address] [facility] [address] [place] [address] Hospital Course * Michael Lewis MD - [...] iron- 800 mcg Tab Generic drug: vit no.018-asdg-hasyn STOP taking these medications aspirin 81 mg chewable tablet vitamin with Ca-Iron-FA 27-1 mg Tab Where to Get Your Medications These medications were sent to [address] [address] ibuprofen 400 MG tablet Michael Lewis MD Attending Physician documented in this encounter Discharge Instructions * Attachments The following attachments cannot be sent through Care Everywhere. * Contraception: : General Info (Turkmen) * Parenting: Stress and Infants (Turkmen) documented in this encounter History of Present [...] section and content) DATE CREATED AUTHOR 02/02/2018 [facility] DATE CREATED AUTHOR AUTHOR'S ORGANIZ ATION 02/02/2018 [facility] DATE CREATED AUTHOR AUTHOR'S ORGANIZ ATION 10/22/2019 [facility] DATE CREATED AUTHOR AUTHOR'S ORGANIZ ATION 03/07/2020 [facility] DATE CREATED AUTHOR AUTHOR'S ORGANIZ ATION 05/15/2020 [facility] DATE CREATED AUTHOR AUTHOR'S ORGANIZ ATION 06/24/2020 [facility] DATE CREATED AUTHOR AUTHOR'S ORGANIZ ATION 11/01/2021 [facility] DATE CREATED AUTHOR AUTHOR'S ORGANIZ ATION 11/08/2021 [facility] DATE CREATED AUTHOR AUTHOR'S ORGANIZ ATION 03/16/2022 [facility] DATE CREATED AUTHOR AUTHOR'S ORGANIZ ATION 06/10/2025 [facility] EPIC Reason for Visit (unrecogniz ed section and content) StatusReasonSpecialtyDiagnoses / ProceduresReferred By ContactReferred To ContactNot Required - RecondoRadiology Diagnoses Amenorrhea Positive urine test Procedures US OB LESS THAN 14 WEEKS SINGLE OR FIRST GESTATION HC EVAL 1ST TRI SGL GEST Demetria Louise, CIRCULATION LIBRARIAN - CNM [address] [place] [address] [facility] [address] [place] [address] ReasonCommentsPelvic PainVaginal PainPregnancy ProblemReasonCommentsRupture of Membranespt c/o feeling gush' of fluid from vagina at 1830 with back painStatus ReasonSpecialtyDiagnoses / ProceduresReferred By ContactReferred To Contact ReasonCommentsRoutine VisitReasonCommentsAmenorrheaReasonComments Routine VisitSTI Screening Rachel Camargo RN - 03/16/2020 3:52 PM EDJose L Case RN - 03/16/2020 3:23 PM EDT ED [...] Meg Vaughn RN - 05/13/2020 6:45 PM EDT Miscellaneous Notes (unrecog nized section [...] date/time:05/11/2020 1506 Apgars:9 9 Discharge Date: 05/13/2020 * Plan of Care - Elise Mosquera RN - 05/13/2020 5:30 PM EDT To be discharged home after baby voids. Patient verbalizes understanding of instructions. * Plan of Care - Gail Damon RN - 05/12/2020 5:27 PM EDT Problem: Actual or potential alteration in health Goal: Absence of healthcare acquired conditions Outcome: Partially Met * L&D Delivery Note - Michael Lewis MD - 05/12/2020 12:06 PM EDT Vaginal Delivery Note Diagnosis: Active Problems: Normal labor [place], Baby Boy Nicole [[id number]] Delivery Anesthesia Method: Epidural Additional comments: [place] [...] Shoulder dystocia present: No Presentation Presentation: [place] [place] Information date/time: 05/11/20 1502 Gender: Male Delivery type: Vaginal, Vacuum (Extractor) Delivery location: OB Unit Initial disposition: Routine NB Care ?: No Details: Delivery Providers Delivering clinician: Michael Lewis MD Other personnel: Provider Role Covering Attending Resident Arc Welding Machine Operator Marlene Monteiro RN Delivery Nurse Registered Nurse [...] 1506 Removal: Spontaneous Appearance: Intact Disposition: Refrigerator [place] Apgars Living status: Living Scoring Lora: 0 [...] KEATING RN Other Procedures No data filed * Plan of Care - Gail Damon RN - 05/11/2020 4:32 PM EDT Problem: Actual or potential alteration in health Goal: Absence of healthcare acquired conditions Outcome: Partially Met * Plan of Care - Marlene Monteiro RN - 05/11/2020 10:14 AM EDT Plan of care reviewed. documented in this encounter Michael Lewis MD - 05/11/2020 4:30 AM EDT H&P Notes (unrecognized sect ion and content) OBSTETRIC HISTORY AND PHYSICAL Chief complaint: at 38 weeks and 5 days with spontaneous rupture of membranes at home. History of present illness: The patient is a 14-year-old 1 female. She was given a due dateof May 202019 while receiving care in [facility]. She [place] care [place] on [place] 20[place] when she was 30 [...] cyst. Social history: She attends school at [employer]. She is single and lives with her mother at home. Shedenies use of alcohol cigarettes or illicit drugs. Family history: Positive for hypertension. Negative for diabetes, heart disease, bleeding disorders. Review of systems: Negative for recent known exposure to COVID-19. Negative for fever, chills, bodyaches, cough, visual changes, headaches, hematuria, dysuria, difficulty [...] 4 cm with a cephalic presentation at a-1 station. There is clear amniotic fluid coming from her cervix. Assessment and plan: This is a very quiet 14-year-old female full-term with rupture of membranes and spontaneous labor. She is at some risk for a due to her small stature. We will go ahead and augment labor if her cervical change start slowing down. She has requested and received an epidural. She will receiveintravenous ampicillin for her prolonged rupture of membranes. tracing has remained reassuring throughout. documented in this encounterFOR RECORDS PERTAINING TO PATIENTS WHO ARE OR [...] BE BASED ON THE PRIMARY CLINICAL RECORDS. [facility] [employer] [facility]. provides no warranty or guarantee of the accuracy or completeness of information in this document.
== END 2025-07-03 12:24 | disposition home or self-care (01) ==
LOC: LAB 12:25
PROVIDERS: PCP Nurse Practitioner Family; Visit Provider Physician Assistant
DX: Z34.92 Encounter for supervision of normal pregnancy, unspecified, second trimester (principal); Z3A.17 17 weeks gestation of pregnancy
CPT/HCPCS: 36415; 82105

== ENCOUNTER 2025-07-03 12:29 | Outpatient (OUT) | payer OTHER, SELFPAY ==
--- OUTSIDE RECORDS SUMMARY | 2025-07-01 10:00 | XMS_ITS ---
Author Organization [facility] Address [address] [place] [address] Care Team Providers Care Senior Restaurant Manager Name Role Phone Sahil Kruse Primary Care Provider Mag Reyes [phone] REASON FOR VISIT FILLING Encounters Encounter Location Date Provider Diagnosis [facility] [address] [place] [address] 07/01/2025 Mag Reyes Plan Of Treatment Next Appt Details Provider Name:Jenae Virgilio , 07/29/2025 04:00:00 PM, [address], [place], [address], Provider Name:Mag Reyes, 08/05/2025 10:00:00 AM, [address], [place], [address], Provider Name:Mag Reyes, 08/28/2025 04:30:00 PM, [facility] [address] [place], [address], Progress Notes * PELON PATELDOB:2005 (19 yo F)Acc No.[id number]:07/01/2025 Patient:?PELON PATEL :?Mag ReyesDOB:2005???Age:19 Y???Sex: FemaleDate:07/01/2025Phone:[phone]:[phone], [place], [id number]:Sahil Kruse Subjective: * Chief Complaints: * F ILLING Billing Information: * Procedure Codes: * Electronic signature of Mag Reyes DMD on 07/03/2025 at 12:35 PM ESTSign off status: Pending * Provider: Surjit Reyes Date: 08/31/2024 Generated for Printing/Faxing/eTransmitting on:?07/03/2025 12:35 PM EST
--- OUTSIDE RECORDS SUMMARY | 2025-07-03 12:35 | XMS_ITS | Patient Health Record ---
Author Organization [facility] es Address [address] [place] [address] Care Team Providers Care Striker Off Name Role Phone Sahil Kruse Primary Care Provider Mag eRyes Unavailable [phone] Jenae Poole Unavailable [phone] Reason For Referral No Information Encounters Encounter Location Date Provider Diagnosis [place] [address] [place] [address] 12/16/2024 Sahil Kruse Encounter for dental examination and cleaning with abnormal findings Z01.21 ; Other dental procedure status Z98.818 ; Cracked tooth K03.81 ; Dental caries on pit and fissure surface penetrating into dentin K02.52 and Acute gingivitis, plaque induced K05.00 [facility] [address] [place] [address] 12/17/2024 Jenae Poole Acute gingivitis, plaque induced K05.00 [facility] [address] [place] [address] 02/13/2025 Mag Reyes Dental caries on pit and fissure surface penetrating into dentin K02.52 [facility] [address] [place] [address] 03/07/2025 Sahil Kruse Dental caries on pit and fissure surface penetrating into dentin K02.52 [facility] [address] [place] [address] 06/23/2025 Mag Reyes Dental caries on pit and fissure surface penetrating into dentin K02.52 Assessments Encounter Date Diagnosis (ICD Code) Assessment Notes Treatment Notes Treatment Clinical Notes Section Notes 12/16/2024 Encounter for dental examination and cleaning with abnormal findings (ICD-10 - Z01.21) 5Acute gingivitis, plaque induced (ICD-10 - K05.00)02/13/2025Dental caries on pit and fissure surface penetrating into dentin (ICD-10 - K02.52) 03/07/2025Dental caries on pit and fissure surface penetrating into dentin (ICD- 10 - K02.52)06/23/2025Dental caries on pit and fissure surface penetrating into dentin (ICD-10 - K02.52)12/16/2024Other dental procedure status (ICD-10 - Z98.818)12/16/2024racked tooth (ICD-10 - K03.81)12/16/2024Dental caries on pit and fissure surface penetrating into dentin (ICD-10 - K02.52)5Acute gingivitis, plaque induced (ICD-10 - K05.00) Plan Of Treatment Next Appt Details Provider Name:Jenae Virgilio , 07/29/2025 04:00:00 PM, [address] [place], [address], Provider Name:Mag Reyes, 08/05/2025 10:00:00 AM, [address] [place], [address], Provider Name:Mag Reyes, 08/28/2025 04:30:00 PM, [address] [place], [address], Insurance Providers Payer Name Payer Address Payer Phone Subscriber Number Group Number Insured Name Patient Relationship to Insured Coverage Start Date Coverage End Date Dental [employer] [place] Medicaid [address] [place] [phone] [id number] LAKESHA PATELelf - patient is the [id number] 2024Dental Wrap [facility] [address] [place] [id number], HANNASelf - patient is the [id number] 2024
--- OUTSIDE RECORDS SUMMARY | 2025-07-03 12:42 | XMS_ITS | CCD ---
Author Organization [facility] Care Team Providers Care Corduroy Cutter Operator Name Role Phone Klenrenan, Darleen Unavailable Unavailable Klenke, Darleen Unavailable Unavailable AMBAR, DARLEEN A Unavailable Unavailable AMBAR DARLEEN A Unavailable Unavailable Deandre Teixeira Primary Care Provider [phone] DEMTERIA LOUISE Referring Unavailable DEANDRE TEIXEIRA Primary Care [...] Allergen(s)Allergy TypeDate of OnsetReaction(s) Facility (1 source)PenicillinDrug Qsdkyzg86-57-3027[facility] Repository (3 sources)Penicillin VDrug AllergyMel[facility] [employer] Other (15 sources)PenicillinsDrug Ptxkppowcxs63-37-1810[facility] (12 sources)Penicillin GDrug Uefedfy02-04-6240SVUD Healthcare Medications Current Medications MedicationDrug Class(es)DatesSig (Normalized)Sig (Original)cephalexin 500 mg oral capsule (4 sources)Cephalosporin AntibacterialStart: 75-16-8196cybn 1 capsule by mouth three times dailycephALEXin (KEFLEX) 500 MG capsule take 1 capsule by mouth three times a day for 7 days 0 10/21/2019 Nzikgg41 day ethinyl estradiol 0.939524 mg/hr / etonogestrel 0.005 mg/hr vaginal system (2 sources)Progestin, EstrogenStart: 05-14-2024 End: 55-85-9484kkbznaijzkdd-ethinyl estradiol (NuvaRing) 0.12-0.015 MG/24HR vaginal ring Indications: Encounter for initial prescription of vaginal ring hormonal contraceptive Insert vaginally and leave in place for 21 consecutive days (3 weeks), then remove. Wait for 7 days before inserting new ring. 1 each 12 05/14/2024 04/04/2025 Discontinued (Other)ibuprofen 400 mg oral tablet (3 sources)Nonsteroidal Anti-inflammatory DrugStart: 05-11-2020 End: 68-30-1199zmjx 1 tablet by mouth every four hours as neededibuprofen (ADVIL,MOTRIN) 400 MG tablet Take 1 (one) tablet (400 mg total) by mouth every 4 (four) hours as needed . 30 tablet 0 05/13/2020 06/12/2020 ActiveStart: 05-10-2020 End: 10-49-3414ejcw 1 tablet by mouth every twenty-four hours as neededibuprofen (ADVIL,MOTRIN) tablet 800 mgmagnesium oxide 400 mg oral tablet (2 sources)Start: 04-28-2025 End: 97-83-4114nwlp 1 tablet by mouth once dailymagnesium oxide (Mag-Ox) 400 MG tablet Indications: Acute intractable headache, unspecified headache type Take 1 tablet (400 mg) by mouth Daily 30 tablet 11 04/28/2025 05/28/2025 Active norethindrone 0.35 mg oral tablet (2 sources)Start: 01-16-2024 End: 77-28-5248ahut 1 tablet by mouth once daily, then take 1 tablet by mouth once dailynorethindrone (Micronor) 0.35 MG tablet Indications: 6 weeks follow-up ([facility]) Take 1 tablet (0.35 mg) by mouth Daily Take 1 tablet by mouth daily 28 tablet 11 01/16/2024 04/04/2025 Discontinued (Other) nystatin 678878 unt/ml oral suspension (4 sources)Polyene AntifungalStart: 10-24-2019 End: 04-83-6249yzqvvrdg (MYCOSTATIN) 664204 UNIT/ML suspension Take by mouth 4 times daily As needed 1 Bottle 1 10/24/2019 Activeprenatal vit no.002-hyhv-rldhx ( Vitamin) 27 mg iron- 800 mcg Tab (2 sources)take 1 tablet by mouth at bedtimeprenatal vit no.551-xhxu-pnivj ( Vitamin) 27 mg iron- 800 mcg [...] mg oral tablet (1 source)Start: 05-11-2020 End: 94-46-8166rxao 1 tablet by mouth every six hours as neededacetaminophen (TYLENOL) tablet 650 mgaluminum hydroxide 40 mg/ml / magnesium hydroxide 40 mg/ml / simethicone 4 mg/ml oral suspension (1 source)Start: 05-11-2020 End: 45-58-5479jmau 30 mL by mouth every four hours as neededaluminum-magnesium hydroxide-simethicone (MAALOX PLUS) 200-200-20 mg/5 mL suspension 30 mL ampicillin 1000 mg in sodium chloride (NS) 0.9% 100 mL MBP (1 source)Start: 05-11-2020 End: 21-25-2998renm 1000 mg intravenous route every four hoursampicillin 1000 mg in sodium chloride (NS) 0.9% 100 mL MBPampicillin 2000 mg in sodium chloride (NS) 0.9% 100 mL MBP (1 source)Start: 05-11-2020 End: 55-28-9985ccrkvkseak 2000 mg in sodium chloride (NS) 0.9% 100 mL MBPaspirin 81 mg chewable tablet (5 sources)Platelet Aggregation Inhibitor, Nonsteroidal Anti-inflammatory Drug End: 35-95-4545fzhwucn 81 mg chewable tablet Chew and Swallow daily . 0 05/13/2020 Discontinued (Stop Taking at Discharge)ASPIRIN 81 PO Take by mouth daily 0 Activeazithromycin 250 mg oral tablet (1 source)Macrolide AntimicrobialStart: 61-82-3105vqku 2 tablets by mouth every twenty-four hoursZithromax 250 MG 2 tablet Orally Once a day for 5 day(s) Nov, Not-Takingcalcium chloride 0.0014 meq/ml / potassium chloride 0.004 meq/ml / sodium chloride 0.103 meq/ml / sodium lactate 0.028 meq/ml injectable solution (1 source)Start: 05-10-2020 End: 26-69-4895bnzusmyf Ringers infusioncitric acid 66.8 mg/ml / sodium citrate 100 mg/ml oral solution (1 source)Calculi Dissolution Agent, Anti-coagulantStart: 05-10-2020 End: 18-91-5751tdhk 30 mL by mouth every twenty-four hours as neededcitric acid- sodium citrate (BICITRA) solution 30 mLdiphenhydrAMINE (BENADRYL) oral solid 25 mg (1 source)Start: 05-11-2020 End: 84-54-3614xsvc 25 mg by mouth every six hours as neededdiphenhydrAMINE (BENADRYL) oral solid 25 mgdocusate sodium 100 mg oral capsule (1 source)Start: 05-11-2020 End: 60-94-9696ushblsru sodium (COLACE) capsule 100 mgfamotidine 20 mg oral tablet (1 source)Histamine-2 Receptor Antagonisttake 1 tablet by mouth every twenty- four hoursPepcid 20 MG 1 tablet at bedtime Orally Once a day Not-Takingferrous sulfate 325 mg oral tablet (3 sources)Start: 05-11-2020 End: 02-27-6177szjmwhg sulfate tablet 325 mgtake 1 tablet by mouth at bedtime Ferrous Sulfate (IRON PO) Take 1 tablet by mouth at bedtime. 0 Activeflu vacc ee7936-79 6mos up(PF) (FLUZONE QUAD/FLULAVAL QUAD/FLUARIX QUAD) syringe 0.5 mL (1 source)Start: 05-10-2020 End: 59-27-5241exflef 0.5 mL by intramuscular injection every twenty-four hours as neededflu vacc sc7608-75 6mos up(PF) (FLUZONE QUAD/FLULAVAL QUAD/FLUARIX QUAD) syringe 0.5 mL1 ml HYDROmorphone hydrochloride 1 mg/ml injection (1 source)Opioid AgonistStart: 05-10-2020 End: 18-70-3140fldi 1 mg intravenous route every two hours as needed HYDROmorphone (DILAUDID) injection 1 mg2 ml ondansetron 2 mg/ml injection (1 source)Serotonin-3 Receptor AntagonistStart: 05-10-2020 End: 11-58-1090jfoi 4 mg intravenous route every six hours as neededondansetron (ZOFRAN) injection 4 mgoxytocin in lactated ringers (PITOCIN) 20 unit/1,000 mL infusion (2 sources)Start: 05-11-2020 End: 52-88-4017zmeyeqxg in lactated ringers (PITOCIN) 20 unit/1,000 mL infusion Start: 05-10-2020 End: 14-10-9486mbmjuaaq in lactated ringers (PITOCIN) 20 unit/1,000 mL infusion oxytocin in lactated ringers (PITOCIN) 20 unit/1,000 mL infusion - ADS Override Pull (1 source)Start: 05-11-2020 End: 78-34-9698okbcahwp in lactated ringers (PITOCIN) 20 unit/1,000 mL infusion - ADS Override Pullprenatal vitamin with Ca-Iron-FA 27-1 mg Tab (2 sources) End: 96-63-4720xadh 1 tablet by mouth once dailyprenatal vitamin with Ca-Iron-FA 27-1 mg Tab Take 1 tablet by mouth daily . 0 05/13/2020 Discontinued (Stop Taking at Discharge)take 1 tablet by mouth once dailyprenatal vitamin with Ca-Iron-FA 27-1 mg Tab Take 1 tablet by mouth daily . 0 Activeprenatal vitamin with Ca-Iron-FA tablet 1 tablet (1 source)Start: 05-11-2020 End: 93-29-8961wrhcpxde vitamin with Ca-Iron-FA tablet 1 tabletrho(d) immune globulin (RHOPHYLAC) injection 300 mcg (1 source)Start: 05-11-2020 End: 84-94-1606blltlw 300 ug by intramuscular injection every twenty-four hours as neededrho(d) immune globulin (RHOPHYLAC) injection 300 mcgsimethicone 80 mg chewable tablet (1 source)Start: 05-11-2020 End: 31-88-3991akqprotgeon (MYLICON) chewable tablet 80 bn4171 ml sodium chloride 9 mg/ml injection (1 source)Start: 05-11-2020 End: 38-80-2543gcyicq chloride 0.9% (NS)sodium chloride 0.9 % (NS) with ampicillin (OMNIPEN) - ADS Override Pull (1 source)Start: 05-11-2020 End: 59-71-5748zbvsum chloride 0.9 % (NS) with ampicillin (OMNIPEN) - ADS Override Pullspinosad 9 mg/ml medicated shampoo (2 sources)PediculicideStart: 18-44-1265Dsfcuai 0.9 % 1 application Externally once, leave on 10 minutes then rinse, repeat in 7 days if needed for 2 days Apr, Not-Taking Problems Active Problems Problem ClassificationProblemDateDocumented DateEpisodic/ChronicAbdominal pain (10 sources)Generalized abdominal pain; Translations: [Right lower quadrant pain]Onset: 26-09-7282BwiebrldPdabrqwe; including migraine (4 sources)Acute headache; Translations: [Acute intractable headache, unspecified headache type]27-62-5855RciwgxfmGqedbeqisohwl and screening for infectious disease (2 sources)Exposure to sexually transmissible disorder; Translations: [Contact with and (suspected) exposure to infections with a predominantly sexual mode of transmission]88-42-3662KtpkwjkgUkhkzztef disorders (5 sources)Amenorrhea; Translations: [Missed period]Onset: ChronicNausea and vomiting (4 sources)Nausea with vomiting, unspecified; Translations: [NAUSEA WITH VOMITING UNSPECIFIED]Onset: 14-04-9347MdtrectsJwuxg complications of (2 sources)Excessive growth affecting management of mother; Translations: [Maternal care for excessive growth, third trimester, not applicable or unspecified]72-44-8967TxnrosnlNmtle female genital disorders (2 sources)Vaginal discharge; Translations: [Other specified noninflammatory disorders of vagina]38-04-4770QecoimtjTmxyt gastrointestinal disorders (1 source)Diarrhea, unspecified; Translations: [DIARRHEA UNSPECIFIED]Onset: 57-72-7566RcoljtabCyrml infections; including parasitic (1 source)Pediculosis due to Pediculus humanus capitisEpisodicOther and delivery including normal (16 sources)Urine test positive; Translations: [Normal ] Onset: 255447-49-9076ZvihdxgcFmqfu screening for suspected conditions (not mental disorders or infectious disease) (2 sources)Patient encounter status; Translations: [Encounter for other specified screening]90-86-7400OveezzaiOvazu upper respiratory infections (3 sources)Acute pharyngitis, unspecified; Translations: [Acute upper respiratory infection, unspecified]Onset: 11-02-2021 Resolved: 53-59-5209DwhinnkuTnwhkzed codes; unclassified (2 sources)Gestation period, 11 weeks; Translations: [11 weeks gestation of ]89-29-9128EgdxkhcwOgjudjfx codes; unclassified (2 sources)Gestation period, 17 weeks; Translations: [17 weeks gestation of ]47-30-8133Qomtsbct Past or Other Problems Problem ClassificationProblemDateDocumented DateEpisodic/ChronicDiabetes [...] Episodic Results Test NameValueInterpretationReference RangeFacilityRECURRENT VAGINITIS (HTRX)on 92-88-0499VIOKHDYPO GUHUART8ILZZ HealthcareATOPOBIUM VAGINAENot detectedNOMS HealthcareBVAB 2,3 (BACTERIAL VAGINOSIS ASSOCIATED BACTERIA 2, 3); MOBILUNCUS ZZV6RBNX HealthcareBVAB 2,3 (BACTERIAL VAGINOSIS ASSOCIATED BACTERIA 2, 3); MOBILUNCUS SPPNot detectedNOMS HealthcareCANDIDA ALBICANS, PARAPSILOSIS, BPFKZYRKKE7FLAI HealthcareCANDIDA ALBICANS, PARAPSILOSIS, TROPICALISNot detected N[facility]S HealthcareCANDIDA LALUIUVX0XILL HealthcareCANDIDA GLABRATANot detectedNOMS HealthcareCANDIDA MVYQKV2QRPX HealthcareCANDIDA KRUSEINot detectedNOMS HealthcareCHLAMYDIA PKQJNVWWTSI8JQVH HealthcareCHLAMYDIA TRACHOMATISNot detected [facility] HealthcareGARDNERELLA EZHZMNJTN9BMOS HealthcareGARDNERELLA VAGINALISNot detectedNOMS HealthcareMEGASPHAERA (TYPES 1, 2)0NOMS HealthcareMEGASPHAERA (TYPES 1, 2)Not detectedNOMS HealthcareMYCOPLASMA TCXWAPCVIS7KPNM Healthcare MYCOPLASMA GENITALIUMNot detectedNOMS HealthcareNEISSERIA KVSKWXNYTEM0RYMM HealthcareNEISSERIA GONORRHOEAENot detectedNOMS HealthcareTRICHOMONAS VAGINALIS0 NOMS HealthcareTRICHOMONAS VAGINALISNot detectedNOMS HealthcareNOMS Healthcare Urinalysis macro (dipstick) panel (U)on 72-40-5812Spmntztrh, UANegativeNegative - 4(70) +++ mg/dLNOMS HealthcareBlood, UANegativeNegative [...] mg/dLNOMS HealthcareNOMS HealthcareHCG ( test) Ql (U)on 22-45-5368Zslkyziashxjpb and review of laboratory resultsAbnormal NOMS HealthcarePreg Test, UrPositiveNegativeNOMS HealthcareNOMS HealthcareUS OB TRANSVAGINALon 74-21-2665TB OB TRANSVAGINALEXAM: US OB TRANSVAGINAL HISTORY: Dating. [...] II, MD, PHD at 06-Apr-2025 08:20:39 AM [facility] TeleradiologyNormalNot AvailableComment on above:Order Comment: US OB TRANSVAGINAL No LMP recorded.Urinalysis macro (dipstick) panel (U)on 87-65-8969Wwftcevwx, UA NegativeNegative - 4(70) +++ mg/dLNOMS HealthcareBlood, UANegativeNegative - 50 Fernando/mcLNOTN HealthcareClarity, UAClearNOTN HealthcareColor, UAYellowNOTN HealthcareGlucose, UANegativeNegative - 1999(110) ++++ mg/dLNOTN Healthcare Interpretation and review of laboratory resultsAbnormalNOTN HealthcareKetones, UANegativeNegative - 160(16) ++++ mg/dLNOTN HealthcareLeukocytes, UANegative Negative - 500+++ Sidney/mcLNOTN HealthcareNitrite, UANegativeNegative - Positive N[facility] HealthcarepH, UA8.55 - 9NOMS HealthcareProtein, UAPositiveNegative - 2000(20) ++++ mg/dLNOMS HealthcareSpec Grav, UA1.011 - 1.03N[facility] Urobilinogen, UA1.00.2 - 12 mg/dLNOMS HealthcareNOMS HealthcareTBH PREG QUANT HCGon 67-26-8894AOA QUANTITATIVE<1mIU/mLNOMS HealthcareComment on above:5-50 0.2-1 WEEK 50-500 1-2 WEEKS 100-5,000 2-3 WEEKS 500-10,000 3-4 WEEKS 1,000-50,000 4-5 WEEKS 10,000-100,000 5-6 WEEKS 15,000-200,000 6-8 WEEKS 10,000-100,000 2-3 MONTHS CLINISYNCNOMS HealthcareUS OB GROWTHon 88-65-2992BwaEunice, [place] [address] Ultrasound Report Signed Patient: SHAUN GEORGE MR#: [id number] : 2005 Acct:[id number] Age/Sex: 18 / F ADM Date: 10/12/23 Loc: [facility] Attending Dr: Ranjan Alas D.O. Ordering Physician: Ranjan Alas D.O. Date of Service: 10/12/23 Procedure(s): US OB growth Accession Number(s): [id number] cc: IZABELLA HANNA ; Ranjan Alas D.O. [address] [address] Patient Name: SHAUN GEORGE MRN: [id number] date: 2005 Sex: F Assigned Patient Location: [facility] Current Patient Location: [facility] Accession/Order Number: [id number] Exam Date: 10/12/2023 08:52 Report Date: 10/12/2023 [...] M.D. Signed By: 10/12/23943 DD/ 1 TD/TT: Public Speaking Teacher:TBHRadiology, Radiologist, - 10/18/2023 [place] [address] Ultrasound Report Signed Patient: SHAUN GEORGE MR#: [id number] : 2005 Acct:[id number] Age/Sex: 18 / F ADM Date: 10/12/23 Loc: [facility] Attending Dr: Ranjan Alas D.O. Ordering Physician: Ranjan Alas D.O. Date of Service: 10/12/23 Procedure(s): US OB growth Accession Number(s): [id number] cc: IZABELLA HANNA ; Ranjan Alas D.O. The [place] [address] Patient Name: SHAUN GEORGE MRN: [id number] date: 2005 Sex: F Assigned Patient Location: [facility] Current Patient Location: [facility] Accession/Order Number: [id number] Exam Date: 10/12/2023 08:52 Report Date: 10/12/2023 [...] M.D. Signed By: 10/12/2344 DD/ 1 TD/TT: Public Speaking Teacher: LIONEL HealthcareRadiology Study observation (narrative)[facility] HospitalUS OB GROWTHOrdered By: Radiologist Radiology on 99-20-8727UKDKMercy McC[facility] Hospital Work Phone: Urinalysis macro (dipstick) panel (U)on 09-28-2023 Bilirubin, UANegativeNegative - 4(70) +++ mg/dLNOTN HealthcareBlood, UANegative Negative - 50 Fernando/mcLNOTN HealthcareClarity, UAClearNOMS HealthcareColor, UA YellowNOMS HealthcareGlucose, UANegativeNegative - 2000(110) ++++ mg/dLNOTN HealthcareInterpretation and review of laboratory resultsAbnormalNOTN Healthcare Ketones, UANegativeNegative - 160(16) ++++ mg/dLNOTN HealthcareLeukocytes, UA PositiveNegative - 500+++ Sidney/mcLNOMS HealthcareNitrite, UANegativeNegative - PositiveNOMS HealthcarepH, UA7.55 - 9NOMS HealthcareProtein, UAPositiveNegative - 2000(20) ++++ mg/dLNOMS HealthcareSpec Grav, UA1.0251 - 1.03N[facility]S Healthcare Urobilinogen, UA1.00.2 - 12 mg/dLNOMS HealthcareNOMS HealthcareUS OB GROWTHon 11-90-[address] [address] Ultrasound Report Signed Patient: SHAUN GEORGE MR#: [id number] : 2005 Acct:[id number] Age/Sex: 17 / F ADM Date: 08/25/23 Loc: US Attending Dr: Ranjan Alas D.O. Ordering Physician: Ranjan Alas D.O. Date of Service: 08/25/23 Procedure(s): US OB growth Accession Number(s): [id number] cc: IZABELLA HANNA ; Ranjan Alas D.O. The [address] [address] Patient Name: SHAUN GEORGE MRN: [id number] date: 2005 Sex: F Assigned Patient Location: US Current Patient Location: US Accession/Order Number: [id number] Exam Date: 08/25/2023 13:50 Report Date: 08/25/2023 [...] Date: 08/25/2023 14:31 Dictated By: Mary Carmen Brisoce M.D. Signed By: 08/25/231433 DD/ 30 TD/TT: Public Speaking Teacher:TBHRadiology, Radiologist, MD - 08/26/2023 [place] [address] Ultrasound Report Signed Patient: SHAUN GEORGE MR#: [id number] : 2005 Acct:[id number] Age/Sex: 17 / F ADM Date: 08/25/23 Loc: US Attending Dr: Ranjan Alas D.O. Ordering Physician: Ranjan Alas D.O. Date of Service: 08/25/23 Procedure(s): US OB growth Accession Number(s): [id number] cc: IZABELLA HANNA ; Ranjan Alas D.O. The [place] [address] Patient Name: SHAUN GEORGE MRN: [id number] date: 2005 Sex: F Assigned Patient Location: US Current Patient Location: US Accession/Order Number: [id number] Exam Date: 08/25/2023 13:50 Report Date: 08/25/2023 [...] M.D. Signed By: 08/25/231433 DD/ 30 TD/TT: Public Speaking Teacher: NOM[facility] HealthcareRadiology Study observation (narrative)NOMS HealthcareUS OB GROWTHOrdered By: Radiologist Radiology on 67-95-9989EWWT Healthcare Work Phone: no Panel InformationOrdered By: Radiologist Radiology on 84-41-9564ADHW Healthcare Work Phone: no Panel Informationon 75-19-5067Ljthtzatm Study observation (narrative)NOMS HealthcareUS OB ANATOMYon 29-59-1544[place], [place] [address] Ultrasound Report Signed Patient: SHAUN GEORGE MR#: [id number] : 2005 Acct:[id number] Age/Sex: 17 / F ADM Date: 07/25/23 Loc: US Attending Dr: Ranjan Alas D.O. Ordering Physician: Ranjan Alas D.O. Date of Service: 07/25/23 Procedure(s): US OB anatomy Accession Number(s): [id number] cc: IZABELLA HANNA ; Ranjan Alas D.O. The [address] [address] Patient Name: SHAUN GEORGE MRN: [id number] date: 2005 Sex: F Assigned Patient Location: US Current Patient Location: US Accession/Order Number: [id number] Exam Date: 07/25/2023 09:05 Report Date: 07/25/2023 [...] Ultrasound Age: 19 weeks 4 days Ultrasound LOENIDES: 12/15/2023 US/US OB anatomy IMPRESSION: BPD and head circumference less than 3rd percentile, otherwise normal anatomy scan Closed cervix measuring 5.1 cm in length *Reference: [employer] Practice Guideline for the performance of Obstetric Ultrasound Examinations, May 14, 2007. Electronically authenticated by: MARY CARMEN BRISCOE Date: 07/25/2023 11:17 Dictated By: Mary Carmen Briscoe M.D. Signed By: 07/25/23 1120 DD/ 1117 TD/TT: Public Speaking Teacher:TBHRadiology, Radiologist, - 07/25/2023 [place] [address] Ultrasound Report Signed Patient: SHAUN GEORGE MR#: [id number] : 2005 Acct:[id number] Age/Sex: 17 / F ADM Date: 07/25/23 Loc: US Attending Dr: Ranjan Alas D.O. Ordering Physician: Ranjan Alas D.O. Date of Service: 07/25/23 Procedure(s): US OB anatomy Accession Number(s): [id number] cc: IZABELLA HANNA ; Ranjan Alas D.O. [place] [id number] Patient Name: SHAUN GEORGE MRN: [id number] date: 2005 Sex: F Assigned Patient Location: US Current Patient Location: US Accession/Order Number: [id number] Exam Date: 07/25/2023 09:05 Report Date: 07/25/2023 [...] Signed By: 07/25/23 1120 DD/ 1117 TD/TT: Public Speaking Teacher: LIONEL Huitron OB CERVICAL LENGTHon 60-75-8760MfeEunice, [place] [address] Ultrasound Report Signed Patient: SHAUN GEORGE MR#: [id number] : 2005 Acct:[id number] Age/Sex: 17 / F ADM Date: 07/25/23 Loc: US Attending Dr: Ranjan Alas D.O. Ordering Physician: Ranjan Alas D.O. Date of Service: 07/25/23 Procedure(s): US OB cervical length Accession Number(s): [id number] cc: IZABELLA HANNA ; Ranjan Alas D.O. [place] [address] Patient Name: SHAUN GEORGE MRN: [id number] date: 2005 Sex: F Assigned Patient Location: Current Patient Location: Accession/Order Number: [id number] Exam Date: 07/25/2023 09:05 Report Date: 07/25/2023 [...] Signed By: 07/25/23 1120 DD/ 1117 TD/TT: Public Speaking Teacher:TBHRadiology, Radiologist, MD - 07/25/2023 [place] [address] Ultrasound Report Signed Patient: SHAUN GEORGE MR#: [id number] : 2005 Acct:[id number] Age/Sex: 17 / F ADM Date: 07/25/23 Loc: US Attending Dr: Ranjan Alas D.O. Ordering Physician: Ranjan Alas D.O. Date of Service: 07/25/23 Procedure(s): US OB cervical length Accession Number(s): [id number] cc: IZABELLA HANNA ; Ranjan Alas D.O. The [place] [id number] Patient Name: SHAUN GEORGE MRN: [id number] date: 2005 Sex: F Assigned Patient Location: US Current Patient Location: US Accession/Order Number: [id number] Exam Date: 07/25/2023 09:05 Report Date: 07/25/2023 [...] Signed By: 07/25/23 1120 DD/ 1117 TD/TT: Public Speaking Teacher: LIONEL NmqxqwlzhfLAQH-EpF-3 (COVID-19) RNA MARIO+probe Ql (Resp)on 06-24-2022 SARS-CoV-2 (COVID-19) RNA MARIO+probe Ql (Unsp spec)[facility] GreensboroInterviewBest Other ER URINE PROFILEon 56-54-8819Npiliywnq Ql (U)Negative NormalNEGATIVEFlower HospitalComment on above:Performed By: #### ERUR, PREGU, UMICRO #### [facility] [address] [address] [address] Willie Dela CruzClarity (U)CLEARNormalCLEARFlower HospitalComment on above: Performed By: #### ERUR, PREGU, UMICRO #### [facility] [address] [place] [address] [address] Willie Cerdalor (U)YELLOWNormalYELLOWFlower HospitalComment on above: Performed By: #### ERUR, PREGU, UMICRO #### [facility] [address] [place] [address] [address] Willie Jackson micrscopic examination will be performed if indicated. NormalFlower HospitalComment on above:Performed By: #### ERUR, PREGU, UMICRO #### [facility] [address] [place] [address] [address] Willie Dela CruzGlucose Ql (U)NegativeNormalNEGATIVEFlower HospitalComment on above:Performed By: #### ERUR, PREGU, UMICRO #### [facility] [address] [place] [address] Dr. Willie Dela CruzHemoglobin Ql (U)NegativeNormalNEGATIVEWright-Patterson Medical Center on above:Performed By: #### ERUR, PREGU, UMICRO #### [facility] [address] [place] [address] [address] Willie Dela CruzKetones Ql (U)NegativeNormalNEGATIVEFlower HospitalComment on above:Performed By: #### ERUR, PREGU, UMICRO #### [facility] [address] [address] [address] Willie Dela CruzLEUKOCYTESTRACEAbnormalNEGATIVEFlower HospitalComment on above:Performed By: #### ERUR, PREGU, UMICRO #### [facility] [address] [address] [address] Willie Gaona Ql (U)NegativeNormalNEGATIVEThe Memorial HospitalComment on above:Performed By: #### ERUR, PREGU, UMICRO #### [facility] [address] [place] [address] Dr. Willie Kirk (U)5.5 [pH]Normal5-9The Memorial HospitalComment on above: Performed By: #### ERUR, PREGU, UMICRO #### [facility] [address] [place] [address] Dr. Willie Dela CruzProtein (U) [Mass/Vol]30 mg/dLAbnormalNEGATIVE/ TRACEThe Frontenac HospitalComment on above:Performed By: #### ERUR, PREGU, UMICRO #### [facility] [address] [place] [address] Dr. Willie Dela CruzSPEC GRAVITY1.653Qpygjd8.005-<=1.025The Memorial HospitalComment on above:Performed By: #### ERUR, PREGU, UMICRO #### [facility] [address] [place] [address] Dr. Willie Recinos MICRO INDINDICATEDNormalThe Memorial HospitalComment on above: Performed By: #### ERUR, PREGU, UMICRO #### [facility] [address] [place] [address] Dr. Willie Martinezbilinogen Qn (U)0.2 {Chema'U}/dLNormal0.2 - 1.0The Memorial HospitalComment on above:Performed By: #### ERUR, PREGU, UMICRO #### [facility] [address] [place] [address] Dr. Willie FloresGNANCY URon 74-36-5296WZOAZCNOY, QUALNegativeNormalNEGATIVEThe Frontenac HospitalComment on above:Performed By: #### ERUR, PREGU, UMICRO #### [facility] [address] [place] [address] Dr. Willie Gonzales MICROSCOPIC ONLYon 65-51-6115UNAMPWSRZ CRYSTALSFEWChildren's Hospital of ColumbusComment on above:Performed By: #### ERUR, PREGU, UMICRO #### [facility] [address] [address] [address] Willie UrbanTRACEAbnormalNONE SEENThe Memorial HospitalComment on above:Performed By: #### ERUR, PREGU, UMICRO #### [facility] [address] [address] [address] Willie Urban identified Cx Nom (U)NOT INDICATEDNoCleveland Clinic Mentor HospitalComment on above:Performed By: #### ERUR, PREGU, UMICRO #### [facility] [address] [place] [address] Dr. Willie Page SEENWhite LakeNONE SEENFlower HospitalComjohn d. dingell [facility] on above:Performed By: #### ERUR, PREGU, UMICRO #### [facility] [address] [place] [address] Dr. Willie Abrahamystals LM Nom (Urine sed)SEENAbnormalNONE SEENThe Memorial HospitalComjohn d. dingell [facility] on above:Performed By: #### ERUR, PREGU, UMICRO #### [facility] [address] [place] [address] Dr. Willie Wakefieldthelial cells LM Ql (Urine sed)FEWAbrmalNONE SEEN /RAREThe Memorial HospitalComjohn d. dingell [facility] on above:Performed By: #### ERUR, PREGU, UMICRO #### [facility] [address] [place] [address] Dr. Willie ArizmendiLAbnormalNONE SEENFlower HospitalComjohn d. dingell [facility] on above:Performed By: #### ERUR, PREGU, UMICRO #### [facility] [address] [place] [address] Dr. Willie JaneQnwiuSUH9-9Xfkmom3-0Lmq Memorial HospitalComment on above:Performed By: #### ERUR, PREGU, UMICRO #### [facility] [address] [place] [address] Dr. Willie Dela CruzWBC2-5AbnormalNONE [facility] Community HospitalComment on above: Performed By: #### ARABELLA MONTIEL UMICRO #### [facility] [address] [place] [address] Dr. Willie Dela CruzCOVID-19 Antigenon 72-94-5312FFWPC-19 AntigenHealthcare Worker?: N New Reference New Reference [...] its performance New Disclaimer characteristic determined by [employer] and New Disclaimer validated at [facility]. This New Disclaimer test has not [...] is terminated or revoked sooner. PERFORMED BY: [address] [address] PATHOLOGIST HYDROMETALLURGICAL ENGINEER GE NOVA M.D.Memorial Health SystemComment on above: Performed By: #### FLAVIA, COVID-19 NEW #### [facility] [address] [place] [address] USASofia Ag Negativeon 94-60-3650Mpsde Ag NegativeNegative NormalNegativeCincinnati Shriners HospitalComment on above:Result Comment: This is a duplicate Nwe SARS Antigen (BILL) result to be used for statistical tracking purpose only. PERFORMED BY: [address] [address] PATHOLOGIST HYDROMETALLURGICAL ENGINEER GE NOVA M.D.Performed By: #### SOFIANEG, COVID-19 NEW #### [facility] [address] [id number] USACT ABD/PELV W CONon 17-41-2104BX ABD/PELV W CON EXAMINATION: CT ABD/PELV W [...] authenticated by: MARY CARMEN BRISCOE Date: 2021-08-13 12:37NormalThGuernsey Memorial HospitalCB AUTO DIFFon 76-33-6248JWFP #0.0 103/ulNormal0.0-0.1Flower HospitalComment on above:Performed By: #### CBC #### [facility] [address] [place] [address] Dr. Willie Aguiarphils/100 WBC (Bld)0.4 %Normal0.2-2.0[facility] Comment on above:Performed By: #### CBC #### [facility] [address] [place] [address] Dr. Willie Gutierrez #0.1 103/ulNormal0.0-0.7The Memorial HospitalComment on above: Performed By: #### CBC #### [facility] [address] [place] [address] Dr. Willie Lakhaniosinophils/100 WBC (Bld)1.8 %Normal0.9-7.0[facility] Comment on above:Performed By: #### CBC #### [facility] [address] [place] [address] Dr. Willie Lakhanirythrocyte distribution width (RBC) [Ratio]11.9 %Kswier61.0-15.0 The Memorial HospitalComment on above:Performed By: #### CBC #### [facility] [address] [place] [address] Dr. Willie Dela CruzHematocrit (Bld) [Volume fraction]40.0 %Olnihu61.0-48.0The Memorial HospitalComment on above:Performed By: #### CBC #### [facility] [address] [place] [address] Dr. Willie Dela CruzHemoglobin (Bld) [Mass/Vol]13.1 g/oSQdglvo74.0-16.0The Memorial HospitalComment on above:Performed By: #### CBC #### [facility] [address] [place] [address] Dr. Willie Headley #0.02 10e3/ulNormal0.00-0.03The Memorial HospitalComment on above:Performed By: #### CBC #### [facility] [address] [place] [address] Dr. Willie Headley %0.3 %Normal0.0-0.5The Memorial HospitalComment on above: Performed By: #### CBC #### [facility] [address] [place] [address] Dr. Willie DeckerMPH #2.7 103/ulNormal1.2-3.8The Memorial HospitalComment on above:Performed By: #### CBC #### [facility] [address] [place] [address] Dr. Willie Deckermphocytes/100 WBC (Bld)37.9 %Bqsqky02.5-60.0The Memorial HospitalComment on above:Performed By: #### CBC #### [facility] [address] [place] [address] Dr. Willie Bob DIFF REQNONormalThe Memorial HospitalComment on above: Performed By: #### CBC #### [facility] [address] [place] [address] Dr. Willie Hernandez (RBC) [Entitic mass]28.1 dkImaqho60.7-34.0The Memorial HospitalComment on above:Performed By: #### CBC #### [facility] [address] [place] [address] Dr. Willie Hernandez (RBC) [Mass/Vol]32.8 g/hHBblkci83.9-35.2The Memorial HospitalComment on above:Performed By: #### CBC #### [facility] [address] [place] [address] Dr. Willie Hernandez (RBC) [Entitic vol]85.7 sUGhyeux88.1-95.6The Memorial HospitalComment on above:Performed By: #### CBC #### [facility] [address] [place] [address] Dr. Willie Laureano #0.7 103/ulNormal0.3-0.8The Memorial HospitalComment on above:Performed By: #### CBC #### [facility] [address] [place] [address] Dr. Willie Mcfaddenocytes/100 WBC (Bld)9.8 %Normal1.7-12.0[facility] Comment on above:Performed By: #### CBC #### [facility] [address] [place] [address] Dr. Willie Bell #3.5 103/ulNormal1.4-6.5The Memorial HospitalComment on above:Performed By: #### CBC #### [facility] [address] [place] [address] Dr. Willie Jonesutrophils/100 WBC (Bld)49.8 %Tfgzyu93.0-75.0The Memorial HospitalComment on above:Performed By: #### CBC #### [facility] [address] [place] [address] Dr. Willie Conte mean volume (Bld) [Entitic vol]8.8 fLCritically low 9.5-13.5The Memorial HospitalComment on above:Performed By: #### CBC #### [facility] [address] [place] [address] Dr. Willie Dela CruzPLT363 103/ydSgrsuh308-391Kbx [facility] on above: Performed By: #### CBC #### [facility] [address] [place] [address] Dr. Willie Dela CruzRBC4.67 106/ulNormal3.40-5.30The [facility] on above:Performed By: #### CBC #### [facility] [address] [place] [address] Dr. Willie Dela CruzWBC7.0 103/ulNormal4.0-11.0The [facility] on above: Performed By: #### CBC #### [facility] [address] [place] [address] Dr. Willie Hamilton URINE PROFILEon 70-01-9166Mkiaprbjz Ql (U)NegativeNormal NEGATIVEThe Memorial HospitalComjohn d. dingell veterans affairs [facility] center on above:Performed By: #### ERUR #### [facility] [address] [place] [address] Dr. Willie Dela CruzClarity (U)CLEARNormalCLEARThe [facility] on above: Performed By: #### ERUR #### [facility] [address] [place] [address] Dr. Willie Elkins (U)YELLOWNormalYELLOWThe Memorial HospitalComjohn d. [facility] on above: Performed By: #### ERUR #### [facility] [address] [place] [address] Dr. Willie MayoDA micrscopic examination will be performed if indicated. NormalThe Memorial HospitalComjohn d. dingell veterans [facility] on above:Performed By: #### ERUR #### [facility] [address] [place] [address] Dr. Willie Dela CruzGlucose Ql (U)NegativeNormalNEGATIVEFlower HospitalComment on above:Performed By: #### ERUR #### [facility] [address] [address] [address] Willie Dela CruzHemoglobin Ql (U)NegativeNormalNEGBellevue Hospital Comment on above:Performed By: #### ERUR #### [facility] [address] [address] [address] Willie Dela CruzKetones Ql (U)NegativeNormalNEGATIVEFlower HospitalComment on above:Performed By: #### ERUR #### [facility] [address] [place] [address] Dr. Willie Dela CruzLEUKOCYTESNegativeNormalNEGATIVEFlower HospitalComment on above:Performed By: #### ERUR #### [facility] [address] [place] [address] Dr. Willie Dela CruzNitrite Ql (U)NegativeNormalNEGATIVEFlower HospitalComment on above:Performed By: #### ERUR #### [facility] [address] [place] [address] Dr. Willie Dela CruzpH (U)6.0 [pH]Normal5-9Flower HospitalComment on above: Performed By: #### ERUR #### [facility] [address] [place] [address] Dr. Willie DelaC ruzSPEC GRAVITY>=1.206Tsdrfztj8.005-<=1.025[facility] Comment on above:Performed By: #### ERUR #### [facility] [address] [place] [address] Dr. Willie Dela CruzUA PROTEINNegativermalNEGATIVE/ TRACEFlower Hospital Comment on above:Performed By: #### ERUR #### [facility] [address] [place] [address] Dr. Willie Recinos MICRO INDNOT INDICATEDNoCleveland Clinic Mentor HospitalComment on above:Performed By: #### ERUR #### [facility] [address] [place], [place] [id number] Dr. Willie Anderson Qn (U)0.2 {Chema'U}/dLNormal0.2 - 1.0The Memorial HospitalComment on above:Performed By: #### ERUR #### [facility] [address] [place] [address] Dr. Willie Dela CruzLIPASEon 84-59-7645Dnjedx [Catalytic activity/Vol]105.0 U/LNormal 23.0-300.0The [facility]enac HospitalComment on above:Performed By: #### LIPA, CMP #### [facility] [address] [place] [address] Dr. Willie Mackay HCG QUALon 81-71-9638JZLZGDICL, QUALNegativeNormalNEGATIVE The Memorial HospitalComment on above:Performed By: #### PREG #### [facility] [address] [place] [address] Dr. Willie Mensah 14(COMP METB)on 95-90-6560Amerglz [Mass/Vol]3.3 g/dL Critically low3.5-5.0The Memorial HospitalComment on above:Performed By: #### LIPA, CMP #### [facility] [address] [place] [address] Dr. Willie Dela CruzAlbumin/Globulin [Mass ratio]0.8 {ratio}NormalThe Memorial HospitalComment on above:Performed By: #### LIPA, CMP #### [facility] [address] [place] [address] Dr. Willie Huang [Catalytic activity/Vol]75 U/THmgtdi92-591Pom Memorial HospitalComment on above:Performed By: #### LIPA, CMP #### [facility] [address] [place] [address] Dr. Willie Torres [Catalytic activity/Vol]25 U/LNormal9-52[facility] Comment on above:Performed By: #### LIPA, CMP #### [facility] [address] [place] [address] Dr. Willie Cordon gap [Moles/Vol]13.6 mmol/LNormalFlower Hospital Comment on above:Performed By: #### LIPA, CMP #### [facility] [address] [place] [address] Dr. Willie Dela CruzAST [Catalytic activity/Vol]16 U/XVxucrk28-94Raf Memorial HospitalComment on above:Performed By: #### LIPA, CMP #### [facility] [address] [place] [address] Dr. Willie Dela CruzBilirubin [Mass/Vol]0.2 mg/dLNormal0.2-1.3[facility] Comment on above:Performed By: #### LIPA, CMP #### [facility] [address] [place] [address] Dr. Willie Dela CruzCalcium [Mass/Vol]9.0 mg/dLNormal8.4-10.2[facility] Comment on above:Performed By: #### LIPA, CMP #### [facility] [address] [place] [address] Dr. Willie Dela CruzChloride [Moles/Vol]104 mmol/ANdbhwr85-005VkyFlower Hospital Comment on above:Performed By: #### LIPA, CMP #### [facility] [address] [place] [address] Dr. Willie Dela CruzCO2 [Moles/Vol]26.4 mmol/WZgsbyu62.0-30.0[facility] Comment on above:Performed By: #### LIPA, CMP #### [facility] [address] [place] [address] Dr. Willie Dela CruzCreatinine [Mass/Vol]0.94 mg/dLNormal0.52-1.04Flower HospitalComment on above:Performed By: #### LIPA, CMP #### [facility] [address] [place] [address] Dr. Willie Dela CruzGlobulin (S) [Mass/Vol]4.3 g/dLNormalThe Memorial HospitalComment on above:Performed By: #### LIPA, CMP #### [facility] [address] [address] [address] Willie Dela CruzGlucose [Mass/Vol]89 mg/jXVsgsyt35-201VpnFlower Hospital Comment on above:Performed By: #### LIPA, CMP #### [facility] [address] [address] [address] Willie Dela CruzPotassium [Moles/Vol]4.0 mmol/LNormal3.4-5.0[facility] Comment on above:Performed By: #### LIPA, CMP #### [facility] [address] [place] [address] Dr. Willie Dela CruzProtein [Mass/Vol]7.6 g/dLNormal6.1-8.2[facility] Comment on above:Performed By: #### LIPA, CMP #### [facility] [address] [place] [address] Dr. Willie Dela CruzSodium [Moles/Vol]140 mmol/YQpbors900-659Ikj [facility] Comment on above:Performed By: #### LIPA, CMP #### [facility] [address] [place] [address] Dr. Willie Dela CruzUrea nitrogen [Mass/Vol]12.0 mg/dLNormal6.4-19.3TSCCI Hospital LimaComment on above:Performed By: #### LIPA, CMP #### [facility] [address] [place] [address] Dr. Willie Dela CruzUrea nitrogen/Creatinine [Mass ratio]12.8 mg/mgNormalThe Memorial HospitalComment on above:Performed By: #### LIPA, CMP #### [facility] [address] [place] [address] Dr. Wilile Dela CruzXR KUB 1 VIEWon 90-23-7000HE KUB 1 VIEWEXAM: XR KUB 1 VIEW [...] authenticated by: ISRAEL STALLINGS Date: 2021-07-20 19:39[facility] WITH AUTO DIFFERENTIALon 14-60-8661Cejpnvuar (Bld) [#/Vol] 0.03 10*3/uLOhioHealthBasophils/100 WBC (Bld)0.2 %OhioHealthEosinophils [...] (Bld) [#/Vol]3.46 10*6/uLLowOhioHealthWBC (Bld) [#/Vol]13.19 10*3/uLHigh OhioHealthCBCon 40-36-4109Kmxsgeforym distribution width (RBC) [Entitic vol]12.5 %11.6 - [...] [#/Vol]4.08 10*6/uLLowOhioHealthWBC (Bld) [#/Vol] 10.75 10*3/uLOhioHealthCOVID-19, MOLECULARon 89-01-7397RNJW-COV-2 (MOLINA ID)Not DetectedNormalVA Medical CenterComment on above:Result Comment: This test was performed [...] at the following links: For Healthcare Providers: https://www.fda.gov/media/386868/download For Patients: https://www.fda.gov/media/996812/downloadPerformed By: #### [id number] #### [facility] [address] [place], [place] [address] Jayy Rodriguez M.D. [id number]-[id number], Molecularon 74-39-8487Qvstsbtvjwfnlm and review of laboratory rckvkrzPhcvlqLeqxQdnozuTGRV-OxC-2Csl DetectedNot DetectedOhioHealth Comment on above:This test was [...] at the following links: For Healthcare Providers: https://www.fda.gov/media/456940/download For Patients: https://www.fda.gov/media/285027/download Comprehensive Metabolic Panelon 56-91-0705Soroxio [Mass/Vol]2.8 g/dLLow3.2 - 4.5 g/dLOhioHealthALP [Catalytic activity/Vol]163 [...] renal function only and not for medication dosing.[facility] Glucose [Mass/Vol]81 mg/dL65 - 99 mg/dLOhioHealthHCO3 [Moles/Vol]23 mmol/L21 - 32 mmol/LOhioHealthInterpretation and review of laboratory resultsAbnormal OhioHealthPotassium [Moles/Vol]3.9 mmol/L3.5 - 5.1 mmol/LOhioHealthProtein [Mass/Vol]6.9 g/dL6 - 8 g/dLOhioHealthSodium [Moles/Vol]140 mmol/L135 - 145 mmol/LOhioHealthUrea nitrogen [Mass/Vol]9 mg/dL8 - 25 mg/dLOhioHealthUrea nitrogen/Creatinine [Mass ratio]15.0 mg/mgOhioHealthRupture of Membranes ([place] Only)on 00-47-1579Gznhdfhjgyuafs and review of laboratory resultsAbnormalOhioHealthRupture of MembranesPositiveAbnormalNegative OhioHealthType and Screenon 93-96-6940IRP and Rh group Nom (Bld)A Positive OhioMagruder Memorial HospitalBlood group antibody screen QlNegativeOhioHealthSpecimen Expires 05/13/2020 23:59 ESTOhioHealthURINALYSISon 76-74-6939Fbyzrraz Auto Ql (U)Rare AbnormalNone Seen /hpfOhioHealthBilirubin Ql [...] gravity (U) [Rel density]1.025OhioHealthUrobilinogen (U) [Mass/Vol]<2.0<2.0 mg/dL [facility]ittman HospitalWBC Auto (Urine sed) [#/Area]3OhioHealthMicroscopic examination is performed on all urinalysis samples and only positive findings are reported. The test for blood on the chemical analytic portion of urinalysis may also be positive due to hemoglobinuria and myoglobinuria and if red blood cells are present they are quantified by microscopic examination.OhioMagruder Memorial HospitalGlucose Donnell Scr 50gon 39-59-7865Pskmuse [Mass/Vol]131 mg/kKDzilqp76-354XysyqZanesville City Hospital Comment on above:Performed By: #### GLUSC, HGB #### [facility] [address] [place] [address] Plate Printer: Ceasar Fink MDGlu Administered viaGlucolaNormSelect Medical Specialty Hospital - ColumbusComment on above:Performed By: #### GLUSC, HGB #### [facility] [address] [place] [address] Plate Printer: Ceasar Fink MDGlucose tolerance, 1 houron 61-85-0287WIB ADMN GlucolaOhioHealth Mansfield Hospital, KYGlucose tolerance screen 89o252 mg/dL70 - 135 mg/dL [facility], KYHemoglobinon 56-59-4051Ipswlguxft (Bld) [Mass/Vol]12.6 g/dL Ovqbsu46.0-16.0Zanesville City HospitalComment on above:Performed By: #### GLUSC, HGB #### [facility] [address] [place] [address] Plate Printer: Ceasar Fink MDHemoglobin (Bld) [Mass/Vol]12.6 g/dL12 - 16 g/dL [facility], KYChlamydia/GC DNA, Uron 18-29-6991Uebgsizuy Probe, UrNegative NormalNEGZanesville City HospitalComment on above:Result Comment: CHLAMYDIA TRACHOMATIS DNA [...] nucleic acid target.Performed By: #### UCGP #### [address] [address] Plate Printer: Jaren Winkler, UrNegativeNoRegency Hospital Cleveland East on above:Result Comment: NEISSERIA GONORRHOEAE DNA not [...] nucleic acid target.Performed By: #### UCGP #### [address] [address] Plate Printer: Minoo Winkler,Urineon 75-04-3743Csly,UrineSpecimen Description .CLEAN CATCH URINE Special Requests NOT REPORTED Culture NO SIGNIFICANT GROWTH Report Status FINAL 10/25/2019[facility] on above: Performed By: #### URC #### [address] [address] Plate Printer: Hiram Blood MD [facility] [address] [place] [address] Plate Printer: Ceasar Fink MDHIV Ag/Abon 01-29-6268YLJ Ag/AbNONREACTIVENoSt. Mary's Medical Center on above:Result Comment: No laboratory evidence of HIV infection. If acute HIV infection is suspected, consider testing for HIV-1 RNA.Performed By: #### AHCV, HIVCMB #### [address] [id number] Plate Printer: Josemanuel Winkler C Abon 35-41-8017Wcg C AbNONREACTIVENormTriHealth Bethesda North Hospital on above:Result Comment: The hepatitis C [...] by PCR.Performed By: #### AHCV, HIVCMB #### [facility] [address] [place] [address] Plate Printer: Kristi WinklerFirstHealth 10-25-2019T.pallidum Ab ScreenNONBrandenburg Center on above:Result Comment: T. pallidum antibodies are not detected. There is no serological evidence of infection with T. pallidum (early primary syphilis cannot be excluded). Retest in 2-4 weeks if syphilis is clinically suspect.Performed By: #### PRENAT #### [facility] [address] [place] [address] Plate Printer: Hiram Blood MD [facility] [address] [place], [place] [id number] Plate Printer: Josemanuel Matthews Surf AgNONBrandenburg Center on above:Performed By: #### PRENAT #### [facility] [employer] [address] [place] [address] Plate Printer: Hiram Blood MD [facility] [address] [place], [place] [id number] Plate Printer: Maxi Matthews Ab, UcC032.9 IU/mLNUniversity Hospitals Conneaut Medical Center on above:Result Comment: REFERENCE RANGE: <5.0 NON-REACTIVE (non-immune) 5.0 TO 9.9 EQUIVOCAL >=10.0 REACTIVE (immune)Performed By: #### PRENAT #### [facility] [employer] [address] [place] [address] Plate Printer: Hiram Blood MD [facility] [address] [place], [place] [id number] Plate Printer: Ceasar Fink MDHepatitis C Antibodyon 51-74-0034Huqarbrow C Ab NONREACTIVENONREACTIVEHartford, KYComment on above: The hepatitis C procedure [...] HCV RNA by PCR. TYPE AND SCREENon 91-47-7949WHJ/RhPositiveHartford, KYPrenatal Profileon 61-40-1787Ipt. Basophil0.10 k/uLNormal0.0-0.2MElyria Memorial Hospital Comment on above:Performed By: #### PRENAT #### [address] [address] Plate Printer: Hiram Blood MD [facility] [address] [place], [place] [phone] Plate Printer: Lisy Matthews.Neutrophil (Seg)8.50 k/uLHigh2.3-6.9Zanesville City HospitalComment on above:Performed By: #### PRENAT #### [facility] [address] [place] [address] Plate Printer: Hiram Blood MD [facility] [address] [place], [place] [phone] Plate Printer: Adán Matthews PerformedYESNoCleveland Clinic Marymount HospitalComment on above:Performed By: #### PRENAT #### [facility] [address] [place] [address] Plate Printer: Hiram Blood MD [facility] [address] [place], [place] [phone] Plate Printer: Ceasar Fink MDBasophils/100 WBC (Bld)1 %Normal0-2MElyria Memorial HospitalComment on above:Performed By: #### PRENAT #### [address] [address] Plate Printer: Hiram Blood MD [facility] [address] [place] [address] Plate Printer: Ceasar Fink MDEosinophils (Bld) [#/Vol]0.10 10*3/uLNormal 0.0-0.4Zanesville City HospitalComment on above:Performed By: #### PRENAT #### [address] [address] Plate Printer: Hiram Blood MD [facility] [address] [place] [address] Plate Printer: Ceasar Fink MDEosinophils/100 WBC (Bld)1 %Normal0-5Zanesville City HospitalComment on above:Performed By: #### PRENAT #### [address] [address] Plate Printer: Hiram Blood MD [facility] [address] [place] [address] Plate Printer: Ceasar Fink MDErythrocyte distribution width (RBC) [Ratio]12.9 %Jzjucc68.1-15.2MElyria Memorial HospitalComment on above:Performed By: #### PRENAT #### [address] [address] Plate Printer: Hiram Blood MD [facility] [address] [place] [address] Plate Printer: Ceasar Fink MDHematocrit (Bld) [Volume fraction]39.6 %Normal 36-46Zanesville City HospitalComment on above:Performed By: #### PRENAT #### [address] [address] Plate Printer: Hiram Blood MD [facility] [address] [place], [place] [phone] Plate Printer: Ceasar Fink MDHemoglobin (Bld) [Mass/Vol]13.4 g/dLNormal 12.0-16.0Zanesville City HospitalComment on above:Performed By: #### PRENAT #### [address] [address] Plate Printer: Hiram Blood MD [facility] [address] [place], [place] [id number] Plate Printer: Ceasar Fink MDLymphocytes (Bld) [#/Vol]2.00 10*3/uLNormal 1.5-6.5Zanesville City HospitalComment on above:Performed By: #### PRENAT #### [address] [address] Plate Printer: Hiram Blood MD [facility] [address] [place], [place] [phone] Plate Printer: Nidhi Matthewsmphocytes/100 WBC (Bld)18 %Bhdqvh76-84AplcaZanesville City HospitalComment on above:Performed By: #### PRENAT #### [address] [address] Plate Printer: Hiram Blood MD [facility] [address] [place], [place] [id number] Plate Printer: NORA MatthewsCH (RBC) [Entitic mass]28.7 ytEtpwtb99-15SplgkZanesville City HospitalComment on above:Performed By: #### PRENAT #### [address] [address] Plate Printer: Hiram Blood MD [facility] [address] [place], [place] [phone] Plate Printer: Ceasar Aleks, MDMCHC (RBC) [Mass/Vol]33.8 g/tXHthohk68-46VucqqZanesville City HospitalComment on above:Performed By: #### PRENAT #### [facility] [address] [place] [address] Plate Printer: Hiram Blood MD [facility] [address] [place], [place] [address] Plate Printer: NORA MatthewsCV (RBC) [Entitic vol]85.0 fKBschit20-857JyixwZanesville City HospitalComment on above:Performed By: #### PRENAT #### [facility] [address] [place] [address] Plate Printer: Hiram Blood MD [facility] [address] [place] [address] Plate Printer: NORA Matthewsonocytes (Bld) [#/Vol]0.70 10*3/uLNormal0.4-0.9 [facility] City HospitalComment on above:Performed By: #### PRENAT #### [facility] [address] [place] [address] Plate Printer: Hiram Blood MD [facility] [address] [place] [address] Plate Printer: NORA Matthewsonocytes/100 WBC (Bld)6 %Normal4-8Zanesville City HospitalComment on above:Performed By: #### PRENAT #### [facility] [address] [place] [address] Plate Printer: Hiram Blood MD [facility] [address] [place] [address] Plate Printer: Ceasar Fink MDNeutrophil (Seg)74 %Ujtpec03-75ZaguaZanesville City HospitalComment on above:Performed By: #### PRENAT #### [facility] [address] [place] [address] Plate Printer: Hiram Blood MD [facility] [address] [place], [place] [address] Plate Printer: Tianna Matthews (Bld) [#/Vol]347 10*3/vGEsoipz944-723 [facility] City HospitalComjohn d. [facility] on above:Performed By: #### PRENAT #### [facility] [address] [place] [address] Plate Printer: Hiram Blood MD [facility] [address] [place] [address] Plate Printer: MERLYN Matthews (Bld) [#/Vol]4.66 10*6/uLNormal4.0-5.2MSelect [facility]ty [facility] on above:Performed By: #### PRENAT #### [address] [address] Plate Printer: Hiram Blood MD [facility] [address] [place] [address] Plate Printer: ZACK Matthews (Jose Luisd) [#/Vol]11.4 10*3/uLNormal4.5-13.5[facility] on above:Performed By: #### PRENAT #### [address] [address] Plate Printer: Hiram Blood MD [facility] [address] [place] [address] Plate Printer: Lisy Matthews.Imm.GranulocyteNOT REPORTEDNormal0.00-0.30 [facility] on above:Performed By: #### PRENAT #### [address] [address] Plate Printer: Hiram Blood MD [facility] [address] [place], [place] [address] Plate Printer: Ceasar Aleks, MDImmature granulocytes (Bld) [#/Vol]NOT REPORTED Khdaeb7FjfspWilson Memorial Hospital HospitalComment on above:Performed By: #### PRENAT #### [facility] [address] [place] [address] Plate Printer: Hiram Blood MD [facility] [address] [place] [address] Plate Printer: RYLEY Matthews AutomatedNOT REPORTEDNormalWilson Memorial Hospital HospitalComment on above:Performed By: #### PRENAT #### [facility] [address] [place] [address] Plate Printer: Hiram Blood MD [facility] [address] [place] [address] Plate Printer: Adina Matthews mean volume (Bld) [Entitic vol]NOT REPORTEDNormal6.0-12.0[facility] HospitalComment on above:Performed By: #### PRENAT #### [facility] [address] [place] [address] Plate Printer: Hiram Blood MD [facility] [address] [place] [address] Plate Printer: Danielle Matthewslets (Bld) [#/Vol]NOT REPORTEDNormalWilson Memorial Hospital HospitalComment on above:Performed By: #### PRENAT #### [facility] [address] [place] [address] Plate Printer: Hiram Blood MD [facility] [address] [place] [address] Plate Printer: MERLYN Matthews morphology finding Nom (Bld)NOT REPORTED NormalWilson Memorial Hospital HospitalComment on above:Performed By: #### PRENAT #### [facility] [address] [place] [address] Plate Printer: Hiram Blood MD [facility] [address] [place] [address] Plate Printer: Ceasar Fink MDWBC MorphologyNOT REPORTEDOhioHealth Grady Memorial HospitalComment on above:Performed By: #### PRENAT #### [facility] [address] [place] [address] Plate Printer: Hiram Blood MD [facility] [address] [place] [address] Plate Printer: ROBERT Matthewsrenatal Type + Scrnon 12-31-8975Kagpuayy Type + ScrnNegativeOhioHealth Grady Memorial HospitalComment on above:Performed By: #### PRTYS #### [facility] [address] [place] [address] Plate Printer: Ceasar Fink MDUS OB LESS THAN 14 WEEKS SINGLE OR FIRST GESTATIONon [id number] OB LESS THAN 14 WEEKS SINGLE OR FIRST GESTATION Obstetrical ultrasound, 1st trimester CLINICAL: patient, unknown last menstrual period. TECHNIQUE: Transabdominal and transvaginal obstetrical ultrasound was performed. FINDINGS: Comparison: None. FETUS AND UTERUS: Uterus measures 13.4 x 6.7 x 5.7 cm. A single intrauterine gestation sac is visualized. Yolk sac and pole identified. Mean gestational sac diameter is 45.6 mm. [place] rump length is 32.6 mm. heart rate [...] Signed by: Lucretia Neff MD 10/24/19 Final resultNoCleveland Clinic Marymount HospitalObstetrical ultrasound, 1st trimester CLINICAL: patient, unknown last menstrual period. TECHNIQUE: Transabdominal and transvaginal obstetrical ultrasound was performed. FINDINGS: Comparison:None. FETUS AND UTERUS: Uterus measures 13.4 x 6.7 x 5.7 cm. A single intrauterine gestation sac isvisualized. Yolk sac and pole identified. Mean gestational sac diameter is 45.6 mm. [place] rump length is 32.6 mm. heart rate [...] date of confinement by the trasound of 05/20/2020.[facility]- [place], [place], linette Incoming Radiant Results From [employer] - 10/24/2019 2:52 PM EDT Obstetrical ultrasound, 1st trimester CLINICAL: patient, unknown last menstrual period. TECHNIQUE: Transabdominal and transvaginal obstetrical ultrasound was performed. FINDINGS: Comparison: None. FETUS AND UTERUS: Uterus measures 13.4 x 6.7 x 5.7 cm. A single intrauterine gestation sac is visualized. Yolk sac and pole identified. Mean gestational sac diameter is 45.6 mm. [place] rump length is 32.6 mm. heart rate [...] ovaries bilaterally. 4. Cervical length 3.8 cm. [facility], KYToxicolograffaele JoelNatali 54-70-0077Htjdmxkleyz(s),Ur NegativeNormalNEGMercy Scotland HospitalComment on above:Result Comment: (Positive cutoff 500 ng/mL)Performed By: #### CPDAU #### [facility] [address] [place] [address] Plate Printer: Ceasar Fink MDBarbiturate(s),UrNegativeNormalNEGMercy Scotland HospitalComment on above:Result Comment: (Positive cutoff 200 ng/mL)Performed By: #### CPDAU #### [facility] [address] [place] [address] Plate Printer: Ceasar Fink MDBenzodiazepine(s)NegativeNormalNEGGerman Hospitalcy Scotland HospitalComment on above:Result Comment: (Positive cutoff 150 ng/mL)Performed By: #### CPDAU #### [facility] [address] [place] [address] Plate Printer: DANA Matthewsannabinoid(s),UrNegativeNormalNEGMercy Scotland HospitalComment on above:Result Comment: (Positive cutoff 50 ng/mL)Performed By: #### CPDAU #### [facility] [address] [place] [address] Plate Printer: DANA Matthewsocaine MetaboliteNegativeNormalNEGWilson Memorial Hospital HospitalComjohn d. dingell veterans affairs medical center on above:Result Comment: (Positive cutoff 150 ng/mL)Performed By: #### CPDAU #### [facility] [address] [place] [address] Plate Printer: NORA Matthewsethadone Ql (U)NegativeNormalNEGMercy Scotland HospitalComment on above:Result Comment: (Positive cutoff 200 ng/mL)Performed By: #### CPDAU #### [facility] [address] [place] [address] Plate Printer: NORA Matthewsethamphetamine, UrNegativeNormalNEGMercy Scotland HospitalComjohn d. dingell veterans affairs medical center on above:Result Comment: (Positive cutoff 500 ng/mL)Performed By: #### CPDAU #### [facility] [address] [place] [address] Plate Printer: Ceasar Fink MDOpiate(s), UrNegativeNormalNEGMercy Scotland HospitalComjohn d. dingell veterans affairs medical center on above:Result Comment: (Positive cutoff 100 ng/mL)Performed By: #### CPDAU #### [facility] [address] [place] [address] Plate Printer: Ceasar Fink MDOxycodone, UrineNegativeNormalNEGMercy Scotland HospitalComjohn d. dingell veterans affairs medical center on above:Result Comment: (Positive cutoff 100 ng/mL)Performed By: #### CPDAU #### [facility] [address] [place] [address] Plate Printer: ROBERT Matthewshencyclidine, UrNegativeNormalNEGMercy Scotland HospitalComjohn d. dingell veterans [facility] medical center on above:Result Comment: (Positive cutoff 25 ng/mL)Performed By: #### CPDAU #### [facility] [address] [place] [address] Plate Printer: ROBERT Matthewsropoxyphene,UrineNegativeNormalNEGMercy Scotland HospitalComjohn d. dingell veterans [facility] medical center on above:Result Comment: (Positive cutoff 300 ng/mL)Performed By: #### CPDAU #### [facility] [address] [place] [address] Plate Printer: Ceasar Fink MDTricyclic antidepressants Screen Ql (U)Negative NormalNEGMercy Scotland HospitalComment on above:Result Comment: (Positive cutoff 300 ng/mL) Drug screen results are to be used for medical purposes only. All positive results are unconfirmed. Testing for employment or legal uses should be sent to a reference laboratory for confirmation.Performed By: #### CPDAU #### [facility] [address] [place], [place] [address] Plate Printer: Ceasar Fink MDBuprenorphrine, UrNOT REPORTEDNormalNEGMercy Scotland HospitalComment on above:Performed By: #### CPDAU #### [facility] [address] [place] [address] Plate Printer: Ceasar Fink MDInterpretive InfoNOT REPORTEDNormalMercy Scotland HospitalComment on above:Performed By: #### CPDAU #### [facility] [address] [place], [place] [address] Plate Printer: NORA MatthewsDMA, UrineNOT REPORTEDNormalNEGMercy Scotland HospitalComment on above:Performed By: #### CPDAU #### [facility] [address] [place], [place] [address] Plate Printer: Ceasar Fink MDUrine Drug Screen, [facility] 10-23-2019 Amphetamine Screen, UrNegativeNEGATIVEMercy Health- [place], KYComment [...] a reference laboratory for confirmation. C Cervicalon 22-70-6266Rpooxhqi CultureMicrobiology PROCEDURE: Cervical Culture [R1] SOURCE: Cerv [...] R1: This test was performed at: [facility], [address] [place] [address], [address] , [facility] DaytonComment on above:Performed By: #### [id number], [id number] #### [facility] [address] [place] [address]M Urineon [id number] identified Cx Nom (U)Microbiology PROCEDURE: Urine Culture [...] performed at: [facility], [address] [place] [address], [address] , [facility] DaytonComment on above:Performed By: #### [id number], [id number] #### [facility] [address] [place] [address]Xsgguk Summary.on 99-56-9387Qneyxf Summary.CODING DATE: 10/21/2019 FINAL [facility] STATUS: Home (Routine DC) PAYOR: Medicaid ADMIT [...] By: Mimi Sutherland Date Saved: 10/21/2019 02:29 pmNFlower HospitalCoding Summary. CODING DATE: 10/21/2019 FINAL [facility] STATUS: Home (Routine DC) PAYOR: Medicaid ADMIT [...] Mimi Sutherland Revised Date Saved: 10/21/2019 02:29 pmNormalGuernsey Memorial HospitalAuto Diffon 02-51-5377Rfbxfpaac/100 WBC (Bld)0.4 %Normal0.0-2.0[facility] Memorial HospitalComment on above:Order Comment: Order Added by Discern Expert.Performed By: #### [id number], 8726030, 4055857, 8571149, 9648287 #### [facility] [address] [place] [address]Qsexlahmc/Leukocytes Auto (Bld) [Pure # fraction]0.0 E9/LNormal 0.0-0.1FFostoria City HospitalComment on above:Order Comment: Order Added by Discern Expert.Performed By: #### 5940986, 7797458, 8004315, 3784041, 9338936 #### [facility] [address] [place] [address]Qzopwugmoze/100 WBC (Bld)0.4 %Normal0.0-8.0[facility] Memorial HospitalComment on above:Order Comment: Order Added by Discern Expert.Performed By: #### 0889105, 7588289, 1771945, 4383461, 2379730 #### [facility] [address] [place] [address]Xytoaohqqwi/Leukocytes Auto (Bld) [Pure # fraction]0.0 E9/L Normal0.0-0.7FFostoria City HospitalComment on above:Order Comment: Order Added by Discern Expert.Performed By: #### 9485876, 8191576, 9160563, 9861453, 9911807 #### [facility] [address] [place] [address]Oxxgoxkqqmk/100 WBC (Bld)14.8 %Commpf44.0-55.0Gu[facility]sey Memorial HospitalComment on above:Order Comment: Order Added by Discern Expert. Performed By: #### 8811212, 1422047, 7060880, 8689434, 8931860 #### [facility] [address] [place] [address]Sbcnvndmxgs/Leukocytes Auto (Bld) [Pure # fraction]1.7 E9/L Normal1.0-3.5FFostoria City HospitalComment on above:Order Comment: Order Added by Discern Expert.Performed By: #### 2941607, 0985507, 7968715, 5816091, 5182313 #### [facility] [address] [place] [address]Espiokhso/100 WBC (Bld)7.5 %Normal4.0-14.0[facility] Memorial HospitalComment on above:Order Comment: Order Added by Discern Expert.Performed By: #### 5992704, 7289410, 9111789, 0516749, 6386398 #### [facility] [address] [place] [address]Gvyzpuqyz/Leukocytes Auto (Bld) [Pure # fraction]0.9 E9/LNormal 0.0-1.0[facility] Memorial HospitalComment on above:Order Comment: Order Added by Discern Expert.Performed By: #### 9851434, 8537089, 0060537, 4116460, 8550350 #### [facility] [address] [place] [address]Ezfixbyjiqp/100 WBC (Bld)76.9 %High36.0-75.0Gu[facility] Memorial HospitalComment on above:Order Comment: Order Added by Discern Expert. Performed By: #### 9713958, 6650341, 7757159, 8320759, 1855186 #### [facility] [address] [place] [address]Xzxlvojsmlc/Leukocytes Auto (Bld) [Pure # fraction]8.9 E9/LHigh 1.3-6.0Gu[facility] Memorial HospitalComment on above:Order Comment: Order Added by Discern Expert.Performed By: #### 0172963, 7781765, 7304495, 9950646, 5194660 #### [facility] [address] [place] [address]TQAmn 61-36-9866Obacgrzgqr [Mass/Vol]0.6 mg/dLNormal0.5-1.3 [facility] HospitalComment on above:Performed By: #### 8851500, 3267542, 3085359, 2260370, 0090380 #### [facility] [address] [place], [place] [address]Imax nitrogen [Mass/Vol]9 mg/dLNormal5-21Gu[facility] Memorial HospitalComment on above:Performed By: #### 6805560, 2843266, 3445204, 9083657, 4516130 #### [facility] [address] [place] [address]Mruh nitrogen/Creatinine [Mass ratio]15 No MksuzBojyer59-68 [facility] Memorial HospitalComment on above:Performed By: #### 4757884, 9523134, 3814933, 2682038, 5911322 #### [facility] [address] [place] [address]Mspwi gap [Moles/Vol]12 mmol/LNormal6-16[facility] Memorial HospitalComment on above:Performed By: #### 4664195, 7122156, 5969935, 5116054, 5447490 #### [facility] [address] [place] [address]Fyasicq [Mass/Vol]9.5 mg/dLNormal8.9-11.1FFostoria City HospitalComment on above:Performed By: #### 7736394, 9492440, 9225005, 7777550, 6086300 #### [facility] [address] [place] [address]Rupdcasq [Moles/Vol]104 mmol/CMwboah962-013XslejlGuernsey Memorial HospitalComment on above:Performed By: #### 7037315, 4120644, 7596879, 9579984, 9313903 #### [facility] [address] [place], [place] [address]BY9 [Moles/Vol]22 mmol/CEqxwcf15-69PahcnuGuernsey Memorial Hospital Comment on above:Performed By: #### 9331996, 5590457, 5830715, 1218168, 1819710 #### [facility] [address] [place], [place] [address]Ebxluji [Mass/Vol]89 mg/aNRlbaej31-228ZzvygmGuernsey Memorial HospitalComment on above:Result Comment: If this glucose result represents a fasting glucose, interpretation should refer tothe following reference range: 55-99 mg/dLPerformed By: #### 4640228, 1728547, 1102926, 2670265, 9565271 #### [facility] [address] [place], [place] [address]Fovhhjeqh [Moles/Vol]3.9 mmol/LNormal3.5-5.3FFostoria City HospitalComment on above:Performed By: #### 1762933, 3426330, 2112909, 7427589, 8502546 #### [facility] [address] [place] [address]Ptxmju [Moles/Vol]134 mmol/OCkk276-785QclbquGuernsey Memorial HospitalComment on above:Performed By: #### 0662262, 2617115, 2311039, 7931022, 7850992 #### [facility] [address] [place] [address]HiNT Quanton 30-60-2357AXG.beta subunit [id number] m[IU]/mLHigh 1-3FFostoria City HospitalComment on above:Result Comment: GESTATIONAL AGE HCG RANGE (mIU/mL) NON- <1-3 0.2-1 WEEKS 5-50 1-2 WEEKS 50-500 2-3 WEEKS 100-5,000 3-4 WEEKS 500-10,000 4-5 WEEKS 1,000-50,000 5-6 WEEKS 10,000-100,000 6-8 WEEKS 15,000-200,000 8-12 WEEKS 10,000-100,000Performed By: #### 9087172 #### [facility] [address] [place] [address]VUS w/ Auto Diffon 26-23-4635Hpayilxthry distribution width (RBC) [Ratio]13.1 %Rqyhrr91.5-14.0Gu[facility] Memorial HospitalComment on above: Performed By: #### 6216328, 1175960, 0333735, 8202323, 0027178 #### [facility] [address] [place] [address]78[address]Cnlvywzwev (Bld) [Volume fraction]40.9 %Fqhszx98.0-47.0[facility] Memorial HospitalComment on above:Performed By: #### 1009879, 0194153, 4443349, 7970786, 3314396 #### [facility] [address] [place] [address] 114[address]Wnuwsoliij (Bld) [Mass/Vol]13.6 g/nVWgfikl35.0-15.0[facility] HospitalComment on above:Performed By: #### 3395480, 3991335, 7891388, 1910998, 1341754 #### [facility] [address] [place] [address] 77[address]IJR (RBC) [Entitic mass]28.2 ddQdnhaj91.0-32.0[facility] Memorial HospitalComment on above:Performed By: #### 7748983, 2038402, 6381511, 2686809, 9258032 #### [facility] [address] [place] [address] 19[address]LNVC (RBC) [Mass/Vol]33.2 g/lEUwqhfp82.0-36.0[facility] Memorial HospitalComment on above:Performed By: #### 3407766, 0168185, 5423316, 5712467, 1440206 #### [facility] [address] [place] [address]26[address]GCT (RBC) [Entitic vol]84.9 rYGosivh06.0-95.0[facility] Memorial HospitalComment on above:Performed By: #### 3774445, 6185728, 8312033, 1562885, 9308649 #### [facility] [address] [place] [address] 48[address]Ancpqbfp mean volume (Bld) [Entitic vol]6.8 fLNormal6.0-9.5 [facility] HospitalComment on above:Performed By: #### 0349031, 6529849, 8173712, 0919898, 0035075 #### [facility] [address] [place] [address] 112[address]Ywpnljxdk (Bld) [#/Vol]341.0 E9/ITnteqw959.0-450.0Gu[facility] Memorial HospitalComment on above:Performed By: #### 2188635, 4160457, 3851614, 2381290, 7662199 #### [facility] [address] [place] [address] 305[address]XVH (Bld) [#/Vol]4.8 E12/LNormal4.1-5.3FFostoria City HospitalComment on above:Performed By: #### 9057620, 3914340, 0675978, 7253302, 0622452 #### [facility] [address] [place] [address]TUA corrected for nucl RBC Auto (Bld) [#/Vol]11.5 E9/LHigh 4.0-10.5FFostoria City HospitalComment on above:Performed By: #### 6724929, 6398237, 5179546, 2523090, 1701164 #### [facility] [address] [place] [address]HK Clinical Summaryon [id number] Clinical Summary [address] [address] ED Clinical Summary Person Information Name: NICOLE GEORGE [place] Age: 14 Years : 2005 Sex: Female Language: Colombian PCP: Abhijeet Crane III, DO Marital Status: [...] 10/20/2019 16:20:29 10/20/2019 16:20:29 10/20/2019 16:20:29 ADDRESS: [address] [place] [id number] PHYS DOC NOTES: MEDICAL INFORMATION: Prescriptions Given: [...] Refills: 0. PATIENT EDUCATION INFORMATION: Instructions: Vaginitis, Ervf-sv-Bpgx; Care; Morning Sickness Follow up: With: Address: When: [address], [place] [phone] Business (1) Within 1 to 2 days Comments: Please return for any vaginal bleeding, high fevers, worsening pain or symptoms. Please take your antibiotic as prescribed. Please apply the gel every night before you go to bed. Please follow-up with your first obstetrics appointment on Monday. With: Address: When: Abhijeet Crane [address] [place] [address], [facility] [place] [address] [address] Business (1) Within 1 to 2 days DIAGNOSIS: 1:; 2:Bacterial vaginosis; 3:Asymptomatic bacteriuria; 4:Suprapubic cramping; 5:Morning sicknessNoNortheast Missouri Rural Health Network Medical CenterED Note-Physicianon 02-24-0623QF Note-PhysicianBasic Information Time Seen: Yusuf Roach PA-C [...] 14 year old female that presented to [facility] Emergency Department for vaginal cramping. Upon [...] is negative. Her beta hCG quant is 417069. Her urine has some leukocytes with 6-15 [...] Orellana Within 1 to [address] [address]- business (1) Additional Instructions: Please return for any vaginal bleeding, high fevers, worsening pain or symptoms. Please take your antibiotic as prescribed. Please apply the gel every night before you go to bed. Please follow-up with your first obstetrics appointment on Monday. Abhijeet Crane Within 1 to 2 days [address] [place] [address]- Business (1) Additional Instructions: Patient Education Vaginitis, Gzug-kn-Zcxn Care Morning Sickness Attestation Dr Perez has been informed about evaluation and treatment of patient during this visit. This report was transcribed using voice recognition software. Every effort was made to ensure accuracy, however, inadvertently computerized comfort station attendant mistakes may be present. Patient was treated and evaluated by the physician assistant head cashier. The attending physician was in the emergency [...] 12:38:00) Lymph Auto: 14.8 % (10/20/19 12:38:00) Refugio Auto: 7.5 % (10/20/19 12:38:00) Eos Auto: 0.4 % (10/20/19 12:38:00) Basophil Auto: 0.4 % (10/20/19 12:38:00) Neutro Absolute: 8.9 E9/L High (10/20/19 12:38:00) Lymph Absolute: 1.7 E9/L (10/20/19 12:38:00) Refugio Absolute: 0.9 E9/L (10/20/19 12:38:00) Eos Absolute: [...] 24 unit/L (10/20/19 12:38:00) Beta hCG Qnt: 925366 mIU/mL High (10/20/19 12:38:00) UA Spec Desc: [...] corresponding gestational age +/- 1 week are: [place] Rump Length: 2.6 cm Composite Ultrasound Age: [...] Coronado MD [facility] NorthComment on above:Result Comment: Electronically Signed By: Yusuf Roach PA-C\.br\Date and Time Signed: 10/20/19 15:53 EDT\.br\Electronically Co-Signed By: Bud Perez MD\.br\Date and Time Co-Signed: 10/20/19 18:02 EDTED Patient Education Noteon [id number] Patient Education NoteFamily Medicine Vaginitis Vaginitis is [...] Document Reviewed: 01/10/2013 ExitCare? Patient Information ?2014 viseto. This information is not intended to replace [...] with your health care provider: ? Prescription, yqfp-ypb-pnamhdk, and herbal medicines that you take. ? [...] care provider before taking any medicine, even lgsc-xvz-nhjgriy medicines. Some medicines are not safe to [...] Camembert, and chevre) or soft, blue-veined cheese (Spanish blue and Roquefort). ? Stay away from toxic chemicals like: ? Insecticides. ? Solvents (some country director or paint thinners). ? Lead. ? Mercury. [...] baby. ? Ask about a baby doctor (reference data expert) and methods and pain medicine for labor, [...] Document Reviewed: 10/15/2014 ExitCare? Patient Information ?2015 viseto. This information is not intended to replace [...] TREATMENT Do not use any medicines (prescription, glip-tsb-hprtknt, or herbal) for morning sickness without first talking to your health care provider. Your health care provider may prescribe or recommend: ? Vitamin B6 supplements. ? Anti-nausea medicines. ? The herbal medicine tc. HOME CARE INSTRUCTIONS ? Only take hsok-jqs-oajhgks or prescription medicines as directed by your [...] Document Reviewed: 01/15/2014 ExitCare? Patient Information ?2015 viseto. This information is not intended to replace advice given to you by your health care provider. Make sure you discuss any questions you have with yourhealth care provider.[facility] Patient Summaryon [id number] Patient Summary [address] [address] Patient Discharge Instructions Person Information Name: NICOLE GEORGE Age: 14 Years Arrival Date: 10/20/2019 11:39:35 Discharge Diagnosis: 1:; 2:Bacterial vaginosis; 3:Asymptomatic bacteriuria; 4:Suprapubic cramping; 5:Morning sickness Primary Care Physician: Abhijeet Crane III, DO Provider Information Primary Provider: Ana ALTAMIRANO, Bud Advanced Retort Firer:None The exam and treatment you received in the Emergency Department were for an urgent problem and are not intended as complete care. It is important that you follow up with a doctor, nurse practitioner,or physician?s assistant head cashier for ongoing care. If your symptoms become worse or you do not improve as expected and you are unable to reach your usual health care provider, you should return to the Emergency Department. We are available 24 hours a day. NICOLE GEORGE has been given the following list of patient education materials, prescriptions and follow-up instructions: Follow-up Instructions: With: Address: When: Casey Orellana [address] [place] [address] [facility] (1) Within 1 to 2 days Comments: Please return for any vaginal bleeding, high fevers, worsening pain or symptoms. Please take your antibiotic as prescribed. Please apply the gel every night before you go to bed. Please follow-up with your first obstetrics appointment on Monday. With: Address: When: Abhijeet Crane [address] [place] [address], [facility], [place] [address] [facility] (1) Within 1 to 2 days In the event that this physician does not participate in your insurance network, please consult with your insurance company to find a nearby participating provider. Patient Education Materials: Vaginitis, Ymwv-jl-Ypmu; Care; Morning Sickness A MESSAGE TO ALL PATIENTS REGARDING OPIOIDS PRESCRIPTION OPIOIDS: WHAT YOU NEED TO KNOW Prescription opioids can be used to help relieve utahurve-gb-kdhdug pain and are often prescribed following a [...] your community drug take- back program or yourStereomoodrmActive-Semi mail-back program, or flush them down the toilet, following guidance from the Food and Drug Administration (www.fda.gov/Drugs/ResourcesForYou). ? Visit www.cdc.gov/drugoverdose to learn about the risks of opioids abuse and overdose. ? If you believe you may be struggling with addiction, tell your health child care nurse and ask for guidance or call [facility]?S Trellie Helpline at [phone]-GEAL. l Source: US Department of Health and Human Services/Center for Disease Control & Prevention [facility] Medications Given: Medication Dose Route [...] Comment: Pharmacy Information: Thank you for choosing [facility] Patient Education Materials: Vaginitis Vaginitis is [...] Document Reviewed: 01/10/2013 ExitCare? Patient Information ?2014 viseto. This information is not intended to replace [...] with your health care provider: ? Prescription, sfys-ace-qrnaneo, and herbal medicines that you take. ? [...] care provider before taking any medicine, even ymrd-xaz-mlowsob medicines. Some medicines are not safe to [...] Camembert, and chevre) or soft, blue-veined cheese (Spanish blue and Roquefort). ? Stay away from toxic chemicals like: ? Insecticides. ? Solvents (some country director or paint thinners). ? Lead. ? Mercury. [...] Know where a hospital is located [facility], in case of [...] baby. ? Ask about a baby doctor (reference data expert) and methods and pain medicine for labor, [...] Document Reviewed: 10/15/2014 ExitCare? Patient Information ?2015 viseto. This information is not intended to replace [...] TREATMENT Do not use any medicines (prescription, erds-kjp-ppdfway, or herbal) for morning sickness without first talking to your health care provider. Your health care provider may prescribe or recommend: ? Vitamin B6 supplements. ? Anti-nausea medicines. ? The herbal medicine tc. HOME CARE INSTRUCTIONS ? Only take rysw-pdg-rywpvjo or prescription medicines as directed by your [...] Document Reviewed: 01/15/2014 ExitCare? Patient Information ?2015 viseto. This information is not intended to replace advice given to you by your health care provider. Make sure you discuss any questions you have with yourhealth care provider. ARIEL Elizalde HANNA J , have received the following patient education materials/instructions and have verbalized understanding: Patient Education Materials: Vaginitis, Jxzy-nx-Hguu; Care; Morning Sickness Follow-up Instructions: With: Address: When: Casey Orellana [address] [place] [address] [facility] () Within 1 to 2 days Comments: Please return for any vaginal bleeding, high fevers, worsening pain or symptoms. Please take your antibiotic as prescribed. Please apply the gel every night before you go to bed. Please follow-up with your first obstetrics appointment on Monday. With: Address: When: Abhijeet Crane [address] [place] [address] [facility] (1) Within 1 to 2 days Patient Signature Date Clinician/Nurse Signature Date 10/20/2019 16:20:31NormalGuernsey Memorial HospitalHep Func Panelon 10-20-2019 Albumin [Mass/Vol]4.0 g/dLNormal3.3-5.0[facility] HospitalComment on above:Performed By: #### [id number], [id number], 9541275, 1733310, 6349431 #### [facility] [address] [place], [place] [address]Dvhpxmw [Mass/Vol]1.2 g/dLNormal1.1-2.2FFostoria City HospitalComment on above:Performed By: #### [id number], 6538285, 5221718, 3942348, 8201195 #### [facility] [address], [place] [address]HCJ [Catalytic activity/Vol]46 Int._Unit/AVzi31-302UbpjssGuernsey Memorial HospitalComment on above:Performed By: #### [id number], 2581477, 6720386, 2397863, 7326093 #### [facility] [address], [place] [address]JRF No additional P-5'-P [Catalytic activity/Vol]23 Int._Unit/L Normal6-46Gu[facility] Memorial HospitalComment on above:Performed By: #### [id number], 8770556, 9777899, 0122013, 9300652 #### [facility] [address], [place] [address]IEW [Catalytic activity/Vol]20 Int._Unit/LNormal5-43[facility] Memorial HospitalComment on above:Performed By: #### 6565254, 7039911, 1659020, 3516673, 6859013 #### [facility] [address] [place] [address]Joljzvkzx [Mass/Vol]0.6 mg/dLNormal0.0-1.1FFostoria City HospitalComment on above:Performed By: #### 3237430, 0496280, 2349891, 3176446, 4239932 #### [facility] [address] [place] [address]Bkghoehxo.direct [Mass/Vol]0.5 mg/dLNormal0.1-0.9[facility] Memorial HospitalComment on above:Performed By: #### 9634580, 4916972, 2583484, 5760043, 5471834 #### [facility] [address] [place] [address]Jmqwdzexh.direct [Mass/Vol]0.1 mg/dLNormal0.1-0.4FFostoria City HospitalComment on above:Performed By: #### 0586268, 9398204, 1247692, 4780870, 6189383 #### [facility] [address] [place] [address]Nvqpjbmp (S) [Mass/Vol]3.3 g/dLNormal1.4-4.0[facility] Memorial HospitalComment on above:Performed By: #### 6574320, 5280866, 9875155, 5852507, 3410922 #### [facility] [address] [place] [address]Ehwnjyb [Mass/Vol]7.3 g/dLNormal6.0-7.8[facility] Memorial HospitalComment on above:Performed By: #### 4947611, 7413956, 4770641, 8422296, 1658296 #### [facility] [address] [place] [address]Kcyxry Levelon 30-79-9150Fihjih [Catalytic activity/Vol]24 unit/LVzjzsj92-51OsmoemGuernsey Memorial HospitalComment on above:Performed By: #### 4688649, 2332717, 3794603, 5875760, 6235945 #### [facility] [address], [place] [address]QU With Cult Reflexon 80-40-0160Smcfqhts LM Ql (Urine sed)TRACE NormalTraceGuernsey Memorial HospitalComment on above:Performed By: #### [id number], 4298804 #### [facility] [address] [place] [address]Ectnpyaeb Ql (U)NegativeNormalNegativeGuernsey Memorial HospitalComment on above:Performed By: #### 30498939, 2213947 #### [facility] [address] [place] [address]Nmoifis (U)CLOUDYAbnormalClearFisher [facility] Comment on above:Performed By: #### [id number], 3204132 #### [facility] [address] [place] [address]Buycm (U)YELLOWNormalYellowGuernsey Memorial HospitalComment on above:Performed By: #### 13776055, 4715398 #### [facility] [address] [place] [address]Tzjglmqaoz cells.squamous LM.HPF (Urine sed) [#/Area]5-8Normal 0-2Fisher [facility] And HospitalComment on above:Performed By: #### [id number], 6849385 #### [facility] [address] [place] [address]Qlqtzzk Test strip (U) [Mass/Vol]NegativeNormalNegLima Memorial HospitalComment on above:Performed By: #### 99424293, 8398154 #### [facility] [address], [place] [address]Wjvhnvewro Ql (U)NegativeNormalNegLima Memorial HospitalComment on above:Performed By: #### [id number], 7711284 #### [facility] [address] [place] [address]Cabwmhf (U) [Mass/Vol]NegativeNormalNegativeGuernsey Memorial HospitalComment on above:Performed By: #### [id number], 8273670 #### [facility] [address], [place] [address]Opduevr.plasma/[place].RBC (Bld) [Mass ratio]3-4Qujtkf6-2Quxpok [facility] And HospitalComment on above:Performed By: #### 07559001, 2570787 #### [facility] [address] [place] [address]Rkhrw Ql (Urine sed)1+NormalGuernsey Memorial HospitalComment on above:Performed By: #### 01939088, 0528496 #### [facility] [address] [place] [address]Jhjvwum Ql (U)NegativeNormalNegativeGuernsey Memorial Hospital Comment on above:Performed By: #### 92186936, 6615870 #### Eliazar [facility] [address] [place] [address]gQ (U)6.0 [pH]5.0-9.0Gu[facility] Memorial HospitalComment on above:Performed By: #### 48014960, 2032186 #### [facility] [address] [place] [address]Griskad (U) [Mass/Vol]TRACEAbnormalNegativeGuernsey Memorial HospitalComment on above:Performed By: #### 62764478, 2595888 #### [facility] [address] [place] [address]Muelfdmj gravity (U) [Rel density]>=1.0301.005-1.030Gu[facility] Memorial HospitalComment on above:Performed By: #### 02273493, 5805552 #### [facility] [address] [place] [address]LN Spec DescClean CatchNormalGuernsey Memorial HospitalComment on above:Performed By: #### [id number], 8133136 #### [facility] [address] [place] [address]Oleircqzhnfz Qn (U)0.2 {Chema'U}/dLNormal0.0-1.0[facility] Memorial HospitalComment on above:Performed By: #### 53512697, 8559907 #### Eliazar [facility] [address], [place] [address]SGC Auto Ql (U)TRACEAbnormalNegativeGuernsey Memorial Hospital Comment on above:Performed By: #### 28584440, 7475626 #### [facility] [address], [place] [address]ERQ LM.HPF (Urine sed) [#/Area]3-53Zqfmuipe7-7Wefvqd [facility] HospitalComment on above:Performed By: #### 27281872, 0154792 #### [facility] [address], [place] [address]NO 1st Trimesteron 90-51-7061TP 1st TrimesterExam Date/Time: 10/20/2019 15:08 EDT Reason [...] corresponding gestational age +/- 1 week are: [place] Rump Length: 2.6 cm Composite Ultrasound Age: [...] Para 0 Transabdominal Ultrasound Performed FHR (bpm) 164NormalFishBaltimore VA Medical CenterGLIADIN AB, IGG IGA, EIAon 86-72-8512BLOEBNZQNR GLIADIN AB, IGA[address] Comment on above:Result Comment: (NOTE) Negative 0 - 19 Weak Positive 20 - 30 Moderate to Strong Positive >30Performed By: #### FX, ACBC, ESR, CMPF, AMYL, CREACT, LIPA2, TSH2 ####Testing performed at [address] [address]#### LT4, LAGLI, LTTGG ####Testing performed at [address] [address]GRZMNFXLJX GLIADIN AB, IGG3 units Normal049 Shaw StreetComment on above:Result Comment: (NOTE) Negative 0 - 19 Weak Positive 20 - 30 Moderate to Strong Positive >30PERFORMED AT [facility]ITALPerformed By: #### FX, ACBC, ESR, CMPF, AMYL, CREACT, LIPA2, TSH2 ####Testing performed at [address] [address]#### LT4, LAGLI, LTTGG ####Testing performed at [address] [address]AGGQXAIOV (T4)on 43-61-8342Yubufmvux (T4)5.5 ug/dL Normal4.5-12.0[facility] CenterComment on above:Result Comment: PERFORMED AT [facility] HOS[facility]ITALPerformed By: #### FX, ACBC, ESR, CMPF, AMYL, CREACT, LIPA2, TSH2 ####[place] [address]#### LT4, LAGLI, LTTGG ####Testing performed at [address] [address]ANIDXD-WWQ-EVDlg 21-71-8736TDP-IGG<2Ezttyj8-3CzftfKindred Hospital Lima on above:Result Comment: (NOTE) Negative 0 - 5 Weak Positive 6 - 9 Positive >9PERFORMED AT [facility]OS[facility]ITALPerformed By: #### FX, ACBC, ESR, CMPF, AMYL, CREACT, LIPA2, TSH2 ####[place] [address]#### LT4, LAGLI, LTTGG ####Testing performed at [address] [place] [address] XR ABDOMEN 1 VIEWon 35-13-2298PN ABDOMEN 1 VIEWABDOMEN, 2 VIEWS:HISTORY: Abdominal pain of six day's duration.COMPARISON: No priors.FINDINGS: Moderate amounts of formed stool are seen throughout the colon.No distended small bowel loops or air-fluid level seen. No free air or mass is seen. Osseous structures appear intact.IMPRESSION:Moderate formed stool seen throughout colon and rectum which could be related to symptoms. Unremarkable examination otherwise.Normal [facility]25 0H VITAMIN D LEVELon [id number] 0H VITAMIN D LEVEL 26.1 NG/MLLow>30[facility] on above:Result Comment: DEFICIENT <20 NG/MLINSUFFICIENT 20-<30 NG/MLSUFFICIENT 30-100 NG/MLPOTENTIAL TOXICITY >100 NG/MLPerformed By: #### FX, ACBC, ESR, CMPF, AMYL, CREACT, LIPA2, TSH2 ####Testing performed at [address] [address]#### LT4, LAGLI, LTTGG ####Testing performed at [address] [address]YWFXLXEfg 92-81-5390Ellowqb05 U/KHafigv74-268KypteSt. Lawrence Rehabilitation CenterComment on above:Performed By: #### FX, ACBC, ESR, CMPF, AMYL, CREACT, LIPA2, TSH2 ####[place] [address]#### LT4, LAGLI, LTTGG ####Testing performed at [address] [address]L REACTIVE PROTEINon 09-28-2017C reactive protein (CRP)12.1 mg/LHigh0-10.0[facility] CenterComment on above: Performed By: #### FX, ACBC, ESR, CMPF, AMYL, CREACT, LIPA2, TSH2 ####[place] [address]#### LT4, LAGLI, LTTGG ####Testing performed at [address] [address]CYHvq 48-78-7318IBFTDCMF BAS0.0 R07TfqyulArevwWashington County Tuberculosis Hospital Comment on above:Performed By: #### FX, ACBC, ESR, CMPF, AMYL, CREACT, LIPA2, TSH2 ####[place] [address]#### LT4, LAGLI, LTTGG ####Testing performed at [address] [address]QXNBNLHH EOS0.20 L09DmpgeeRdpzzWashington County Tuberculosis Hospital Comment on above:Performed By: #### FX, ACBC, ESR, CMPF, AMYL, CREACT, LIPA2, TSH2 ####[place] [address]#### LT4, LAGLI, LTTGG ####Testing performed at [address], [place] [address]Dayifnajg/100 WBC Auto (Bld)0.4 %Normal0.0-2.0[facility] CenterComment on above:Performed By: #### FX, ACBC, ESR, CMPF, AMYL, CREACT, LIPA2, TSH2 ####[place] [address]#### LT4, KARMA LTTGG ####Testing performed at [address], [place] [address]GNSUFZREH DIFFSierra Vista Hospital on above:Performed By: #### FX, ACBC, ESR, CMPF, AMYL, CREACT, LIPA2, TSH2 ####[place] [address]#### LT4, KARMA, LTTGG ####Testing performed at [address], [place] [address]Ttwhsduiskt/100 leukocytes2.4 % Normal0.0-11.0[facility] on above:Performed By: #### FX, ACBC, ESR, CMPF, AMYL, CREACT, LIPA2, TSH2 ####[place] [address]#### LT4, KARMA LTTGG ####Testing performed at [address] [place] [address] Lymphocytes3.10 B67LdrceoHiuzuSierra Vista Hospital on above:Performed By: #### FX, ACBC, ESR, CMPF, AMYL, CREACT, LIPA2, TSH2 ####[place] [address]#### LT4, LAGLI, LTTGG ####Testing performed at [address] [place] [address] Lymphocytes/100 uvqjbkryex57.5 %Yugjmy81.0-55.0[facility] on above:Performed By: #### FX, ACBC, ESR, CMPF, AMYL, CREACT, LIPA2, TSH2 ####[place] [address]#### LT4, LAGLI, LTTGG ####Testing performed at [address], [place] [address]Sbchzotms7.7 T65GvctueXctrsKindred Hospital Lima on above:Performed By: #### FX, ACBC, ESR, CMPF, AMYL, CREACT, LIPA2, TSH2 ####[place] [address]#### LT4, KARMA LTTGG ####Testing performed at [address] [address]Rejguiqpj/100 leukocytes8.6 %Normal0.0-10.0[facility] on above:Performed By: #### FX, ACBC, ESR, CMPF, AMYL, CREACT, LIPA2, TSH2 ####[place] [address]#### LT4, KARMA LTTGG ####Testing performed at [address], [place] [address]Wevgzadkpdg5.4 j84Kprkpy6.0-7.0 [facility] on above:Performed By: #### FX, ACBC, ESR, CMPF, AMYL, CREACT, LIPA2, TSH2 ####[place] [address]#### LT4, KARMA LTTGG ####Testing performed at [address] [address]Ghevscxzlbj/100 upzzyvxlae67.1 %Chnzaj53.0-75.0[facility] on above:Performed By: #### FX, ACBC, ESR, CMPF, AMYL, CREACT, LIPA2, TSH2 ####[place] [address]#### LT4, KARMA, LTTGG ####Testing performed at [address] [address] Erythrocyte distribution width Auto Ratio (RBC)12.6 %Wkwbpl19.5-14.5[facility] HospitalComment on above:Performed By: #### FX, ACBC, ESR, CMPF, AMYL, CREACT, LIPA2, TSH2 ####[place] [address]#### LT4, KARMA, LTTGG ####Testing performed at [address], [place] [address]Ognzlhrupnas (RBC)4.58 /cmmNormal 4.0-5.4AJefferson [facility] ([facility])Comment on above:Performed By: #### FX, ACBC, ESR, CMPF, AMYL, CREACT, LIPA2, TSH2 ####[place] [address]#### LT4, KARMA, LTTGG ####Testing performed at [address], [place] [address]Pxjetqvuxq (HCT)39.1 %Jbqyhk64.0-48.0[facility] CenterComment on above:Performed By: #### FX, ACBC, ESR, CMPF, AMYL, CREACT, LIPA2, TSH2 ####[place] [address]#### LT4, KARMA, LTTGG ####Testing performed at [address] [place] [address] Hemoglobin mass conc (Bld)13.3 g/mTUrjmps38.0-16.0[facility] Hospitalment on above:Performed By: #### FX, ACBC, ESR, CMPF, AMYL, CREACT, LIPA2, TSH2 ####[place] [address]#### LT4, KARMA, LTTGG ####Testing performed at [address], [place] [address]LYB68.0 qyUjwhta35.0-35.0[facility] on above:Performed By: #### FX, ACBC, ESR, CMPF, AMYL, CREACT, LIPA2, TSH2 ####[place] [address]#### LT4, KARMA LTTGG ####Testing performed at [place] [address]MCHC mass conc (RBC)34.0 g/mBWoeyjh36.0-37.0[facility] CenterComment on above:Performed By: #### FX, ACBC, ESR, CMPF, AMYL, CREACT, LIPA2, TSH2 ####[place] [address]#### LT4, LAGLI, LTTGG ####Testing performed at [place] [address]MCV85.[address] qOTxbpvl29.0-100.0[facility] CenterComjohn d. dingell [facility] on above:Performed By: #### FX, ACBC, ESR, CMPF, AMYL, CREACT, LIPA2, TSH2 ####[place] [address]#### LT4, KARMA, LTTGG ####Testing performed at [place] [address]Platelet mean volume (PMV)7.1 fL Low7.4-11.0[facility] Rehabilitation CenterComjohn d. dingell veterans affairs medical center on above:Performed By: #### FX, ACBC, ESR, CMPF, AMYL, CREACT, LIPA2, TSH2 ####[place] [address]#### LT4, LAGLI, LTTGG ####Testing performed at [address], [place] [id number] /mtjUdcype667.0-400.0[facility] on above:Performed By: #### FX, ACBC, ESR, CMPF, AMYL, CREACT, LIPA2, TSH2 ####Testing performed at [place] [address]#### LT4, LAGLI, LTTGG ####Testing performed at [address] [place] [address] WBC (Leukocytes)8.5 /cmmNormal3.6-13.0[facility] on above: Performed By: #### FX, ACBC, ESR, CMPF, AMYL, CREACT, LIPA2, TSH2 ####[place] [address]#### LT4, LAGLI, LTTGG ####Testing performed at [address], [place] [address]DDU FASTINGon 09-28-2017A:G RATIO1.5 RATIONormal1.3-2.2AKindred Hospital Lima on above:Performed By: #### FX, ACBC, ESR, CMPF, AMYL, CREACT, LIPA2, TSH2 ####[place] [address]#### LT4, LAGLI, LTTGG ####Testing performed at [address], [place] [address]Odzolnu aminotransferase (ALT)16 U/WSpjigg93-26NafqySelect Medical [facility]Health Rehabilitation Hospital on above:Performed By: #### FX, ACBC, ESR, CMPF, AMYL, CREACT, LIPA2, TSH2 ####Testing performed at [address] [address]#### LT4, LAGLI, LTTGG ####Testing performed at [address] [place] [address] Albumin4.5 G/dlNormal3.5-5.0[facility] on above:Performed By: #### FX, ACBC, ESR, CMPF, AMYL, CREACT, LIPA2, TSH2 ####Testing performed at [address] [address]#### LT4, LAGLI, LTTGG ####Testing performed at [address] [place] [address] Alkaline phosphatase (ALP)122 U/UTmdtsr21-363VdifoSelect Medical TriHealth Rehabilitation Hospital on above:Performed By: #### FX, ACBC, ESR, CMPF, AMYL, CREACT, LIPA2, TSH2 ####[place] [address]#### LT4, LAGLI, LTTGG ####Testing performed at [address], [place] [address]Euxvvpzpj aminotransferase (AST)22 U/MXekcyx29-93 [facility] on above:Performed By: #### FX, ACBC, ESR, CMPF, AMYL, CREACT, LIPA2, TSH2 ####[place] [address]#### LT4, LAGLI, LTTGG ####Testing performed at [address], [place] [address]Lxjyyupwy (total)0.3 mg/dLNormal0.2-1.9AKindred Hospital Lima on above:Performed By: #### FX, ACBC, ESR, CMPF, AMYL, CREACT, LIPA2, TSH2 ####[place] [address]#### LT4, LAGLI, LTTGG ####Testing performed at [address] [place] [address] BUN (urea nitrogen)10 mg/dLNormal7-18[facility] on above: Performed By: #### FX, ACBC, ESR, CMPF, AMYL, CREACT, LIPA2, TSH2 ####[place] [address]#### LT4, LAGLI, LTTGG ####Testing performed at [address], [place] [address]Lpmdmxndlj4.6 mg/dLNormal0.52-1.04[facility] on above:Performed By: #### FX, ACBC, ESR, CMPF, AMYL, CREACT, LIPA2, TSH2 ####Testing performed at [address] [address]#### LT4, LAGLI, LTTGG ####Testing performed at [address], [place] [address]fQCL (non-black)Unable to calculate GFR due to inappropriate age/gender/creatinine value.NormalCooper University Hospitalment on above:Performed By: #### FX, ACBC, ESR, CMPF, AMYL, CREACT, LIPA2, TSH2 ####Testing performed at [address] [address]#### LT4, LAGLI, LTTGG ####Testing performed at [address], [place] [address]Btgcher6.5 g/dLNormal6.3-8.6ABuchanan General Hospital on above:Performed By: #### FX, ACBC, ESR, CMPF, AMYL, CREACT, LIPA2, TSH2 ####Testing performed at [address] [address]#### LT4, LAGLI, LTTGG ####Testing performed at [address], [place] [address]Hmgrmfy1.6 mg/dLNormal8.8-10.6AKindred Hospital Lima on above:Performed By: #### FX, ACBC, ESR, CMPF, AMYL, CREACT, LIPA2, TSH2 ####Testing performed at [address] [address]#### LT4, LAGLI, LTTGG ####Testing performed at [address], [place] [address]Mcngecnh102 mmol/HQtyfrk35-436 [facility]ment on above:Performed By: #### FX, ACBC, ESR, CMPF, AMYL, CREACT, LIPA2, TSH2 ####Testing performed at [address] [address]#### LT4, LAGLI, LTTGG ####Testing performed at [facility], Cuaepc[address] [facility] Centeruite [place], [place] [address]UK[address] mmol/IEomrox33-86 [facility] on above:Performed By: #### FX, ACBC, ESR, CMPF, AMYL, CREACT, LIPA2, TSH2 ####Testing performed at [address] [place] [address]#### LT4, LAGLI, LTTGG ####Testing performed at [place] [id number] [facility], [place] [address]Xlxykjh mass conc83 mg/dL Twlhgs24-288JhztvSelect Medical TriHealth Rehabilitation Hospital on above:Result Comment: NORMAL <100 mg/dLPREDIABETES 101-126 mg/dLDIABETES 126 mg/dL or higherPerformed By: #### FX, ACBC, ESR, CMPF, AMYL, CREACT, LIPA2, TSH2 ####Testing performed at [address] [place] [address]#### LT4, LAGJEEVAN, LTTGG ####Testing performed at [address] [place] [address] Potassium molar conc3.5 mmol/LNormal3.5-5.1AJefferson [facility])Com[facility] on above:Performed By: #### FX, ACBC, ESR, CMPF, AMYL, CREACT, LIPA2, TSH2 ####Testing performed at [address] [address]#### LT4, LAGLI, LTTGG ####Testing performed [address] [facility], [place] [address]Keohsk[address] mmol/SCdrtbj768-506OezzlSt. [facility] Comment on above:Performed By: #### FX, ACBC, ESR, CMPF, AMYL, CREACT, LIPA2, TSH2 ####Testing performed at [address] [place] [address]#### LT4, LAGLI, LTTGG ####Testing performed at [facility] GarciaWashington [facility], [place] [address]Rhzxpkj, Urineon [id number], UrineTest Name: Culture, UrineCulture Status: FinalCulture Report: GrowthMicro Source: UrineORGANISM ID:1 - 50,000-75,000 CFU/ml COAGULASE NEGATIVE STAPHYLOCOCCUSANTIBIOTIC INTERPRETATION TRINA STATUSClindamycin S <= 0.12 FDoxycycline S <= 0.5 FGentamicin S <= 0.5 FNitrofurantoin S <= 16 FOxacillin S <= 0.25 FTetracycline S <= 1 FVancomycin S 1 FNormalMary Rutan HospitalComment on above:Performed By: #### URCUL ####Unless otherwise noted, all testing performed by [place] [address] [address] [place], [place] [phone]: [id number] Director: Jayy Rodriguez M.D.ESRon 60-06-3090Xbbtlixnnkz sedimentation rate3 mm/hNormal0-20[facility] Comment on above:Performed By: #### FX, ACBC, ESR, CMPF, AMYL, CREACT, LIPA2, TSH2 ####[place] [address]#### LT4, LAGJEEVAN, LTTGG ####Testing performed at [address], [place] [address]WXG REQUESTon 26-18-8287DGP [id number] Health Care CenterComment on above:Performed By: #### FX, ACBC, ESR, CMPF, AMYL, CREACT, LIPA2, TSH2 ####[place] [address]#### LT4, LAGLI, LTTGG ####Testing performed at [address], [place] [address]WOOLRB,SERUMon 09-28-2017 LIPASE,SERUM25 U/MMhydpm66-853HekgxSt. Lawrence Rehabilitation CenterComment on above:Performed By: #### FX, ACBC, ESR, CMPF, AMYL, CREACT, LIPA2, TSH2 ####[place] [address]#### LT4, KARMA, LTTGG ####Testing performed at [address] [address] TSHon 68-58-6600Rlmbzwb stimulating hormone (TSH)2.878 uIU/MLNormal0.36-5.80 [facility] CenterComjohn d. dingell [facility] on above:Performed By: #### FX, ACBC, ESR, CMPF, AMYL, CREACT, LIPA2, TSH2 ####[place] [address]#### LT4, KARMA, LTTGG ####Testing performed at [address] [address] Vital Signs Date TimeVital SignValuePerforming HxnquykqkGglrrzei15-91-0148 10:55-0400Body mass index (BMI) [Ratio]32.46 kg/m2Deena Martinez PA Work Phone: [facility] HospitalEyljruortx50-69-1872 10:55-0400Body dsmjju77.93 kgDeena Martinez PA Work Phone: [phone] HospitalXhfhppsrak87-53-3423 10:55-0400Diastolic blood ujmpwene76 mm[Hg]Deena Martinez PA Work Phone: [facility] HospitalPxosrwtjgr47-59-5558 10:55-0400Systolic blood yrpeusod873 mm[Hg]Deena Martinez PA Work Phone: [facility] HospitalUlpmfuasxl11-12-6757 13:49-0400Body mass index (BMI) [Ratio]31.71 kg/z0Hwbgc Bishop DO Work Phone: [facility] HospitalJottarzvks97-16-1338 13:49-0400Body xyntno61.11 kgCorey Bishop DO Work Phone: [facility] HospitalCzipztikxl70-80-4823 13:49-0400Diastolic blood aiooxptr91 mm[Hg]Ranjan Bishop DO Work Phone: [facility] HospitalHkkimpldty55-21-2259 13:49-0400Systolic blood ybhfmtlq103 mm[Hg]Ranjan Bishop DO Work Phone: [facility] HospitalHyouflnrnd79-02-1000 09:19-0400Body mass index (BMI) [Ratio]31.89 kg/o4UutizSt. John's Episcopal Hospital [facility]08-22-2025 09:19-0400Body weight 76.57 kgSt. John's Episcopal [facility]02-15-2024 10:59-0500Body mass index (BMI) [Ratio]31.71 kg/f1Fqaom Bishop DO Work Phone: [facility] HospitalWtpfflwtjc39-44-5360 10:59-0500Body .19 kgCorey Bishop DO Work Phone: [facility] HospitalIishweeeuy57-89-2599 10:59-0500Diastolic blood utkyajez59 mm[Hg]Ranjan Bishop DO Work Phone: [facility] HospitalTpdvkshvzi32-91-4715 10:59-0500Systolic blood mm[Hg]Ranjan Bishop DO Work Phone: [facility] Oftolylmud16-41-9617 16:45-0500Body gtymry511.94 Corey Flores Other [employer] Other 11-11-2022 16:45-0500Body mass index (BMI) [Ratio] 34.76 kg/d3UrgctkIzabella Flores Other [employer] Other 11-11-2022 16:45-0500Body opdypcltgcb92.7 [degF]Izabella Flores Other [employer] Other 11-11-2022 16:45-0500Body opwbgk45.46 kgIzabella Flores Other [employer] Other 11-11-2022 16:45-0500Diastolic blood micvtjpg55 mm[Hg] Izabella Flores Other [employer] Other 11-11-2022 16:45-0500Respiratory rate18 /minPaashu Flores Other [employer] Other 11-11-2022 16:45-0116FdJ7% (BldA) [Mass fraction]97 % Izabella Flores Other [employer] Other 11-11-2022 16:45-0500Systolic blood hewuyuoe154 mm[Hg] Izabella Flores Other [employer] Other 09-18-2022 13:40-0400Body qovaen737.94 cmAmbelvin Dugan Other [employer] Other 09-18-2022 13:40-0400Body mass index (BMI) [Ratio] 33.06 kg/l1LbdpkEllen Dugan Other [employer] Other 09-18-2022 13:40-0400Body tjswengeiav80.4 [degF]Ellen Dugan Other [employer] Other 09-18-2022 13:40-0400Body uivaci74.38 kgEllen Dugan Other [employer] Other 09-18-2022 13:40-0400Diastolic blood rwbkdobd91 mm[Hg] Ellen Dugan Other [employer] Other 09-18-2022 13:40-0400Respiratory rate18 /minEllen Dguan Other [employer] Other 09-18-2022 13:40-3810ZdI3% (BldA) [Mass fraction]99 % Ellen Dugan Other [employer] Other 09-18-2022 13:40-0400Systolic blood vfeebjzb116 mm[Hg] Ellen Dugan Other [employer] Other 03-22-2022 18:05-0400Body .94 cmPamela Sandra Other [employer] Other 03-22-2022 18:05-0400Body mass index (BMI) [Ratio] 32.12 kg/t2Ckngebashu Flores Other [employer] Other 03-22-2022 18:05-0400Body zbaqntpjsjy73.6 [degF]Izabella Sandra Other [employer] Other 03-22-2022 18:05-0400Body zdtzxu38.11 kgPaashu Sandra Other [employer] Other 03-22-2022 18:05-0400Respiratory rate18 /minPaashu Flores Other [employer] Other 03-22-2022 18:05-2256EcQ7% (BldA) [Mass fraction]99 % Izabella Sandra Other [employer] Other 09-30-2020 17:04-0400Body Fvdgmgivaeq88.4 [degF]Michael LewisExrwyxuoqXdykCsgonw78-41-5393 17:04-0400BP Exomfmfpt25 mm[Hg]Michael DebbieChildren's Hospital for RehabilitationOgvfTheikh05-26-8505 17:04-0400BP Luarpbkf14 mm[Hg][facility] 05-13-2020 17:04-0400Pulse (Heart Rate)80 /minOmar MexfxjtqvWdbaXkwtoc95-98-5636 17:04-0400Pulse Anmmccfz66 %[facility] ClevelandRtqnqgszmKebzObvslq14-86-1196 17:04-0400 Respiratory Rate14 /minOmar ThewhfzsbLvzeFxzhyp52-27-6658 20:45-0400Body weight 75.3 kgOmar OairckfreQmuqFkgsrq84-84-2898 16:23-0400Body Wwphzdiqywv28.3 [degF] [facility] ClevelandZrtkpyeqgGiflZlxifh82-42-3810 16:23-0400BP Ckfvaboky13 mm[Hg][facility]08-03-2020 16:23-0400BP Kjfdvrzk831 mm[Hg][facility] 03-16-2020 16:23-0400Pulse (Heart Rate)96 /minOmar QsmlanuitVhmjSdzugg40-08-5554 16:23-0400Pulse Esctmydt39 %[facility] ClevelandKonovubvwGoiwAmpnmi80-74-2513 16:23-0400 Respiratory Rate20 /minOmar HppcpahoaDxdmQvtvrd67-88-4021 16:23-0400BMI (Body Mass Index)30 kg/m2[facility] NubeewvmiRbmiRifdyx74-47-0244 16:23-0400Body .03 kgNovant Health Presbyterian Medical Centerr UyrjbchlxYsfoAlzpps81-55-2583 16:23-3701Oarrbl423.9 cmOmar [facility]03-12-2020 14:50-0400Heart rateMwh [facility] [place], [place] Encounters Encounter DateEncounter TypeCare ProviderFacilityStart: 06-09-2025 End: 23-77-6060Oueeiy Duane COLUNGA Work Phone: [facility]YNStart: 06-09-2025 End: 56-21-4935Ryatdbjesika COLUNGA Work Phone: [facility] [place] [facility]BGYNStart: 06-09-2025 End: 91-47-4893Qpchkuad Result EncounterDeena COLUNGA Work Phone: NO External Department UnsolicitedStart: 06-09-2025 End: 55-91-6088Mzcsmfvm flow sheetDeena COLUNGA Work Phone: NO [facility] OBGYNComment on above:17 weeks gestation of ([facility]); Second trimester ([facility]); Acute intractable headache, unspecified headache type; Screening, , for anatomic survey ([facility]); Exposure to STD; Vaginal dischargeStart: 06-09-2025 End: 69-65-5833bkjqnqicmzXSF Patricia AvailableStart: 04-28-2025 End: 84-42-6687Rwrjnw flowsheetCorey Bishop DO Work Phone: NO [place] [facility]BGYNStart: 04-28-2025 End: 36-62-0402Uwgmni flowsheetCorey Bishop DO Work Phone: NO [place] [facility]BGYNStart: 04-28-2025 End: 77-50-1500ofoofembxdFTBQD FAZIONot AvailableStart: 04-28-2025 End: 30-46-6181Unzfgx outpatient visit 15 minutesCorey Bishop DO Work Phone: NO [place] OBGYNComment on above:11 weeks gestation of ([facility]); First trimester ([facility]); Acute intractable headache, unspecified headache typeStart: 04-04-2025 End: 96-62-6139Xcdtfm outpatient visit 5 minutesFazio Nurse Noms Bcp ObNO [place] OBGYNComment on above:GA: 2n8tHjkfm: 04-04-2025 End: 17-61-4355rptkhudwcqWCCLB FAZIONot AvailableStart: 08-15-2024 End: 10-14-9922Swzebnrwe Result EncounterCorey Bishop DO Work Phone: NO External Department UnsolicitedStart: 08-15-2024 End: 03-47-0291Kyhqpgdoi Result EncounterCorey Bishop DO Work Phone: noms External Department UnsolicitedStart: 10-12-2023 End: 95-12-7241Lghtryogd Result EncounterCorey Bishop DO Work Phone: noms External Department UnsolicitedStart: 10-12-2023 End: 23-38-8403Qsohrzsif Result EncounterCorey Bishop DO Work Phone: noms External Department UnsolicitedStart: 09-28-2023 End: 44-77-5683Sibwyk outpatient visit 15 minutesCorey Bishop DO Work Phone: noms [facility] OBComment on above:Third trimester ; Excessive growth affecting management of in third trimester, single or unspecified fetusStart: 08-25-2023 End: 76-50-7362Qmdpfppgc Result EncounterCorey Bishop DO Work Phone: noms External Department UnsolicitedStart: 08-25-2023 End: 97-28-4932Egsrfexxp Result EncounterCorey Bishop DO Work Phone: noms External Department UnsolicitedStart: 07-25-2023 End: 87-57-0299Sejufcvzk Result EncounterCorey Bishop DO Work Phone: noms External Department UnsolicitedStart: 07-25-2023 End: 64-47-6378Ftosxztaa Result EncounterCorey Bishop DO Work Phone: noms External Department UnsolicitedStart: 06-24-2022 End: 67-69-7363lyynyuxxbtFocatx Dymond Other [employer] Other Start: 20-14-1997Smbhnb outpatient visit 15 minutes Izabella [facility]deStart: 05-01-2022 End: 26-46-0761nqzywoopglYlael Keller Other [employer] Other Start: 44-31-2165Yunicr outpatient visit 15 minutes Ellen DuganFPG Urgent Care ClydeStart: 27-64-6370hevtedlbbmMELGX [facility] AmbulatoryStart: 11-07-2021 End: 87-77-5632lcjjtdabubJZQOXV ALLENFacility:K0Dfsfp: 11-02-2021 End: 99-50-0692llbclglbonOvlbhu Dymond Other [employer] Other Start: 69-79-5875Jgdyay outpatient new 30 minutes Izabella FigueroajacobFPG Urgent Care ClydeStart: 08-13-2021 End: 98-63-1030nbbuswbxekZEYWBR ALLENFacility:S0Oyugk: 07-20-2021 End: 69-20-8517uwhplmyrjqGZ DOCTOR MISCFacility:F4Lomha: 06-22-2020 End: 97-63-1521Qgvqxpd encounter procedureSTEVEN TARA [facility] HospitalStart: 05-10-2020 End: 55-01-0644Cemkxzpaeo and management of inpatientOMAR F. S. DENNYSRAEVELYNbinghamton state hospital HospitalStart: 05-10-2020 End: 19-21-6427Rbysuayfcj and management of inpatientOmar F. S. Debbie Work Phone: [phone] [place] [address] Labor & DeliveryStart: 04-24-2020 End: 15-72-0613Zfeoxeb encounter procedureOMAR F. S. GUIMARAESRiverside Congregation HospitalStart: 03-16-2020 End: 38-79-9508Owmysjwfi department patient visitOMAR F. S. DENNYSRAEVELYNbinghamton state hospital HospitalStart: 03-16-2020 End: 93-36-7063Sbtzsfway department patient visitOmar F. S. Debbie Work Phone: [phone] [place] [address] Labor & DeliveryStart: 02-28-2020 End: 59-09-9227Hizgddg encounter procedureAdena [facility] Start: 02-28-2020 End: 70-14-7805Pzhsupubav hospital visit by physicianDeandre Appiah LaboratoryComment on above:28 weeks gestation of ; Impaired glucose in , antepartumStart: 10-24-2019 End: 36-98-3997Mtmchup encounter procedureAdena [facility] Start: 10-24-2019 End: 81-87-5002Zpkdbxycbd hospital visit by Kiley Ultrasound [facility] LaboratoryComment on above:Amenorrhea; Positive urine test; Encounter for supervision of normal in first trimester, unspecified gravidityAmenorrhea; Positive urine testStart: 10-23-2019 End: 31-40-8858Ythprup encounter procedureAdena [facility] Start: 10-23-2019 End: 49-52-4563Ssufyqnkos hospital visit by Norman Appiah LaboratoryComment on above:Amenorrhea; Positive urine test; Encounter for supervision of normal in first trimester, unspecified gravidityStart: 93-79-3705ThzqbiafxvEptwdj KleNovant Health/NHRMCcility:HoustonStart: 45-85-0089YufsnhscjwNLFANPAdventHealth Connerton Procedures DateProcedureProcedure DetailPerforming ClinicianStart: 56-99-7113DZOLTHSKK VAGINITIS (HTRX)Deena COLUNGA Work Phone: Start: 38-65-1381Bkojc dip stick/tablet rgnt non-auto w/o micrscpAmy Michelle COLUGNA Work Phone: Start: 86-97-4657Grucl dip stick/tablet rgnt non-auto w/o micrscpCorey Bishop DO Work Phone: Start: 86-94-5812Wmjsy dip stick/tablet rgnt non-auto w/o micrscpCorey Bishop DO Work Phone: Start: 58-83-1025QBO PREG QUANT HCGCorey Bishop DO Work Phone: Start: 16-42-6300YL OB GROWTHCorey Bishop DO Work Phone: Start: 45-36-2412Pvnbl dip stick/tablet rgnt non-auto w/o micrscpCorey Bishop DO Work Phone: Start: 85-03-5737RB OB GROWTHCorey Bishop DO Work Phone: Start: 52-53-8174WS OB ANATOMYCorey Bishop DO Work Phone: Start: 00-20-2983LE OB CERVICAL LENGTHCorey Bishop DO Work Phone: Start: 00-65-2158Fdkyustf blood count with white cell differential, automatedOmar F. S. Debbie Work Phone: Start: 76-81-4878Xrggmdiw blood count with white cell differential, manualOmar F. S. Debbie Work Phone: Start: 36-21-5130MWWRS-19, MOLECULAROmar F. S. Debbie Work Phone: Start: 37-95-4432Dhabu type and Indirect antibody screen panel - BloodOmar F. S. Debbie Work Phone: Start: 41-50-5622Nddblnny blood count (hemogram) panel - Blood by Automated countOmar F. S. Debbie Work Phone: Start: 33-44-7276Otvlkknpszglu metabolic 2000 panel - Serum or PlasmaOmar F. S. Debbie Work Phone: Start: 93-11-1552Ivot c/v amniotic fluid protein qual ea specimenOmar F. S. Debbie Work Phone: Start: 13-34-8761QxuyjetcnmYmtksn Mil Work Phone: Start: 31-37-5919Hchsf count hemoglobinKATHLEEN POOL Start: 30-44-9521Wmxgyxa tolerance test gtt 3 specimensKATHLEEN POOLStart: 61-55-1314Zwzwe count hemoglobinKathleen E Pool Work Phone: Start: 24-75-3849Nlgxuun tolerance test gtt 3 specimensKathleen E Pool Work Phone: Start: 64-92-5773Eh uterus 14 wk transabdl 08/14 gestatKATHLEEN POOLStart: 97-67-9600Vqoxonoz hiv-1&hiv-2 single result DEMETRIA POOLStart: 56-80-9455Xuursevmg c antibodyKATHLEEN POOLStart: 10-24-2019 Obstetric panelKATHLEEN POOLStart: 70-20-9356ETJCJRJU TYPE AND SCREENKATHLEEN POOLStart: 95-81-2161Yn uterus 14 wk transabdl 08/14 gestatKathleen E Pool Work Phone: Start: 15-25-0311Mqldxxul screenEdward HemeyerStart: 60-80-7475Mzdjh typing serologic aboKathleen E Pool Work Phone: Start: 70-25-9086Nskuqwgxy c antibodyKathleen E Pool Work Phone: Start: 03-04-4237Kdvbbchew panelKathleen E Pool Work Phone: Start: 10-23-2019C.TRACHOMATIS N.GONORRHOEAE DNA, URINEKATHLEEN POOLStart: 18-20-5039Tlhbpyj bacterial quanttative colony count urineKATHLEEN POOLStart: 94-34-8607Holr screen, qualitate/multiKATHLEEN POOL Start: 52-02-5261Sawb screen, qualitate/multiKathleen E Pool Work Phone: Plan of Treatment DateCare ActivityDetailAuthorStart: 65-69-8317GJgI/Tdap/Td vaccine (7 - Td) DTaP/Tdap/Td vaccine (7 - Td)[facility], [facility]: 07-08-2025 End: 34-20-1517Wyivsoi encounter /25/2025 2:10 PM EST Routine NOMAlana YU [address] [facility] [place], [id number] Ranjan Alas DO [address] [place] [address] NOMAlana RENTERIAGYNStart: 07-08-2025 End: 71-23-0518Kpxfpaabbarc / ancillary services wkndfpknos16/25/2025 1:00 PM EST Ancillary Procedure [facility] [address] [place] [address] TFHH [facility] OBGYNStart: 06-09-2025 End: 59-26-8270Odypi fetoprotein, maternalAlpha fetoprotein, maternal Lab Routine 17 weeks gestation of ([facility]) Second trimester ([facility]) Expected: 06/09/2025 (Approximate), Expires: 07/10/2025[facility] Comment on above:Expected: 06/09/2025 (Approximate), Expires: 07/10/2025Start: 06-09-2025 End: 36-66-7743HU for pregnancyUS OB 14+ weeks anatomy scan Imaging Routine Screening, , for anatomic survey ([facility]) Expected: 06/09/2025, Expires: 09/09/2025NOTN HealthcareComment on above:Expected: 06/09/2025, Expires: 09/09/2025Start: 06-09-2025 End: 33-29-7643Yrrqkbe encounter cncebsecz01/27/2025 10:50 AM EDT Routine NOMAlana YU [address] [place] [address] Deena Martinez, PA [address] [place] [address] ArrivedNOMS Regina OBGYNComment on above:ArrivedStart: 05-26-2025 End: 60-68-2191Ygieokc encounter trunaghox44/13/2025 3:30 PM EDT Routine [facility] [address] [place], [id number] Deena Martinez PA [address] [place] [address] N[facility] OBGYNStart: 04-28-2025 End: 76-99-3937Ybqutoy encounter /15/2025 1:40 PM EDT Routine [facility] BAUERN [address] [facility] [address] [place], [id number] Ranjan Alas DO [address] [place] [address] [facility] OBGYNStart: 04-04-2025 End: 87-79-0633GMC/RhABO/Rh Lab Routine Missed menses , unspecified gestational age ([facility]) Expected: 04/04/2025 (Approximate), Expires: 04/04/2026NOTN HealthcareComment on above:Expected: 04/04/2025 (Approximate), Expires: 04/04/2026Start: 04-04-2025 End: 25-13-1548Juqtk type and Indirect antibody screen panel - BloodType and screen Lab Routine Missed menses , unspecified gestational age ([facility]) Expected: 04/04/2025 (Approximate), Expires: 04/04/2026[facility] Work Phone: comment on above:Expected: 04/04/2025 (Approximate), Expires: 04/04/2026Start: 04-04-2025 End: 96-43-7931Uvape of abuse panel - Urine by Screen methodRapid drug screen, urine Lab Routine , unspecified gestational age ([facility]) Encounter for supervision of normal first in first trimester ([facility]) Expected: 04/04/2025 (Approximate), Expires: 04/04/2026NOTN HealthcareComment on above: Expected: 04/04/2025 (Approximate), Expires: 04/04/2026Start: 10-12-2023 End: 75-79-3745Errosfy encounter lpwrbwane46/29/2024 9:30 AM EST Routine [facility] [address] [facility] [address] [id number] Deena Martinez PA [address] [place] [address] NOMS BCP OBStart: 10-12-2023 End: 28-25-6163Pycbvemhbolq / ancillary services drjnixaexw60/29/2024 9:00 AM EST Ancillary Procedure [facility] OB [address] [place] [address] NOMS BCP OBStart: 09-28-2023 End: 36-66-3600Hrolibodey A1c/Hemoglobin.total in BloodHemoglobin A1c Lab Routine Third trimester Expected: 09/28/2023 (Approximate), Expires: 09/28/2024[facility] Work Phone: comment on above:Expected: 09/28/2023 (Approximate), Expires: 09/28/2024Start: 09-28-2023 End: 34-18-0230RR for pregnancyUS OB SCAN FOR GROWTH Imaging Routine Excessive growth affecting management of in third trimester, single or unspecified fetus Expected: 09/28/2023 (Approximate), Expires: 2024NOTN HealthcareComment on above:Expected: 09/28/2023 (Approximate), Expires: 09/28/2024Start: 09-95-6106Qlosaihdchhqc (ACWY) vaccine (2 - 2-dose series) Meningococcal (ACWY) vaccine (2 - 2-dose series)[facility]: 59-40-5623Bmfwkjoew A vaccine (2 of 2 - 2-dose series)Hepatitis A vaccine (2 of 2 - 2-dose series)[place], [place] on above:Postponed from 05/19/2018 (Not Indicated)Start: 36-81-0096Cvmqxddty vaccinationFlu vaccine (#1)[facility]: 03-12-2020 End: 24-98-4361PvdxbxnrwProtestant Hospital OBSTETRICS & GYNECOLOGYStart: 03-04-2020 End: 59-30-9910Cckeett Wqcemzcg23/22/2020 Routine Obstetrics and Gynecology Demetria Louise APRN - DAILY [address] [place] [address] [place] [address] [phone] [facility] OB/GYNStart: 11-06-2019 End: 42-77-3315Fpfupmt Xjfhvzux74/25/2020 Routine Obstetrics and Gynecology Demetria Louise APRN - [address] [place] [address] [phone] [facility] OB/GYNStart: 10-24-2019 End: 23-51-0033Pzyorpudfbe41/12/2020 Appointment [facility]iologyDet[facility] UltrasoundStart: 28-61-7861LVH screenHIV [facility] Crestart: 07-15-1207Onpsbeojt vaccinationFlu vaccine (#1)[facility]: 57-90-5817Dnzqqmgav A vaccine (2 of 2 - 2-dose series)Hepatitis A vaccine (2 of 2 - 2-dose series)[facility]: 53-07-8932DAJ vaccine (2 - 2-dose series)HPV vaccine (2 - 2-dose series)[facility]: 04-17-5380QPH vaccine (1 - 2-dose series)HPV vaccine (1 - 2-dose series)[place] Start: 63-40-5861Qkmynmxsalvur (ACWY) vaccine (1 - 2-dose series)Meningococcal (ACWY) vaccine (1 - 2-dose series)[facility]: 2011 DTaP/Tdap/Td vaccine (1 - Tdap)DTaP/Tdap/Td vaccine (1 - Tdap)[facility]: 10-35-7026Jnzyrnhhs A vaccine (1 of 2 - 2-dose series)Hepatitis A vaccine (1 of 2 - 2-dose series)[facility]: 2005 Measles,Mumps,Rubella (MMR) vaccine (1 of 2 - Standard series) Measles,Mumps,Rubella (MMR) vaccine (1 of 2 - Standard series)[facility]: 09-51-5952Zxkkvnsyn vaccine (1 of 2 - 2-dose childhood series)Varicella vaccine (1 of 2 - 2-dose childhood series)[facility]: 2004 Polio vaccine (1 of 3 - 4-dose series)Polio vaccine (1 of 3 - 4-dose series) [facility]: 04-76-1247Svepznpbe B vaccine (1 of 3 - 3-dose primary series)Hepatitis B vaccine (1 of 3 - 3-dose primary series)[facility] MELIABacteria identified in Urine by CultureUrine culture Microbiology Routine Missed menses Ordered: 04/04/2025[facility] HealthcareComment on above:Ordered: 04/04/2025 End: 10-23-2019C.trachomatis N.gonorrhoeae DNA, UrineC.trachomatis N.gonorrhoeae DNA, Urine Microbiology Routine Amenorrhea Positive urine test Encounter For Supervision Of Normal In First Trimester, Unspecified 1 Occurrences starting 10/23/2019 until 10/23/2019[facility]:1 Occurrences starting 10/23/2019 until 10/23/2019C.trachomatis N.gonorrhoeae DNA, UrineC.trachomatis N.gonorrhoeae DNA, Urine Microbiology Routine Amenorrhea Positive urine test Encounter for supervision of normal in first trimester, unspecified 10/23/20199:05 AM EDT [facility] GABYC W Auto Differential panel - BloodCBC and differential Lab Routine Third trimester Ordered: 09/28/2023[facility] HealthcareComment on above:Ordered: 4CBC W Auto Differential panel - BloodCBC and differential Lab Routine Missed menses , unspecified gestational age ([facility]) Ordered: 04/04/2025[facility] HealthcareComment on above:Ordered: 04/04/2025 CHLAMYDIA TRACHOMATIS (GENITO/STI)CHLAMYDIA TRACHOMATIS (GENITO/STI) Lab Routine Exposure to STD Ordered: 06/09/2025[facility] HealthcareComment on above:Ordered: 06/09/2025 End: 40-92-1734Fxrumal, UrineCulture, Urine Microbiology Routine Amenorrhea Positive urine test Encounter For Supervision Of Normal In First Trimester, Unspecified 1 Occurrences starting 10/23/2019 until 10/23/2019[facility]ELIAComment on above:1 Occurrences starting 10/23/2019 until 10/23/2019Culture, UrineCulture, Urine Microbiology Routine Amenorrhea Positive urine test Encounter for supervision of normal in first trimester, unspecified 10/23/2019 9:05 AM [facility], KYHemoglobin A1c/Hemoglobin.total in BloodHemoglobin A1c Lab Routine Missed menses , unspecified gestational age ([facility]) Ordered: 04/04/2025[facility] HealthcareComment on above:Ordered: 04/04/2025Hepatitis B virus surface Ag [Presence] in Serum or Plasma by ImmunoassayHepatitis B surface antigen Lab Routine Missed menses , unspecified gestational age ([facility]) Ordered: 04/04/2025[facility] HealthcareComment on above:Ordered: 04/04/2025Hepatitis C virus Ab [Presence] in Serum or Plasma by ImmunoassayHepatitis C antibody Lab Routine Missed menses , unspecified gestational age ([facility]) Ordered: 04/04/2025[facility] HealthcareComment on above:Ordered: 04/04/2025 End: 26-58-8511IJE ScreenHIV Screen Lab Routine Amenorrhea Positive urine test Encounter For Supervision Of NormalPregnancy In First Trimester, Unspecified 1 Occurrences starting 10/24/2019 until 10/24/2019[facility], KYComment on above:1 Occurrences starting 10/24/2019 until 10/24/2019HIV ScreenHIV Screen Lab Routine Amenorrhea Positive urine test Encounter for supervision of normalpregnancy in first trimester, unspecified 10/24/2019 12:37 PM [facility], KYHIV-1/HIV-2 antigen/antibody combination immunoassayHIV-1 and HIV-2 antibodies Lab Routine Missed menses , unspecified gestational age ([facility]) Ordered: 04/04/2025[facility] HealthcareComment on above:Ordered: 04/04/2025Neisseria gonorrhoeae DNA [Presence] in Unspecified specimen by MARIO with probe detection Neisseria gonorrhea DNA probe, direct Lab Routine Exposure to STD Ordered: 06/09/2025[facility] HealthcareComment on above:Ordered: 06/09/2025PRENATAL PROFILE I PROFILE I Lab Routine Amenorrhea Positive urine test Encounter for supervision of normal in first trimester, unspecified 10/24/2019 12:37 PM [facility], MELIARenj Ab [Presence] in Serum by RPRRPR Lab Routine Missed menses , unspecified gestational age ([facility]) Ordered: 04/04/2025[facility] HealthcareComment on above:Ordered: 04/04/2025Rubella antibody, IgGRubella antibody, IgG Lab Routine Missed menses , unspecified gestational age ([facility]) Ordered: 04/04/2025[facility] HealthcareComment on above:Ordered: 04/04/2025SURESWAB(R) ADVANCED VAGINITIS PLUS, TMASURESWAB(R) ADVANCED VAGINITIS PLUS, TMA Pathology and Cytology Routine Vaginal discharge Ordered: 06/09/2025[facility] Work Phone: comment on above:Ordered: 06/09/2025 Immunizations Immunization DateImmunizationNotesCare ZrkjcxmoGftzbasv52-08-1655jbzggoafja, tetanus toxoids and acellular pertussis vaccine, unspecified formulationOmar VvtveqwvuIrciTdrqlu10-13-0879wjhbrab, mumps and rubella virus vaccineOmar ChokoyedjKedvWkispu14-16-4897shfeqybsf zoster immune globulinOmar [facility] CampusMegtNqtwpw47-88-9676fheetpcukimgo vaccine of unknown formulation and unknown serogroupsMBlanchard Valley Health SystemMELIA Payers DatePayer CategoryPayerPolicy [id number] HEALTHCARE MEDICAID UNITED HE[employer]ARE MEDICAID [place] [id number] 2023-Present [address] [place] [id number] Health InsuranceUNITED HEALTHCARE MEDICAID Member Subscriber Plan / Payer (Effective 2023-Present) Name: Ariel Nicole Relation to Subscriber: Self Name: Nicole George Payer ID: Not on file Group ID: Not on file Type: Not on file Address: [address] [place] [id number] [id number] [id number] Health InsuranceVET[facility] [place]- Present [phone] [address] [place], [place] [address]bccdkzhxt [id number] 2.0.1.175713.3.57[id number] 2.0.1.885985.3.57[id number] 2.0.1.556062.3.57[id number] 2.0.1.450726.3.57[id number] 2.0.1.943690.3.57[id number] 2.0.1.353407.3.57[id number] 2.840.1.338319.3.57[id number] 2.840.1.037291.3.57[id number] 2.840.1.069711.3.57[id number] 2.840.1.017819.3.57[id number] 2.16.840.1.709906.3.57[id number] 2.16.840.1.730047.3.57[id number] 2.16.840.1.548633.3.57[id number] 2.16.840.1.282793.3.57[id number] 2.16.840.1.547659.3.57[id number] 2.16.840.1.578062.3.579.2.64190-02-9821S[facility] Health [id number] Cross Blue [id number] Social History DateTypeDetailFacilityStart: 10-23-2019 End: 63-34-4348Wedztgt smoking status NHISNever smokerHart[place], [place]Start: 10-23-2019 End: 70-91-9647Vjzbxnb intakeLifetime non-drinker (finding)[place], [place] Start: 10-23-2019 End: 10-29-0521Mbmdrnt SDOH Alcohol Cfmfnahrf0FvwznHartford, KYStart: 46-49-3820YsdtxhnePnfbe Health- [place], [place]Start: 73-65-4392Efo Assigned At BirthNot on [place], KYExposure to SARS-CoV-2 (event)Not sureOhioHealth Start: 02-12-2020 End: 05-29-2512Xqpgwlp use and exposureNever usedHart[place], KYSex Assigned At [facility] [employer] Other Tobacco smoking status NHISTobacco smoking consumption unknownNOTN HealthcareStart: 72-42-8127SdnAdcntdCZSM Healthcare Clinical Notes 11-02-2021 to 06-09-2025 Note Date & KvfkGnamQppzhblq24-53-7089 History of Present illness Narrative* CRISTINE Rosales [...] Age of Onset Thyroid disease Mother Other (MN) Father Post injury blood clot caused MN Other (Lupus erythematosus) Maternal Grandmother Alzheimer's disease [...] Assessment/Plan ICD-10-CM 1. 17 weeks gestation of ([facility]) Z3A.17 POCT urinalysis dipstick manually resulted Alpha fetoprotein, maternal Alpha fetoprotein, maternal 2. Second trimester ([facility]) Z34.92 POCT urinalysis dipstick manually resulted Alpha fetoprotein, maternal Alpha fetoprotein, maternal 3. Acute intractable headache, unspecified headache type R51.9 4. Screening, , for anatomic survey ([facility]) Z36.89 US OB 14+ weeks anatomy scan [...] behalf of: CRISTINE Rosales documented in this encounterMercy McCune-Brooks HospitalGzwrpbeywi62-81-3233 History of Present illness Narrative* Sugey Ken [...] Age of Onset Thyroid disease Mother Other (MN) Father Post injury blood clot caused MN Other (Lupus erythematosus) Maternal Grandmother Alzheimer's disease [...] nursing note reviewed. Exam conducted with a fur coat sewer present. Vitals: Estimated body mass index is 31.71 kg/m as calculated from the following: Height as of 24: 5' 1 . Weight as of this encounter: 167 lb 12.8 oz. BP: 100/68 Patient's last menstrual period was 01/16/2025. ASSESSMENT & PLAN ICD-10-CM 1. 11 weeks gestation of ([facility] Z3A.11 POCT urinalysis dipstick manually resulted 2. First trimester ([facility]) Z34.91 POCT urinalysis dipstick manually resulted New [...] or undercooked meat, and stay away from [facility]. Patient has been consulted regarding any further [...] of: Ranjan Alas DO documented in this encounterMercy McCune-Brooks HospitalMscfqysnjr39-20-5790 History of Present illness Narrative* Christi Escalante LPN - 04/04/2025 9:00 AM EDT Reason for Appointment: Patient ID: Nicole Geogre is a 19 y.o. female who presents [...] Age of Onset Thyroid disease Mother Other (MN) Father Post injury blood clot caused MN Other (Lupus erythematosus) Maternal Grandmother Alzheimer's disease [...] dipstick manually resulted , unspecified gestational age ([facility]) - Type and screen; Future - ABO/Rh; Future - CBC and differential - Hemoglobin A1c - RPR - Rubella antibody, IgG - Hepatitis B surface antigen - Hepatitis C antibody - HIV-1 and HIV-2 antibodies - Rapid drug screen, urine; Future Encounter for supervision of normal first in first trimester ([facility]) - Rapid drug screen, urine; Future [...] or undercooked meat, and stay away from [facility]. Patient has also been advised to not [...] 04/04/2025 9:20 AM EDT documented in this encounterMercy McCune-Brooks HospitalBjlgdrxdsv36-49-8045 History of Present illness Narrative* CRISTINE Rosales [...] Age of Onset Thyroid disease Mother Other (MN) Father Post injury blood clot caused MN Other (Lupus erythematosus) Maternal Grandmother Alzheimer's disease [...] of: Ranjan Alas DO documented in this encounterMercy McCune-Brooks HospitalMcpfzxkgci09-17-9896 Evaluation note* Encounter Date Diagnosis Assessment Notes [...] no improvement in 2 to 3 days [employer] Other 09-18-2022 Evaluation note* Encounter Date Diagnosis [...] Apr,therHead lice home care material was printed [employer] Other 03-22-2022 Evaluation note* Encounter Date Diagnosis Assessment Notes Treatment Notes Treatment Clinical Notes Oct, Sore throat (ICD-10 - J02.9) Oct,Viral upper respiratory illness (ICD-10 - J06.9) Drink plenty fluids, get plenty of rest, take Tylenol Motrin for aches pains or fevers. Follow-up with your family physician if no improvement in 2 to 3 days. [employer] Other Evaluation note* Diagnosis Third trimester state, incidental Excessive growth affecting management of in third trimester, single or unspecified fetus documented in this encounter [facility] HealthcareEvaluation note* Diagnosis Missed menses , unspecified gestational age ([facility]) Encounter for supervision of normal first in first trimester ([facility]) documented in this encounter [facility] HealthcareEvaluation note* Diagnosis 11 weeks gestation of ([facility]) First trimester ([facility]) state, incidental Acute intractable headache, unspecified headache type documented in this encounter [facility] HealthcareEvaluation note* Diagnosis 17 weeks gestation of ([facility]) Second trimester ([facility]) state, incidental Acute intractable headache, unspecified headache type Screening, , for anatomic survey ([facility]) Encounter for anatomic survey Exposure to STD Vaginal discharge Leukorrhea, not specified as infective documented in this encounter [facility] HealthcareHistory general Narrative - Reported* Type Description Date Medical History cyst removal off of hand Medical Historyseasonal allergiesMedical Historypin wormsSurgical Historycyst removal from handHospitalization Historysee above [employer] Other Summary Purpose Family History No Family [...] EVAL 1ST TRI SGL GEST Demetria Louise, SEWING MACHINE TESTER - CNM [address] [place] [address] [facility] [address] [place] [address] Hospital Course * Michael Lewis MD - [...] iron- 800 mcg Tab Generic drug: vit no.913-sszb-vcffg STOP taking these medications aspirin 81 mg chewable tablet vitamin with Ca-Iron-FA 27-1 mg Tab Where to Get Your Medications These medications were sent to [address] [address] ibuprofen 400 MG tablet Michael Lewis MD Attending Physician documented in this encounter Discharge Instructions * Attachments The following attachments cannot be sent through Care Everywhere. * Contraception: : General Info (Colombian) * Parenting: Stress and Infants (Colombian) documented in this encounter History of Present [...] section and content) DATE CREATED AUTHOR 02/02/2018 [facility] DATE CREATED AUTHOR AUTHOR'S ORGANIZ ATION 02/02/2018 [facility] DATE CREATED AUTHOR AUTHOR'S ORGANIZ ATION 10/22/2019 [facility] DATE CREATED AUTHOR AUTHOR'S ORGANIZ ATION 03/07/2020 [facility] DATE CREATED AUTHOR AUTHOR'S ORGANIZ ATION 05/15/2020 [facility] DATE CREATED AUTHOR AUTHOR'S ORGANIZ ATION 06/24/2020 [facility] DATE CREATED AUTHOR AUTHOR'S ORGANIZ ATION 11/01/2021 [facility] DATE CREATED AUTHOR AUTHOR'S ORGANIZ ATION 11/08/2021 [facility] DATE CREATED AUTHOR AUTHOR'S ORGANIZ ATION 03/16/2022 [facility] DATE CREATED AUTHOR AUTHOR'S ORGANIZ ATION 06/10/2025 [facility] EPIC Reason for Visit (unrecogniz ed section and content) StatusReasonSpecialtyDiagnoses / ProceduresReferred By ContactReferred To ContactNot Required - RecondoRadiology Diagnoses Amenorrhea Positive urine test Procedures US OB LESS THAN 14 WEEKS SINGLE OR FIRST GESTATION HC EVAL 1ST TRI SGL GEST Demetria Louise, SEWING MACHINE TESTER - CNM [address] [place] [address] [facility] [address] [place] [address] ReasonCommentsPelvic PainVaginal PainPregnancy ProblemReasonCommentsRupture of Membranespt c/o [...] Delivery Note Diagnosis: Active Problems: Normal labor [place], Baby Boy Nicole [[id number]] Delivery Anesthesia Method: Epidural Additional comments: [place] [...] Shoulder dystocia present: No Presentation Presentation: Vertex [place] Information date/time: 05/11/20 1502 Gender: Male Delivery type: Vaginal, Vacuum (Extractor) Delivery location: OB Unit Initial disposition: Routine NB Care ?: No Details: Delivery Providers Delivering clinician: Michael Lewis MD Other personnel: Provider Role Covering Attending Resident Director Of Global Marketing Marlene Monteiro RN Delivery Nurse Registered Nurse [...] 1506 Removal: Spontaneous Appearance: Intact Disposition: Refrigerator [place] Apgars Living status: Living Scoring Lora: 0 [...] dateof May 202019 while receiving care in [facility]. [place] [...] cyst. Social history: She attends school at [employer]. She is single and lives with her [...] BE BASED ON THE PRIMARY CLINICAL RECORDS. [facility] [address] [facility]. provides no warranty or guarantee of the accuracy or completeness of information in this document.
[2025-07-03 13:07] LABS: Hematocrit 36.8 % (36.0-48.0); Hemoglobin 12.6 g/dL (12.0-16.0); Immature Granulocytes Abs Auto 0.05 10^3/uL (0.00-0.03); Immature Granulocytes Pct Auto 0.5 % (0.0-0.5); Lymphocytes Absolute Auto 2.2 10^3/uL (1.2-3.8); Mean Corpuscular HGB Conc 34.2 g/dL (29.9-35.2); Mean Corpuscular Hemoglobin 29.5 pg (26.7-34.0); Mean Corpuscular Volume 86.2 fL (81.0-99.0); Platelet Count 299 10^3/uL (150-450); Red Blood Count 4.27 10^6/uL (4.20-5.40); White Blood Count 10.4 10^3/uL (4.0-11.0)
[2025-07-03 13:36] LABS: Cannabinoid Screen Urine NEGATIVE (NEGATIVE); Methamphetamines Screen Urine NEGATIVE (NEGATIVE); Tricyclic Antidepressant Urine NEGATIVE (NEGATIVE)
[2025-07-04 06:08] LABS: Rubella Antibodies, IgG 5.86 index (Immune >0.99)
[2025-07-04 12:08] LABS: Rapid Plasma Reagin, Quant Non Reactive titer (NonRea<1:1)
== END 2025-07-03 12:30 | disposition home or self-care (01) ==
LOC: LAB 12:29
PROVIDERS: PCP Nurse Practitioner Family; Visit Provider Obstetrics & Gynecology
DX: Z34.92 Encounter for supervision of normal pregnancy, unspecified, second trimester (principal); Z3A.17 17 weeks gestation of pregnancy; N92.6 Irregular menstruation, unspecified
CPT/HCPCS: 36415; 80307; 82105; 83036; 85025; 86592; 86762; 86803; 86850; 86900; 86901; 87086; 87340; 87389

== ENCOUNTER 2025-08-11 09:36 | Outpatient (OUT) | payer OTHER, SELFPAY ==
--- OUTSIDE RECORDS SUMMARY | 2025-07-01 10:00 | XMS_ITS ---
Author Organization [facility] Address [address] [place] [address] Care Team Providers Care Product Development Coordinator Name Role Phone Sahil Kruse Primary Care Provider [phone] Mag Reyes [phone] REASON FOR VISIT FILLING Encounters Encounter Location Date Provider Diagnosis [facility] [address] [place] [address] 07/01/2025 Mag Reyes Plan Of Treatment Next Appt Details Provider Name:Mag Gerrymatthew, 08/28/2025 04:30:00 PM, [address], [place], [address], Progress Notes * PELON PATELDOB:2005 (19 yo F)Acc No.[id number]:07/01/2025 Patient:?PELON PATEL :?Magyoana ReyesDOB:2005???Age:19 Y???Sex: FemaleDate:07/01/2025Phone:[phone]:[address] , [place], [place]Pcp:Sahil Kruse Subjective: * Chief Complaints: * F ILLING Billing Information: * Procedure Codes: * Electronic signature of Mag Reyes DMD on 08/11/2025 at 09:41 AM ESTSign off status: Pending * Provider: Surjit Reyes Date: 08/31/2024 Generated for Printing/Faxing/eTransmitting on:?08/11/2025 09:41 AM EST
--- OUTSIDE RECORDS SUMMARY | 2025-07-29 11:00 | XMS_ITS ---
Author Organization [facility] es Address [address] [place] [address] Care Team Providers Care Computer Operations Analyst Name Role Phone Sahil Kruse Primary Care Provider Mag Reyes Unavailable [phone] VirgilioJosephineJenae Unavailable [phone] REASON FOR VISIT PROPHY Encounters Encounter Location Date Provider Diagnosis [facility] [address] [place] [address] 07/29/2025 Jenae Poole Acute gingivitis, plaque induced K05.00 Assessments Encounter Date Diagnosis (ICD Code) Assessment Notes Treatment Notes Treatment Clinical Notes Section Notes 07/29/2025 Acute gingivitis, plaque induced (ICD-10 - K05.00) Plan Of Treatment Next Appt Details Provider Name:Mag Reyes, 08/28/2025 04:30:00 PM, [address], [place], [address], Progress Notes * PELON PATELDOB:2005 (19 yo F)Acc No.[id number]:07/29/2025 Patient:?PELON PATEL :?Jenae PooleDOB:2005???Age:19 Y???Sex: FemaleDate:07/29/2025Phone:[phone]:[address] , [place], [place]-[address]Pcp:Sahil Kruse Subjective: * Chief Complaints: * P RUPERT Objective: * Dental Examination/Plan : * Tooth / Surface Status Description Provider Date TPPROPHYLAXIS - VIOKKPV1507/29/2025 Assessment: * Assessment: 1.?Acute gingivitis, plaque induced - K05.00 (Primary)??? Billing Information: * Procedure Codes: * Electronic signature of Jenae Poole on 08/11/2025 at 09:40 AM ESTSign off status: Pending * Provider: Nicci Poole Date: 1 09/29/2024 Generated for Printing/Faxing/eTransmitting on:?08/11/2025 09:40 AM EST
--- OUTSIDE RECORDS SUMMARY | 2025-08-05 05:00 | XMS_ITS ---
Author Organization [facility] es Address [address] [place] [address] Care Team Providers Care Clerical Clerk Name Role Phone Sahil Kruse Primary Care Provider [phone] Mag Reyes [phone] REASON FOR VISIT UPDATED EXAM Encounters Encounter Location Date Provider Diagnosis [facility] [address] [place] [address] 08/05/2025 Mag Reyes Plan Of Treatment Next Appt Details Provider Name:Mag Reyes, 08/28/2025 04:30:00 PM, [address], [place], [address], Progress Notes * PELON PATELDOB:2005 (19 yo F)Acc No.[id number]:08/05/2025 Patient:?PELON PATEL :?Mag ReyesDOB:2005???Age:19 Y???Sex: FemaleDate:08/05/2025Phone:[phone]:[address] [place], [place]-[address]Pcp:Sahil Kruse Subjective: * Chief Complaints: * U PDATED EXAM Billing Information: * Procedure Codes: * Electronic signature of Mag Reyes DMD on 08/11/2025 at 09:41 AM ESTSign off status: Pending * Provider: Surjit Reyes Date: 1 10/06/2024 Generated for Printing/Faxing/eTransmitting on:?08/11/2025 09:41 AM EST
--- OUTSIDE RECORDS SUMMARY | 2025-08-11 09:41 | XMS_ITS | Patient Health Record ---
Author Organization [facility] es Address [address] [place] [address] Care Team Providers Care Area Development Manager Name Role Phone Sahil Kruse Primary Care Provider [phone] Mag Reyes Unavailable [phone] Jenae Poole Unavailable [phone] Reason For Referral No Information Encounters Encounter Location Date Provider Diagnosis [place] [address] [place] [address] 12/16/2024 Sahil Kruse Encounter for dental examination and cleaning with abnormal findings Z01.21 ; Other dental procedure status Z98.818 ; Cracked tooth K03.81 ; Dental caries on pit and fissure surface penetrating into dentin K02.52 and Acute gingivitis, plaque induced K05.00 [facility] [address] [place] [address] 12/17/2024 Jenae Poole Acute gingivitis, plaque induced K05.00 [facility] [address] [place] [address] 02/13/2025 Mag Reyes Dental caries on pit and fissure surface penetrating into dentin K02.52 [facility] [address] [place] [address] 03/07/2025 Sahil Kruse Dental caries on pit and fissure surface penetrating into dentin K02.52 [facility] [address] [place] [address] 06/23/2025 Mag Reyes Dental caries on pit [...] Reyes, 08/28/2025 04:30:00 PM, [address], [place], [address], Insurance Providers Payer Name Payer Address Payer Phone Subscriber Number Group Number Insured Name Patient Relationship to Insured Coverage Start Date Coverage End Date Dental [employer] [place] Medicaid [address] [place] [address] [id number] LAKESHA PATELguanakito - patient is the [id number] 2024[facility]ental [facility]rap [facility] [address] [place] [id number], HANNASelf - patient is the [id number] 2024
--- OUTSIDE RECORDS SUMMARY | 2025-08-11 09:42 | XMS_ITS | Clinical Summary ---
Author Organization [facility] Address [facility] [address] [place] [address] Care Team Providers Care Elevator Repairer Apprentice Name Role Phone Mio Longoria MD Primary Care Provider [phone] Allergies Active AllergyReactionsCriticalityNoted OeqhYpiibaxnUdmkwupbaay90/18/2022 Unsure reaction; reaction as a baby Medications MedicationSigDispense QuantityRefillsLast FilledStart DateEnd DateStatus etonogestreL-ethinyl estradioL (NUVARING) 0.12-0.015 mg/24 hr vaginal ring Indications:Encounter for surveillance of vaginal ring hormonal contraceptive deviceInsert 1 each into the vagina every 21 days. Insert vaginally and leave in place for 3 consecutive weeks, then remove for 1 week. 1 each ctive Active Problems No known active problems Family History Medical HistoryRelationNameCommentsNo Known ProblemsFatherBreast cancerMaternal great-grandmotherNo Known ProblemsMotherBreast cancerPaternal great-grandmother RelationNameStatusCommentsFatherAliveMaternal great-grandmotherMotherAlive Paternal great-grandmother Social History Tobacco UseTypesPacks/DayYears UsedDateSmoking Tobacco: NeverSmokeless Tobacco: Never Tobacco Cessation:Counseling Given: Not Answered Alcohol UseStandard Drinks/WeekCommentsNever0 (1 standard drink = 0.6 oz pure alcohol)ChildcareAnswerDate DdbucsxaAirqvhdzrUgpevra80/12/2019EmploymentAnswer Date LzuccsheIwmtnwtxezAbnugli33/12/2019CommentsNoSex and Gender InformationValueDate RecordedSex Assigned at BirthNot on fileLegal SexFemale 03/19/2015 12:05 PM EDTGender IdentityNot on fileSexual OrientationNot on file Last Filed Vital Signs Vital SignReadingTime TakenCommentsBlood Vihfjeso038/66009/01/2022 1:06 PM EST Pulse--Temperature--Respiratory Rate--Oxygen Saturation--Inhaled Oxygen Concentration--Puvlwx28.9 kg (180 lb 9.6 oz)09/01/2022 1:06 PM WGMTtcnve276.9 cm (5' 1 )09/01/2022 1:06 PM ESTBody Mass Index34.12009/01/2022 1:06 PM EST Plan of Treatment Health MaintenanceDue DateLast DoneCommentsChlamydia Xufrunrmh29/17/2005 Depression Waokxnsaz40/17/2017Tobacco Scnkcpmpg02/17/2017Adult BMI Screening Influenza Fluogdt3204/14/2025DTaP,Tdap and Td Vaccines (7 - Td or Tdap), 12/15/2009, 12/01/2005, Additional history exists Medical Devices Not on file Insurance Care Teams Team MemberRelationshipSpecialtyStart DateEnd Mio Longoria MD [facility] - [facility]21
--- OUTSIDE RECORDS SUMMARY | 2025-08-11 09:42 | XMS_ITS | Patient Health Record ---
Author Organization [facility] in [place] Address [address] [place] [address] Care Team Providers Care Ciaio Counter Molder Name Role Phone Katrin Hicksela Primary Care Provider [phone] Allergies Allergen (clinical drug ingredient) Drug/Non Drug Allergy documented on EMR Reaction Allergy Type Onset Date Status Penicillinchildhood allergyDrug AllergyActive Results Component Value Reference Range Notes CBC AUTO DIFF Reviewed date:07/08/2025 08:15:18 AM Interpretation: Performing Lab: Notes/Report: [facility] , White Blood Count 10.4 4.0-11.0 10 3/uL Red Blood Count4.274.20-5.40 10 6/dQPzcmnrdlfr26.612.0-16.0 g/gSGvkfzlyqfl20.8 36.0-48.0 %Mean Corpuscular Ldycgl01.281.0-99.0 fLMean Corpuscular Hemoglobin 29.526.7-34.0 pgMean Corpuscular HGB Conc34.229.9-35.2 g/dLRed Cell Distribution Width12.311.0-15.0 %Platelet [id number] 10 3/uLMean Platelet Volume9.79.5- 13.5 fLNeutrophils Percent Auto70.443.0-75.0 %Lymphocytes Percent Auto21.420.5- 60.0 %Monocytes Percent Auto6.31.7-12.0 %Eosinophils Percent Auto1.10.9-7.0 % Basophils Percent Auto0.30.2-2.0 %Immature Granulocytes Pct Auto0.50.0-0.5 % Neutrophils Absolute Auto7.31.4-6.5 10 3/uLLymphocytes Absolute Auto2.21.2-3.8 10 3/uLMonocytes Absolute Auto0.70.3-0.8 10 3/uLEosinophils Absolute Auto0.10.0- 0.7 10 3/uLBasophils Absolute Auto0.00.0-0.1 10 3/uLImmature Granulocytes Abs Auto0.050.00-0.03 10 3/uLPerforming Lab:see noteML - [facility] LB DRUG SCREEN RAPID (URINE) Reviewed date:07/08/2025 08:15:18 AM Interpretation: Performing Lab: Notes/Report: [facility] ,Cannabinoid Screen UrineNEGATIVENEGATIVEPhencyclidine Screen UrineNEGATIVE NEGATIVECocaine Screen UrineNEGATIVENEGATIVEMethamphetamines Screen Urine NEGATIVENEGATIVEOpiate Screen UrineNEGATIVENEGATIVEAmphetamine Screen Urine NEGATIVENEGATIVEBenzodiazepines Screen UrineNEGATIVENEGATIVETricyclic Antidepressant UrineNEGATIVENEGATIVEMethadone Screen UrineNEGATIVENEGATIVE Barbiturates Screen UrineNEGATIVENEGATIVEOxycodone Screen UrineNEGATIVENEGATIVE Buprenorphine Screen UrineNEGATIVENEGATIVE MTD (Methadone): 200 ng/mL TCA (Trycyclic Antidepressants): 300 ng/mL FOLLOWS: BUP (Buprenorphine): 10 ng/mL AMP (Amphetamine): 500 ng/mL THC (Cannabinoids): 50 ng/mL DRUG CLASS TEST SYSTEM CUT-OFF CONCENTRATIONS ARE BAR (Barbiturates): 200 ng/mL OPI (Opiates): 100 ng/mL BZO (Benzodiazepines): 150 ng/mL mAMP (Methamphetamine): 500 ng/mL PCP (Phencyclidine): 25 ng/mL OXY (Oxycodone): 100 ng/mL ESTHER (Cocaine): 150 ng/mL Performing Lab:see note - [facility] LBGLYCOHEMOGLOBIN A1C Reviewed date:07/08/2025 08:15:18 AM Interpretation: Performing Lab: Notes/Report: [facility] ,Glycohemoglobin A1C5.04.5-6.2 % ADA THERAPEUTIC TARGET < 7.0 ACTION SUGGESTED > 7.0 ADA RECOMMENDED LIMIT 4.0 - 6.0 Estimated Average Rwqgnxp60Csvummyope Lab:see noteML - [facility] LB Type and Screen Reviewed date:07/08/2025 08:15:18 AM Interpretation: Performing Lab: Notes/Report: [facility] ,Blood TypeA PositiveAntibody ScreenNEGATIVEHCV Antibody RFX to Quant PCR Reviewed date:07/08/2025 08:15:18 AM Interpretation: Performing Lab: Notes/Report: [facility] ,HCV AbNon ReactiveNon ReactiveInterpretation:Comment. suspected (which may be delayed in an immunocompromised individual), or other evidence exists to indicate HCV infection. Not infected with HCV unless early or acute infection is Performing Lab:see noteLC - [facility] LBRUBELLA AB IGG Reviewed date:07/08/2025 08:15:18 AM Interpretation: Performing Lab: Notes/Report: [facility] ,Rubella Antibodies, IgG5.86Immune >0.99 [address], [place] [id number] Immune >0.99 Non-immune <0.90 Warehouse Processor: Burton Flores PhD, Phone: [phone] Performed at: [facility] Equivocal 0.90 - 0.99 Performing Lab:see noteLC - [facility] LBPREG QUANT HCG Reviewed date:08/16/2024 10:20:57 AM Interpretation: Performing Lab: Notes/Report: [facility] ,HCG Quantitative<1 15,000-200,000 6-8 WEEKS 100-5,000 2-3 WEEKS 500-10,000 3-4 WEEKS 1,000-50,000 4-5 WEEKS 10,000-100,000 2-3 MONTHS 50-500 1-2 WEEKS 5-50 0.2-1 WEEK 10,000-100,000 5-6 WEEKS Performing Lab:see noteML - [facility] LBUrine Culture, Routine Reviewed date:07/08/2025 08:15:18 AM Interpretation: Performing Lab: Notes/Report: [facility] ,Urine Culture, RoutineSee Below For ReportUrine Culture, RoutineUrine Culture, RoutineMixed urogenital floraUrine Culture, RoutineUrine Culture, RoutineLess than 10,000 colonies/mLUrine Culture, RoutineUrine Culture, RoutinePerformed at: [facility] DublinUrine Culture, RoutineUrine Culture, [address], [place] [id number] Culture, RoutineUrine Culture, RoutineLab Director: Butron Flores PhD, Phone: [phone] Culture, RoutinePerforming Lab: see note [facility] LB SEE REPORT - Freight Associate Id information not found for OBX-specific video producer legend HBsAg Screen Reviewed date:07/08/2025 08:15:18 AM Interpretation: Performing Lab: Notes/Report: [facility] ,HBsAg ScreenNegativeNegative [address], [place] [id number] Warehouse Processor: Burton Flores PhD, Phone: [phone] Performed at: [facility] Performing Lab:[facility] LBRapid Plasma Reagin, Quant Reviewed date:07/08/2025 08:15:18 AM Interpretation: Performing Lab: Notes/Report: [facility] ,Rapid Plasma Reagin, QuantNon ReactiveNonRea<1:1 titer treponema-specific assay should be utilized, such as Warehouse Processor: Burton Flores PhD, Phone: [phone] Please Note: This test does not meet current guidelines for Rapid Plasma Reagin (RPR) Test With Reflex to Quantitative infection, a reflex cascade that includes both RPR and a Treponema pallidum (Syphilis) Screening [place] (317146) or (215402). [address], [place] [id number] RPR and Confirmatory Treponema pallidum Antibodies screening and diagnosis of syphilis. This test is Performed at: [facility] treated for syphilis infection. To screen for syphilis intended for following treatment response in patients being Performing Lab[facility] LBAFP, Serum, Open Spina Bifida Reviewed date:07/08/2025 08:15:18 AM Interpretation: Performing Lab: Notes/Report: N N ULTRASOUND [id number] 1 17 N 1 Y 171 N N N N N White/ [facility] ,ResultsReport.Test Results:*Screen Negative*.Gest. Age on Collection Date20.6. weeksGestat. Age Based OnUltrasound. by LMP and ultrasound are within 10 days. 17.1 on 06/09/2025 Recalculations are not recommended when gestational dating Maternal Age At EDD21.2. yrRaceCaucasian.Qgfgmf484. lbsInsulin Dep DiabetesNo. Multiple GestationNo.AFP Value50.4. ng/mLAFP MoM0.91.OSBR Risk 1 [id number]. InterpretationComment. Closed neural tube defects and some open defects may not be calculated is based on the gestational age provided. MS-AFP or Trisomy 18 is desired, contact Genetic Customer detected by this test. This test does not screen for Interpretation: Screen Negative Services to discuss available options. The [place] amniocentesis be offered to women age 35 and older. can identify up to 80% of open neural tube defects. This result is screen negative for OSB. The AFP [facility] [employer] recommends Down Syndrome or Trisomy 18. If screening for Down Syndrome Comment:Comment. IDD - Insulin Dep Diabetes determined by [facility]. It has not been cleared or approved Director Multiples Of Median Cutoffs IDD 2.0 Twins 4.5 Genetics Services at [phone]. [address] [place], [place] [phone] OSBR - Open Spina Bifida Risk by the Food and Drug Administration. For AFP Elevations References: Available Upon Request. Abbreviation Definitions This test was developed and its performance characteristics Warehouse Processor: Chris Hassan [facility], Phone: [phone] For further inquiries contact [facility] 2.5 Black 2.8 Performed at: [facility] Dory Ravi, Ph.D., [facility] Performing Lab:see ricardo - [facility] LBHIV Ab/p24 Ag with Reflex Reviewed date:07/08/2025 08:15:18 AM Interpretation: Performing Lab: Notes/Report: [facility] ,HIV Ab/p24 Ag ScreenNon ReactiveNon Reactive HIV Negative HIV-1/HIV-2 antibodies and HIV-1 p24 antigen were NOT Warehouse Processor: Burton Flores PhD, Phone: [phone] Performed at: [facility] detected. There is no laboratory evidence of HIV infection. [address] [place] [phone] Performing Lab:see note - [facility] Reason For Referral No Information Social History Tobacco Use: Social History Observation Description Date Details (start date - stop date) Never Smoker NA - NA Tobacco Use/Smoking Question Answer Notes Patient is a nonsmoker Alcohol Screen (Audit-C) Question Answer Notes Did you have a drink containing alcohol in the p ast year? No Fbvdug1ZulkquuzgmwqakEwbkrvhbHNOME-V (Standard) Question Answer Notes Did you have a drink containing alcohol in the p ast year? No Attnys5XnpensvyubonvyLvynmqhv Problems Problem Type SNOMED Code ICD Code Onset Dates Problem Status W/U Status Risk Notes Problem Anxiety disorder (473034691) Anxiety diso rder, unspecified (F41.9) Activeconfirmed Plan Of Treatment No Information Insurance Providers Payer Name Payer Address Payer Phone Subscriber Number Group Number Insured Name Patient Relationship to Insured Coverage Start Date Coverage End Date [employer] [place] [employer] [address] [place] [address] [id number] Les Georgeelf - patient is the insured Medical (General) History Surgical History Surgery Date(Month/Year) cyst removal from rt hand
--- OUTSIDE RECORDS SUMMARY | 2025-08-11 09:42 | XMS_ITS | Clinical Summary ---
Author Organization [facility] Healthcare Address [address] [place] [address] Care Team Providers Care Grocery Department Manager Name Role Phone Unavailable Primary Care Provider Unavailabl e Allergies Active AllergyReactionsCriticalityNoted DateCommentsPenicillin G004/04/2025 Other Reaction(s): childhood allergy Mznaziqtzjs19/07/2021 Other Reaction(s): childhood allergy Unsure reaction; reaction as a baby Unsure reaction; reaction as a baby Medications MedicationSigDispense QuantityRefillsLast FilledStart DateEnd DateStatus metroNIDAZOLE (Flagyl) 500 MG tablet Indications:Vaginal dischargeTake 1 tablet (500 mg) by mouth in the morning and 1 tablet (500 mg) before bedtime. Do all this for 7 days. Do not drink alcohol while taking this medication. 14 tablet Expired Encounters DateTypeDepartmentCare LsgaInizwizqvzc67/08/2025[place] [address] Ranjan Alas DO 07/17/2025 10:30 [place] [address] Ranjan Alas, Second trimester ([facility]); 22 weeks gestation of ([facility]); Diabetes mellitus ygzytuocf06/04/2025 9:30 AM ESTAncillary Procedure [place] [address] 07/03/2025linisync Result Encounter NOMS External Department Unsolicited BishopRanjan davis DO 06/25/2025bstract [facility] [address] [place] [address] Deena Galloway LPN 06/18/2025Patient Outreach [facility] [address] [place] [address] Deena Galloway LPN 06/09/2025 10:50 AM EDTRoutine [facility] [address] [place] [address] Deena Martinez PA 17 weeks gestation of ([facility]); Second trimester ([facility]); Acute intractable headache, unspecified headache type; Screening, , for anatomic survey ([facility]); Exposure to STD; Vaginal jepkgnihw19/27/2025External Result Encounter NOMS External Department Unsolicited Deena Martinez PA 06/09/2025amboo flowsheet [facility] [address] [place] [address] Deena Martinez PA from Last 3 Months Family History Medical HistoryRelationNameCommentsMIFatherPost injury blood clot caused [place] Alzheimer's diseaseMaternal GrandmotherLupus erythematosusMaternal Grandmother Thyroid diseaseMotherRelationNameStatusCommentsFatherMaternal GrandmotherMother Social History Tobacco UseTypesPacks/DayYears UsedDateSmoking Tobacco: Never Assessed Estimated Date of ZwdtskotCdqyuultBha35/05/2026ased on UltrasoundSex and Gender InformationValueDate RecordedSex Assigned at BirthNot on fileLegal SexFemale 10/26/2022 6:57 PM EDTGender IdentityNot on fileSexual OrientationNot on file Last Filed Vital Signs Vital SignReadingTime TakenCommentsBlood Eezarxnk324/6207/17/2025 10:55 AM EST Pulse--Temperature--Respiratory Rate--Oxygen Saturation--Inhaled Oxygen Concentration--Icqyjg85.4 kg (175 lb)07/17/2025 10:55 AM WXAVlwjch736.9 cm (5' 1 )01/16/2024 2:17 PM EDTBody Mass Index33.0701/16/2024 2:17 PM EDT Plan of Treatment DateTypeDepartmentCare Team (Latest Contact Info)Kthbjqsgift66/06/2026 1:20 PM ESTRoutine [facility] [address] [place] [phone] Ranjan Alas DO [address] [place] [address] Procedures Procedure NamePriorityDate/TimeAssociated DiagnosisCommentsPOCT URINALYSIS UJLALFBVNacarsg18/04/2025 11:06 AM EST 22 weeks gestation of ([facility]) OB 14+ WEEKS ANATOMY GEVYSvdljcx14/04/2025 10:34 AM EST Screening, , for anatomic survey ([facility]) AFP, SERUM, OPEN SPINA GIDNCELcnyuwq73/20/2025 12:45 PM EST HBSAG IGANVHDksbkao26/20/2025 12:45 PM EST RAPID PLASMA REAGIN, NGEDMFqhqjti53/20/2025 12:45 PM EST HCV ANTIBODY RFX TO QUANT XPSMitqdrx23/20/2025 12:45 PM EST ALL RUBELLA IGG OSMnkbjwj62/20/2025 12:45 PM EST HIV AB/P24 AG WITH MYGDZBAruhoic81/20/2025 12:45 PM EST ALL TYPE AND NTPJMNBmtaujf86/20/2025 12:45 PM EST ALL CBC WITH AUTO RXWAVblavuy45/20/2025 12:45 PM EST MLR HEMOGLOBIN Q2AVjmadvq30/20/2025 12:45 PM EST URINE CULTURE, SKPMFJTSpurpwk76/20/2025 12:33 PM EST [facility] DRUG SCREEN RAPID (URINE)Ocbvfte9507/03/2025 12:33 PM EST RECURRENT VAGINITIS (HTRX)Qkoeljg9006/09/2025 11:50 AM EDT POCT URINALYSIS VPWJOVNNDbqqtjq52/27/2025 11:02 AM EDT 17 weeks gestation of ([facility]) Second trimester ([facility]) from Last 3 Months Results * (ABNORMAL) POCT urinalysis dipstick manually resulted (07/17/2025 11:06 AM EST) Only the most recent of2 resultswithin the time period is included. ComponentValueRef RangeTest MethodAnalysis TimePerformed AtPathologist Signature Color, UAYellowClarity, UAClearGlucose, UANegativeNegative - 2000(110) ++++ mg/dLBilirubin, UANegativeNegative - 4(70) +++ mg/dLKetones, UANegativeNegative - 160(16) ++++ mg/dLSpec Grav, UA1.0151 - 1.03Blood, UANegativeNegative - 50 Fernando/mcLpH, UA7.05 - 9Protein, UATraceNegative - 2000(20) ++++ mg/dLUrobilinogen, UA1.00.2 - 12 mg/dLLeukocytes, UA2+Negative - 500+++ Sidney/mcLNitrite, UANegative Negative - PositiveSpecimen (Source)Anatomical Location / LateralityCollection Method / VolumeCollection TimeReceived HkpnCgoju01/04/2025 11:06 AM EST Narrative Authorizing ProviderResult TypeResult StatusCorey Bishop DOPOINT OF CARE TEST ENTER/EDIT ORDERABLESFinal Result * US OB 14+ weeks anatomy scan (07/17/2025 10:34 AM EST)Anatomical Region LateralityModalityBodyUltrasoundSpecimen (Source)Anatomical Location / LateralityCollection Method / VolumeCollection TimeReceived Time07/17/2025 1:12 PM EST Impressions 07/17/2025 1:44 PM EST 1. Single, live intrauterine , current sonographic age of 22 weeks and 1 day, with an estimated date of delivery of November 19, 2025 2. Suboptimal outflow tract evaluation 3. Anterior low-lying placenta * ??Estimated Weight (g) by Percentile is based upon an accurate estimated age based onlast menstrual period. ?? TRANSCRIBED BY: ? ELECTRONICALLY SIGNED BY: Amado Fernandes MD Narrative 07/17/2025 1:44 PM EST FINDINGS: A single, live intrauterine is present with normal cardiac rate of 152 beats per minute. Normal activity and amniotic fluid volume. Amniotic fluid index is subjectively normal. Morphology is grossly normal. ??Outflow tracts suboptimally seen due to positioning. ??The cervix is long and closed, 5.5 cm. ??The placenta is anterior, inferior margin 2 cm from the closed internal cervical os. ??The current sonographic age is 22 weeks and 1 day, based on the following measurements: ?BPD ? 5.2 cm (21 weeks, 6 days) ?Head Circumference ?19.6 cm (21 weeks, 6 days) ?Abdominal Circumference ?17.2 cm (22 weeks, 1 day) ?Femur Length ?3.9 cm (22 weeks, 4 days) ?Presentation ? Transverse lie ?Placenta ? Anterior ? Weight (g) by Percentile ??29.6 % * These measurements result in an estimated date of delivery of November 19, 2025 ?? The current estimated weight is 492 grams (1 pound, 1 ounce). ?? Procedure Note Amado Fernandes MD - 07/17/2025 FINDINGS: A single, live intrauterine is present with normal cardiacrate of 152 beats per minute. Normal activity and amniotic fluidvolume. Amniotic fluid index is subjectively normal. Morphology is grosslynormal. Outflow tracts suboptimally seen due to positioning. Thecervix is long and closed, 5.5 cm. The placenta is anterior, inferiormargin 2 cm from the closed internal cervical os. The current sonographicage is 22 weeks and 1 day, based on the following measurements: BPD 5.2 cm (21 weeks, 6 days) Head Circumference 19.6 cm (21 weeks, 6 days) Abdominal Circumference 17.2 cm (22 weeks, 1 day) Femur Length 3.9 cm (22 weeks, 4 days) Presentation Transverse lie Placenta Anterior Weight (g) by Percentile 29.6 % * These measurements result in an estimated date of delivery of November The current estimated weight is 492 grams (1 pound, 1 ounce). IMPRESSION: 1. Single, live intrauterine , current sonographic age of 22weeks and 1 day, with an estimated date of delivery of November 19, 2025 2. Suboptimal outflow tract evaluation 3. Anterior low-lying placenta * Estimated Weight (g) by Percentile is based upon an accurateestimated age based on last menstrual period. TRANSCRIBED BY: ELECTRONICALLY SIGNED BY: Amado Fernandes MD Authorizing ProviderResult TypeResult StatusAmy [facility] OB US PROCEDURES Final Result * HBSAG SCREEN (07/03/2025 12:45 PM EST)ComponentValueRef RangeTest Method Analysis TimePerformed AtPathologist SignatureHBSAG SCREENNegativeNegativeTBH Comment: Performed at: ?? - [facility] [address] ??[id number] Sole Layer Hand: Burton Flores PhD, Phone: ??[phone] Specimen (Source)Anatomical Location / LateralityCollection Method / Volume Collection TimeReceived Time07/03/2025 12:45 PM EST11/ 12:48 PM EST Narrative [facility] - 07/04/2025 12:08 PM EST Authorizing ProviderResult TypeResult StatusCorey Bishop DOLAB BLOOD ORDERABLES Final ResultPerforming OrganizationAddConemaugh Miners Medical Centerty/State/ZIP CodePhone Number [facility] * RAPID PLASMA REAGIN, QUANT (07/03/2025 12:45 PM EST)ComponentValueRef Range Test MethodAnalysis TimePerformed AtPathologist SignatureRAPID PLASMA REAGIN, QUANTNon ReactiveNonRea<1:1 titerTBHComment: Please Note: This test does not meet current guidelines for screening and diagnosis of syphilis. This test is intended for following treatment response in patients being treated for syphilis infection. To screen for syphilis infection, a reflex cascade that includes both RPR and a treponema-specific assay should be utilized, such as Treponema pallidum (Syphilis) Screening [place] (725026) or Rapid Plasma Reagin (RPR) Test With Reflex to Quantitative RPR and Confirmatory Treponema pallidum Antibodies (997955). Performed at: ??[facility] ??[id number] Sole Layer Hand: Burton Flores PhD, Phone: ??[phone] Specimen (Source)Anatomical Location / LateralityCollection Method / Volume Collection TimeReceived Time07/03/2025 12:45 PM EST07/03/2025 12:48 PM EST Narrative [place] - 07/04/2025 12:08 PM EST Authorizing ProviderResult TypeResult StatusCorey Bishop DOLAB BLOOD ORDERABLES Final ResultPerforming OrganizationAddConemaugh Miners Medical Centerty/State/ZIP CodePhone Number [facility] * HIV AB/P24 AG WITH REFLEX (07/03/2025 12:45 PM EST)ComponentValueRef RangeTest MethodAnalysis TimePerformed AtPathologist SignatureHIV AB/P24 AG SCREENNon ReactiveNon ReactiveTBHComment: HIV-1/HIV-2 antibodies and HIV-1 p24 antigen were NOT detected. There is no laboratory evidence of HIV infection. HIV Negative Performed at: ??[facility] ??[id number] Sole Layer Hand: Burton Flores PhD, Phone: ??[phone] Specimen (Source)Anatomical Location / LateralityCollection Method / Volume Collection TimeReceived Time07/03/2025 12:45 PM EST07/03/2025 12:48 PM EST Narrative [facility] - 07/04/2025 4:08 AM EST Authorizing ProviderResult TypeResult StatusCorey Bishop CARRASCO BLOOD ORDERABLES Final ResultPerforming OrganizationAddressCity/State/ZIP CodePhone Number [facility] * AFP, SERUM, OPEN SPINA BIFIDA (07/03/2025 12:45 PM EST)ComponentValueRef Range Test MethodAnalysis TimePerformed AtPathologist SignatureRESULTSReport.TBHTEST RESULTS:*Screen Negative*.TBHGEST. AGE ON COLLECTION DATE20.6. weeksTBHGESTAT. AGE BASED ONUltrasound.TBHComment: ?17.1 on 06/09/2025 Recalculations are not recommended when gestational dating by LMP and ultrasound are within 10 days. MATERNAL AGE AT EDD21.2. yrTBHRACECaucasian.JUNFQCSTF146. lbsTBHINSULIN DEP DIABETESNo.TBHMULTIPLE GESTATIONNo.TBHAFP VALUE50.4. ng/mLTBHAFP MOM0.91.TBHOSBR RISK 1 [id number].TBHINTERPRETATIONComment.TBHComment: Interpretation: Screen Negative This result is screen negative for OSB. The AFP MoM calculated is based on the gestational age provided. MS-AFP can identify up to 80% of open neural tube defects. Closed neural tube defects and some open defects may not be detected by this test. This test does not screen for Down Syndrome or Trisomy 18. If screening for Down Syndrome or Trisomy 18 is desired, contact [facility] to discuss available options. ??The [place] [employer] recommends amniocentesis be offered to women age 35 and older. COMMENT:Comment.TBHComment: Dory Ravi, Ph.D., [facility] Director References: Available Upon Request. Multiples Of Median Cutoffs ?For AFP Elevations Connors ?? 2.5 ? Black ?2.8 IDD ? 2.0 ? Twins ?4.5 ?Abbreviation Definitions IDD - Insulin Dep Diabetes OSBR - Open Spina Bifida Risk For further inquiries contact [facility] at [phone]. This test was developed and its performance characteristics determined by [employer]. It has not been cleared or approved by the Food and Drug Administration. Performed at: ??[facility] [address] [place], [place] ??[id number] Sole Layer Hand: Chris Hassan [facility], Phone: ??[phone] Specimen (Source)Anatomical Location / LateralityCollection Method / Volume Collection TimeReceived Time07/03/2025 12:45 PM EST07/03/2025 12:48 PM EST Narrative [facility] - 07/04/2025 10:07 PM EST N N ULTRASOUND [id number] 1 17 N 1 Y 171 N N N N N White/ Authorizing ProviderResult TypeResult StatusAmy MichelleUniversity Hospitals [facility] BLOOD ORDERABLES Final ResultPerforming OrganizationAddressCity/State/ZIP CodePhone Number [facility]EST[facility] * HCV ANTIBODY RFX TO QUANT PCR (07/03/2025 12:45 PM EST)ComponentValueRef Range Test MethodAnalysis TimePerformed AtPathologist SignatureHCV ABNon ReactiveNon ReactiveTBHINTERPRETATION:Comment.TBHComment: Not infected with HCV unless early or acute infection is suspected (which may be delayed in an immunocompromised individual), or other evidence exists to indicate HCV infection. Specimen (Source)Anatomical Location / LateralityCollection Method / Volume Collection TimeReceived Time07/03/2025 12:45 PM EST07/03/2025 12:48 PM EST Narrative [facility] - 07/04/2025 6:08 AM EST Authorizing ProviderResult TypeResult StatusCoreraffaele Alas DOLAB BLOOD ORDERABLES Final ResultPerforming OrganizationAddressCity/State/ZIP CodePhone Number [facility] * MLR HEMOGLOBIN A1C (07/03/2025 12:45 PM EST)ComponentValueRef RangeTest Method Analysis TimePerformed AtPathologist SignatureGLYCOHEMOGLOBIN A1C5.04.5 - 6.2 %TBHComment: ADA RECOMMENDED LIMIT 4.0 - 6.0 ADA THERAPEUTIC TARGET < 7.0 ACTION SUGGESTED > 7.0 ESTIMATED AVERAGE BFJEDVH79qe/dLTBHSpecimen (Source)Anatomical Location / LateralityCollection Method / VolumeCollection TimeReceived Time07/03/2025 12:45 PM EST07/03/2025 12:48 PM EST Narrative [facility] - 07/03/2025 1:12 PM EST Authorizing ProviderResult TypeResult StatusCorey Bishop DOCLINISYNCFinal Result Performing OrganizationAddressty/State/ZIP CodePhone Number [facility] * ALL TYPE AND SCREEN (07/03/2025 12:45 PM EST)ComponentValueRef RangeTest MethodAnalysis TimePerformed AtPathologist SignatureBLOOD TYPEA PositiveTBH ANTIBODY SCREENNEGATIVETBHSpecimen (Source)Anatomical Location / Laterality Collection Method / VolumeCollection TimeReceived Time07/03/2025 12:45 PM EST 07/03/2025 12:48 PM EST Narrative CLINISYTN - 07/03/2025 2:18 PM EST [facility] , ?? Authorizing ProviderResult TypeResult StatusCorey Bishop DOCLINISYNCFinal Result Performing OrganizationAddressty/State/ZIP CodePhone Number [facility] * ALL RUBELLA IGG AB (07/03/2025 12:45 PM EST)ComponentValueRef RangeTest Method Analysis TimePerformed AtPathologist SignatureRUBELLA ANTIBODIES, IGG5.86 Immune >0.99 indexTBHComment: Non-immune <0.90 ?Equivocal ??0.90 - 0.99 Immune >0.99 Performed at: ?? - [facility] ??[id number] Sole Layer Hand: Burton Flores PhD, Phone: ??[phone] Specimen (Source)Anatomical Location / LateralityCollection Method / Volume Collection TimeReceived Time07/03/2025 12:45 PM EST07/03/2025 12:48 PM EST Narrative [facility]NC - 07/04/2025 6:08 AM EST Authorizing ProviderResult TypeResult StatusCorey Bishop DOCLINISYNCFinal Result Performing OrganizationAddressCity/State/ZIP CodePhone Number [facility] * (ABNORMAL) ALL CBC WITH AUTO DIFF (07/03/2025 12:45 PM EST)ComponentValueRef RangeTest MethodAnalysis TimePerformed AtPathologist SignatureTBH WBC10.44.0 - 11.0 10 3/uLTBHTBH RBC4.274.20 - 5.40 10 6/uLTBHTBH HGB12.612.0 - 16.0 g/dLTBH TBH HCT36.836.0 - 48.0 %TBHTBH MCV86.281.0 - 99.0 fLTBHTBH MCH29.526.7 - 34.0 pgTBHTBH MCHC34.229.9 - 35.2 g/dLTBHTBH RDW12.311.0 - 15.0 %TBHTBH DII263536 - 450 10 3/uLTBHTBH MPV9.79.5 - 13.5 fLTBHNEUTROPHILS PERCENT AUTO70.443.0 - 75.0 %TBHLYMPHOCYTES PERCENT AUTO21.420.5 - 60.0 %TBHMONOCYTES PERCENT AUTO6.3 1.7 - 12.0 %TBHTBH EO %1.10.9 - 7.0 %TBHBASOPHILS PERCENT AUTO0.30.2 - 2.0 % TBHIMMATURE GRANULOCYTES PCT AUTO0.50.0 - 0.5 %TBHNEUTROPHILS ABSOLUTE AUTO7.3 (H)1.4 - 6.5 10 3/uLTBHLYMPHOCYTES ABSOLUTE AUTO2.21.2 - 3.8 10 3/uLTBH MONOCYTES ABSOLUTE AUTO0.70.3 - 0.8 10 3/uLTBHTBH EO #0.10.0 - 0.7 10 3/uLTBH BASOPHILS ABSOLUTE AUTO0.00.0 - 0.1 10 3/uLTBHIMMATURE GRANULOCYTES ABS AUTO 0.05(H)0.00 - 0.03 10 3/uLTBHSpecimen (Source)Anatomical Location / Laterality Collection Method / VolumeCollection TimeReceived Time07/03/2025 12:45 PM EST 07/03/2025 12:48 PM EST Narrative [facility] - 07/03/2025 1:36 PM EST Authorizing ProviderResult TypeResult StatusCorey Bishop DOCLINISYNCFinal Result Performing OrganizationAddressCity/State/ZIP CodePhone Number [facility] * URINE CULTURE, ROUTINE (07/03/2025 12:33 PM EST)ComponentValueRef RangeTest MethodAnalysis TimePerformed AtPathologist SignatureURINE CULTURE, ROUTINE ??Urine Culture, Routine TBHURINE CULTURE, ROUTINEMixed urogenital floraTBHURINE CULTURE, ROUTINELess than 10,000 colonies/mLTBHURINE CULTURE, ROUTINEPerformed at: [facility] HospitalTBHURINE CULTURE, [id number] [place], [place] [id number] CULTURE, ROUTINELab Director: Burton Flores PhD, Phone: [phone] Specimen (Source)Anatomical Location / LateralityCollection Method / Volume Collection TimeReceived Time07/03/2025 12:33 PM EST07/03/2025 12:48 PM EST Narrative [place] - 07/05/2025 12:07 AM EST Authorizing ProviderResult TypeResult StatusCorey Bishop DOLAB BLOOD ORDERABLES Final ResultPerforming OrganizationAddressCity/State/ZIP CodePhone Number [facility] * TB DRUG SCREEN RAPID (URINE) (07/03/2025 12:33 PM EST)ComponentValueRef Range Test MethodAnalysis TimePerformed AtPathologist SignatureCANNABINOID SCREEN URINENEGATIVENEGATIVETBHPHENCYCLIDINE SCREEN URINENEGATIVENEGATIVETBHCOCAINE SCREEN URINENEGATIVENEGATIVETBHMETHAMPHETAMINES SCREEN URINENEGATIVENEGATIVE TBHOPIATE SCREEN URINENEGATIVENEGATIVETBHAMPHETAMINE SCREEN URINENEGATIVE NEGATIVETBHBENZODIAZEPINES SCREEN URINENEGATIVENEGATIVETBHTRICYCLIC ANTIDEPRESSANT URINENEGATIVENEGATIVETBHMETHADONE SCREEN URINENEGATIVENEGATIVE TBHBARBITURATES SCREEN URINENEGATIVENEGATIVETBHOXYCODONE SCREEN URINENEGATIVE NEGATIVETBHBUPRENORPHINE SCREEN URINENEGATIVENEGATIVETBHComment: DRUG CLASS TEST SYSTEM CUT-OFF CONCENTRATIONS ARE FOLLOWS: AMP (Amphetamine): 500 ng/mL BAR (Barbiturates): 200 ng/mL BZO (Benzodiazepines): 150 ng/mL BUP (Buprenorphine): 10 ng/mL ESTHER (Cocaine): 150 ng/mL mAMP (Methamphetamine): 500 ng/mL MTD (Methadone): 200 ng/mL OPI (Opiates): 100 ng/mL OXY (Oxycodone): 100 ng/mL PCP (Phencyclidine): 25 ng/mL THC (Cannabinoids): 50 ng/mL TCA (Trycyclic Antidepressants): 300 ng/mL Specimen (Source)Anatomical Location / LateralityCollection Method / Volume Collection TimeReceived Time07/03/2025 12:33 PM EST07/03/2025 12:48 PM EST Narrative [facility]IN[facility] - 07/03/2025 1:36 PM EST Authorizing ProviderResult TypeResult StatusCorey Bishop DOCLINISYNCFinal Result Performing OrganizationAddressCity/State/ZIP CodePhone Number [facility] * RECURRENT VAGINITIS (HTRX) (06/09/2025 11:50 AM EDT)ComponentValueRef Range Test MethodAnalysis TimePerformed AtPathologist SignatureATOPOBIUM VAGINAE0 19.961 - 24.689 ppm06/10/2025 6:52 AM EDTHealthTrackRx at LabPortATOPOBIUM VAGINAENot Bmnjgmxl77.961 - 24.689 ppm06/10/2025 6:52 AM EDTHealthTrackRx at LabPortBVAB 2,3 (BACTERIAL VAGINOSIS ASSOCIATED BACTERIA 2, 3); MOBILUNCUS SPP 019.961 - 24.689 ppm06/10/2025 6:52 AM EDTHealthTrackRx at LabPortBVAB 2,3 (BACTERIAL VAGINOSIS ASSOCIATED BACTERIA 2, 3); MOBILUNCUS SPPNot Detected 19.961 - 24.689 ppm06/10/2025 6:52 AM EDTHealthTrackRx at LabPortCANDIDA ALBICANS, PARAPSILOSIS, MJFGUVLHSY859.000 - 30.347 ppm06/10/2025 6:52 AM EDT [facility] at LabPortCANDIDA ALBICANS, PARAPSILOSIS, TROPICALISNot Detected 23.000 - 30.347 ppm06/10/2025 6:52 AM EDTHealthTrackRx at LabPortCANDIDA DAINVDRN608.000 - 31.618 ppm06/10/2025 6:52 AM EDTHealthTrackRx at [facility] CHRYSTAL GLABRATANot Tulsjaiw47.000 - 31.618 ppm06/10/2025 6:52 AM EDT [facility] HNLQGV415.000 - 30.873 ppm06/10/2025 6:52 AM EDTHealthTrackRx at [facility] HospitalCANDIDA KRUSEINot Hdxtvbee81.000 - 30.873 ppm 06/10/2025 6:52 AM EDTHealthTrackRx at [facility] HospitalCHLAMYDIA HRNCKUUNGJE357.000 - 31.586 ppm06/10/2025 6:52 AM EDTHealthTrackRx at [facility] HospitalCHLAMYDIA TRACHOMATIS Not Ptczhvis50.000 - 31.586 ppm06/10/2025 6:52 AM EDTHealthTrackRx at [facility] GARDNERELLA HOIBOTMEU672.961 - 24.689 ppm06/10/2025 6:52 AM EDTHealthTrackRx at [facility] HospitalGARDNERELLA VAGINALISNot Mjwulwjq21.961 - 24.689 ppm06/10/2025 6:52 AM EDTHealthTrackRx at [facility] HospitalMEGASPHAERA (TYPES 1, 2)019.961 - 24.689 ppm 06/10/2025 6:52 AM EDTHealthTrackRx at [facility] HospitalMEGASPHAERA (TYPES 1, 2)Not Miqsqblt03.961 - 24.689 ppm06/10/2025 6:52 AM EDTHealthTrackRx at [facility] NEISSERIA TEJWYVGADQT568.000 - 32.587 ppm06/10/2025 6:52 AM EDTHealthTrackRx at [facility] HospitalNEISSERIA GONORRHOEAENot Bewbxelv44.000 - 32.587 ppm06/10/2025 6:52 AM EDTHealthTrackRx at [facility] HospitalTRICHOMONAS CLEMOGMDB761.000 - 31.995 ppm 06/10/2025 6:52 AM EDTHealthTrackRx at [facility] HospitalTRICHOMONAS VAGINALISNot Weubngld68.000 - 31.995 ppm06/10/2025 6:52 AM EDTHealthTrackRx at [facility] MYCOPLASMA UDIEUUGDVR965.961 - 24.689 ppm06/10/2025 6:52 AM EDTHealthTrackRx at LabDeaconess HospitalMYCOPLASMA GENITALIUMNot Ntsudjwj75.961 - 24.689 ppm06/10/2025 6:52 AM EDTHealthTrackRx at LabDeaconess HospitalSpecimen (Source)Anatomical Location / LateralityCollection Method / VolumeCollection TimeReceived TimeTissue 06/09/2025 11:50 AM EDT1 1:38 AM EDT Narrative Authorizing ProviderResult TypeResult StatusAmy Michelle PAL BLOOD ORDERABLES Final ResultPerforming OrganizationAddressCity/State/ZIP CodePhone Number [facility] [address] [address] from Last 3 Months Insurance
[2025-08-11 10:51] LABS: Hematocrit 35.8 % (36.0-48.0); Hemoglobin 11.8 g/dL (12.0-16.0); Immature Granulocytes Abs Auto 0.06 10^3/uL (0.00-0.03); Immature Granulocytes Pct Auto 0.6 % (0.0-0.5); Lymphocytes Absolute Auto 2.2 10^3/uL (1.2-3.8); Mean Corpuscular HGB Conc 33.0 g/dL (29.9-35.2); Mean Corpuscular Hemoglobin 29.2 pg (26.7-34.0); Mean Corpuscular Volume 88.6 fL (81.0-99.0); Platelet Count 253 10^3/uL (150-450); Red Blood Count 4.04 10^6/uL (4.20-5.40); White Blood Count 10.5 10^3/uL (4.0-11.0)
[2025-08-11 11:37] LABS: Glucose 1 Hour 121 mg/dL (<130)
== END 2025-08-11 09:37 | disposition home or self-care (01) ==
LOC: LAB 09:37
PROVIDERS: PCP Nurse Practitioner Family; Visit Provider Obstetrics & Gynecology
DX: Z13.1 Encounter for screening for diabetes mellitus (principal)
CPT/HCPCS: 36415; 82950; 85025